=== PATIENT | male | born 1945 | race Caucasian/White ===

== ENCOUNTER 2016-09-25 12:03 | Inpatient (IN) | payer MEDICARE, OTHER ==
[~2016-09-25] VITALS: Ht 182.9 cm; Wt 137.4 kg
[~2016-09-25 12:03] MED LIST: ALTACE10 MG PO; ASPIRIN81 MG PO; CELEXA20 MG PO; HUMALOG KWIKPEN; HUMALOG MIX 75/23 ML; HUMALOG MIX 75/23 ML SC; HUMULIN R100 U/ML SC; HYDRALAZINE HCL50 MG PO; HYDROCODONE-APA1 TAB PO; K-DUR20 MEQ PO; LANTUS INSULIN10 ML SC; LASIX40 MG PO; LIPITOR40 MG PO; MYSOLINE 50 MG50 MG PO; NITROSTAT0.4 MG SL; NORVASC10 MG PO; PEPCID INJ20 MG/2 ML PO; PEPCID20 MG PO; PERCOCET 10/3251 TA1 PO; TIKOSYN500 MCG PO; ULTRAM50 MG PO; XANAX0.5 MG PO; XARELTO10 MG PO; XARELTO20 MG PO; ZOFRAN4 MG PO
[2016-09-25 12:42] LABS: BASOPHILS 0.4 % (0.0-2.0); EOSINOPHILS 1.5 % (0-7); HEMATOCRIT 33.1 % (42.0-54.0); HEMOGLOBIN 10.3 g/dL (13.5-17.5); IMMATURE GRANULOCYTES 0.2 % (0-5); LYMPHOCYTES 15.6 % (15-50); MCH 29.9 pg (26.0-34.0); MCHC 31.1 g/dL (31.0-37.0); MCV 96.2 fL (80.0-100.0); MEAN PLATELET VOLUME 9.9 fL (7.4-10.4); MONOCYTES 9.1 % (2-11); NEUTROPHILS 73.2 % (40-80); RBC 3.44 10x6/uL (4.20-6.10); RDW 15.7 % (11.5-14.5); WBC 8.5 10x3/uL (4.8-10.8)
[2016-09-25 12:44] LABS: PLATELET COUNT 252 10x3/uL (130-400)
--- NOTE | 2016-09-25 13:00 | NUR ---
ARRIVE TO ROOM VIA WHEELCHAIR FROM XRAY. DIRECT ADMIT FROM 'S OFFICE ACCOMPANIED BY SISTER. ALERT AND ORIENTED X4. PARTIAL ASSIST TO BED FROM WHEELCHAIR. GENERALIZED PITTING EDEMA. LOWER EXTREMITIES RED AND SWOLLEN BILATERALLY. O2 SAT 88% RA. INITIATE OXYGEN THERAPY AT 2L NC. REFUSE SCDs. RADIOLOGY ARRIVES TO ROOM FOR ECHO. CONTINUE PLAN OF CARE AND SAFETY PRECAUTIONS. CONTINUE ADMISSION PROCESS.
[2016-09-25 13:02] LABS: BILIRUBIN - TOTAL 0.6 mg/dL (0.2-1.3); CALCIUM 8.7 mg/dL (8.5-10.1); CARBON DIOXIDE 29.3 mmol/L (21.0-32.0); CREATININE - SERUM 1.4 mg/dL (0.6-1.3); POTASSIUM - SERUM 4.3 mmol/L (3.5-5.1); PROTEIN - SERUM 7.6 g/dL (6.4-8.2)
[2016-09-25] MEDS ORDERED: XARELTO20 MG PO (13:20)
[2016-09-25] MEDS ORDERED: LOPRESSOR25 MG PO (13:21)
[2016-09-25] MEDS ORDERED: BD ULTRA-FINE PEN ND (13:23)
[2016-09-25] MEDS ORDERED: PROAIR HFA8.5 GM INH (13:25)
[2016-09-25] MEDS ORDERED: VOLTAREN100 GM TOPICAL (13:26)
[2016-09-25] MEDS ORDERED: GLUCOPHAGE500 MG PO (13:27)
--- NOTE | 2016-09-25 15:00 | NUR ---
ALERT AND ORIENTED X4. SITTING UP IN BED. IV SITE LT FA 22G SUCCESSFUL X1 ATTEMPT. INITIALED AND DATED. PEREZ PLACED ORDERED 18FR. URINE CONCENTRATED. 300ML URINE OUT. BULB INFLATED 10mls. TUBING SECURED TO RT THIGH. BAG INITIALED AND DATED. INITIATE PAIN MANGAGEMENT. O2 SAT ON ROOM AIR 88%. INITIATE OXYGEN THERAPY. O2 @ 2L NC O2-SAT IMPROVE TO 98%. CONTINUE PLAN OF CARE. BED LOCKED AND LOW. CALL LIGHT IN REACH. TWO SIDERAILS UP.
[2016-09-25 16:00] VITALS: BP 171/55
[2016-09-25 17:51] VITALS: BP 170/89; BMI 41.2
[2016-09-25 22:18] VITALS: BP 138/66
[2016-09-26 01:42] VITALS: BP 136/63
--- NOTE | 2016-09-26 03:57 | NUR ---
NURSE ROUNDS 21:00 - PT LYING IN BED, HOB 40 DEGREES, PT AWAKE, ALERT, ORIENTED, C/O INCREASED SOB, NONEXERTIONAL. PT ALSO STATES HE IS HAVING BILATERAL LE PAIN R/T HIS RASH. DENIES ANY ACUTE NEEDS. CONTINUE TO MONITOR CLOSELY.
[2016-09-26 05:25] LABS: BASOPHILS 0.5 % (0.0-2.0); EOSINOPHILS 4.4 % (0-7); HEMATOCRIT 28.7 % (42.0-54.0); HEMOGLOBIN 8.9 g/dL (13.5-17.5); IMMATURE GRANULOCYTES 0.3 % (0-5); MCH 29.6 pg (26.0-34.0); MCV 95.3 fL (80.0-100.0); MEAN PLATELET VOLUME 10.3 fL (7.4-10.4); MONOCYTES 12.8 % (2-11); PLATELET COUNT 224 10x3/uL (130-400); RBC 3.01 10x6/uL (4.20-6.10); RDW 15.5 % (11.5-14.5)
[2016-09-26 05:40] LABS: ANION GAP 10.1 mmol/L (8-16); CALCIUM 8.2 mg/dL (8.5-10.1); CARBON DIOXIDE 30.4 mmol/L (21.0-32.0); CREATININE - SERUM 1.4 mg/dL (0.6-1.3)
[2016-09-26 05:46] LABS: POTASSIUM - SERUM 3.5 mmol/L (3.5-5.1)
[2016-09-26 05:48] VITALS: BP 153/63
[2016-09-26 07:45] VITALS: BP 125/61
[2016-09-26 12:20] VITALS: BP 139/65
[2016-09-26 15:00] VITALS: Ht 182.9 cm; Wt 137.4 kg
[2016-09-26 15:43] VITALS: BP 135/58
--- NOTE | 2016-09-26 17:00 | NUR ---
Patient Name: MICHAEL ERNANDEZ Admission Status: Elective Accout number: [id number] Admission Date: 09-25-2016 : 1945 Admission Diagnosis: Attending: KERRY Current LOS: 1 Anticipated DC Date: Planned Disposition: Home Primary Insurance: MEDICARE A & B Discharge Planning Comments: * Is the patient Alert and Oriented? Yes 0 * How many steps to enter\exit or inside your home? NONE 0 * PCP DR. PALACIOS 0 * Pharmacy [facility] 0 * Preadmission Environment Home Alone 0 * ADLs Independent 0 * Equipment Cane Other 0 * Other Equipment LIFT CHAIR [facility] - MEDICAL EQUIPMENT PROVIDER 0 * List name and contact numbers for known caregivers / representatives who currently or will assist patient after discharge: PAULINE ROSSI, SISTER, 0 * Community resources currently utilized None 0 * Please name any agencies selected above. NONE 0 * Additional services required to return to the preadmission environment? No 0 * Can the patient safely return to the preadmission environment? Yes 0 * Has this patient been hospitalized within the prior 30 days at any hospital? No 0 CM MET WITH PT IN ROOM TO DISCUSS DISCHARGE PLANNING AND NEEDS. PT REPORTS LIVING AT HOME INDEPENDENTLY AND ALONE. PT HAS A CANE AND LIFT CHAIR, PROVIDER OF CHOICE IS [facility]. PT HAS NO OUTSIDE SERVICES ASSISTING IN THE HOME. CM DISCUSSED AVAILABILITY OF HOME HEALTH, REHAB SERVICES AND MEDICAL EQUIPMENT. PT DENIES DISCHARGE NEEDS, REPORTS HIS SISTER AND BROTHER IN LAW WILL ASSIST AT [facility] IF NEEDED AND HIS SISTER WILL PICK HIM UP FOR DISCHARGE HOME. PT PLANS TO DISCHARGE HOME ALONE, DENIES DISCHARGE NEEDS. CM TO FOLLOW AND ASSIST NEEDED. Tube Backer: Serjio Marx
--- NOTE | 2016-09-26 17:50 | NUR ---
ALERT AND ORIENTED X4. RESTING IN BED. SOB DUE TO CHF. OXYGEN THERAPY CONTINUED. MULTIFOCAL PVCs 63bpm ON TELEMETRY. PAIN TOLERATED. TAKES XARELTO. NO SCDs. CONTINUE PLAN OF CARE. BED LOCKED AND LOW. CALL LIGHT IN REACH. TWO SIDERAILS UP.
[2016-09-26 20:03] VITALS: BP 119/56
[2016-09-27 01:14] VITALS: BP 121/44
[2016-09-27 04:00] VITALS: BP 119/47
--- NOTE | 2016-09-27 05:36 | NUR ---
NURSE ROUNDS 20:30 - PT AWAKE, ALERT, ORIENTED, HOB 40 DEGREES. PT DENIES ANY NEEDS, AND IS NO ACUTE DISTRESS. CONTINUE TO MONITOR CLOSELY.
[2016-09-27 05:49] LABS: BASOPHILS 0.6 % (0.0-2.0); EOSINOPHILS 6.8 % (0-7); HEMATOCRIT 28.9 % (42.0-54.0); HEMOGLOBIN 8.8 g/dL (13.5-17.5); IMMATURE GRANULOCYTES 0.1 % (0-5); LYMPHOCYTES 22.8 % (15-50); MCH 29.3 pg (26.0-34.0); MCHC 30.4 g/dL (31.0-37.0); MCV 96.3 fL (80.0-100.0); MEAN PLATELET VOLUME 10.1 fL (7.4-10.4); MONOCYTES 10.2 % (2-11); NEUTROPHILS 59.5 % (40-80); PLATELET COUNT 203 10x3/uL (130-400); RDW 15.7 % (11.5-14.5); WBC 7.1 10x3/uL (4.8-10.8)
[2016-09-27 06:27] LABS: ANION GAP 10.6 mmol/L (8-16); CALCIUM 8.2 mg/dL (8.5-10.1); CARBON DIOXIDE 30.1 mmol/L (21.0-32.0); CREATININE - SERUM 1.4 mg/dL (0.6-1.3); POTASSIUM - SERUM 3.7 mmol/L (3.5-5.1)
--- NOTE | 2016-09-27 06:50 | NUR ---
PT LYING IN BED, EYES CLOSED, RESPIRATIONS EVEN AND UNLABORED. PT EASILY ROUSABLE TO VERBAL STIMULI. DENIES ANY NEEDS AT THIS TIME. I DID PT A PK OF JIGAR ELAM. CONTINUE TO MONITOR CLOSELY.
[2016-09-27 07:50] VITALS: BP 139/71
[2016-09-27 11:59] VITALS: BP 135/54
--- NOTE | 2016-09-27 13:06 | NUR ---
Nutrition follow-up: Diet: ADA consistent CHO, low sodium PO intake 100% of meals Labs reviewed FSBS running high Wt: 302# PO intake is good at this time RDN following.
--- NOTE | 2016-09-27 13:16 | EC ---
PATIENT:MICHAEL ERNANDEZ DATE OF SERVICE: 09/25/16 SEX: M MEDICAL RECORD: [id number] DATE OF : [birth year] LOCATION:D. D.211 AGE OF PATIENT: 71 ADMISSION DATE: 09/25/16 REFERRING PHYSICIAN: INTERPRETING PHYSICIAN: LISBET REHMAN M.D. ECHOCARDIOGRAM REPORT ECHO CHARGES 4 ECHO COMPLETE CLINICAL DIAGNOSIS: CHF EXACERBATION ECHOCARDIOGRAPHIC MEASUREMENTS (adult normal given) AC root (d.<3.7cm) 4.4 LV Septum d (<1.2 cm> 1.9 Valve Excursion 2.6 LV Septum (systole) 2.5 Left Atria (s.<4.0cm> 4.4 LVPW d(<1.2cm) 1.1 RV (d.<2.3cm) 2.8 LVPW (sytole) 1.3 LV diastole(<5.6CM) 6.3 MV E-F(>70mm/sec) LV systole 5.1 LVOT Diameter 2.4 MV exc.(>10mm) Est.ejection fraction (50-75%) Pericardial Effusion N DOPPLER: LVIT A 27.0 E 88.0 LA RVSP 65.0 LVOT 118 AOP1/2T Asc. Ao 130 RVOT 42.0 RA PA 73.0 AV Gradient Peak 6.7 AV Mean 3.4 AV Area 3.0 MV Gradient Peak 3.6 MV Mean 1.1 MV Area COMMENTS: Dental Financial Coordinator: Kaitlin FOOTEOE Sec Accountant:Mario Rehman TAPE# PACS DATE OF SERVICE: 09/25/2016 REFERRING PHYSICIAN: Dr. Daniel. INDICATION: CHF. DESCRIPTION: Left ventricle is moderately dilated. There is global hypokinesis noted. Estimated ejection fraction is in the order of 25% to 30%. Mitral valve is structurally normal. There is mild regurgitation seen. Left atrium is mildly dilated. The aortic valve appears trileaflet. There is no stenosis or ECHOCARDIOGRAM REPORT [id number] [facility] ERNAN[facility] regurgitation seen. Leaflets are thickened. Right ventricle is mildly dilated. Tricuspid valve structures is normal. There is mild regurgitation noted. Right ventricular systolic pressure is elevated at 65 mmHg. There is no pericardial effusion noted. IMPRESSION: 1. Markedly dilated left ventricle with moderate to severe left ventricular dysfunction with ejection fraction of 25% to 30%. 2. Moderate mitral regurgitation. 3. Moderate tricuspid regurgitation with elevated pulmonary pressures. TRANSINT:[id number] Voice Confirmation ID: [id number] DOCUMENT ID: [id number] LISBET REHMAN M.D. at 1316 CC: [id number] DICTATION DATE: 09/27/16818 VICE PRESIDENT DIGITAL STRATEGIST: 09/27/16 0921 ADM IN [place] [id number] [place] [id number]
[2016-09-27 16:44] VITALS: BP 137/63
[2016-09-27 20:20] VITALS: BP 143/65
[2016-09-28 01:10] VITALS: BP 139/76
--- NOTE | 2016-09-28 02:44 | NUR ---
NURSE ROUNDS 20:00 - PT AWAKE, ALERT, ORIENTED, STILL C/O NONEXERTIONAL DYSPNEA, HOB 30 DEGREES. PT HAS QUESTIONS REGARDING HIS MEDICATIONS, IN WHICH I WILL ADDRESS THE FOLLOWING WITH THE DAY SHIFT NURSE AND DR. PALACIOS: INSULIN S/S NEEDS TO BE CHANGED TO HIGH RESISTANCE PER PT PT TAKES OXYCODONE FOR CHRONIC PAIN REGULARLY AND STATES THE PRN TRAMADOL BID IS NOT HELPING PT IS UNABLE TO SLEEP R/T INCREASED PAIN AND DISCOMFORT IN HIS RIGHT SHOULDER AND BLE WE ARE USING PTS LANTUS INSULIN PENS FROM HOME R/T THE PEN PROVIDED BY PHARMACY BROKE WHILE ADMINISTERING PTS LANTUS AND THE ORDER NEEDS TO BE CHANGED IN THE COMPUTER TO PTS OWN MED WILL CONTINUE TO MONITOR PT CLOSELY. BED LOW, HOB 30 DEGREES, CALL LIGHT IN REACH, SIDE RAILS X 2.
[2016-09-28 05:14] VITALS: BP 148/73
[2016-09-28 05:25] LABS: BASOPHILS 0.3 % (0.0-2.0); EOSINOPHILS 5.4 % (0-7); HEMATOCRIT 29.5 % (42.0-54.0); HEMOGLOBIN 8.7 g/dL (13.5-17.5); IMMATURE GRANULOCYTES 0.3 % (0-5); LYMPHOCYTES 15.5 % (15-50); MCH 28.8 pg (26.0-34.0); MCHC 29.5 g/dL (31.0-37.0); MCV 97.7 fL (80.0-100.0); MEAN PLATELET VOLUME 10.3 fL (7.4-10.4); MONOCYTES 10.5 % (2-11); PLATELET COUNT 216 10x3/uL (130-400); RBC 3.02 10x6/uL (4.20-6.10); RDW 15.6 % (11.5-14.5); WBC 7.9 10x3/uL (4.8-10.8)
[2016-09-28 05:45] LABS: ANION GAP 9.2 mmol/L (8-16); CALCIUM 8.2 mg/dL (8.5-10.1); CARBON DIOXIDE 31.7 mmol/L (21.0-32.0); CREATININE - SERUM 1.5 mg/dL (0.6-1.3); POTASSIUM - SERUM 3.9 mmol/L (3.5-5.1)
--- NOTE | 2016-09-28 05:48 | NUR ---
1 UNIT PRBC'S STARTED ORDERED. V/S STABLE. CONTINUE TO MONITOR CLOSELY.
[2016-09-28 08:37] VITALS: BP 129/49
--- NOTE | 2016-09-28 10:00 | NUR ---
PATIENT'S PRBC'S ARE COMPLETE AND THE TUBING IS REMOVED, SALINE FLUSHED THE IV ACCESS AND IT IS PATENT. HE TOOK HIS MEDICATIONS WITHOUT DIFFICULTY. HORTICULTURE PROFESSOR IN THE ROOM AND DISCUSSING PT, REHAB ADMISSION. HE STATES THAT HE WOULD BE WILLING TO HAVE INPT REHAB BUT IS RELUCTANT TO ENTER SKILLED FACILITY. ENCOURAGED HIM TO WORK HARD AND DO HIS BEST. HE DOES LIVE AT HOME ALONE.
--- NOTE | 2016-09-28 10:58 | NUR ---
Patient Name: MICHAEL ERNANDEZ Encounter No: [id number] : 1945 Primary Insurance: MEDICARE A & B Anticipated DC Date: Planned Disposition: INPATIENT REHAB External Planned Provider: [facility] DCP follow-up note: CM RECEIVED ORDER FOR INPATIENT / SNF REHAB; CM MET WITH PT IN ROOM TO DISCUSS DISCHARGE NEEDS AND PLANNING. CM DISCUSSED AVAILABILITY OF HOME HEALTH, REHAB SERVICES AND MEDICAL EQUIPMENT. PT HAS BEEN TO INPATIENT REHAB AT [place] IN THE PAST AND WANTS TO RETURN THERE. PT WILL NOT CONSIDER [facility] FOR REHAB. CM ENCOURAGED PT TO CONSIDER ALL OPTIONS IN CASE HE IS UNABLE TO PARTICIPATE FULLY IN INPATIENT REHAB OR DOES NOT QUALIFY FOR SOME REASON. PT CONTINUES TO REFUSE TO CONSIDER [facility] FOR [facility], REPORTS HE WILL NEED OXYGEN ARRANGED FOR DISCHARGE HOME. CM LEFT PT WITH [facility] LISTING, ENCOURAGED PT TO CONSIDER HIS OPTIONS, SPEAK TO FAMILY OR FRIENDS AND HAVE AT LEAST AN IDEA OF PLAN B JUST IN CASE IT IS NEEDED. IMPORTANT MESSAGE FROM MEDICARE PROVIDED AND EXPLAINED. CM WAITING INPATIENT REHAB PRESCREENING AND DETERMINATION FROM [facility]. Serjio Marx, CASE MANAGEMENT
[2016-09-28 12:29] VITALS: BP 142/66
--- NOTE | 2016-09-28 13:10 | NUR ---
Rehab Note- Rehab Prescreen Order received. The patient appears to be a good IRF candidate when the physician feels he is ready for discharge from acute hospital. Will follow the patient at this time and plan for admit to IRF when ready. Thank you for this referral! Latrice Johns RN Clinical Liaison, [facility]
--- NOTE | 2016-09-28 13:21 | CN ---
PATIENT NAME:MICHAEL ERNANDEZ MEDICAL RECORD: [id number] : [birth year] LOCATION:D.[facility] D.2111 ADMIT DATE: 09/25/16 ACCOUNT: [id number] CONSULTING PHYSICIAN: FRANCESCA CAMEJO MD REFERRING PHYSICIAN: ALISON PALACIOS MD DATE OF CONSULTATION: 09/28/2016 HISTORY OF PRESENT ILLNESS: A 71-year-old gentleman with known history of coronary artery disease, status post coronary artery bypass grafting. He has a history of hypertension as well as diabetes mellitus, obesity, has been unable to use CPAP, admitted with cellulitis as well as anemia, feeling better post-transfusion on IV antibiotics. Echocardiographic study showed EF of 25%-30%. We are asked to see him concerning his cardiovascular status. PAST MEDICAL HISTORY: Includes: 1. History of diabetes mellitus. 2. Coronary artery disease. 3. Ischemic cardiomyopathy. 4. Dyslipidemia. 5. Obesity. MEDICATIONS: Typically include metformin 500 b.i.d., insulin per scale, Lasix 40 b.i.d., Ultram 50 q.i.d. p.r.n., Percocet 10/325 one q.4 p.r.n., Voltaren gel apply t.i.d., aspirin 81 daily, Altace 10 mg b.i.d., metoprolol 25 b.i.d., hydralazine 50 b.i.d., atorvastatin 40 q.h.s., Xarelto 20 daily. ALLERGIES: REGLAN AND CODEINE. SOCIAL HISTORY: He is a nonsmoker, nondrinker. Does use a lift chair, has problems with ADLs. REVIEW OF SYSTEMS: The patient reports easy bruising but reports no swollen glands. The patient reports no fever, no night sweats, no significant weight gain, no significant weight loss. No significant exercise tolerance. The patient reports no dry eyes, no irritation, no vision change. Patient reports no difficulty hearing and no ear pain. Patient reports no frequent nose bleeds or nose and sinus problems. Patient reports on arm pain on exertion. No shortness of breath while lying down. No history of heart murmur. Patient reports no cough, no wheezing or coughing up blood. Patient reports no abdominal pain, no vomiting. Normal appetite. No diarrhea and not vomiting blood. No nausea and no constipation. Patient reports no incontinence. No difficulty urinating. No hematuria. No increased frequency. Patient reports no muscle aches. No weakness, no arthralgias, no back pain. No swelling of the extremities. Patient reports no abnormal mole, no jaundice, no rashes. Reports no loss of consciousness. No weakness and no numbness. No seizures, dizziness, or headaches. The patient reports no depression, no sleep disturbance, feeling safe in a relationship and no alcohol abuse. Patient reports on fatigue. Reports no runny nose or sinus pressure. No itching, no hives, and no frequent sneezing. PHYSICAL EXAMINATION: GENERAL: Pleasant gentleman, alert and oriented. VITAL SIGNS: Blood pressure 129/49, pulse 60 with occasional extrasystole. HEENT: Normocephalic, atraumatic. NECK: No JVD or bruits. CONSULT REPORT [id number] [facility] ERNAN[facility] HEART: Regular, occasional extrasystole, II/ systolic ejection murmur. LUNGS: Diminished air excursion. ABDOMEN: Soft, nontender. EXTREMITIES: Pulses are 2+, improving erythema by nurse's report. NEUROLOGIC: Grossly intact. DIAGNOSTIC DATA: ECG shows PVCs, appropriate compensatory physiologic pulse. IMPRESSION: Cardiomyopathy exacerbation, multifactorial, related to infection as well as component of high output with anemia, currently on beta-mely, CHRISTY inhibitor, potassium is reasonable at 3.9, so I will Aldactone to the current regime as well. Further recommendations based on clinical course. TRANSINT:[id number] Voice Confirmation ID: [id number] DOCUMENT ID: [id number] FRANCESCA CAMEJO MD at 1321 CC: [id number] DICTATION DATE: 09/28/1645 MAGNETIC OBSERVER: 09/28/16 0957 ADM IN [facility] [address] [place] [address]
--- NOTE | 2016-09-28 14:42 | NUR ---
PATIENT HAS BEEN OUT WALKING INTO THE LUEVANO WITH PT.
[2016-09-28 16:42] VITALS: BP 127/61
--- NOTE | 2016-09-28 19:53 | NUR ---
DEPARTMENT STORE DOOR GREETER AT BEDSIDE TO OBTAIN VITALS, CALL LIGHT IN REACH. WILL CONTINUE WITH PLAN OF CARE.
[2016-09-28 20:00] VITALS: BP 131/50
[2016-09-29 02:01] VITALS: BP 118/51
--- NOTE | 2016-09-29 03:20 | NUR ---
PT ASKED PRIOR FOR PERCOCET. ENTERED ROOM TO ADMINISTER, PT SLEEPING
[2016-09-29 04:45] LABS: BASOPHILS 0.1 % (0.0-2.0); EOSINOPHILS 5.1 % (0-7); HEMOGLOBIN 9.7 g/dL (13.5-17.5); IMMATURE GRANULOCYTES 0.2 % (0-5); LYMPHOCYTES 16.6 % (15-50); MCH 29.2 pg (26.0-34.0); MCHC 30.3 g/dL (31.0-37.0); MCV 96.4 fL (80.0-100.0); MEAN PLATELET VOLUME 10.1 fL (7.4-10.4); MONOCYTES 8.8 % (2-11); NEUTROPHILS 69.2 % (40-80); PLATELET COUNT 208 10x3/uL (130-400); RBC 3.32 10x6/uL (4.20-6.10); RDW 15.8 % (11.5-14.5); WBC 8.5 10x3/uL (4.8-10.8)
--- NOTE | 2016-09-29 04:57 | NUR ---
PT AWAKE NOW. MAKING NO MENTION OF PERCOCET
[2016-09-29 05:11] LABS: ANION GAP 11.4 mmol/L (8-16); CALCIUM 8.3 mg/dL (8.5-10.1); CARBON DIOXIDE 29.7 mmol/L (21.0-32.0); CREATININE - SERUM 1.4 mg/dL (0.6-1.3); POTASSIUM - SERUM 4.1 mmol/L (3.5-5.1)
[2016-09-29] MEDS ORDERED: ALBUTEROL0.63 MG/3 INH (07:28)
[2016-09-29] MEDS ORDERED: HUMALOG 30100 UNITS/ SC (07:30)
[2016-09-29] MEDS ORDERED: LAC-HYDRIN 5226 ML TOPICAL (07:30)
[2016-09-29] MEDS ORDERED: BACTRIM DS TABL1 TAB PO (07:33)
[2016-09-29] MEDS ORDERED: ALDACTONE25 MG PO (07:44)
[2016-09-29 08:00] VITALS: BP 140/52
--- NOTE | 2016-09-29 08:24 | NUR ---
0730-AM ROUNDING MADE WITH NO COMPLAINTS AT PRESENT TIME. ON 2L PER NC. ON HEART MONITOR SHOWING SR, OCC PVC, HR 79. WILL CONTINUE TO MONITOR.
[2016-09-29 12:00] VITALS: BP 169/74
--- NOTE | 2016-09-29 12:50 | NUR ---
Patient Name: MICHAEL ERNANDEZ Encounter No: [id number] : 1945 Primary Insurance: MEDICARE A & B Anticipated DC Date: 09-29-2016 Planned Disposition: Inpatient Rehab External Planned Provider: [facility] DCP follow-up note: CM SPOKE TO RN NOHEMI VIRAMONTES WHO INFORMED CM THAT [facility] PLANS TO ACCEPT PT FOR REHAB. PT NOTIFIED, IN AGREEMENT WITH DISCHARGE TO INPATIENT REHAB. PT REPORTS HE IS HAVING A BAD DAY AND NOT FEELING WELL. [facility] INPATIENT REH[facility] TO CONTACT MED 2 NURSE WITH ROOM NUMBER WHEN READY TO ACCEPT PT AND NURSE REPORT. Serjio Marx, CASE MANAGEMENT
--- NOTE | 2016-09-29 13:29 | NUR ---
PT IS ALERT. RECEIVED PT REPORT AT THIS TIME. WILL CONTINUE TO ONITOR. NO OTHER NEEDS.
--- NOTE | 2016-09-29 13:51 | NUR ---
RECEIVED PT REPORT. NO OTHER NEEDS. WILL CONTINUE PLAN OF CARE.
== END 2016-09-29 16:13 | DRG 292 ==
LOC: D.M2 12:03
PROVIDERS: ADMIT Family Medicine
PROC: 0T9B70Z Drainage of Bladder with Drainage Device, Via Natural or Artificial Opening (ICD-10-PCS; principal; 2016-09-25)
DX: I11.0 Hypertensive heart disease with heart failure (principal); Z68.41 Body mass index [BMI] 40.0-44.9, adult; L03.119 Cellulitis of unspecified part of limb; I50.21 Acute systolic (congestive) heart failure; I48.91 Unspecified atrial fibrillation; E11.9 Type 2 diabetes mellitus without complications; Z79.4 Long term (current) use of insulin; I25.10 Atherosclerotic heart disease of native coronary artery without angina pectoris; E66.01 Morbid (severe) obesity due to excess calories; D63.8 Anemia in other chronic diseases classified elsewhere; I25.5 Ischemic cardiomyopathy; R21 Rash and other nonspecific skin eruption; Z95.5 Presence of coronary angioplasty implant and graft; Z95.1 Presence of aortocoronary bypass graft

== ENCOUNTER 2016-09-29 15:10 | Inpatient (IN) | payer MEDICARE, OTHER ==
[~2016-09-29] VITALS: Ht 182.9 cm; Wt 119.7 kg
[~2016-09-29 15:10] MED LIST changes: +ALBUTEROL0.63 MG/3 INH; +ALDACTONE25 MG PO; +BACTRIM DS TABL1 TAB PO; +BD ULTRA-FINE PEN ND; +GLUCOPHAGE500 MG PO; +HUMALOG 30100 UNITS/ SC; +LAC-HYDRIN 5226 ML TOPICAL; +LOPRESSOR25 MG PO; +PROAIR HFA8.5 GM INH; +VOLTAREN100 GM TOPICAL
[2016-09-29 16:51] VITALS: BP 152/49
--- NOTE | 2016-09-29 19:44 | NUR ---
PT IN BED TALKING ON PHONE. HELP GIVEN FILLING OUT MENU. NO OTHER NEEDS MADE KNOWN. CALL LIGHT IN REACH. WILL CONTINUE TO OBSERVE.
--- NOTE | 2016-09-29 22:52 | NUR ---
PT IN BED WITH EYES OPEN WATCHING TV. COMPLAINS OF PAIN WITH PRN MEDICATION GIVEN. NO OTHER CONCERN MADE KNOWN AT THIS TIME. WILL CONTINUE TO OBSERVE. CALL LIGHT AND WATER IN REACH.
[2016-09-29 23:45] VITALS: BP 161/53
--- NOTE | 2016-09-30 01:03 | NUR ---
PT IN BED WITH EYES CLOSED AND CHEST RISING. CPAP MASK APPLIED BY PATIENT. NO SIGN/SYMPTOMS OF PAIN OR DISTRESS NOTED. WATER AND CALL LIGHT IN REACH. WILL CONTINUE TO OBSERVE.
--- NOTE | 2016-09-30 03:39 | NUR ---
PT IN BED WITH EYES CLOSED AND CHEST RISING AT THIS TIME. AT 0300 PT REQUEST PAD BE FLATTENED AND WAS. HE ALSO STATES DIFFICULTY BREATHING WITH HEAD OF BED RAISED AND O2 SAT 99% WITH O2 AT 2LPM. PT STATES HE FELT MORE COMFORTABLE PRIOR TO LEAVING ROOM. NO SIGNS/SYMPTOMS OF DISTRESS NOTED AT THIS TIME. WATER AND CALL LIGHT IN REACH. WILL CONTINUE TO OBSERVE.
[2016-09-30 06:14] LABS: BASOPHILS 0.4 % (0.0-2.0); HEMATOCRIT 30.9 % (42.0-54.0); HEMOGLOBIN 9.4 g/dL (13.5-17.5); IMMATURE GRANULOCYTES 0.3 % (0-5); LYMPHOCYTES 19.9 % (15-50); MCH 29.2 pg (26.0-34.0); MCHC 30.4 g/dL (31.0-37.0); MEAN PLATELET VOLUME 10.2 fL (7.4-10.4); MONOCYTES 11.7 % (2-11); NEUTROPHILS 61.7 % (40-80); PLATELET COUNT 199 10x3/uL (130-400); RBC 3.22 10x6/uL (4.20-6.10); RDW 15.7 % (11.5-14.5); WBC 7.1 10x3/uL (4.8-10.8)
[2016-09-30 06:26] LABS: ANION GAP 9.3 mmol/L (8-16); CALCIUM 8.5 mg/dL (8.5-10.1); CARBON DIOXIDE 30.8 mmol/L (21.0-32.0); CREATININE - SERUM 1.3 mg/dL (0.6-1.3); POTASSIUM - SERUM 4.1 mmol/L (3.5-5.1)
--- NOTE | 2016-09-30 06:43 | NUR ---
PT IN BED WITH EYES OPEN WATCHING TV. NO COMPLAINS OR CONCERNS NOTED AT THIS TIME. CALL LIGHT IN REACH.
--- NOTE | 2016-09-30 07:00 | NUR ---
Pt. was received in bed at the beginning of this shift. Awake and oriented x 3. Pt. denies any pain or discomfort. No signs of any distress found. Stable condition observed. Vital signs:temp.98.7, pulse 74, resp. 16, b/p 128/54, 02Sat. 98%. Rt. shoulder and arm reserved. Becerril catheter is patent and draining yellow urine into drainage bag system. 02per nc going at 2L/min. Will be monitoring and assisting prn with adl's. Call light is in reach.
[2016-09-30 09:57] VITALS: Ht 182.9 cm; Wt 119.7 kg
[2016-09-30 10:08] VITALS: BP 128/54
--- NOTE | 2016-09-30 17:49 | NUR ---
Pt. has had an uneventful day today. He was showered this morning by OT. IV left forearm is patent. Becerril catheter continues to be patent. 02 per nc going at 2L/min. Blood sugar levels monitored as scheduled. Call light is in reach. Resting in bed watching tv.
--- NOTE | 2016-09-30 19:32 | NUR ---
PT RESTING IN BED WATCHING TV, FAMILY AT BEDSIDE, DENIES NEEDS AT THIS TIME. BED LOW. CLIN REACH.
[2016-09-30 19:35] VITALS: BP 143/69
--- NOTE | 2016-09-30 21:32 | NUR ---
PT HS MEDS GIVEN. LOTION APPLIED TO BILAT LEGS AND VOLTAREN APPLIED TO RT HAND. PT FSBS OF 251 REQUIRED 10UNITS OF HUM BE GIVEN ALONG WITH LANTUS. PT DENIES FURTHUR NEEDS AT THIS TIME. BED LOW. CL IN REACH.
--- NOTE | 2016-10-01 01:18 | NUR ---
PT RESTING, EYES CLOSED. BED LOW. CL IN REACH. WCTM.
--- NOTE | 2016-10-01 03:15 | NUR ---
PT REQ AND REC'D PRN PAIN MED. WCTM. BED LOW. CL IN REACH.
--- NOTE | 2016-10-01 06:44 | NUR ---
PT RESTING, EYES CLOSED. BED LOW. CL IN REACH.
--- NOTE | 2016-10-01 08:04 | NUR ---
PATIENT LYING IN BED FOR BREAKFAST. BOOSTED UP IN BED TO EAT. ALERT/ORIENT X4. CALL LIGHT WITHIN REACH. VOICES NO NEEDS AT THIS TIME.
--- NOTE | 2016-10-01 10:54 | NUR ---
PATIENT GIVEN BED BATH. TOLTAL ASST OF TWO. PATIENT ABLE TO WASH FACE. NURSE HAD TO WASH REST OF PATIENTS BODY. PEREZ CATH CARE GIVEN. LINENS CHANGED ON BED.
--- NOTE | 2016-10-01 11:40 | NUR ---
GLUCOSE LEVEL 175. FOUR UNITS OF SLIDING SCALE INSULIN GIVEN
--- NOTE | 2016-10-01 13:59 | NUR ---
PATIENT SLIDE DOWN IN BED. ASST OF TWO TO PULL PATIENT BACK UP IN BED.
--- NOTE | 2016-10-01 15:59 | NUR ---
PATIENT ENCOURAGED TO DRINK MORE FLUIDS. PEREZ CATH PATENT. DRAINING DARK SARY URINE.
--- NOTE | 2016-10-01 17:00 | NUR ---
WATCHING TV.DENIES NEEDS.
[2016-10-01 19:20] VITALS: BP 135/46
--- NOTE | 2016-10-01 19:28 | NUR ---
PT IS RESTING IN BED WATCHING TV. ALERT AND ORIENTED X 4. DENIES ACUTE PAIN OR DISCOMFORT AT THIS TIME. VSS. NO SOB NOTED. O2 IS ON @ 2LPM PER NC. PEREZ CATH IS PATENT AND DRAINING TO A GRAVITY BAG. RIGHT HAND IS ELEVATED UP ON A PILLOW. LEFT FOREARM SALINE LOCK NOTED. SR'S ARE UP X 3 IN BED. CALL LIGHT AND BEDSIDE TABLE ARE WITHIN EASY REACH.
--- NOTE | 2016-10-01 21:56 | NUR ---
PT. IN BED WITH HOB UP FOR COMFORT WATCHING TV. PT. DENIES ANY NEEDS AT THIS TIME AND HAS HIS CALL LIGHT WITHIN REACH. ANA TO BSD WITHOUT PROBLEMS, AND PT. IS WEARING HIS O2 AT 2L/MIN VIA N/C.
--- NOTE | 2016-10-02 00:09 | NUR ---
PT RESTING IN BED DOING A UPDRAFT TX. NO ACUTE DISTRESS NOTED.
--- NOTE | 2016-10-02 03:01 | NUR ---
PT RESTING QUIETLY IN BED WITH EYES CLOSED.
--- NOTE | 2016-10-02 06:02 | NUR ---
PT IS RESTING QUIETLY IN BED WITH EYES CLOSED. AWOKE EASILY TO VERBAL STIMULI. TOLERATED AM MED WITHOUT DIFFICULTY.
[2016-10-02 06:47] LABS: CALCIUM 8.8 mg/dL (8.5-10.1); CREATININE - SERUM 1.3 mg/dL (0.6-1.3)
[2016-10-02 06:52] LABS: ANION GAP 11.8 mmol/L (8-16); POTASSIUM - SERUM 4.8 mmol/L (3.5-5.1)
[2016-10-02 07:23] LABS: BASOPHILS 0.5 % (0.0-2.0); EOSINOPHILS 4.9 % (0-7); HEMATOCRIT 31.3 % (42.0-54.0); HEMOGLOBIN 9.4 g/dL (13.5-17.5); IMMATURE GRANULOCYTES 0.1 % (0-5); LYMPHOCYTES 13.7 % (15-50); MCH 29.1 pg (26.0-34.0); MCV 96.9 fL (80.0-100.0); MEAN PLATELET VOLUME 9.8 fL (7.4-10.4); MONOCYTES 7.6 % (2-11); NEUTROPHILS 73.2 % (40-80); PLATELET COUNT 182 10x3/uL (130-400); RBC 3.23 10x6/uL (4.20-6.10); RDW 15.6 % (11.5-14.5); WBC 8.3 10x3/uL (4.8-10.8)
--- NOTE | 2016-10-02 08:49 | NUR ---
SITTING UP IN BED EATING BREAKFAST. RUE ON PILLOW. F/C PATENT WITH DK SARY URINE NOTED. MAX ASST WITH ALL ADL'S NEEDED.
--- NOTE | 2016-10-02 13:37 | NUR ---
SITTING IN W/C IN ROOM. CALL LIGHT IN REACH
--- NOTE | 2016-10-02 15:35 | NUR ---
RESTING QUIETLY IN BED. F/C DRAINING CLOUDY URINE.
--- NOTE | 2016-10-02 17:45 | NUR ---
SITTING UP IN BED EATING SUPPER WITH LUE. HE STATES HE HAS NO FUNCTION FROM RUE. FLUIDS ENCOURAGED
[2016-10-02 17:48] VITALS: BP 139/63
--- NOTE | 2016-10-02 19:40 | NUR ---
PT. IN BED WITH HOB UP FOR COMFORT AND BLE'S UP ON PILLOWS ALSO. VISIBLE REDNESS TO BLE'S AND PT. STATES HIS PAIN IS ONLY A GENERALIZED #2. O2 @ 2L/MIN VIA N/C/ AND IV TO LEFT FOREARM SALINE LOCKED. CALL LIGHT WITHIN REACH. PT'S SISTER IS VISITING WITH HIM AT THIS TIME.
[2016-10-02 19:41] VITALS: BP 140/64
--- NOTE | 2016-10-02 20:05 | NUR ---
RESUMED CARE OF PT, FAMILY AT BEDSIDE, ALERT & ORIENTED, VITALS ARE STABLE, DENIES ANY NEEDS AT THIS TIME, CALL LIGHT IN REACH, WILL CONTINUE TO MONITOR
--- NOTE | 2016-10-02 23:04 | NUR ---
RESTING WITH EYES CLOSED, CALL LIGHT IN REACH, WILL CONTINUE TO MONITOR
--- NOTE | 2016-10-02 23:25 | NUR ---
APPLIED LOTION TO PT LEGS TO HELP STOP ITCHING
--- NOTE | 2016-10-03 01:00 | NUR ---
RECEIVED REPORT FROM SHARMAINE RYAN LPN
--- NOTE | 2016-10-03 01:14 | NUR ---
RESP TO ROOM FOR TREATMENT
--- NOTE | 2016-10-03 01:24 | NUR ---
RESP FINISHED WITH TREATMENT
--- NOTE | 2016-10-03 02:13 | NUR ---
PT RESTING WITH EYES CLOSED, RESP QUIET, NO DISTRESS NOTED, LEFT UNDISTURBED AT THIS TIME
--- NOTE | 2016-10-03 04:21 | NUR ---
PT AWAKE, DENIES NEEDS OR PAIN, EMPTIED 1600 MLS OF DARK YELLOW URINE FROM PEREZ
--- NOTE | 2016-10-03 06:12 | NUR ---
PT AWAKE, ADM 0600 MEDS PO AND OBTAINED FSBS, SEE EMAR, PT DENIES NEEDS OR PAIN AT THIS TIME
--- NOTE | 2016-10-03 07:00 | NUR ---
SHIFT REPORT TO DAY SHIFT
--- NOTE | 2016-10-03 09:39 | NUR ---
RESTING QUIETLY IN BED. F/C PATENT WITH CLOUDY URINE. RT SHOULDER IS PAINFUL WHEN MOVED. HE HAS ALMOST NO ROM TO RUE.
--- NOTE | 2016-10-03 09:46 | NUR ---
Nutrition Follow Up: Chart reviewed. Pt is eating 100% x 9 meals on a Diabetic diet. Labs noted - Glucose continues elevated. No BM since admit. Wt loss 1# since admit. Meds noted including Lantus, Lasix, Metformin, Humalog. Pt with excellent po intake. Rec continue current diet. RD following.
[2016-10-03 10:40] VITALS: BP 150/52
--- NOTE | 2016-10-03 12:29 | NUR ---
C/O NAUSEA. ZOFRAN GIVEN. DID NOT EAT ALL OF HIS LUNCH
[2016-10-03 19:20] VITALS: BP 119/49
--- NOTE | 2016-10-03 19:45 | NUR ---
PT IN BED HOB UP FOR COMFORT, WATCHING TV, NO COMPLAINTS AT THIS TIME, SIDE RAILS UP, CALL LIGHT WITHIN REACH, BED IN LOWEST POSITION.
--- NOTE | 2016-10-03 19:50 | NUR ---
PT. IN BED WITH HOB UP FOR COMFORT. LE'S CONTINUE TO BE RED FROM CELLULITIS AND PT. HAS THEM ELEVATED UP ON PILLOWS. PT. DENIES ANY NEEDS AT THIS TIME AND HAS HIS CALL LIGHT WITHIN REACH.
--- NOTE | 2016-10-03 23:34 | NUR ---
PT IN BED HOB UP FOR COMFORT, EYES CLOSED, CHEST RISING AND FALLING, RESPIRATIONS EVEN, NO SIGNS OF DISTRESS NOTED, CALL LIGHT WITHIN REACH, BED IN LOWEST POSITION.
[2016-10-04 05:57] LABS: BASOPHILS 0.6 % (0.0-2.0); EOSINOPHILS 5.6 % (0-7); HEMOGLOBIN 9.6 g/dL (13.5-17.5); IMMATURE GRANULOCYTES 0.2 % (0-5); LYMPHOCYTES 16.3 % (15-50); MCH 29.1 pg (26.0-34.0); MEAN PLATELET VOLUME 9.9 fL (7.4-10.4); MONOCYTES 9.9 % (2-11); NEUTROPHILS 67.4 % (40-80); PLATELET COUNT 199 10x3/uL (130-400); WBC 8.9 10x3/uL (4.8-10.8)
[2016-10-04 06:15] LABS: ANION GAP 9.5 mmol/L (8-16); CALCIUM 9.4 mg/dL (8.5-10.1); CARBON DIOXIDE 32.9 mmol/L (21.0-32.0); CREATININE - SERUM 1.4 mg/dL (0.6-1.3); POTASSIUM - SERUM 4.4 mmol/L (3.5-5.1)
--- NOTE | 2016-10-04 06:29 | NUR ---
PT IN BED HOB AT 30 DEGREES, PEREZ TO BSD WITHOUT ANY PROBLEMS, 02 ON 2L VIA N/C, PT HAS NO COMPLAINTS AT THIS TIME, BED IN LOWEST POSITION, CALL LIGHT WITHIN REACH.
--- NOTE | 2016-10-04 06:52 | NUR ---
CHECKED PT'S BLOOD SUGAR WITH RESULTS OF 56. GAVE PT ORANGE JUICE AND JIGAR CRACKERS.
--- NOTE | 2016-10-04 07:30 | NUR ---
PT. OBSERVED LYING IN BED. RESPIRATIONS EVEN AND UNLABORED. OXYGEN 2L. PT. BLOOD SUGAR INCREASED TO 91 AFTER EATING ALL OF HIS JIGAR CRACKERS AND ORANGE JUICE. PT. DENIES ANY REQUESTS AT THIS TIME. BED IN LOWEST POSITION. CALL LIGHT AND BESIDE TABLE WITHIN REACH.
[2016-10-04 08:00] VITALS: BP 125/49
--- NOTE | 2016-10-04 08:00 | NUR ---
PT. RECEIVED LYING IN BED. RESPIRATIONS EVEN AND UNLABORED. PT. DENIES ANY REQUESTS AT THIS TIME. BED IN LOWEST POSITION. CALL LIGHT AND BEDSIDE TABLE WITHIN REACH.
--- NOTE | 2016-10-04 08:45 | NUR ---
RECHECKED BLOOD SUGAR. BLOOD SUGAR INCREASED TO 165. PT. SITTING UP IN BED EATING HIS BREAKFAST WITHOUT DIFFICULTY. PT DENIES ANY NEEDS AT THIS TIME. BED IN LOWEST POSITION. CALL LIGHT AND BEDSIDE TABLE ARE WITHIN REACH.
[2016-10-04 10:15] LABS: APPEARANCE HAZY (CLEAR); BILIRUBIN NEGATIVE (NEGATIVE); COLOR YELLOW (YELLOW); GLUCOSE NEGATIVE (NEGATIVE); KETONE NEGATIVE (NEGATIVE); LEUKOCYTE ESTERASE TRACE (NEGATIVE); NITRITE NEGATIVE (NEGATIVE); PROTEIN 1+ mg/dL (NEGATIVE); SPECIFIC GRAVITY 1.015 (1.005-1.020); UROBILINOGEN NORMAL (NORMAL)
[2016-10-04 10:16] LABS: BACTERIA FEW /hpf (NONE SEEN); EPITHELIAL CELLS 0-5 /hpf (0-5); HYALINE CAST RARE /lpf (NONE SEEN); MUCUS >1+ /lpf (NONE SEEN); RED CELLS - URINE >50 /hpf (0-5); WHITE CELLS - URINE OCC /hpf (0-5)
--- NOTE | 2016-10-04 14:04 | NUR ---
PT. OBSERVED SITTING IN WHEELCHAIR WITH CALL LIGHT AND BEDSIDE TABLE WITHIN REACH. PT. EATING LUNCH WITHOUT DIFFICULTY. DENIES ANY REQUESTS AT THIS TIME.
--- NOTE | 2016-10-04 14:57 | NUR ---
PT. OBSERVED SITTING UPRIGHT IN WHEELCHAIR WITH CALL LIGHT AND BEDSIDE TABLE WITHIN REACH. PT. EATING LUNCH WITHOUT DIFFICULTY. DENIES ANY REQUESTS OR NEEDS AT THIS TIME. CALL LIGHT WITHIN REACH.
--- NOTE | 2016-10-04 16:01 | NUR ---
PT. COMPLAINS OF DIFFICULTY SLEEP AT NIGHT AND REQUESTED A SLEEPING PILL. PAGED DR. FOX AND LEFT A MESSAGE. BED IN LOWEST POSITION. CALL LIGHT AND BEDSIDE TABLE WITHIN REACH.
--- NOTE | 2016-10-04 16:53 | NUR ---
CARE TEAM MEETING: TENATIVE DISCHARGE DATE IS 10/13/16. PCP IS [facility]. PATIENT HAS CANE AND LIFT CHAIR. WILL CONTIUNE TO FOLLOW WITH PATIENT UNTIL DISCHARGED
--- NOTE | 2016-10-04 16:56 | NUR ---
PT. OBSERVED LYING IN BED VISITING WITH FAMILY MEMBERS. PT. DENIES ANY CONCERNS AT THIS TIME. CALL LIGHT AND BEDSIDE TABLE WITHIN REACH. BED IN LOWEST POSITION.
--- NOTE | 2016-10-04 18:35 | NUR ---
PT. OBSERVED LYING IN BED VISITING WITH FAMILY MEMBER. ASSIST PT. IN REPOSITION IN BED. PT. DENIES ANY CONCERNS AT THIS TIME. CALL LIGHT AND BEDSIDE TABLE WITHIN. BED IN LOWEST POSITION.
--- NOTE | 2016-10-04 19:40 | NUR ---
PT IN BED WITH EYES OPEN WATCHING TV. NO CONCERNS MADE KNOWN AT THIS TIME. WATER AND CALL LIGHT IN REACH.
[2016-10-05 00:48] VITALS: BP 126/56
--- NOTE | 2016-10-05 01:06 | NUR ---
PT IN BED WITH EYES OPEN. PULLED UP IN BED 2X ASSIST. PT STATES HE IS MORE COMFORTABLE. NO OTHER MADE KNOWN AT THIS TIME. WATER AND CALL LIGHT IN REACH.
--- NOTE | 2016-10-05 05:28 | NUR ---
PT IN BED EYES CLOSED AND CHEST RISING. RESPIRATIONS EVEN AND UNLABORED. COMPLAINTS OF BEING UNCOMFORTABLE. PRN PAIN MEDS GIVEN EARLIER IN SHIFT AND HAS BEEN PULLED UP IN BED AND REPOSITIONED BUT PT CONTINUES TO COMPLAINT OF BEING UNCOMFORTABLE. NO OTHER COMPLAINTS MADE. WATER AND CALL LIGHT IN REACH.
[2016-10-05 08:02] VITALS: BP 135/64
--- NOTE | 2016-10-05 09:49 | NUR ---
LAYING IN BED RESTING. OXYGEN IN PLACE, F/C DRAINING CLOUDY URINE.. MAX ASST WITH ALL ADL'S
--- NOTE | 2016-10-05 17:49 | NUR ---
SITTING UP IN BED EATING SUPPER. DENIES NEEDS
--- NOTE | 2016-10-05 19:25 | NUR ---
PT IN BED WITH EYES OPEN. NO NEEDS MADE KNOWN. WATER AND CALL LIGHT IN REACH.
[2016-10-05 20:45] VITALS: BP 137/56
--- NOTE | 2016-10-05 23:50 | NUR ---
PT IN BED WITH EYES OPEN. PT REQUEST ASSISTANCE WITH REMOVING BLANKET WITH ASSISTANCE GIVEN. NO OTHER NEEDS MADE KNOWN. WATER AND CALL LIGHT IN REACH.
--- NOTE | 2016-10-06 00:10 | NUR ---
pt resting quietly, no s/s of acute distress.
--- NOTE | 2016-10-06 04:05 | NUR ---
PT IN BED WITH EYES CLOSED AND CHEST RISING. RESPIRATIONS EVEN AND UNLABORED. O2 VIA NASAL CANULA AT 2LPM. NO SIGN/SYMPTOMS OF DISTRESS NOTED. CALL LIGHT IN REACH.
[2016-10-06 05:55] LABS: BASOPHILS 0.5 % (0.0-2.0); EOSINOPHILS 5.6 % (0-7); HEMATOCRIT 29.9 % (42.0-54.0); HEMOGLOBIN 9.1 g/dL (13.5-17.5); IMMATURE GRANULOCYTES 0.1 % (0-5); LYMPHOCYTES 16.4 % (15-50); MCH 29.1 pg (26.0-34.0); MCHC 30.4 g/dL (31.0-37.0); MCV 95.5 fL (80.0-100.0); MEAN PLATELET VOLUME 9.7 fL (7.4-10.4); MONOCYTES 9.7 % (2-11); NEUTROPHILS 67.7 % (40-80); PLATELET COUNT 220 10x3/uL (130-400); RBC 3.13 10x6/uL (4.20-6.10); RDW 16.5 % (11.5-14.5); WBC 9.6 10x3/uL (4.8-10.8)
[2016-10-06 06:04] LABS: ANION GAP 8.5 mmol/L (8-16); CALCIUM 8.5 mg/dL (8.5-10.1); CARBON DIOXIDE 33.9 mmol/L (21.0-32.0); CREATININE - SERUM 1.6 mg/dL (0.6-1.3); POTASSIUM - SERUM 4.4 mmol/L (3.5-5.1)
--- NOTE | 2016-10-06 07:37 | NUR ---
PT RESTING IN BED WITH EYES OPEN CALL LIGHT IN REACH WILL MONITER
[2016-10-06 07:54] VITALS: BP 134/43
--- NOTE | 2016-10-06 10:44 | RHP ---
PATIENT: MICHAEL ERNANDEZ MEDICAL RECORD: [id number] ACCOUNT: [id number] LOCATION:[id number] : 43 ADMISSION DATE: 09/29/16 REHABILITATION HISTORY AND PHYSICAL EXAMINATION POST ADMISSION PHYSICIAN EXAMINATION Post-Admission Physical Exam and History and Physical DATE OF ADMISSION TO REHAB: 09/29/2016. ADMITTING DIAGNOSIS TO THE REHAB: Acute exacerbation of CHF, ischemic cardiomyopathy and left ventricular dysfunction with an ejection fraction of 25% to 30% HISTORY OF PRESENT ILLNESS: The patient is a 71-year-old gentleman admitted with an acute exacerbation of systolic congestive heart failure. He has known history of coronary artery disease, status post coronary artery bypass grafting. He has a history of hypertension, diabetes, sleep apnea, polyneuropathy, asthma and obesity. He presented with several day history of worsening shortness of breath, orthopnea, fatigue, and weakness. The patient has been unable to use his CPAP because he wakes up smothering. The patient has a lift chair and has been broken, so he has been sleep into his legs dependent. He has developed a rapid progressing erythema to cellulitis of both his legs bilaterally. Chest x-ray showed mild cardiomegaly with moderate central pulmonary vascular congestion, more focal appearing mixed interstitial/alveolar infiltrate in the right upper lobe lung and left lung base and acute superimposed infiltrates in these regions were suspected. Echocardiographic study showed an ejection fraction of 25% to 30%. The patient was started on IV diuretics and antibiotics. He has had improvement in his respiratory status with the diuretics. He has a history of anemia of chronic disease. He was transfused 1 unit of packed red blood cells, which also helped with his edema. His cellulitis faded significantly, but he continues to have 2 to 3+ edema in both lower extremities. Fingerstick blood sugars have ranged between 113 to 371. He is on intermittent insulin sliding scale. Prior to admit, he was independent with ADLs and mobility without device. Currently, he is moderate to max assist for ADLs and mobility for short distances secondary to fatigue, weakness and exertional dyspnea. Definitely need to go home with inpatient rehab to get back to his prior level of functioning. COMORBIDITIES: In this patient include diabetes, polyneuropathy, asthma, sleep apnea, orthopnea, anemia, fatigue, weakness, diabetic neuropathy, obesity, history of SC in the past, hypertension, dyslipidemia, and peripheral vascular disease. PAST MEDICAL HISTORY: Significant for obesity, diabetes, orthopnea, sleep apnea, mitral regurgitation, hypertension, dyslipidemia, peripheral vascular disease. PAST SURGICAL HISTORY: Includes coronary artery bypass grafting, PTCA with stents, kidney stone removal and also TSA. ALLERGIES: SURGICAL TAPE, REGLAN, AND CODEINE. CURRENT MEDICATIONS: Include potassium 20 mEq on Sunday, Sunday and Sunday, ____ mg daily, Aldactone 25 mg daily, primidone 250 mg daily, metoprolol 25 mg HISTORY AND PHYSICAL [id number] MCWHERTMICHAEL ANAYA daily, aspirin chewable 81 mg daily, tramadol 50 mg q.i.d. p.r.n., Bactrim 1 p.o. b.i.d., Xarelto 20 mg with dinner, Altace 10 mg t.i.d., also takes primidone 100 mg at bedtime, Percocet 10/325 as needed for pain, metformin 500 mg b.i.d. with meals, on a sliding scale with Humalog insulin, Lantus 94 units q.h.s., Apresoline 50 mg b.i.d., furosemide 40 mg b.i.d., Voltaren Gel as needed, Lipitor 40 mg q.h.s., Lac-Hydrin as needed, Ventolin updrafts as needed and polyethylene glycol 17 grams in 8 ounces of water daily. HABITS: No current alcohol or tobacco use. FAMILY HISTORY: Noncontributory. SOCIAL HISTORY: The patient hopes to return back home and get back to his prior level of functioning. REVIEW OF SYSTEMS: GENERAL: He does complain of weakness and fatigue. HEENT: Denies cold, cough, or congestion. CARDIOVASCULAR: Denies chest pain. LUNGS: Does complain of shortness of breath. PHYSICAL EXAMINATION: VITAL SIGNS: Stable, afebrile. GENERAL: A morbidly obese gentleman in no acute distress, alert upon exam. HEENT: Normocephalic and atraumatic. Mucosa is moist. NECK: Supple. No lymphadenopathy. LUNGS: Clear in upper [place]. HEART: Regular rate and rhythm. ABDOMEN: Benign. EXTREMITIES: No clubbing or cyanosis, but does have noted edema. NEUROLOGIC: Intact. LABORATORY DATA: White count of 7.1, H&H 9.4 and 31 and platelet count is 199. Sodium 140, potassium 4.1, BUN and creatinine of 26 and 1.3 and blood sugar is noted to be 94. ASSESSMENT: This is a 71-year-old gentleman admitted to the rehab with a working diagnosis of acute exacerbation of congestive heart failure complicated by myopathy. The patient has potential to make improvement. We instituted the following multidisciplinary therapies including to, but not limited to physical, occupational, respiratory, speech, nutritional services, prosthetics and orthotics. Given his complex condition and risk for more complications, rehabilitation services cannot be provided at a low level of care such as a longterm facility. PLAN: 1. Admit to [facility] rehab for intensive inpatient therapy to include the following disciplines: A. Physical therapy to improve gait, all transfer skills and bed mobility to a modified independent level. B. Occupational therapy to improve activities of daily living to a modified independent level. C. Case management to assist with discharge planning and placement options. D. Nutrition to assist with nutritional needs. E. Rehabilitation nursing to assist in monitoring the patient's underlying HISTORY AND PHYSICAL [id number] MICHAEL ERNANDEZ medical conditions and to assist with any type of bowel or bladder management. 2. The patient's current medications and medical care will be continued. 3. The patient will be placed on standard fall precautions. 4. We will closely watch the cellulitis in his peripheral extremities and edema. 5. We will go ahead and discuss with care team staff meeting this next week. TRANSINT:[id number] Voice Confirmation ID: [id number] DOCUMENT ID: [id number] LJ FOX MD at 1044 CC: [id number] DICTATION DATE: 09/30/16 1342 [employer] MEMBER: 09/30/[id number] ADM IN [facility] [address] [place] [address]
--- NOTE | 2016-10-06 12:00 | NUR ---
PT UP IN WHEELCHAIR EATING LUNCH TOLERATING WELL WILL MONITER
--- NOTE | 2016-10-06 16:30 | NUR ---
PT HAS REDNESS IN GROIN SCROTUM AND PENIS BOUDREOUX BUTT PASTE APPLIED WILL MONITER
--- NOTE | 2016-10-06 17:51 | NUR ---
SITTING UP IN BED WITHOUT ANY NEEDS VOICED.
[2016-10-06 19:45] VITALS: BP 106/52
--- NOTE | 2016-10-06 20:00 | NUR ---
PT IN BED WITH HOB UP FOR COMFORT, WATCHING TV, NO COMPLAINTS AT THIS TIME, BED IN LOWEST POSITION, CALL LIGHT WITHIN REACH.
--- NOTE | 2016-10-06 22:07 | NUR ---
PT STATES SKIN FOLDS ARE ICTHY. PT'S SKIN FOLDS ARE RED AND IRRITATED. APLLIED NYSTATIN POWDER TO SKIN FOLDS BILATERALLY.
--- NOTE | 2016-10-07 02:33 | NUR ---
PT IN BED HOB UP FOR COMFORT, EYES CLOSED, CHEST RISING AND FALLING, 02 @ 2L VIA N/C, PEREZ TO BSD WITHOUT ANY PROBLEMS, BED IN LOWEST POSITION, CALL LIGHT WITHIN REACH.
--- NOTE | 2016-10-07 05:50 | NUR ---
PT IN BED HOB AT 25 DEGREES, EYES CLOSED, CHEST RISING AND FALLING, PEREZ TO BSD WITHOUT ANY PROBLEMS, O2 @ 2L VIA N/C, NO SIGNS OF DISTRESS NOTED, BED IN LOWEST POSITION, CALL LIGHT WITHIN REACH.
--- NOTE | 2016-10-07 09:32 | NUR ---
RESTING QUIETLY IN BED
[2016-10-07 10:03] VITALS: BP 133/52
--- NOTE | 2016-10-07 12:14 | NUR ---
SITTING UPIN BED EATING LUNCH. CALL LIGHT IN REACH
--- NOTE | 2016-10-07 15:55 | NUR ---
GAVE PT BEDBATH. F/C DRAINING CLOUDY URINE. HE IS MAX ASST WITH ALL ADL'S
--- NOTE | 2016-10-07 17:49 | NUR ---
ATE SUPPER IN BED. NOW WATCHING TV IN BED. F/C PATENT WITH CLOUDY URINE.
[2016-10-07 19:48] VITALS: BP 137/92
--- NOTE | 2016-10-07 19:52 | NUR ---
PT RESTING IN BED WITH EYES OPEN. ALERT AND ORIENTED X 3. DENIES ACUTE PAIN AT THIS TIME. ASSISTED TO REPOSITION IN BED WITH 2 PERSON MAX ASSIST. VSS. 02 IS ON @ 2LPM PER NC. PEREZ CATH IS PATENT AND DRAINING TO A GRAVITY BAG. SR'S ARE UP X 3 IN BED. CALL LIGHT AND BEDSIDE TABLE ARE WITHIN EASY REACH.
--- NOTE | 2016-10-07 21:47 | NUR ---
PT IS RESTING IN BED WITH EYES CLOSED. RESPS ARE EVEN AND UNLABORED. NO ACUTE DISTRESS NOTED.
--- NOTE | 2016-10-08 00:34 | NUR ---
PT RESTING QUIETLY, RESPIRATIONS REGULAR AND UNLABORED. PT IS A TOTAL ASSIST WITH BED MOBILITY.
--- NOTE | 2016-10-08 03:08 | NUR ---
PT RESTING IN BED EATING JIGAR CRACKERS.
--- NOTE | 2016-10-08 06:25 | NUR ---
PT RESTING IN BED WITH EYES OPEN. NO NEEDS VOICED. FSBS WAS 60. PT GIVEN 3 PACKAGES OF JIGAR CRACKERS PER HIS REQUEST. NO S@S OF HYPOGLYCEMIA NOTED.
--- NOTE | 2016-10-08 07:07 | NUR ---
RESTING QUIETLY IN BED. CALL LIGHT IN REACH
--- NOTE | 2016-10-08 10:20 | NUR ---
RESTING QUIETLY IN BED. HOB ELEVATED 45 DEGREES, OXYGEN IN PLACE. EYES CLOSED. RESP EFFORT NON LABORED. F/C PATENT
[2016-10-08 10:21] VITALS: BP 128/54
--- NOTE | 2016-10-08 17:36 | NUR ---
SITTING UP IN BED EATING SUPPER. FEEDS SELF WITH LUE. F/C PATENT WITH DARK COLORED URINE.
[2016-10-08 19:45] VITALS: BP 126/60
--- NOTE | 2016-10-08 19:45 | NUR ---
RECEIVED PT IN BED. PT COMPLAINED OF FEELING UNCOMFORTABLE. REPOSITIONED PT AND CHANGED PINK PAD AND TOP SHEET AND PT STATED FEELING MUCH BETTER. LEFT PT WITH BED IN LOWEST POSITION AND CALL LIGHT WITHIN REACH.
--- NOTE | 2016-10-09 00:16 | NUR ---
PT IN BED WITH HOB UP FOR COMFORT, WATCHING TV, NO COMPLINTS AT THIS TIME, BED IN LOWEST POSITION AND CALL LIGHT WITHIN REACH.
--- NOTE | 2016-10-09 04:16 | NUR ---
PT RESTING, EYES CLOSED. BED LOW. CLIN REACH.
--- NOTE | 2016-10-09 04:47 | NUR ---
PT IN BED WITH HOB UP FOR COMFORT, EYES CLOSED, CHEST RISING AND FALLING, BED IN LOWEST PSOITION AND CALL LIGHT WITHIN REACH.
[2016-10-09 05:56] LABS: BASOPHILS 0.5 % (0.0-2.0); EOSINOPHILS 6.6 % (0-7); HEMATOCRIT 30.3 % (42.0-54.0); HEMOGLOBIN 9.1 g/dL (13.5-17.5); IMMATURE GRANULOCYTES 0.2 % (0-5); LYMPHOCYTES 18.2 % (15-50); MCH 29.2 pg (26.0-34.0); MCV 97.1 fL (80.0-100.0); MEAN PLATELET VOLUME 10.1 fL (7.4-10.4); MONOCYTES 8.3 % (2-11); NEUTROPHILS 66.2 % (40-80); PLATELET COUNT 231 10x3/uL (130-400); RBC 3.12 10x6/uL (4.20-6.10); RDW 16.5 % (11.5-14.5); WBC 8.7 10x3/uL (4.8-10.8)
--- NOTE | 2016-10-09 06:10 | NUR ---
PEREZ CARE GIVEN.
[2016-10-09 06:31] LABS: ANION GAP 8.6 mmol/L (8-16); CALCIUM 8.8 mg/dL (8.5-10.1); CREATININE - SERUM 1.6 mg/dL (0.6-1.3); POTASSIUM - SERUM 5.6 mmol/L (3.5-5.1)
--- NOTE | 2016-10-09 09:26 | NUR ---
RESTING QUIETLY IN BED
[2016-10-09 09:47] VITALS: BP 140/77
--- NOTE | 2016-10-09 13:32 | NUR ---
SITTING UP IN W/C IN ROOM. C/O NOT FEELING WELL TODAY. C/O INCREASED FATIGUE.
--- NOTE | 2016-10-09 15:39 | NUR ---
RESTING QUIETLY IN BED WITH EYES CLOSED. CALL LIGHT IN HAND
[2016-10-09 19:30] VITALS: BP 149/63
--- NOTE | 2016-10-09 19:30 | NUR ---
PT IN BED WITH HOB UP FOR COMFORT, VISITING WITH FRIEND, PT HAD NO COMPLAINTS AT THIS TIME, BED IN LOWEST POSITION, CALL LIGHT WITHIN REACH.
--- NOTE | 2016-10-09 22:52 | NUR ---
PT COMPLAINED OF GROIN ITCHING. BUTT PASTE APPLIED TO GROIN AREA.
--- NOTE | 2016-10-09 22:53 | NUR ---
PEREZ CARE GIVEN.
--- NOTE | 2016-10-10 01:58 | NUR ---
PT RESTING, EYES CLOSED. BED LOW. CL IN REACH.
--- NOTE | 2016-10-10 06:17 | NUR ---
GAVE PT ORANGE JUICE AND JIGAR CRACKERS DUE TO PT'S BLOOD SUGAR BEING 55.
[2016-10-10 06:26] LABS: ANION GAP 11.4 mmol/L (8-16); CALCIUM 8.9 mg/dL (8.5-10.1); CARBON DIOXIDE 32.8 mmol/L (21.0-32.0); CREATININE - SERUM 1.5 mg/dL (0.6-1.3); POTASSIUM - SERUM 5.2 mmol/L (3.5-5.1)
[2016-10-10 08:04] VITALS: BP 129/53
--- NOTE | 2016-10-10 08:09 | NUR ---
BS 146 AFTER EATING BREAKFAST. ALERT AND OX3.
--- NOTE | 2016-10-10 09:31 | NUR ---
RESTING IN BED ON BACK WITHOUT ANY NEEDS VOICED.
--- NOTE | 2016-10-10 11:31 | NUR ---
SITTING IN WHEELCHAIR IN GYM WITHOUT ANY NEEDS NOTED.
--- NOTE | 2016-10-10 13:07 | NUR ---
Nutrition Follow Up: Chart reviewed. Pt is eating 90% meal avg on a Diabetic diet. +BM 10/03/16. Labs noted - K+, BUN, Cr elevated; Glucose low and elevated. Meds noted including Lantus, Lasix, Metformin, Humalog. No new wt to assess. Pt continues with excellent po intake. Rec continue current diet. RD following.
--- NOTE | 2016-10-10 13:29 | NUR ---
PT SITTING IN WHEELCHAIR C/O FEELING NAUSEA, PRN ZOFRAN GIVEN.
--- NOTE | 2016-10-10 15:36 | NUR ---
PT HAD CELLULITIS TO LOWER LEGS. DC CATHETER, HAD 1100CC OF CLOUDY YELLOW URINE.
--- NOTE | 2016-10-10 17:12 | NUR ---
RESTING IN BED WITH SIDERAILS UP X2.
--- NOTE | 2016-10-10 19:30 | NUR ---
PT IN BED WITH EYES OPEN VISITING WITH SISTER. 100ML NOTED IN URINAL AND EMPTIED. NO COMPLAINTS OR CONCERNS NOTED. CALL LIGHT IN REACH.
--- NOTE | 2016-10-10 22:00 | NUR ---
PT IN BED SCHEDULED MEDS GIVEN PER MAR. NO CONCERNS NOTED AT THIS TIME. CALL LIGHT IN REACH.
[2016-10-11 00:02] VITALS: BP 124/59
--- NOTE | 2016-10-11 06:50 | NUR ---
PT IN BED WITH EYES OPEN WATCHING TV. FSBS 47 AT 0600 WITH JIGAR CRACKERS GIVEN REFUSED ANYTHING ELSE. RECHECKED AT 0640 78. PT REFUSED SNACK AFTER EVENING INSULIN ADMINISTRATIONS. PT WITH 425 ML URINE OUTPUT PER URINAL AT 0600. NO CONCERNS NOTED. CALL LIGHT IN REACH.
--- NOTE | 2016-10-11 08:01 | NUR ---
PT. OBSERVED LYING IN BED WATCHING TV. HOB ELEVATED AT 45 DEGREES. EATING BREAKFAST. PT DENIES ANY CONCERNS AT THIS TIME. CALL LIGHT AND PERSONAL ITEMS ARE WITHIN REACH. BED IN LOWEST POSITION.
[2016-10-11 08:42] VITALS: BP 144/54
--- NOTE | 2016-10-11 12:00 | NUR ---
PT. OBSERVED SITTING UP IN HIS WHEELCHAIR EATING LUNCH. PT DENIES ANY CONCERNS AT THIS TIME. CALL LIGHT AND PERSONAL ITEMS WITHIN REACH.
--- NOTE | 2016-10-11 13:57 | NUR ---
CARE TEAM MEETING: PATIENT TEANTIVE DISCHARGE DATE IS 10/13/16 HOME . PATIENT WILL BE IN NEED OF HOME O2 .[facility] PATIENT IS HIS PROVIDER. WILL CONTINUE TO FOLLOW WITH PATIENT UNTIL DISCHARGED
--- NOTE | 2016-10-11 15:57 | NUR ---
PT. OBSERVED LYING IN BED WITH EYES CLOSED. RESPIRATIONS EVEN AND UNLABORED. CALL LIGHT AND PERSONAL ITEMS WITHIN REACH.
--- NOTE | 2016-10-11 17:40 | NUR ---
EATING SUPPER.DENIES NEEDS.
[2016-10-11 19:00] VITALS: BP 135/57
--- NOTE | 2016-10-11 20:00 | NUR ---
PT RESTING IN BED WITH EYES OPEN. ALERT AND ORIENTED X 4. DENIES ACUTE DISCOMFORT AT THIS TIME. BLE EXTREMITIES ARE BRIGHT RED IN COLOR. PT DENIES PAIN OR DISCOMFORT IN THEM. ELEVATED UP OFF BED WITH A PILLOW. SR'S ARE UP X 3 IN BED. CALL LIGHT AND BEDSIDE TABLE ARE WITHIN EASY REACH. SPOUSE IS AT BEDSIDE.
--- NOTE | 2016-10-11 23:03 | NUR ---
PT IS RESTING QUIETLY IN BED WITH EYES CLOSED. RESPS ARE EVEN AND UNLABORED. NO ACUTE DISTRESS NOTED.
--- NOTE | 2016-10-12 01:18 | NUR ---
PT RESTING IN BED WITH EYES CLOSED. USING URINAL PRN.
--- NOTE | 2016-10-12 02:46 | NUR ---
PT RESTING IN BED WITH EYES CLOSED, RESPIRATIONS REGULAR AND UNLABORED, NO S/S OF ACUTE DISTRESS.
--- NOTE | 2016-10-12 05:28 | NUR ---
PT RESTING IN BED WITH EYES OPEN. FSBS WAS 41. PT GIVEN 3 PACKS OF JIGAR CRACKERS PER HIS REQUEST. ALSO ENCOURAGED TO DRINK A GLUCERNA HE HAD ON HIS BEDSIDE TABLE.
--- NOTE | 2016-10-12 07:26 | NUR ---
RESTING QUIETLY IN BED. CALL LIGHT IN REACH
[2016-10-12 08:23] VITALS: BP 119/58
[2016-10-12 19:00] VITALS: BP 125/60
--- NOTE | 2016-10-12 19:30 | NUR ---
RECEIVED PT IN BED WITH HOB UP FOR COMFORT, 02 @ 2L VIA N/C, PT COMPLAINED OF O2 IRRITATING NOSE, CALLED RESPIRATORY AND ORDERED HUMIDIFIER, BED IN LOWEST POSITION AND CALL LIGHT WITHIN REACH.
--- NOTE | 2016-10-12 21:30 | NUR ---
PT'S FSBS WAS 148. HUMALOG NOT GIVEN.
--- NOTE | 2016-10-13 01:55 | NUR ---
PT IN BED WITH HOB UP FOR COMFORT, EYES CLOSED, CHEST RISING AND FALLING, O2 @ 2L VIA N/C, BED IN LOWEST POSITION AND CALL LIGHT WITHIN REACH.
--- NOTE | 2016-10-13 03:45 | NUR ---
PT RESTING, EYES CLOSED. BED LOW. CL IN REACH.
--- NOTE | 2016-10-13 06:07 | NUR ---
PT NOT RECEIVING HUMALOG DUE TO FSBS BEING 95.
--- NOTE | 2016-10-13 06:10 | NUR ---
PT IN BED WITH HOB UP FOR COMFORT, WATCHING TV, PT HAS NO COMPLAINTS AT THIS TIME, BED IN LOWEST POSITION AND CALL LIGHT WITHIN REACH.
[2016-10-13 07:26] LABS: BASOPHILS 0.5 % (0.0-2.0); EOSINOPHILS 7.1 % (0-7); HEMATOCRIT 30.1 % (42.0-54.0); HEMOGLOBIN 9.4 g/dL (13.5-17.5); IMMATURE GRANULOCYTES 0.5 % (0-5); LYMPHOCYTES 10.6 % (15-50); MCH 29.3 pg (26.0-34.0); MCHC 31.2 g/dL (31.0-37.0); MCV 93.8 fL (80.0-100.0); MEAN PLATELET VOLUME 9.6 fL (7.4-10.4); MONOCYTES 15.4 % (2-11); NEUTROPHILS 65.9 % (40-80); PLATELET COUNT 265 10x3/uL (130-400); RBC 3.21 10x6/uL (4.20-6.10); RDW 16.5 % (11.5-14.5); WBC 8.5 10x3/uL (4.8-10.8)
--- NOTE | 2016-10-13 07:30 | NUR ---
RESTING QUIETLY IN BED CALL LIGHT IN LEFT HAND.
[2016-10-13 07:44] LABS: ANION GAP 9.8 mmol/L (8-16); CALCIUM 8.9 mg/dL (8.5-10.1); CARBON DIOXIDE 30.5 mmol/L (21.0-32.0); CREATININE - SERUM 1.7 mg/dL (0.6-1.3); POTASSIUM - SERUM 5.3 mmol/L (3.5-5.1)
[2016-10-13 08:25] VITALS: BP 132/64
--- NOTE | 2016-10-13 09:35 | NUR ---
PATIENT DISCHARGING HOME WITH FAMILY. [facility] WILL PROVIDE NURSING, PT, OT. [facility] PATIENT WILL PROVIDE O2 , ORDERS HAVE BEEN FAXED . DR. PALACIOS OFFICE WILL CALL PATIENT WITH A FOLLOW UP APPOINTMENT.PATIENT CHOICE FORM FOR HOME HEALTH AND IM FORM EXPLAINED , SIGNED AND FILED IN CHART.PATIENT EDUCATION IS DEEP BREATHING EXERCISING.
== END 2016-10-13 13:00 | disposition home health service (06) | DRG 292 ==
LOC: D.REHAB 15:10
PROVIDERS: ADMIT Emergency Medicine
DX: I50.21 Acute systolic (congestive) heart failure (principal); Z68.41 Body mass index [BMI] 40.0-44.9, adult; I25.5 Ischemic cardiomyopathy; Z95.1 Presence of aortocoronary bypass graft; I11.0 Hypertensive heart disease with heart failure; J45.909 Unspecified asthma, uncomplicated; G47.30 Sleep apnea, unspecified; D64.9 Anemia, unspecified; R53.1 Weakness; R53.83 Other fatigue; E66.9 Obesity, unspecified; E78.5 Hyperlipidemia, unspecified; R06.01 Orthopnea; E11.40 Type 2 diabetes mellitus with diabetic neuropathy, unspecified

== ENCOUNTER 2017-02-09 15:21 | Emergency (ER) | payer MEDICARE, OTHER ==
[2016-09-30 09:57] VITALS: BMI 35.8
== END 2017-02-09 20:35 | disposition home or self-care (01) ==
LOC: D.ER 15:21
DX: S40.011A Contusion of right shoulder, initial encounter (principal); S50.01XA Contusion of right elbow, initial encounter; S30.0XXA Contusion of lower back and pelvis, initial encounter; W01.0XXA Fall on same level from slipping, tripping and stumbling without subsequent striking against object, initial encounter; Y93.89 Activity, other specified; Y92.019 Unspecified place in single-family (private) house as the place of occurrence of the external cause; I50.9 Heart failure, unspecified; E11.9 Type 2 diabetes mellitus without complications

== ENCOUNTER 2017-06-08 16:45 | Emergency (ER) | payer MEDICARE, OTHER ==
[2016-09-30 09:57] VITALS: BMI 35.8
[2017-06-08 18:01] LABS: BASOPHILS 0.2 % (0-2); EOSINOPHILS 4.8 % (0-7); HEMATOCRIT 30.7 % (42.0-54.0); IMMATURE GRANULOCYTES 0.3 % (0-5); LYMPHOCYTES 15.7 % (15-50); MCH 32.4 pg (26.0-34.0); MCHC 32.6 g/dL (31.0-37.0); MCV 99.4 fL (80.0-100.0); MEAN PLATELET VOLUME 9.8 fL (7.4-10.4); MONOCYTES 7.4 % (2-11); NEUTROPHILS 71.6 % (40-80); RBC 3.09 10x6/uL (4.20-6.10); RDW 13.7 % (11.5-14.5); WBC 9.9 10x3/uL (4.8-10.8)
[2017-06-08 18:15] LABS: ALBUMIN 2.6 g/dL (3.4-5.0); ALKALINE PHOSPHATASE 101 U/L (46-116); ALT (SGPT) 16 U/L (10-68); BILIRUBIN - TOTAL 0.18 mg/dL (0.2-1.3); CALC OSMOLALITY 301 mosm/kg (275-300); CALCIUM 8.7 mg/dL (8.5-10.1); CARBON DIOXIDE 30.4 mmol/L (21.0-32.0); CHLORIDE - SERUM 104 mmol/L (98-107); CREATININE - SERUM 1.7 mg/dL (0.6-1.3); PLATELET COUNT 188 10x3/uL (130-400); POTASSIUM - SERUM 4.7 mmol/L (3.5-5.1); PROTEIN - SERUM 7.1 g/dL (6.4-8.2); SODIUM 139 mmol/L (136-145); UREA NITROGEN 34 mg/dL (7-18); eGFR NON AFRICAN AMERICAN 42 mL/min (90-120)
[2017-06-08 18:25] LABS: GLUCOSE 385 mg/dL (74-106)
[2017-06-08 18:29] LABS: CHOL - HDL RATIO 3.1 ratio (2.3-4.9); CHOLESTEROL, TOTAL 122 mg/dL (0-200); CKMB 0.6 U/L (0.0-3.6); CREATINE KINASE 48 UL (21-232); HDL CHOLESTEROL 39 mg/dL (32-96); LDL CHOLESTEROL 56 mg/dL (0-100); LDL-HDL RATIO 1.4 ratio (1.5-3.5); MAGNESIUM - SERUM 2.1 mg/dL (1.8-2.4); PRO BNP 2084 pg/mL (0-125); TRIGLYCERIDE 138 mg/dL (30-200)
[2017-06-08 18:32] LABS: TROPONIN-I 0.272 ng/mL (0.000-0.060)
== END 2017-06-08 19:40 | disposition home or self-care (01) ==
LOC: D.ER 16:45
PROVIDERS: Family Medicine
DX: I50.9 Heart failure, unspecified (principal); S30.811A Abrasion of abdominal wall, initial encounter; X58.XXXA Exposure to other specified factors, initial encounter; Y93.89 Activity, other specified; Y92.029 Unspecified place in mobile home as the place of occurrence of the external cause; I49.3 Ventricular premature depolarization; I45.10 Unspecified right bundle-branch block

== ENCOUNTER 2017-09-30 01:23 | Emergency (ER) | payer MEDICARE, OTHER ==
[2016-09-30 09:57] VITALS: BMI 35.8
== END 2017-09-30 03:08 | disposition home or self-care (01) ==
LOC: D.ER 01:23
DX: K59.00 Constipation, unspecified (principal); I50.9 Heart failure, unspecified

== ENCOUNTER 2017-12-01 21:03 | Inpatient (IN) | payer MEDICARE, OTHER ==
[~2017-12-01] VITALS: Ht 182.9 cm; Wt 112.6 kg
[2017-12-01 21:45] LABS: BASOPHILS 0.2 % (0-2); EOSINOPHILS 2.1 % (0-7); HEMATOCRIT 34.4 % (42.0-54.0); HEMOGLOBIN 11.2 g/dL (13.5-17.5); IMMATURE GRANULOCYTES 0.2 % (0-5); LYMPHOCYTES 9.3 % (15-50); MCH 31.8 pg (26.0-34.0); MCHC 32.6 g/dL (31.0-37.0); MCV 97.7 fL (80.0-100.0); MEAN PLATELET VOLUME 9.3 fL (7.4-10.4); MONOCYTES 9.4 % (2-11); NEUTROPHILS 78.8 % (40-80); PLATELET COUNT 232 10x3/uL (130-400); RBC 3.52 10x6/uL (4.20-6.10); RDW 14.3 % (11.5-14.5); WBC 10.1 10x3/uL (4.8-10.8)
[2017-12-01 21:58] LABS: ALBUMIN 2.4 g/dL (3.4-5.0); ANION GAP 13.5 mmol/L (8-16); BILIRUBIN - TOTAL 0.37 mg/dL (0.2-1.3); CALCIUM 9.1 mg/dL (8.5-10.1); CARBON DIOXIDE 27.1 mmol/L (21.0-32.0); CREATININE - SERUM 1.1 mg/dL (0.6-1.3); POTASSIUM - SERUM 4.6 mmol/L (3.5-5.1); PROTEIN - SERUM 7.5 g/dL (6.4-8.2)
[2017-12-02 04:22] VITALS: BP 168/73; BMI 33.6
[2017-12-02 08:27] VITALS: BP 131/65
[2017-12-02] MEDS ORDERED: TOPROL XL25 MG PO (08:59)
[2017-12-02] MEDS ORDERED: PLAVIX75 MG PO (09:00)
[2017-12-02] MEDS ORDERED: DULCOLAX STOOL100 MG PO (09:01)
[2017-12-02 09:45] LABS: CKMB 0.2 U/L (0.0-3.6); CREATINE KINASE 19 UL (21-232)
[2017-12-02 09:46] LABS: TROPONIN-I 0.066 ng/mL (0.000-0.060)
[2017-12-02 10:06] VITALS: Ht 182.9 cm; Wt 112.6 kg
[2017-12-02 13:01] VITALS: BP 138/57
[2017-12-02 16:03] VITALS: BP 162/58
[2017-12-02 16:09] LABS: CKMB 0.3 U/L (0.0-3.6); CREATINE KINASE 18 UL (21-232)
[2017-12-02 20:33] VITALS: BP 136/71
[2017-12-03 04:22] VITALS: BP 140/74
[2017-12-03 05:25] LABS: BASOPHILS 0.2 % (0-2); EOSINOPHILS 4.9 % (0-7); HEMATOCRIT 32.4 % (42.0-54.0); HEMOGLOBIN 10.5 g/dL (13.5-17.5); IMMATURE GRANULOCYTES 0.2 % (0-5); LYMPHOCYTES 15.8 % (15-50); MCH 31.5 pg (26.0-34.0); MCHC 32.4 g/dL (31.0-37.0); MCV 97.3 fL (80.0-100.0); MEAN PLATELET VOLUME 10.1 fL (7.4-10.4); MONOCYTES 11.1 % (2-11); NEUTROPHILS 67.8 % (40-80); PLATELET COUNT 239 10x3/uL (130-400); RBC 3.33 10x6/uL (4.20-6.10); RDW 14.2 % (11.5-14.5); WBC 8.4 10x3/uL (4.8-10.8)
[2017-12-03 05:44] LABS: ALBUMIN 2.2 g/dL (3.4-5.0); BILIRUBIN - TOTAL 0.4 mg/dL (0.2-1.3); CALCIUM 8.8 mg/dL (8.5-10.1); CARBON DIOXIDE 28.9 mmol/L (21.0-32.0); CREATININE - SERUM 1.1 mg/dL (0.6-1.3); PROTEIN - SERUM 6.9 g/dL (6.4-8.2)
[2017-12-03 05:57] LABS: POTASSIUM - SERUM 3.9 mmol/L (3.5-5.1)
[2017-12-03 10:36] VITALS: BP 120/52
== END 2017-12-03 14:00 | disposition home health service (06) | DRG 293 ==
LOC: D.ER 21:03 → D.MS 12-02 02:53 → D.EDHOLD 12-02 02:53 → D.MS 12-02 03:42
PROVIDERS: Family Medicine
DX: I11.0 Hypertensive heart disease with heart failure (principal); I50.21 Acute systolic (congestive) heart failure; E66.9 Obesity, unspecified; Z68.33 Body mass index [BMI] 33.0-33.9, adult; E11.9 Type 2 diabetes mellitus without complications; I25.10 Atherosclerotic heart disease of native coronary artery without angina pectoris; Z95.1 Presence of aortocoronary bypass graft

== ENCOUNTER → 2018-01-09 16:22 | Outpatient (CLI) | payer MEDICARE, OTHER ==
[2017-12-02 10:06] VITALS: BMI 33.6
[~2018-01-09 16:22] MED LIST changes: +CARDIZEM CD120 MG PO; +DULCOLAX STOOL100 MG PO; +MIRALAX527 GM PO; +PLAVIX75 MG PO; +TOPROL XL25 MG PO
== END | disposition home or self-care (01) ==
LOC: D.LABREF 16:22
PROVIDERS: Family Medicine
DX: E11.9 Type 2 diabetes mellitus without complications (principal); I11.0 Hypertensive heart disease with heart failure; I48.2 Chronic atrial fibrillation; Z79.4 Long term (current) use of insulin

== ENCOUNTER 2018-01-11 00:58 | Observation (INO) | payer MEDICARE, OTHER ==
[~2018-01-11] VITALS: Ht 182.9 cm; Wt 118.2 kg
[~2018-01-11 00:58] MED LIST changes: -CARDIZEM CD120 MG PO; -MIRALAX527 GM PO
[2018-01-11 01:25] LABS: BASOPHILS 0.4 % (0-2); EOSINOPHILS 3.1 % (0-7); HEMATOCRIT 34.2 % (42.0-54.0); HEMOGLOBIN 11.1 g/dL (13.5-17.5); IMMATURE GRANULOCYTES 0.2 % (0-5); LYMPHOCYTES 11.7 % (15-50); MCH 31.1 pg (26.0-34.0); MCHC 32.5 g/dL (31.0-37.0); MCV 95.8 fL (80.0-100.0); MONOCYTES 5.7 % (2-11); NEUTROPHILS 78.9 % (40-80); PLATELET COUNT 209 10x3/uL (130-400); RBC 3.57 10x6/uL (4.20-6.10); RDW 14.9 % (11.5-14.5); WBC 8.3 10x3/uL (4.8-10.8)
[2018-01-11 01:36] LABS: ALBUMIN 2.5 g/dL (3.4-5.0); ANION GAP 11.9 mmol/L (8-16); BILIRUBIN - TOTAL 0.33 mg/dL (0.2-1.3); CALCIUM 9.2 mg/dL (8.5-10.1); CREATININE - SERUM 1.3 mg/dL (0.6-1.3); POTASSIUM - SERUM 4.9 mmol/L (3.5-5.1); PROTEIN - SERUM 7.2 g/dL (6.4-8.2)
[2018-01-11 02:03] LABS: AMORPHOUS SEDIMENT <1+ /lpf (NONE SEEN); APPEARANCE CLEAR (CLEAR); BILIRUBIN NEGATIVE (NEGATIVE); COLOR YELLOW (YELLOW); GLUCOSE 100 mg/dL (NEGATIVE); KETONE NEGATIVE (NEGATIVE); NITRITE NEGATIVE (NEGATIVE); PROTEIN 1+ mg/dL (NEGATIVE); RED CELLS - URINE RARE /hpf (0-5); UROBILINOGEN NORMAL (NORMAL); WHITE CELLS - URINE NSEEN /hpf (0-5)
[2018-01-11 04:52] VITALS: BP 150/72; BMI 35.3
[2018-01-11 08:10] VITALS: BP 151/64
[2018-01-11 08:16] VITALS: Ht 182.9 cm; Wt 118.2 kg
[2018-01-11 12:40] VITALS: BP 142/91
[2018-01-11] MEDS ORDERED: MIRALAX527 GM PO (13:23)
[2018-01-11 15:59] VITALS: BP 119/62
== END 2018-01-11 21:00 | disposition home or self-care (01) ==
LOC: D.ER 00:58 → OBSVTIME 03:50 → D.MS 03:50
PROVIDERS: Family Medicine
DX: K59.00 Constipation, unspecified (principal); E66.9 Obesity, unspecified; I25.10 Atherosclerotic heart disease of native coronary artery without angina pectoris

== ENCOUNTER 2018-01-21 12:28 | Inpatient (IN) | payer MEDICARE, OTHER ==
[2018-01-21] VITALS (9 sets, daily range): BP systolic 129–169; BP diastolic 49–78
[~2018-01-21 12:28] MED LIST changes: +MIRALAX527 GM PO
[2018-01-21 15:38] LABS: BASOPHILS 0.4 % (0-2); EOSINOPHILS 4.6 % (0-7); HEMATOCRIT 37.9 % (42.0-54.0); HEMOGLOBIN 12.3 g/dL (13.5-17.5); IMMATURE GRANULOCYTES 0.2 % (0-5); LYMPHOCYTES 12.1 % (15-50); MCH 31.3 pg (26.0-34.0); MCHC 32.5 g/dL (31.0-37.0); MCV 96.4 fL (80.0-100.0); MEAN PLATELET VOLUME 9.5 fL (7.4-10.4); MONOCYTES 9.5 % (2-11); NEUTROPHILS 73.2 % (40-80); PLATELET COUNT 211 10x3/uL (130-400); RBC 3.93 10x6/uL (4.20-6.10); RDW 15.5 % (11.5-14.5); WBC 9.8 10x3/uL (4.8-10.8)
[2018-01-21 15:48] LABS: APTT 33.3 SECONDS (22.8-39.4); INR 1.33 (0.85-1.17)
[2018-01-21 15:53] LABS: ALBUMIN 2.8 g/dL (3.4-5.0); ALKALINE PHOSPHATASE 101 U/L (46-116); ALT (SGPT) 16 U/L (10-68); CALC OSMOLALITY 285 mosm/kg (275-300); CALCIUM 9.3 mg/dL (8.5-10.1); CARBON DIOXIDE 28.3 mmol/L (21.0-32.0); CHLORIDE - SERUM 105 mmol/L (98-107); CREATININE - SERUM 1.2 mg/dL (0.6-1.3); POTASSIUM - SERUM 4.3 mmol/L (3.5-5.1); PROTEIN - SERUM 7.6 g/dL (6.4-8.2); SODIUM 141 mmol/L (136-145); UREA NITROGEN 23 mg/dL (7-18); eGFR NON AFRICAN AMERICAN 63 mL/min (90-120)
[2018-01-21 15:56] LABS: GLUCOSE 114 mg/dL (74-106)
[2018-01-21 16:09] LABS: CKMB 0.6 U/L (0.0-3.6); CREATINE KINASE 30 UL (21-232)
[2018-01-21 16:10] LABS: TROPONIN-I 0.102 ng/mL (0.000-0.060)
[2018-01-22] VITALS: BP 143/62
[2018-01-22 01:14] LABS: CKMB 0.5 U/L (0.0-3.6); CREATINE KINASE 34 UL (21-232)
[2018-01-22 02:26] VITALS: BP 167/66; BMI 35.7
[2018-01-22 04:00] VITALS: BP 131/61
[2018-01-22 06:28] LABS: BASOPHILS 0.4 % (0-2); EOSINOPHILS 6.1 % (0-7); HEMATOCRIT 37.9 % (42.0-54.0); IMMATURE GRANULOCYTES 0.3 % (0-5); LYMPHOCYTES 16.8 % (15-50); MCH 30.8 pg (26.0-34.0); MCHC 31.7 g/dL (31.0-37.0); MCV 97.4 fL (80.0-100.0); MEAN PLATELET VOLUME 9.6 fL (7.4-10.4); MONOCYTES 8.4 % (2-11); PLATELET COUNT 193 10x3/uL (130-400); RBC 3.89 10x6/uL (4.20-6.10); RDW 15.7 % (11.5-14.5)
[2018-01-22 06:35] LABS: WBC 7.3 10x3/uL (4.8-10.8)
[2018-01-22 07:16] LABS: ALBUMIN 2.6 g/dL (3.4-5.0); ALKALINE PHOSPHATASE 98 U/L (46-116); ALT (SGPT) 14 U/L (10-68); CALC OSMOLALITY 286 mosm/kg (275-300); CALCIUM 9.2 mg/dL (8.5-10.1); CARBON DIOXIDE 26.8 mmol/L (21.0-32.0); CHLORIDE - SERUM 107 mmol/L (98-107); CKMB 0.5 U/L (0.0-3.6); CREATINE KINASE 26 UL (21-232); GLUCOSE 145 mg/dL (74-106); POTASSIUM - SERUM 4.9 mmol/L (3.5-5.1); PROTEIN - SERUM 7.3 g/dL (6.4-8.2); SODIUM 140 mmol/L (136-145); UREA NITROGEN 26 mg/dL (7-18); eGFR NON AFRICAN AMERICAN 78 mL/min (90-120)
[2018-01-22 07:21] LABS: TROPONIN-I 0.091 ng/mL (0.000-0.060)
[2018-01-22 08:11] VITALS: BP 154/88
[2018-01-22 09:25] VITALS: BMI 35.7
[2018-01-22 11:40] VITALS: BP 142/75
[2018-01-22 20:00] VITALS: BP 114/44
[2018-01-23] VITALS: BP 116/52
[2018-01-23 04:00] VITALS: BP 152/57
[2018-01-23 07:51] VITALS: BP 128/50
[2018-01-23] MEDS ORDERED: CARDIZEM CD120 MG PO (08:00)
[2018-01-23 11:25] VITALS: BP 133/58
== END 2018-01-23 13:55 | disposition home health service (06) | DRG 308 ==
LOC: D.ER 12:28 → D.M2 19:13 → D.EDHOLD 19:13 → OBSVTIME 19:13 → D.M2 20:59
PROVIDERS: Family Medicine
DX: I48.2 Chronic atrial fibrillation (principal); I50.23 Acute on chronic systolic (congestive) heart failure; I11.0 Hypertensive heart disease with heart failure; E11.40 Type 2 diabetes mellitus with diabetic neuropathy, unspecified; K21.9 Gastro-esophageal reflux disease without esophagitis; I25.10 Atherosclerotic heart disease of native coronary artery without angina pectoris; E66.9 Obesity, unspecified; Z68.35 Body mass index [BMI] 35.0-35.9, adult; Z87.891 Personal history of nicotine dependence

== ENCOUNTER → 2018-04-05 14:27 | Outpatient (CLI) | payer MEDICARE, OTHER ==
[~2018-04-05 14:27] MED LIST changes: +CARDIZEM CD120 MG PO
[2018-04-05 16:05] LABS: BASOPHILS 0.3 % (0-2); EOSINOPHILS 5.2 % (0-7); HEMATOCRIT 37.7 % (42.0-54.0); HEMOGLOBIN 12.1 g/dL (13.5-17.5); IMMATURE GRANULOCYTES 0.1 % (0-5); LYMPHOCYTES 16.8 % (15-50); MCH 30.6 pg (26.0-34.0); MCHC 32.1 g/dL (31.0-37.0); MCV 95.4 fL (80.0-100.0); MEAN PLATELET VOLUME 10.4 fL (7.4-10.4); MONOCYTES 8.3 % (2-11); NEUTROPHILS 69.3 % (40-80); PLATELET COUNT 213 10x3/uL (130-400); RBC 3.95 10x6/uL (4.20-6.10); RDW 15.8 % (11.5-14.5); WBC 9.1 10x3/uL (4.8-10.8)
[2018-04-05 16:23] LABS: ANION GAP 10.6 mmol/L (8-16); CALCIUM 9.5 mg/dL (8.5-10.1); CARBON DIOXIDE 31.6 mmol/L (21.0-32.0); CREATININE - SERUM 1.3 mg/dL (0.6-1.3); POTASSIUM - SERUM 4.2 mmol/L (3.5-5.1)
== END | disposition home or self-care (01) ==
LOC: D.LABREF 14:27
PROVIDERS: Family Medicine
DX: M62.81 Muscle weakness (generalized) (principal)

== ENCOUNTER → 2018-05-13 17:21 | Outpatient (CLI) | payer MEDICARE, OTHER ==
[2018-05-13 19:19] LABS: ANION GAP 11.6 mmol/L (8-16); CALCIUM 9.2 mg/dL (8.5-10.1); CARBON DIOXIDE 27.6 mmol/L (21.0-32.0); CREATININE - SERUM 1.3 mg/dL (0.6-1.3); POTASSIUM - SERUM 4.2 mmol/L (3.5-5.1)
== END | disposition home or self-care (01) ==
LOC: D.LABREF 17:21
PROVIDERS: Family Medicine
DX: I11.0 Hypertensive heart disease with heart failure (principal); I50.9 Heart failure, unspecified; I48.91 Unspecified atrial fibrillation; I10 Essential (primary) hypertension

== ENCOUNTER → 2018-06-21 17:27 | Outpatient (CLI) | payer MEDICARE, OTHER ==
[2018-06-21 17:36] LABS: BASOPHILS 0.3 % (0-2); EOSINOPHILS 6.4 % (0-7); HEMATOCRIT 39.4 % (42.0-54.0); HEMOGLOBIN 13.1 g/dL (13.5-17.5); IMMATURE GRANULOCYTES 0.4 % (0-5); LYMPHOCYTES 12.8 % (15-50); MCH 31.4 pg (26.0-34.0); MCHC 33.2 g/dL (31.0-37.0); MCV 94.5 fL (80.0-100.0); MEAN PLATELET VOLUME 9.8 fL (7.4-10.4); NEUTROPHILS 72.1 % (40-80); PLATELET COUNT 224 10x3/uL (130-400); RBC 4.17 10x6/uL (4.20-6.10); WBC 9.1 10x3/uL (4.8-10.8)
[2018-06-21 17:48] LABS: ANION GAP 7.8 mmol/L (8-16); CALCIUM 9.3 mg/dL (8.5-10.1); CARBON DIOXIDE 35.6 mmol/L (21.0-32.0); CREATININE - SERUM 1.4 mg/dL (0.6-1.3); POTASSIUM - SERUM 5.4 mmol/L (3.5-5.1)
[2018-06-21 17:51] LABS: PROTIME 12.8 SECONDS (11.6-15.0)
== END | disposition home or self-care (01) ==
LOC: D.LABREF 17:27
PROVIDERS: Internal Medicine Cardiovascular Disease
DX: I11.0 Hypertensive heart disease with heart failure (principal); E11.51 Type 2 diabetes mellitus with diabetic peripheral angiopathy without gangrene; I50.23 Acute on chronic systolic (congestive) heart failure

== ENCOUNTER → 2018-07-05 17:16 | Outpatient (CLI) | payer MEDICARE, OTHER ==
[2018-07-05 18:19] LABS: BASOPHILS 0.2 % (0-2); EOSINOPHILS 6.7 % (0-7); HEMATOCRIT 35.6 % (42.0-54.0); HEMOGLOBIN 11.6 g/dL (13.5-17.5); IMMATURE GRANULOCYTES 0.2 % (0-5); LYMPHOCYTES 15.8 % (15-50); MCH 31.4 pg (26.0-34.0); MCHC 32.6 g/dL (31.0-37.0); MCV 96.2 fL (80.0-100.0); MEAN PLATELET VOLUME 9.7 fL (7.4-10.4); MONOCYTES 9.5 % (2-11); NEUTROPHILS 67.6 % (40-80); RDW 15.4 % (11.5-14.5); WBC 8.6 10x3/uL (4.8-10.8)
[2018-07-05 18:23] LABS: PLATELET COUNT 178 10x3/uL (130-400)
[2018-07-05 18:32] LABS: ALBUMIN 2.9 g/dL (3.4-5.0); ANION GAP 11.1 mmol/L (8-16); BILIRUBIN - TOTAL 0.44 mg/dL (0.2-1.3); CALCIUM 9.2 mg/dL (8.5-10.1); CARBON DIOXIDE 30.4 mmol/L (21.0-32.0); CREATININE - SERUM 1.6 mg/dL (0.6-1.3); POTASSIUM - SERUM 5.5 mmol/L (3.5-5.1); PROTEIN - SERUM 6.7 g/dL (6.4-8.2)
[2018-07-05 18:35] LABS: INR 1.38 (0.85-1.17); PROTIME 16.7 SECONDS (11.6-15.0)
== END | disposition home or self-care (01) ==
LOC: D.LABREF 17:16
PROVIDERS: Internal Medicine Cardiovascular Disease
DX: I50.23 Acute on chronic systolic (congestive) heart failure (principal); Z51.81 Encounter for therapeutic drug level monitoring; Z79.01 Long term (current) use of anticoagulants; I48.91 Unspecified atrial fibrillation

== ENCOUNTER 2018-07-30 05:25 | Observation (INO) | payer MEDICARE, OTHER ==
[~2018-07-30] VITALS: Ht 182.9 cm; Wt 117.9 kg
[2018-07-30] VITALS (7 sets, daily range): BP systolic 122–169; BP diastolic 45–652; BMI 35.3
--- NOTE | ~2018-07-30 | HEMODYNAMI ---
PATIENT:MICHAEL ERNANDEZ MEDICAL RECORD: [id number] : 43 LOCATION:[facility] D.2116 ADMISSION DATE: 07/30/18 Generatedon:08/01/201811:31 Patient name: MICHAEL ERNANDEZ Patient #: [id number] SSN : : 1945 Date of study: 08/01/2018 Page: Of Hemodynamic Procedure Report Patient Data Patient Demographics Procedure consent was obtained First Name: MICHAEL Gender: Male Last Name: OMA : 1945 [facility] Initial: DILLON Age: 73 year(s) Patient #: [id number] Race: Unknown Additional ID: [id number] Contact details Address: [address] [place] [address] State: [place] City: [facility] Zip code: [address] Past Medical History Allergies Allergen Reaction Date Comments Reported Other allergy 07/31/2018 Surgical tape, Metolopramide HCL, Codeine. Other allergy 08/01/2018 CODEINE, REGLAN Admission Admission Data Admission Date: 07/30/2018 Admission Time: 7:42 Room #: D.2116 Procedure Procedure Types Cath Procedure Diagnostic Procedure LHC LHC w/Coronaries w/Grafts Sedation Charges Moderate Sedation up to 15 minutes PCI Procedure AMI/SVG/TRAUMA PROGRAM MANAGER PTCA or Stent SVG-BMS/ANAY Initial Procedure Description Procedure Date Procedure Date: 08/01/2018 Procedure Start Time: 10:52 Procedure End Time: 11:22 Procedure Staff Name Function Manuelito Rehman MD Performing Physician Manda Kwong RT Monitor Maggy Delacruz RT Scrub Cliff Koenig RN Nurse Judah Lu RT Spreader Box Operator Procedure Data Cath Procedure Entry Location Entry Primary Successful Side Size Upsize Upsize Entry Closure Succes sful Closure Location (Fr) 1 (Fr) 2 (Fr) Remarks Device Remarks Femoral Right 5 Fr 6 Fr Exoseal artery Short Estimated blood loss: 5 ml Diagnostic catheters Device Type Used For End Catheter Placement MULTIPACK 3DRC 5Fr Right Coronary catheter Angiography MULTIPACK JL 4.0 5Fr Left Coronary catheter Angiography DIAGNOSTIC AR MOD 5Fr Multi-vessel Catheter ([id number]) Angiography MULTIPACK Pigtail 5 Fr LV Angiography catheter DIAGNOSTIC AR2 MOD 5 Fr Multi-vessel catheter ([id number]) Angiography Procedure Complications No complications Procedure Medications Medication Administration Route Dosage 0.9% NaCl I.V. 100 ml/hr Oxygen etCO2 Nasal cannula 2 l/min Heparin Flush Bag added to field 2 bags (1000units/500ml NS) Lidocaine 2% added to field 20 Versed I.V. 1 mg Fentanyl I.V. 50 mcg Versed I.V. 1 mg Fentanyl I.V. 50 mcg Heparin Bolus I.V. 10175 units Plavix P.O. 600 mg Hemodynamics Rest Heart Rate: 69 (bpm) Pressure Samples Time Site Value (mmHg) Purpose Heart Use Rate(bpm) 11:05 LV 128/-2,11 Snapshot 63 11:06 AO 174/76(116) Pullback 63 11:06 LV 204/12,24 Pullback 63 Gradients Valve Time Site 1 Site 2 Mean SEP/DFP Peak To Heart Use (mmHg) (sec/min) Peak Rate (mmHg) (bpm) Aortic 11:06 LV AO 27 23 30 63 204/12,24 174/76(116) Calculations Valve P-P Mean Valve Index Valve Source Name Gradient Area Flow (cm2) Aortic 30 27 30 27 Snapshots Pre Cath Intra NCS Post Cath Vital Signs Time Heart Resp SPO2 etCO2 NIBP (mmHg) Rhythm Pain Sedation Rate (ipm) (%) (mmHg) Status Level (bpm) 10:36:24 60 11 93 2.9 159/80(138) NSR 0 (11) 10(A) , No pain 10:40:44 63 11 96 0 145/75(93) NSR 0 (11) 10(A) , No pain 10:45:43 57 11 98 17.1 162/73(123) NSR 0 (11) 10(A) , No pain 10:50:09 58 12 98 37.2 157/73(130) NSR 0 (11) 10(A) , No pain 10:55:33 56 9 97 0 155/69(124) NSR 0 (11) 10(A) , No pain 10:59:51 60 11 98 0 144/108(123) NSR 0 (11) 10(A) , No pain 11:05:12 89 12 98 35 151/121(143) NSR 0 (11) 10(A) , No pain 11:10:38 57 13 98 35 159/81(132) NSR 0 (11) 9(A) , No pain 11:15:50 63 14 97 30.6 157/72(146) NSR 0 (11) 9(A) , No pain 11:20:16 64 14 97 9.6 147/72(123) NSR 0 (11) 10(A) , No pain Medications Time Medication Route Dose Verified Delivered Reason Note s Effectiveness by by 10:36:06 0.9% NaCl I.V. 100 Cliff Cliff Per physician ml/hr Liberty Koenig RN RN 10:36:19 Oxygen etCO2 2 Cliff Cliff Per physician Nasal l/min Liberty Koenig cannula RN RN 10:36:30 Heparin Flush added 2 bags Cliff Cliff used for Bag to Liberty Koenig procedure (1000units/500ml field RN RN NS) 10:36:40 Lidocaine 2% added 20ml Cliff Cliff for local to vial Liberty Koenig anesthetic field RN RN 10:36:58 Versed I.V. 1 mg Cliff Cliff for sedation Liberty Koenig RN RN 10:37:07 Fentanyl I.V. 50 mcg Cliff Cliff for sedation Liberty Koenig RN RN 10:52:36 Versed I.V. 1 mg Cliff Cliff for sedation Liberty Koenig RN RN 10:52:41 Fentanyl I.V. 50 mcg Cliff Cliff for sedation Liberty Koenig RN RN 11:15:53 Heparin Bolus I.V. 12,000 Cliff Cliff for units Liberty Koenig anticoagulation RN RN 11:26:41 Plavix P.O. 600 mg Cliff Cliff for Liberty Koenig antiplatelet RN RN therapy Procedure Log Time Note 10:19:30 Signed procedure consent form obtained from patient. 10:19:32 Judah GAMBINO(R) sent for patient. Start room use. 10:19:33 Time tracking: Regular hours (M-F 7:00 - 5:00) 10:19:36 Plan of Care:Hemodynamics will remain stable., Cardiac rhythm will remain stable., Comfort level will be maintained., Respiratory function will remain adequate., Patient/ family verbilizes understanding of procedure., Procedure tolerated without complication., Recovers from procedure without complications.. 10:19:44 H&P Date Dictated: 07/30/2018 Within 30 days and on chart., H&P Addendum completed by physician on day of procedure. (MUST COMPLETE FOR ALL OUTPATIENTS). 10:20:12 Patient allergic to Other allergyCODEINE, REGLAN 10:24:34 Patient received from Med II to CCL 2 Alert and oriented. Tansferred to table in Supine position. 10:24:36 Warm blankets applied, and alonzo hugger turned on for patient comfort. 10:24:36 Correct patient and procedure confirmed by team. 10:33:54 ECG and BP/O2 sat monitors applied to patient. 10:33:57 Vital chart was started 10:34:24 Baseline sample Acquired. 10:34:28 Rhythm: sinus rhythm 10:34:30 Full Disclosure recording started 10:34:32 Pre-procedure instructions explained to patient. 10:34:32 Pre-op teaching completed and patient verbalized understanding. 10:34:35 Family in waiting room. 10:34:36 Patient NPO since Midnight. 10:34:43 Is the patient allergic to Iodine/contrast media? No. 10:34:47 Was the patient premedicated? No 10:34:48 Is patient on blood thinner?Yes 10:34:53 ACC The patient was administered the following blood thiners within the last 24 hours: Tena 10:34:55 Patient diabetic? Yes. 10:34:56 If diabetic: On Metformin? No 10:34:59 Previous problem with sedation/anesthesia? No ? 10:35:00 Snore? Yes 10:35:01 Sleep apnea? Yes 10:35:02 Deviated septum? No 10:35:03 Opens mouth fully? Yes 10:35:03 Sticks out tongue? Yes 10:35:06 Airway obstruction? No ? 10:35:08 Dentures? No ? 10:35:11 Pre procedure: right dorsailis pedis pulse 1+ Palpable, but thready & weak; easily obliterated 10:35:13 Pre procedure: left dorsailis pedis pulse 1+ Palpable, but thready & weak; easily obliterated 10:35:15 Patient pain scale 0/10 ?. 10:35:22 IV patent on arrival in left hand with 0.9% NaCl at O. 10:35:24 Lab results completed and on chart. 10:35:28 Right groin area was prepped with chlora-prep and draped in sterile fashion 10:35:29 Alarms reviewed by R. N. 10:35:29 Sharps counted by scrub and verified by R.N. 10:35:32 Physician arrived 10:35:32 Final Timeout: patient, procedure, and site verified with staff and physician. All members of the team are in agreement. 10:35:33 --------ALL STOP TIME OUT------ 10:35:35 Right groin site verified by team. 10:35:37 Physical assessment completed. ASA score P 2 - A patient with mild systemic disease as per Manuelito Rehman MD. 10:35:41 Sedation plan: IV Moderate Sedation Medication:Versed, Fentanyl 10:36:06 0.9% NaCl 100 ml/hr I.V. was administered by Cliff Koenig RN; Per physician; 10:36:19 Oxygen 2 l/min etCO2 Nasal cannula was administered by Cliff Koenig RN; Per physician; 10:36:30 Heparin Flush Bag (1000units/500ml NS) 2 bags added to field was administered by Cliff Koenig RN; used for procedure; 10:36:40 Lidocaine 2% 20ml vial added to field was administered by Cliff Koenig RN; for local anesthetic; 10:36:58 Versed 1 mg I.V. was administered by Cliff Koenig RN; for sedation; 10:37:07 Fentanyl 50 mcg I.V. was administered by Cliff Koenig RN; for sedation; 10:40:14 Use device set Femoral Dx 10:40:15 ACIST Syringe (41593) opened to sterile field. 10:40:16 Bag Decanter (2002S) opened to sterile field. 10:40:16 Medline Cath Pack ([id number]) opened to sterile field. 10:40:17 DIAGNOSTIC WIRE .035 260cm J wire (451750) opened to sterile field. 10:40:18 ACIST Hand Control (59003) opened to sterile field. 10:40:18 ACIST Manifold (93746) opened to sterile field. 10:40:18 DIAGNOSTIC Multipack 5Fr catheter set ([id number]) opened to sterile field. 10:40:19 Tegaderm 4 x 4 (1626W) opened to sterile field. 10:40:20 SHEATH 5FR [place] (JJC514) opened to sterile field. 10:47:22 Zero performed for pressure channel P1 10:52:19 Procedure started. 10:52:25 Local anesthetic to right femoral artery with Lidocaine 2% by Manuelito Rehman MD.INITIAL ACCESS ONLY 10:52:36 Versed 1 mg I.V. was administered by Cliff Koenig RN; for sedation; 10::36 A 5 Fr sheath was inserted into the Right Femoral artery 10:52:41 Fentanyl 50 mcg I.V. was administered by Cliff Koenig RN; for sedation; 10:55:44 A MULTIPACK 3DRC 5Fr catheter was advanced over the wire and used for Right Coronary Angiography. 10:56:53 RCA angiography performed. 10:57:04 Injector settings: Ml/sec: 3, Volume: 6, 10:57:28 Catheter removed. 10:57:38 A MULTIPACK JL 4.0 5Fr catheter was advanced over the wire and used for Left Coronary Angiography. 10:59:11 LCA angiography performed. 10:59:14 Injector settings: Ml/sec: 3, Volume: 6, 11:00:27 Catheter removed. 11:00:36 A DIAGNOSTIC AR MOD 5Fr Catheter (294454E) was advanced over the wire and used for Multi-vessel Angiography. 11:04:01 SVG to Circ angiography performed. 11:04:04 Catheter removed. 11:04:20 A MULTIPACK Pigtail 5 Fr catheter was advanced over the wire and used for LV Angiography. 11:05:41 LV hemodynamics recorded. 11:05:42 LV gram done using MARINO 11:05:45 Injector settings: Ml/sec: 5, Volume: 15, 11:05:53 EF : 20 % 11:06:28 Catheter removed. 11:06:41 Aortic Root visualized 11:07:42 A DIAGNOSTIC AR2 MOD 5 Fr catheter ([id number]) was advanced over the wire and used for Multi-vessel Angiography. 11:08:33 SVG to RCA angiography performed. 11:11:12 Catheter removed. 11:11:18 SHEATH 6FR [place] (PWJ768) opened to sterile field. 11:11:35 INFLATOR Merit Andrésk (TN9613) opened to sterile field. 11:11:35 TUBING High Pressure Extension Tubing (Rehman) ([id number]) opened to sterile field. 11:11:36 BMW 300cm [place] 2 J wire ([id number]) opened to sterile field. 11:12:17 Proceeding to intervention. 11:12:26 Sheath upsized to a 6 Fr Short. 11:12:50 GUIDE 6FR AR 2.0 catheter ([id number]) opened to sterile field. 11:12:59 6 Fr ar 2 guide catheter was inserted over the wire 11:14:10 bmw wire advanced. 11:15:53 Heparin Bolus 12,000 units I.V. was administered by Cliff Koenig RN; for anticoagulation; 11:17:27 Wire advanced across lesion. 11:20:03 Place stent Inflation Number: 1 A PAMELA OTW 3.5 x 26 stent ([id number]) was prepped and advanced across the Aorta Right -> Mid RCA. The stent was deployed at 13 MIREYA for 0:10 (min:sec). 11:21:10 Stent catheter was removed intact over wire. 11:21:11 Wire removed. 11:21:11 Guide catheter removed. 11:21:28 Sheath removed intact; hemostasis achieved with Exoseal to the Right Femoral artery. 11:21:30 Procedure ended.(Physican Out) 11:21:43 Insertion/operative site no bleeding no hematoma. 11:21:46 Post-op/insertion site Right Femoral artery dressed using a 4 x 4 and Tegaderm. 11:21:49 Post right femoral artery:stable 11:21:50 Post Procedure Pulses reassessed and unchanged 11:21:53 Post procedure rhythm: unchanged. 11:21:55 Estimated blood loss: 5 ml 11:21:57 Post procedure instruction explained to patient.Patient verbalizes understanding. 11:21:57 Patient needs reinforcement of post procedure teaching. 11:22:11 Procedure type changed to Cath procedure, Diagnostic procedure, LHC, LHC w/Coronaries w/Grafts, Sedation Charges, Moderate Sedation up to 15 minutes, PCI procedure, AMI/SVG/TRAUMA PROGRAM MANAGER PTCA or Stent, SVG-BMS/ANAY Initial 11:22:12 Procedure and supply charges have been captured, reviewed, submitted and are correct. 11:22:16 Procedure Complication : No complications 11::19 Vital chart was stopped 11::19 See physician's report for complete and final results. 11::24 Report given to [facility]. 11:: Patient transfered to [facility] with Stretcher. 11::29 Procedure ended. 11::29 Full Disclosure recording stopped 11::38 ACC-PCI Only Patient was given prescriptions, or instructed by Manuelito Rehman MD to start/continue the following medications upon discharge: Plavix 11::39 End room use (Document Last) 11:: FEMSTOP Gold (N57796) opened to sterile field. 11::41 Plavix 600 mg P.O. was administered by Cliff Koenig RN; for antiplatelet therapy; Intervention Summary Intervention Notes Time ActionType Lesion and Equipment Action# Pressure Duration Attributes Used 11:20:03 Place stent Aorta Right PAMELA OTW 3.5 1 13 00:10 -> Mid RCA x 26 stent ([id number]) Device Usage Item Name Manufacture Quantity Catalog Hospital Part Current Mini mal Lot# / Number Charge Number Stock Stock Serial# Code ACIST Syringe Acist 1 70714 306132 343574 162834 20 (78552) Medical Systems Inc Bag Decanter Microtek 1 2001S 126107 28888 185068 5 (2001S) Medical Inc. Medline Cath Medline 1 [id number] 591860 84511 381405 5 Pack ([id number]) DIAGNOSTIC St Azeem 1 949565 331367 000156 176989 30 WIRE .035 260cm J wire (160531) ACIST Hand Acist 1 68277 521034 907920 628529 5 Control Medical (94425) Systems Inc ACIST Acist 1 93987 768220 886165 451856 5 Manifold Medical (50110) Systems Inc DIAGNOSTIC Cardinal 1 XI8324 682412 87135 456479 30 Multipack 5Fr Health catheter set (MZ3075) Tegaderm 4 x 3M 1 1626W 376991 516726 478131 5 4 (1626W) SHEATH 5FR Terumo 1 YYW080 329664 132763 880754 5 [place] (VVH892) MULTIPACK Cardinal 1 787810 5 3DRC 5Fr Health catheter MULTIPACK JL Cardinal 1 366058 5 4.0 5Fr Health catheter DIAGNOSTIC AR Cardinal 1 779984X 250597 084188 116700 15 MOD 5Fr Health Catheter (813610Q) MULTIPACK Cardinal 1 119103 5 Pigtail 5 Fr Health catheter DIAGNOSTIC Cardinal 1 709785Y 352883 612450 425618 20 AR2 MOD 5 Fr Health catheter (821545M) SHEATH 6FR Terumo 1 LZL617 565320 587862 800912 40 [place] (KUG316) INFLATOR Merit 1 QC5340 723724 418113 469611 15 Merit Medical BasixCompak (PO0493) TUBING High Merit 1 QS2612L 619283 21289 610801 10 Pressure Medical Extension Tubing (Rehman) (RK1653C) BMW 300cm Trotter 1 [id number] 055710 846041 702230 5 [place] 2 J Vascular wire (9706853T) GUIDE 6FR AR Medtronic 1 MQ1VR88 184569 30217 784173 1 2.0 catheter (WD9AM43) PAMELA OTW 3.5 Medtronic 1 [id number] 925362 5225070 137441 5 [id number] x 26 stent ([id number]) FEMSTOP Gold St Azeem 1 O17306 445251 101529 921556 5 (O88436) Signature Audit [place] Stage Time Signature Unsigned Intra-Procedure 08/01/2018 Manda Kwong 11:31:00 AM RT(R) Signatures Monitor : Manda Kwong RT Signature : Date : Time : [facility] [address] [facility] [place] [address]
--- NOTE | ~2018-07-30 | MORECARE ---
CASE MANAGEMENT DISCHARGE SUMMARY PATIENT: MICHAEL ERNANDEZ UNIT: [id number] ADM DATE: 07/30/18 AGE: 73 : 43 SEX: M ROOM/BED: D.7136 AUTHOR: JAYME PEREZ PHYSICIAN: REFERRING PHYSICIAN: ALISON PALACIOS MD DATE OF SERVICE: 08/02/18 Discharge Plan Patient Name: MICHAEL ERNANDEZ Facility: [facility]:[place] : 1945 Planned Disposition: Home with Home Health Anticipated Discharge Date: 08/02/18 Discharge Date: Expected LOS: 3 Initial Reviewer: [email or web address] Initial Review Date: 08/02/2018 Generated: 08/02/18 4:17 pm Comments DCP- Discharge Planning Updated by [email or web address]: Serjio Marx on 08/02/18 2:[address] Patient Name: MICHAEL ERNANDEZ Admission Status: ER Accout number: [id number] Admission Date: 07-30-2018 : 1945 Admission Diagnosis: Attending: ALISON PALACIOS Current LOS: 3 Anticipated DC Date: 08-02-2018 Planned Disposition: Home with Home Health Primary Insurance: MEDICARE A & B PLANNED EXTERNAL PROVIDER: [facility] Discharge Planning Comments: CM MET WITH PT AND SISTER IN ROOM TO DISCUSS DISCHARGE PLANNING AND NEEDS. MICHAEL ERNANDEZ provided verbal consent to discuss current and ongoing needs with/in the presence of: PAULINE ADLER. PT REPORTS LIVING AT HOME INDEPENDENTLY AND ALONE. PT HAS GLUCOMETER, HOME AND PORTABLE OXYGEN, ROLLING WALKER AND WHEELCHAIR FROM [facility] PATIENT. PT HAS HOME HEALTH NURSING AND PHYSICAL THERAPY WITH [facility] . CM DISCUSSED AVAILABILITY OF HOME HEALTH, REHAB SERVICES AND MEDICAL EQUIPMENT. PT DENIES DISCHARGE NEEDS, REPORTS HE HAS CALLED HOME HEALTH AND IS HAVING AMBULANCE TRANSPORT HOME. CM CALLED [facility], , SPOKE TO LUCAS WHO REPORTS PT ON THE SCHEDULE FOR HOME HEALTH RESUMPTION. CM FAXED DISCHARGE INFORMATION TO [facility] AT [phone]. SET OFF PRESS OPERATOR NURSE NOTIFIED. Compensation And Benefits Advisor: Serjio Marx DCPIA - Discharge Planning Initial Assessment Updated by [email or web address]: Serjio Marx on 08/02/18 3:13 pm * Is the patient Alert and Oriented? Yes * How many steps to enter\exit or inside your home? NONE * PCP DR. PALACIOS * Pharmacy [facility] * Preadmission Environment Home Alone * ADLs Independent * Equipment Glucometer Oxygen Rolling Walker Wheelchair * Other Equipment HOME AND PORTABLE OXYGEN [facility] PATIENT - MEDICAL EQUIPMENT PROVIDER * List name and contact numbers for known caregivers / representatives who currently or will assist patient after discharge: PAULINE ROSSI, SISTER, OR HOME [phone] * Verbal permission to speak to the caregivers and representatives has been obtained from the patient. Yes * Community resources currently utilized Home Health * Please name any agencies selected above. [facility] * Additional services required to return to the preadmission environment? No * Can the patient safely return to the preadmission environment? Yes * Has this patient been hospitalized within the prior 30 days at any hospital? No External Providers External Provider: [facility] Next Contact Date: 08/02/2018 Service Request Date: Service Type: Resolution: Reviewer: Comments: Coverage Notice Reviewer: [email or web address] Betsy Lobato Notice Issued Date-Time: 07/30/2018 11:30 Notice Type: Medicare Outpatient Observation Notice Notice Delivered To: Patient Relationship to Patient: Self Truck Engine Technician Name: Delivery Method: HAND - Hand Delivered Gina Days: Prior Verbal Notification: Recipient Understood Notice: Yes Recipient Signature: Yes Med Rec Note Co-signed by Attending: Coverage Notice Comment: Patient Name: MICHAEL ERNANDEZ Page [phone] at 1517 All edits/amendments must be made on the electronic document DICTATION DATE: 08/02/181516 MEDICAL ONCOLOGY PHYSICIAN: MARIAM 08/02/181516 RPT#: [id number] DC DATE: STATUS: ADM IN [facility] [address] [place] [address] END OF REPORT
[2018-07-30 05:56] LABS: BASOPHILS 0.3 % (0-2); EOSINOPHILS 7.3 % (0-7); HEMATOCRIT 35.2 % (42.0-54.0); HEMOGLOBIN 11.5 g/dL (13.5-17.5); IMMATURE GRANULOCYTES 0.3 % (0-5); LYMPHOCYTES 16.6 % (15-50); MCH 32.2 pg (26.0-34.0); MCHC 32.7 g/dL (31.0-37.0); MCV 98.6 fL (80.0-100.0); MEAN PLATELET VOLUME 9.9 fL (7.4-10.4); MONOCYTES 7.3 % (2-11); NEUTROPHILS 68.2 % (40-80); PLATELET COUNT 195 10x3/uL (130-400); RBC 3.57 10x6/uL (4.20-6.10); RDW 15.2 % (11.5-14.5); WBC 8.8 10x3/uL (4.8-10.8)
[2018-07-30 06:17] LABS: ALBUMIN 2.8 g/dL (3.4-5.0); ANION GAP 12.5 mmol/L (8-16); BILIRUBIN - TOTAL 0.34 mg/dL (0.2-1.3); CALCIUM 8.4 mg/dL (8.5-10.1); CARBON DIOXIDE 29.3 mmol/L (21.0-32.0); CREATININE - SERUM 1.8 mg/dL (0.6-1.3); MAGNESIUM - SERUM 2.3 mg/dL (1.8-2.4); POTASSIUM - SERUM 5.8 mmol/L (3.5-5.1); PROTEIN - SERUM 7.5 g/dL (6.4-8.2); TROPONIN-I 0.056 ng/mL (0.000-0.060)
[2018-07-30] MEDS ORDERED: ELIQUIS5 MG PO (10:19)
[2018-07-30] MEDS ORDERED: OMEPRAZOLE20 M1 PO (10:19)
[2018-07-30] MEDS ORDERED: MULTAQ400 MG PO (10:19)
[2018-07-30] MEDS ORDERED: HYDRALAZINE HC100 MG PO (10:20)
[2018-07-30] MEDS ORDERED: HUMALOG 30100 UNITS/ (10:32)
[2018-07-30] MEDS ORDERED: BASAGLAR K100 UNIT/1 SC (10:34)
[2018-07-30] MEDS ORDERED: LASIX80 MG PO (10:36)
[2018-07-30] MEDS ORDERED: VENTOLIN HFA18 GM INH (10:37)
[2018-07-31] VITALS: BP 133/48
[2018-07-31 04:00] VITALS: BP 127/55
[2018-07-31 05:48] LABS: BASOPHILS 0.4 % (0-2); EOSINOPHILS 6.9 % (0-7); HEMATOCRIT 30.7 % (42.0-54.0); HEMOGLOBIN 9.9 g/dL (13.5-17.5); IMMATURE GRANULOCYTES 0.2 % (0-5); LYMPHOCYTES 16.8 % (15-50); MCH 31.7 pg (26.0-34.0); MCHC 32.2 g/dL (31.0-37.0); MCV 98.4 fL (80.0-100.0); MEAN PLATELET VOLUME 9.8 fL (7.4-10.4); MONOCYTES 9.6 % (2-11); NEUTROPHILS 66.1 % (40-80); PLATELET COUNT 191 10x3/uL (130-400); RBC 3.12 10x6/uL (4.20-6.10); RDW 15.2 % (11.5-14.5); WBC 8.4 10x3/uL (4.8-10.8)
[2018-07-31 06:14] LABS: ANION GAP 11.6 mmol/L (8-16); CALCIUM 8.1 mg/dL (8.5-10.1); CREATININE - SERUM 1.9 mg/dL (0.6-1.3); POTASSIUM - SERUM 5.6 mmol/L (3.5-5.1)
[2018-07-31 07:57] VITALS: BP 147/38
[2018-07-31 10:53] VITALS: Ht 182.9 cm; Wt 117.9 kg
[2018-07-31 11:34] VITALS: BP 132/36
[2018-07-31 16:07] VITALS: BP 119/43
[2018-08-01] VITALS: BP 133/60
[2018-08-01 04:00] VITALS: BP 105/75
[2018-08-01 07:54] VITALS: BP 183/86
[2018-08-01 15:00] VITALS: BP 119/79
[2018-08-01 20:00] VITALS: BP 136/67
[2018-08-02 02:11] VITALS: BP 125/47
[2018-08-02 04:00] VITALS: BP 125/47
[2018-08-02 05:09] LABS: BASOPHILS 0.3 % (0-2); EOSINOPHILS 4.3 % (0-7); HEMATOCRIT 29.1 % (42.0-54.0); HEMOGLOBIN 9.7 g/dL (13.5-17.5); IMMATURE GRANULOCYTES 0.3 % (0-5); LYMPHOCYTES 13.2 % (15-50); MCH 31.8 pg (26.0-34.0); MCHC 33.3 g/dL (31.0-37.0); MEAN PLATELET VOLUME 9.4 fL (7.4-10.4); MONOCYTES 12.5 % (2-11); NEUTROPHILS 69.4 % (40-80); PLATELET COUNT 168 10x3/uL (130-400); RBC 3.05 10x6/uL (4.20-6.10); RDW 14.7 % (11.5-14.5); WBC 8.9 10x3/uL (4.8-10.8)
[2018-08-02 05:11] LABS: MCV 95.4 fL (80.0-100.0)
[2018-08-02 05:30] LABS: ANION GAP 12.9 mmol/L (8-16); CALCIUM 8.6 mg/dL (8.5-10.1); CREATININE - SERUM 1.9 mg/dL (0.6-1.3); POTASSIUM - SERUM 4.9 mmol/L (3.5-5.1)
[2018-08-02] MEDS ORDERED: PLAVIX75 MG PO (12:50)
== END 2018-08-02 17:22 | disposition home health service (06) ==
LOC: D.ER 05:25 → OBSVTIME 07:42 → D.M2 07:42
PROVIDERS: Family Medicine
DX: T82.857A Stenosis of other cardiac prosthetic devices, implants and grafts, initial encounter (principal); Y83.8 Other surgical procedures as the cause of abnormal reaction of the patient, or of later complication, without mention of misadventure at the time of the procedure; I25.10 Atherosclerotic heart disease of native coronary artery without angina pectoris; Z95.1 Presence of aortocoronary bypass graft; I48.2 Chronic atrial fibrillation; Z79.01 Long term (current) use of anticoagulants; I11.0 Hypertensive heart disease with heart failure; I50.9 Heart failure, unspecified
CPT/HCPCS: 93459; C9604

== ENCOUNTER 2018-08-07 21:34 | Emergency (ER) | payer MEDICARE, OTHER ==
[~2018-08-07] VITALS: Ht 182.9 cm; Wt 118.2 kg
[~2018-08-07 21:34] MED LIST changes: +BASAGLAR K100 UNIT/1 SC; +ELIQUIS5 MG PO; +HUMALOG 30100 UNITS/; +HYDRALAZINE HC100 MG PO; +LASIX80 MG PO; +MULTAQ400 MG PO; +OMEPRAZOLE20 M1 PO; +VENTOLIN HFA18 GM INH
[2018-08-07 21:40] VITALS: Ht 182.9 cm; Wt 118.2 kg
[2018-08-08 00:58] LABS: BASOPHILS 0.3 % (0-2); HEMATOCRIT 29.5 % (42.0-54.0); HEMOGLOBIN 9.6 g/dL (13.5-17.5); IMMATURE GRANULOCYTES 0.3 % (0-5); LYMPHOCYTES 14.1 % (15-50); MCH 32.2 pg (26.0-34.0); MCHC 32.5 g/dL (31.0-37.0); MEAN PLATELET VOLUME 9.1 fL (7.4-10.4); MONOCYTES 8.9 % (2-11); NEUTROPHILS 70.4 % (40-80); PLATELET COUNT 177 10x3/uL (130-400); RBC 2.98 10x6/uL (4.20-6.10); RDW 15.1 % (11.5-14.5); WBC 9.9 10x3/uL (4.8-10.8)
[2018-08-08 01:13] LABS: ALBUMIN 2.8 g/dL (3.4-5.0); ANION GAP 10.9 mmol/L (8-16); BILIRUBIN - TOTAL 0.61 mg/dL (0.2-1.3); CALCIUM 8.9 mg/dL (8.5-10.1); CARBON DIOXIDE 31.1 mmol/L (21.0-32.0); CREATININE - SERUM 1.8 mg/dL (0.6-1.3); PROTEIN - SERUM 7.3 g/dL (6.4-8.2)
[2018-08-08 02:11] VITALS: BP 169/53
== END 2018-08-08 02:30 | disposition home or self-care (01) ==
LOC: D.ER 21:34
PROVIDERS: Family Medicine
DX: E87.5 Hyperkalemia (principal); J90 Pleural effusion, not elsewhere classified; M79.651 Pain in right thigh; Z98.890 Other specified postprocedural states; W18.31XA Fall on same level due to stepping on an object, initial encounter; Y93.89 Activity, other specified; Y92.019 Unspecified place in single-family (private) house as the place of occurrence of the external cause; E11.9 Type 2 diabetes mellitus without complications; I10 Essential (primary) hypertension; Z86.79 Personal history of other diseases of the circulatory system; Z85.820 Personal history of malignant melanoma of skin

== ENCOUNTER 2018-12-28 17:18 | Inpatient (IN) | payer MEDICARE, OTHER ==
[2018-12-28 18:22] LABS: BASOPHILS 0.3 % (0-2); EOSINOPHILS 4.6 % (0-7); HEMATOCRIT 35.7 % (42.0-54.0); HEMOGLOBIN 11.7 g/dL (13.5-17.5); IMMATURE GRANULOCYTES 0.6 % (0-5); LYMPHOCYTES 9.9 % (15-50); MCH 31.4 pg (26.0-34.0); MCHC 32.8 g/dL (31.0-37.0); MCV 95.7 fL (80.0-100.0); MEAN PLATELET VOLUME 9.6 fL (7.4-10.4); MONOCYTES 8.2 % (2-11); NEUTROPHILS 76.4 % (40-80); PLATELET COUNT 209 10x3/uL (130-400); RBC 3.73 10x6/uL (4.20-6.10); RDW 14.1 % (11.5-14.5); WBC 11.8 10x3/uL (4.8-10.8)
[2018-12-28 18:31] LABS: APTT 29.8 SECONDS (22.8-39.4); INR 1.15 (0.85-1.17); PROTIME 14.2 SECONDS (11.6-15.0)
[2018-12-28 18:39] LABS: ALBUMIN 3.3 g/dL (3.4-5.0); ALKALINE PHOSPHATASE 108 U/L (46-116); ALT (SGPT) 21 U/L (10-68); BILIRUBIN - TOTAL 0.42 mg/dL (0.2-1.3); CALC OSMOLALITY 305 mosm/kg (275-300); CALCIUM 9.6 mg/dL (8.5-10.1); CARBON DIOXIDE 30.2 mmol/L (21.0-32.0); CHLORIDE - SERUM 106 mmol/L (98-107); CREATININE - SERUM 1.9 mg/dL (0.6-1.3); GLUCOSE 160 mg/dL (74-106); PROTEIN - SERUM 7.3 g/dL (6.4-8.2); SODIUM 144 mmol/L (136-145); UREA NITROGEN 58 mg/dL (7-18); eGFR NON AFRICAN AMERICAN 37 mL/min (90-120)
[2018-12-28 18:44] VITALS: BP 157/69
[2018-12-28 18:50] LABS: CKMB 0.3 U/L (0.0-3.6); CREATINE KINASE 37 UL (21-232); MAGNESIUM - SERUM 2.3 mg/dL (1.8-2.4); TROPONIN-I 0.042 ng/mL (0.000-0.060)
--- NOTE | 2018-12-28 19:05 | NUR ---
PT RESTING ON BED, PLAN OF CARE DISCUSSED WITH PTMerrill HANCOCK AT PT BEDSIDE WELL.
[2018-12-28 19:50] VITALS: BP 142/52
--- NOTE | 2018-12-28 20:07 | NUR ---
ROCEPHIN INFUSION STOPPED AT THIS TIME.
[2018-12-28] MEDS ORDERED: TOPROL XL50 MG PO (20:28)
[2018-12-28 21:10] VITALS: BP 142/52; BMI 35.9
--- NOTE | 2018-12-28 21:22 | NUR ---
ASSESSMENT COMPLETED. PT OBSESSED WITH HAVING A BOWEL MOVEMENT. STATED " THIS ALL STARTED WITH ME TRYING TO HAVE A BOWEL MOVEMENT. I COULD'NT HAVE ONE. BUT I KNOW IT'S THERE." DURING ASSESSMWNT PT CONT TO BRING UP HIS BOWELS. PT STATES HE CAN'T EVEN STAND NOW. THAT TWO PEOPLE HELPED HIM GET ON THE BEDSIDE COMMODE. SAID HOME HEALT CARE AND HIS SISTER HELP TAKE CARE OF HIM. DENIES ANY PAIN AT THIS TIME. PT NURSE AWARE OF BOWEL ISSUES.
[2018-12-28 23:55] VITALS: BP 131/52
[2018-12-29 03:55] VITALS: BP 133/51
--- NOTE | 2018-12-29 07:32 | NUR ---
PT AWAKE AND ORIENTED, NO COMPLAINTS/CONCERNS THIS MORNING. CL IN REACH, SRX2.
[2018-12-29 08:10] VITALS: BP 101/41
--- NOTE | 2018-12-29 08:14 | NUR ---
PT STATES HE IS A DIABETIC ON A HIGH SLIDING SCALE, HUMALOG. HE TAKES 90U LANTUS NIGHTLY AT 2100 OR BEFORE BED. CHECKED PTS BLOOD SUGAR (142). WILL ADRESS THIS WITH THE DOC AND HAVE HIM SORTED SOON
--- NOTE | 2018-12-29 12:48 | NUR ---
I have reviewed this patient and I concur with the Shift Assessment completed by the Licensed Practical Nurse today this shift.
[2018-12-29 13:10] VITALS: BP 128/31
--- NOTE | 2018-12-29 13:56 | NUR ---
PT C/O CONSITIPATION, STATES THAT HE HAS STOOL STOOL AND WANTS TO BE DISIMPACTED RIGHT NOW. CALLED DR. CARLSON FOR A SUPPOSITORY TO HELP PT WITH HIS DISCOMFORT.
--- NOTE | 2018-12-29 14:17 | MORECARE ---
CASE MANAGEMENT DISCHARGE SUMMARY PATIENT: MICHAEL ERNANDEZ UNIT: [id number] ADM DATE: 12/28/18 AGE: 73 : 44 SEX: M ROOM/BED: D.2103 AUTHOR: JAYME PEREZ PHYSICIAN: REFERRING PHYSICIAN: ALISON PALACIOS MD DATE OF SERVICE: 12/29/18 Discharge Plan Patient Name: MICHAEL ERNANDEZ [facility] [facility] 1945 Planned Disposition: Home Anticipated Discharge Date: Discharge Date: Expected LOS: Initial Reviewer: SUE Initial Review Date: 12/28/2018 Generated: 12/29/18 3:17 pm DCPIA - Discharge Planning Initial Assessment Updated by SUE: Shi Carvalho on 12/29/18 2:16 pm * Is the patient Alert and Oriented? Yes * How many steps to enter\exit or inside your home? na * PCP quang * Pharmacy [facility] [place] * Preadmission Environment Home Alone * ADLs Independent * Equipment Walker Wheelchair * Other Equipment bed side potty chair * List name and contact numbers for known caregivers / representatives who currently or will assist patient after discharge: sister abraham Casiano [phone] * Verbal permission to speak to the caregivers and representatives has been obtained from the patient. Yes * Community resources currently utilized Home Health * Please name any agencies selected above. [facility] * Additional services required to return to the preadmission environment? No * Can the patient safely return to the preadmission environment? Yes * Has this patient been hospitalized within the prior 30 days at any hospital? No Patient Name: MICHAEL ERNANDEZ Page [phone] at 1417 All edits/amendments must be made on the electronic document DICTATION DATE: 12/29/181416 WOOD MILLER: MARIAM 12/29/181416 RPT#: [id number] DC DATE: STATUS: ADM IN [facility] [address] [place] [address] END OF REPORT
--- NOTE | 2018-12-29 14:24 | MORECARE ---
CASE MANAGEMENT DISCHARGE SUMMARY PATIENT: MICHAEL ERNANDEZ UNIT: [id number] ADM DATE: 12/28/18 AGE: 73 : 44 SEX: M ROOM/BED: D.2103 AUTHOR: ANA,DOC PHYSICIAN: REFERRING PHYSICIAN: ALISON PALACIOS MD DATE OF SERVICE: 12/29/18 Discharge Plan Patient Name: MICHAEL ERNANDEZ Facility: [facility]:[place] : 1945 Planned Disposition: Home Anticipated Discharge Date: Discharge Date: Expected LOS: Initial Reviewer: [email or web address] Initial Review Date: 12/28/2018 Generated: 12/29/18 3:23 pm DCP- Discharge Planning Updated by [id number]: Shi Carvalho on 12/29/18 1:[address] Patient Name: MICHAEL ERNANDEZ Admission Status: ER Accout number: [id number] Admission Date: 12-28-2018 : 1945 Admission Diagnosis: Attending: ALISON PALACIOS Current LOS: 1 Anticipated DC Date: Planned Disposition: Home Primary Insurance: MEDICARE A & B Discharge Planning Comments: CM met with patient about discharge planning. CM explained CM role and verbal consent was given to do dc assessment. CM educated on Home Health, DME and rehab services that are available. Patient states hIs discharge plan is to return to home alone with helping take care of him.. States home environment is safe discharge. Denies any discharge planning needs at this time... Has HH [facility] . States sister Montserrat will drive him home upon discharge. CM will continue to follow and assist as needed with discharge planning needs. has all dme he needs at this time Continuous Improvement Director: Shi Carvalho DCPIA - Discharge Planning Initial Assessment Updated by [id number]: Shi Carvalho on 12/29/18 2:16 pm * Is the patient Alert and Oriented? Yes * How many steps to enter\exit or inside your home? na * PCP quang * Pharmacy [facility] [address] * Preadmission Environment Home Alone * ADLs Independent * Equipment Walker Wheelchair * Other Equipment bed side potty chair * List name and contact numbers for known caregivers / representatives who currently or will assist patient after discharge: sister montserrat Casiano [phone] * Verbal permission to speak to the caregivers and representatives has been obtained from the patient. Yes * Community resources currently utilized Home Health * Please name any agencies selected above. [facility] * Additional services required to return to the preadmission environment? No * Can the patient safely return to the preadmission environment? Yes * Has this patient been hospitalized within the prior 30 days at any hospital? No Last DP export: 12/29/18 1:17 p Patient Name: MICHAEL ERNANDEZ Page [id number] at 1424 All edits/amendments must be made on the electronic document DICTATION DATE: 12/29/181422 HYDROGRAPHIC SURVEYOR: MARIAM 12/29/181422 RPT#: [id number] DC DATE: STATUS: ADM IN [facility] [address] [place] [address] END OF REPORT
[2018-12-29 16:20] VITALS: BP 111/65
--- NOTE | 2018-12-29 19:37 | NUR ---
RECIEVED UP IN BED WITH EYES CLOSED. NO S/S OF DISTRESS OBSERVED. EASILY AROUSES TO VERBAL STIMULI. O2 @ 3 LITERS PER N/C. RESP EVEN AND UNLABORED. RIGHT ARM CONTRACTED D/T SHOULDER DISPLACEMENT PER PT. REMAINS BEDFAST, ABRAISON TO LEFT CHEST. IV TO LEFT WRIST WITH NS AT 100CC/HR. NO REDNESS OR SWELLING TO SITE. DENIES ANY OTHER NEEDS AT THIS TIME.
[2018-12-30 00:16] VITALS: BP 124/64
[2018-12-30 05:28] VITALS: BP 125/67
[2018-12-30 07:28] LABS: BASOPHILS 0.2 % (0-2); EOSINOPHILS 4.9 % (0-7); HEMATOCRIT 31.2 % (42.0-54.0); HEMOGLOBIN 10.1 g/dL (13.5-17.5); IMMATURE GRANULOCYTES 0.3 % (0-5); LYMPHOCYTES 13.5 % (15-50); MCH 31.3 pg (26.0-34.0); MCHC 32.4 g/dL (31.0-37.0); MCV 96.6 fL (80.0-100.0); MEAN PLATELET VOLUME 9.4 fL (7.4-10.4); MONOCYTES 8.1 % (2-11); PLATELET COUNT 191 10x3/uL (130-400); RBC 3.23 10x6/uL (4.20-6.10); RDW 13.9 % (11.5-14.5); WBC 12.4 10x3/uL (4.8-10.8)
--- NOTE | 2018-12-30 07:47 | NUR ---
RECIEVED REPORT. PATIENT IS AWAKE AND ALERT. LINEN CHANGE. IV IN LEFT SHOULDER IS UNCOMFORTABLE AND HAS DISLODGED. NEW IV STARTED BY VASCULAR ACCESS NURSE IN LEFT WRIST. PATIENT TOLERATED. IV FLUID AND ANTIBIOTICS GOING ORDERED. DENIES ANY NEEDS AT THIS TIME.
[2018-12-30 07:57] LABS: ANION GAP 14.1 mmol/L (8-16); BILIRUBIN - TOTAL 0.26 mg/dL (0.2-1.3); CALCIUM 9.2 mg/dL (8.5-10.1); CREATININE - SERUM 1.7 mg/dL (0.6-1.3); POTASSIUM - SERUM 5.1 mmol/L (3.5-5.1); PROTEIN - SERUM 6.8 g/dL (6.4-8.2)
[2018-12-30 08:47] VITALS: BP 132/73
[2018-12-30 09:44] VITALS: BMI 35.8
--- NOTE | 2018-12-30 09:51 | NUR ---
CALLED DR PALACIOS ABOUT PATIENT CONDUCTION CHANGES. HE IS SHOWING SOME ATRIL FIB AND BUNDLE BRANCH BLOCK WITH WIDE QRS . DR PALACIOS IS AWARE.
--- NOTE | 2018-12-30 12:37 | NUR ---
I have reviewed this patient and I concur with the Shift Assessment completed by the Licensed Practical Nurse today this shift.
[2018-12-30 13:02] VITALS: BP 117/62
--- NOTE | 2018-12-30 13:54 | NUR ---
PATIENT IS CURRENTLY USING THE BEDPAN. IV IN LEFT WRIST IS WORKING WELL STILL AND PATIENT DENIES ANY OTHER NEEDS AT THIS TIME.
--- NOTE | 2018-12-30 14:04 | MORECARE ---
CASE MANAGEMENT DISCHARGE SUMMARY PATIENT: MICHAEL ERNANDEZ UNIT: [id number] ADM DATE: 12/28/18 AGE: 73 : 44 SEX: M ROOM/BED: D.2103 AUTHOR: JAYME PEREZ PHYSICIAN: REFERRING PHYSICIAN: ALISON PALACIOS MD DATE OF SERVICE: 12/30/18 Discharge Plan Patient Name: MICHAEL ERNANDEZ Facility: [facility]:[place] : 1945 Planned Disposition: Inpatient Rehab Anticipated Discharge Date: 12/31/18 Discharge Date: Expected LOS: 3 Initial Reviewer: [email or web address] Initial Review Date: 12/28/2018 Generated: 12/30/18 3:03 pm DCP- Discharge Planning Updated by [id number]: Shi Carvalho on 12/29/18 1:[address] Patient Name: MICHAEL ERNANDEZ Admission Status: ER Accout number: [id number] Admission Date: 12-28-2018 : 1945 Admission Diagnosis: Attending: ALISON PALACIOS Current LOS: 1 Anticipated DC Date: Planned Disposition: Home Primary Insurance: MEDICARE A & B Discharge Planning Comments: CM met with patient about discharge planning. CM explained CM role and verbal consent was given to do dc assessment. CM educated on Home Health, DME and rehab services that are available. Patient states hIs discharge plan is to return to home alone with helping take care of him.. States home environment is safe discharge. Denies any discharge planning needs at this time... Has HH [facility] . States sister Montserrat will drive him home upon discharge. CM will continue to follow and assist as needed with discharge planning needs. has all dme he needs at this time Metal Off Bearer: Shi Carvalho DCPIA - Discharge Planning Initial Assessment Updated by [email or web address]: Shi Carvalho on 12/29/18 2:16 pm * Is the patient Alert and Oriented? Yes * How many steps to enter\exit or inside your home? na * PCP quang * Pharmacy [facility] [address] * Preadmission Environment Home Alone * ADLs Independent * Equipment Walker Wheelchair * Other Equipment bed side potty chair * List name and contact numbers for known caregivers / representatives who currently or will assist patient after discharge: sister montserrat Casiano [phone] * Verbal permission to speak to the caregivers and representatives has been obtained from the patient. Yes * Community resources currently utilized Home Health * Please name any agencies selected above. [facility] * Additional services required to return to the preadmission environment? No * Can the patient safely return to the preadmission environment? Yes * Has this patient been hospitalized within the prior 30 days at any hospital? No Last DP export: 12/29/18 1:23 p Patient Name: MICHAEL ERNANDEZ Page [id number] at 1404 All edits/amendments must be made on the electronic document DICTATION DATE: 12/30/181402 FUEL MANAGEMENT HANDLER: MARIAM 12/30/181402 RPT#: [id number] DC DATE: STATUS: ADM IN [facility] [address] [place] [address] END OF REPORT
--- NOTE | 2018-12-30 14:11 | MORECARE ---
CASE MANAGEMENT DISCHARGE SUMMARY PATIENT: MICHAEL ERNANDEZ UNIT: [id number] ADM DATE: 12/28/18 AGE: 73 : 43 SEX: M ROOM/BED: D.2103 AUTHOR: ANADOC PHYSICIAN: REFERRING PHYSICIAN: ALISON PALACIOS MD DATE OF SERVICE: 12/30/18 Discharge Plan Patient Name: MICHAEL ERNANDEZ [facility] [facility] 1945 Planned Disposition: Inpatient Rehab Anticipated Discharge Date: 12/31/18 Discharge Date: Expected LOS: 3 Initial Reviewer: [id number] Initial Review Date: 12/28/2018 Generated: 12/30/18 3:11 pm Comments DCP- Discharge Planning Updated by [id number]: Serjio Marx on 12/30/18 1:[address] Patient Name: MICHAEL ERNANDEZ Encounter No: [id number] : 1945 Primary Insurance: MEDICARE A & B Anticipated DC Date: 12-31-2018 Planned Disposition: Inpatient Rehab External Planned Provider: [facility] INPATIENT [facility] DCP follow-up note: CM MET WITH PT IN ROOM TO DISCUSS DISCHARGE PLANNING AND NEEDS. PT REPORTS PLAN FOR REHAB AT [facility]. PT STATES HE ALREADY SEEN A IT RISK AND ASSURANCE SENIOR MANAGER YESTERDAY; CM EXPLAINED THAT WE ARE JUST TRYING TO MAKE SURE PT HAS SAFE DISCHARGE PLAN AND THE PREVIOUS PLAN WAS HOME WITH HOME HEALTH. PT REPORTS HAVING [facility] AND THAT IF HE IS DECLINED BY INPATIENT REHAB, HE IS NOT GOING TO ANY NURSING HOME FACILITY, HE WILL GO HOME WITH [facility] RESUMPTION OF CARE. CM PROVIDED PT WITH HOME HEALTH AGENCY LISTING, PT SIGNED CHOICE FOR [facility]. CM DISCUSSED EXPECTATIONS OF PATIENTS IN REHAB, REVIEWED PT'S THERAPY NOTE. PT REPORTS HE DID STAND UP WITH ASSISTANCE BUT DID NOT TAKE A STEP HIS KNEES GAVE OUT. PT DOES BELIEVE HE CAN PARTICIPATE IN THREE HOURS OF PROGRESSIVE THERAPY PER DAY AND STATES HE WAS LIVING AT HOME INDEPENDENTLY AND ALONE PRIOR TO GETTING SICK AND WEAK. PT REPORTS PLAN TO RETURN HOME AFTER REAHB WITH HIS SISTER COMING BY TWICE PER DAY TO ASSIST IF NEEDED AND HOME HEALTH FOR CONTINUED HOME THERAPY. IMPORTANT MESSAGE FROM MEDICARE PROVIDED AND EXPLAINED. CM OBTAINED ORDER FOR INPATIENT REHAB PRESCREENING. CM NOTIFIED [facility] OF INPATIENT REHAB. CM WAITING ADMISSION DETERMINATION FROM [facility]. Serjio Marx, CASE MANAGEMENT DCP- Discharge Planning Updated by [id number]: Shiteri Carvalho on 12/29/18 1:[address] Patient Name: MICHAEL ERNANDEZ Admission Status: ER Accout number: [id number] Admission Date: 12-28-2018 : 1945 Admission Diagnosis: Attending: ALISON PALACIOS Current LOS: 1 Anticipated DC Date: Planned Disposition: Home Primary Insurance: MEDICARE A & B Discharge Planning Comments: CM met with patient about discharge planning. CM explained CM role and verbal consent was given to do dc assessment. CM educated on Home Health, DME and rehab services that are available. Patient states hIs discharge plan is to return to home alone with sister helping take care of him.. States home environment is safe discharge. Denies any discharge planning needs at this time... Has HH [facility] . States sister Montserrat will drive him home upon discharge. CM will continue to follow and assist as needed with discharge planning needs. has all dme he needs at this time It Security Administrator: Shiteri Carvalho DCPIA - Discharge Planning Initial Assessment Updated by [email or web address]: Shiteri Carvalho on 12/29/18 2:16 pm * Is the patient Alert and Oriented? Yes * How many steps to enter\exit or inside your home? na * PCP quang * Pharmacy [facility] [address] * Preadmission Environment Home Alone * ADLs Independent * Equipment Walker Wheelchair * Other Equipment bed side potty chair * List name and contact numbers for known caregivers / representatives who currently or will assist patient after discharge: sister montserrat Casiano [phone] * Verbal permission to speak to the caregivers and representatives has been obtained from the patient. Yes * Community resources currently utilized Home Health * Please name any agencies selected above. [facility] * Additional services required to return to the preadmission environment? No * Can the patient safely return to the preadmission environment? Yes * Has this patient been hospitalized within the prior 30 days at any hospital? No Last DP export: 12/30/18 1:03 p Patient Name: MICHAEL ERNANDEZ Page [id number] at 1411 All edits/amendments must be made on the electronic document DICTATION DATE: 12/30/181409 RETORT FURNACE HELPER: MARIAM 12/30/181409 RPT#: [id number] NM DATE: STATUS: ADM IN [facility] [address] [place] [address] END OF REPORT
[2018-12-30 15:50] VITALS: BP 129/69
--- NOTE | 2018-12-30 15:55 | NUR ---
Rehab Note- Acute Inpatient Rehab prescreen order received. The patient seems to be an appropriate acute inpatient rehab candidate. Will follow at this time. When medically stable will plan to admit to [facility] Acute Inpatient Rehab. Thank you for this referral! Latrice Johns RN CLincial Liaison, [facility] Rehab
--- NOTE | 2018-12-30 16:37 | NUR ---
OT NOTE: PT COMPLETED GROOMING TASKS WITH MOD A. THANK YOU, LEIDY NEVILLE
--- NOTE | 2018-12-30 18:36 | NUR ---
PATIENT IS RESTING COMFORTABLY AT THIS TIME. FAMILY AT BEDSIDE. IV INFUSING. PATIENT DENIES ANY NEEDS AT THIS TIME.
[2018-12-30 20:00] VITALS: BP 137/47
--- NOTE | 2018-12-30 20:04 | NUR ---
ROUNDS COMPLETED. VSS, AAOX3, RR EVEN AND UNLABORED. PT C/O BEEPING IV PUMP. STATES HIS PIV IS @ THE BEND OF HIS HAND, AND HE WILL LET ME RESITE IT. PT STATES HE FEELS MUCH BETTER TONIGHT. DENIES ANY FURTHER NEEDS AT THIS TIME. WILL CTM.
--- NOTE | 2018-12-30 22:32 | NUR ---
PT C/O OF IV HURTING AND PUMP BEEPING EVERY NOW AND THEN. REMOVED PIV ON LEFT WRIST, APPLIED 2X2 GAUZE AND TAPED. RESITED A NEW IV ON LEFT FOREARM 22G, X1 STICK. PT TOLERATE WELL. PT DENIES ANY FURTHER NEEDS AT THIS TIME. WILL CPOC. CL IN REACH, BED IN LOW, SR UP X2.
[2018-12-31] VITALS: BP 104/49
[2018-12-31 04:00] VITALS: BP 125/81
[2018-12-31 06:22] LABS: ALBUMIN 2.5 g/dL (3.4-5.0); ANION GAP 8.8 mmol/L (8-16); BILIRUBIN - TOTAL 0.16 mg/dL (0.2-1.3); CALCIUM 8.8 mg/dL (8.5-10.1); CARBON DIOXIDE 29.6 mmol/L (21.0-32.0); CREATININE - SERUM 1.7 mg/dL (0.6-1.3); POTASSIUM - SERUM 4.4 mmol/L (3.5-5.1); PROTEIN - SERUM 6.5 g/dL (6.4-8.2)
--- NOTE | 2018-12-31 07:31 | NUR ---
REPORT RECEIVED. WILL CONTINUE WITH POC. PT CURRENTLY LYING SEMI FOWLERS. CALL LIGHT W/I REACH. PT IS AAO AND BEDFAST. RR EVEN AND UNLABORED ON 3L 02. L.HAND PIV IS SALINE LOCKED. NO S/S OF DISTRESS NOTED. PT DENIES ANY NEEDS AT THIS TIME. WILL CTM.
[2018-12-31 08:03] LABS: BASOPHILS 0.2 % (0-2); EOSINOPHILS 6.1 % (0-7); HEMATOCRIT 27.9 % (42.0-54.0); HEMOGLOBIN 8.8 g/dL (13.5-17.5); IMMATURE GRANULOCYTES 0.4 % (0-5); LYMPHOCYTES 16.8 % (15-50); MCH 30.7 pg (26.0-34.0); MCHC 31.5 g/dL (31.0-37.0); MCV 97.2 fL (80.0-100.0); MEAN PLATELET VOLUME 9.6 fL (7.4-10.4); NEUTROPHILS 66.5 % (40-80); PLATELET COUNT 183 10x3/uL (130-400); RBC 2.87 10x6/uL (4.20-6.10); WBC 9.3 10x3/uL (4.8-10.8)
[2018-12-31 08:35] VITALS: BP 129/61
--- NOTE | 2018-12-31 12:15 | MORECARE ---
CASE MANAGEMENT DISCHARGE SUMMARY PATIENT: MICHAEL ERNANDEZ UNIT: [id number] ADM DATE: 12/28/18 AGE: 73 : 44 SEX: M ROOM/BED: D.2103 AUTHOR: ANADOC PHYSICIAN: REFERRING PHYSICIAN: ALISON PALACIOS MD DATE OF SERVICE: 12/31/18 Discharge Plan Patient Name: MICHAEL ERNANDEZ [facility] [facility] 1945 Planned Disposition: Inpatient Rehab Anticipated Discharge Date: 01/01/19 Discharge Date: Expected LOS: 4 Initial Reviewer: [email or web address] Initial Review Date: 12/28/2018 Generated: 12/31/18 1:14 pm Comments DCP- Discharge Planning Updated by [email or web address]: Serjio Marx on 12/30/18 1:[address] Patient Name: MICHAEL ERNANDEZ Encounter No: [id number] : 1945 Primary Insurance: MEDICARE A & B Anticipated DC Date: 12-31-2018 Planned Disposition: Inpatient Rehab External Planned Provider: [facility] DCP follow-up note: CM MET WITH PT IN ROOM TO DISCUSS DISCHARGE PLANNING AND NEEDS. PT REPORTS PLAN FOR REHAB AT [facility]. PT STATES HE ALREADY SEEN A GROUT WORKER YESTERDAY; CM EXPLAINED THAT WE ARE JUST TRYING TO MAKE SURE PT HAS SAFE DISCHARGE PLAN AND THE PREVIOUS PLAN WAS HOME WITH HOME HEALTH. PT REPORTS HAVING [facility] AND THAT IF HE IS DECLINED BY INPATIENT REHAB, HE IS NOT GOING TO ANY PRISON FACILITY, HE WILL GO HOME WITH [facility] RESUMPTION OF CARE. CM PROVIDED PT WITH HOME HEALTH AGENCY LISTING, PT SIGNED CHOICE FOR [facility]. CM DISCUSSED EXPECTATIONS OF PATIENTS IN REHAB, REVIEWED PT'S THERAPY NOTE. PT REPORTS HE DID STAND UP WITH ASSISTANCE BUT DID NOT TAKE A STEP HIS KNEES GAVE OUT. PT DOES BELIEVE HE CAN PARTICIPATE IN THREE HOURS OF PROGRESSIVE THERAPY PER DAY AND STATES HE WAS LIVING AT HOME INDEPENDENTLY AND ALONE PRIOR TO GETTING SICK AND WEAK. PT REPORTS PLAN TO RETURN HOME AFTER REAHB WITH HIS SISTER COMING BY TWICE PER DAY TO ASSIST IF NEEDED AND HOME HEALTH FOR CONTINUED HOME THERAPY. IMPORTANT MESSAGE FROM MEDICARE PROVIDED AND EXPLAINED. CM OBTAINED ORDER FOR INPATIENT REHAB PRESCREENING. CM NOTIFIED [facility] OF INPATIENT REHAB. CM WAITING ADMISSION DETERMINATION FROM [facility] INPAT[facility]. Serjio Marx, CASE MANAGEMENT DCP- Discharge Planning Updated by [id number]: Shi Benderman on 12/29/18 1:[address] Patient Name: MICHAEL ERNANDEZ Admission Status: ER Accout number: [id number] Admission Date: 12-28-2018 : 1945 Admission Diagnosis: Attending: ALISON PALACIOS Current LOS: 1 Anticipated DC Date: Planned Disposition: Home Primary Insurance: MEDICARE A & B Discharge Planning Comments: CM met with patient about discharge planning. CM explained CM role and verbal consent was given to do dc assessment. CM educated on Home Health, DME and rehab services that are available. Patient states hIs discharge plan is to return to home alone with sister helping take care of him.. States home environment is safe discharge. Denies any discharge planning needs at this time... Has HH [facility] . States sister Montserrat will drive him home upon discharge. CM will continue to follow and assist as needed with discharge planning needs. has all dme he needs at this time Sock Lining Stitcher: Shi Carvalho DCPIA - Discharge Planning Initial Assessment Updated by [email or web address]: Shi Carvalho on 12/29/18 2:16 pm * Is the patient Alert and Oriented? Yes * How many steps to enter\exit or inside your home? na * PCP quang * Pharmacy [facility] [address] * Preadmission Environment Home Alone * ADLs Independent * Equipment Walker Wheelchair * Other Equipment bed side potty chair * List name and contact numbers for known caregivers / representatives who currently or will assist patient after discharge: sister monsterrat Casiano [phone] * Verbal permission to speak to the caregivers and representatives has been obtained from the patient. Yes * Community resources currently utilized Home Health * Please name any agencies selected above. [facility] * Additional services required to return to the preadmission environment? No * Can the patient safely return to the preadmission environment? Yes * Has this patient been hospitalized within the prior 30 days at any hospital? No Coverage Notice Reviewer: [id number] - Serjio Marx Notice Issued Date-Time: 12/30/2018 13:00 Notice Type: IM Discharge Notice Notice Delivered To: Patient Relationship to Patient: Robotics Technologist Name: Delivery Method: HAND - Hand Delivered Gina Days: Prior Verbal Notification: Recipient Understood Notice: Yes Recipient Signature: Yes Med Rec Note Co-signed by Attending: Coverage Notice Comment: Reviewer: [id number] Marx Notice Issued Date-Time: 12/30/2018 13:00 Notice Type: Patient Choice Letter Notice Delivered To: Patient Relationship to Patient: Robotics Technologist Name: Delivery Method: HAND - Hand Delivered Gina Days: Prior Verbal Notification: Recipient Understood Notice: Yes Recipient Signature: Yes Med Rec Note Co-signed by Attending: Coverage Notice Comment: [facility] Reviewer: [email or web address] Betsy Marx Notice Issued Date-Time: 12/31/2018 12:00 Notice Type: IM Discharge Notice Notice Delivered To: Patient Relationship to Patient: Robotics Technologist Name: Delivery Method: HAND - Hand Delivered Gina Days: Prior Verbal Notification: Recipient Understood Notice: Yes Recipient Signature: Yes Med Rec Note Co-signed by Attending: Coverage Notice Comment: Last DP export: 12/30/18 1:11 p Patient Name: MICHAEL ERNANDEZ Page 11234 at 1215 All edits/amendments must be made on the electronic document DICTATION DATE: 12/31/18 1214 CORPORATE DIRECTOR OF PHARMACY: MARIAM 12/31/18 1214 RPT#: [id number] DC DATE: STATUS: ADM IN [facility] [address] [place] [address] END OF REPORT
--- NOTE | 2018-12-31 12:22 | MORECARE ---
CASE MANAGEMENT DISCHARGE SUMMARY PATIENT: MICHAEL ERNANDEZ UNIT: [id number] ADM DATE: 12/28/18 AGE: 73 : 44 SEX: M ROOM/BED: D.2103 AUTHOR: JAYME PEREZ PHYSICIAN: REFERRING PHYSICIAN: ALISON PALACIOS MD DATE OF SERVICE: 12/31/18 Discharge Plan Patient Name: MICHAEL ERNANDEZ Facility: [facility]:[place] : 1945 Planned Disposition: Inpatient Rehab Anticipated Discharge Date: 01/01/19 Discharge Date: Expected LOS: 4 Initial Reviewer: [id number] Initial Review Date: 12/28/2018 Generated: 12/31/18 1:22 pm Comments DCP- Discharge Planning Updated by [id number]: Serjio Marx on 12/31/18 11:[address] Patient Name: MICHAEL ERNANDEZ Encounter No: [id number] : 1945 Primary Insurance: MEDICARE A & B Anticipated DC Date: 01-01-2019 Planned Disposition: Inpatient Rehab External Planned Provider: [facility] INPATIENT [facility] DCP follow-up note: CM SPOKE TO [facility] OF INPATIENT REH[facility], THEY PLAN TO ACCEPT PT FOR REHAB. PT NOTIFIED, IN AGREEMENT WITH DISCHARGE TO INPATIENT REHAB. IMPORTANT MESSAGE FROM MEDICARE PROVIDED AND DISCUSSED. CM CALLED AND NOTIFIED DR. PALACIOS WHO INFORMED CM THAT PT MAY DISCHARGE TO REHAB TOMORROW. CM NOTIFIED PT AND [facility] INPATIENT REHAB. ONCE DISCHARGE ORDERS ARE RECEIVED, NOTIFY [facility] INPATIENT [facility]. [facility] TO CONTACT MED 2 NURSE WITH ROOM NUMBER WHEN READY TO ACCEPT PT AND NURSE REPORT. Serjio Marx, CASE ANTONIA DCP- Discharge Planning Updated by [id number]: Serjio Marx on 12/30/18 1:[address] Patient Name: MICHAEL ERNANDEZ Encounter No: [id number] : 1945 Primary Insurance: MEDICARE A & B Anticipated DC Date: 12-31-2018 Planned Disposition: Inpatient Rehab External Planned Provider: [facility] DCP follow-up note: CM MET WITH PT IN ROOM TO DISCUSS DISCHARGE PLANNING AND NEEDS. PT REPORTS PLAN FOR REHAB AT [facility]. 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 PT REPORTS HAVING [facility] AND THAT IF HE IS DECLINED BY INPATIENT REHAB, HE IS NOT GOING TO ANY RESIDENTIAL FACILITY, HE WILL GO HOME WITH [facility] RESUMPTION OF CARE. CM PROVIDED PT WITH HOME HEALTH AGENCY LISTING, PT SIGNED CHOICE FOR [facility]. CM DISCUSSED EXPECTATIONS OF PATIENTS IN REHAB, REVIEWED PT'S THERAPY NOTE. PT REPORTS HE DID STAND UP WITH ASSISTANCE BUT DID NOT TAKE A STEP HIS KNEES GAVE OUT. PT DOES BELIEVE HE CAN PARTICIPATE IN THREE HOURS OF PROGRESSIVE THERAPY PER DAY AND STATES HE WAS LIVING AT HOME INDEPENDENTLY AND ALONE PRIOR TO GETTING SICK AND WEAK. PT REPORTS PLAN TO RETURN HOME AFTER REAHB WITH HIS SISTER COMING BY TWICE PER DAY TO ASSIST IF NEEDED AND HOME HEALTH FOR CONTINUED HOME THERAPY. IMPORTANT MESSAGE FROM MEDICARE PROVIDED AND EXPLAINED. CM OBTAINED ORDER FOR INPATIENT REHAB PRESCREENING. CM NOTIFIED [facility] OF INPATIENT REHAB. CM WAITING ADMISSION DETERMINATION FROM [facility] IN[facility]. Serjio Marx, CASE MANAGEMENT DCP- Discharge Planning Updated by [id number]: Shi Carvalho on 12/29/18 1:[address] Patient Name: MICHAEL ERNANDEZ Admission Status: ER Accout number: [id number] Admission Date: 12-28-2018 : 1945 Admission Diagnosis: Attending: ALISON PALACIOS Current LOS: 1 Anticipated DC Date: Planned Disposition: Home Primary Insurance: MEDICARE A & B Discharge Planning Comments: CM met with patient about discharge planning. CM explained CM role and verbal consent was given to do dc assessment. CM educated on Home Health, DME and rehab services that are available. Patient states hIs discharge plan is to return to home alone with sister helping take care of him.. States home environment is safe discharge. Denies any discharge planning needs at this time... [facility] . States sister Montserrat will drive him home upon discharge. CM will continue to follow and assist as needed with discharge planning needs. has all dme he needs at this time Resort Host: Shi Carvalho DCPIA - Discharge Planning Initial Assessment Updated by [id number]: Shi Carvalho on 12/29/18 2:16 pm * Is the patient Alert and Oriented? Yes * How many steps to enter\exit or inside your home? na * PCP quang * Pharmacy [facility] [address] * Preadmission Environment Home Alone * ADLs Independent * Equipment Walker Wheelchair * Other Equipment bed side potty chair * List name and contact numbers for known caregivers / representatives who currently or will assist patient after discharge: sister montserrat Casiano [phone] * Verbal permission to speak to the caregivers and representatives has been obtained from the patient. Yes * Community resources currently utilized Home Health * Please name any agencies selected above. [facility] * Additional services required to return to the preadmission environment? No * Can the patient safely return to the preadmission environment? Yes * Has this patient been hospitalized within the prior 30 days at any hospital? No Coverage Notice Reviewer: LISSY Marx Notice Issued Date-Time: 12/30/2018 13:00 Notice Type: IM Discharge Notice Notice Delivered To: Patient Relationship to Patient: Slitter And Rewinder Name: Delivery Method: HAND - Hand Delivered Gina Days: Prior Verbal Notification: Recipient Understood Notice: Yes Recipient Signature: Yes Med Rec Note Co-signed by Attending: Coverage Notice Comment: Reviewer: LISSY Marx Notice Issued Date-Time: 12/30/2018 13:00 Notice Type: Patient Choice Letter Notice Delivered To: Patient Relationship to Patient: Slitter And Rewinder Name: Delivery Method: HAND - Hand Delivered Gina Days: Prior Verbal Notification: Recipient Understood Notice: Yes Recipient Signature: Yes Med Rec Note Co-signed by Attending: Coverage Notice Comment: [facility] Reviewer: LISSY Marx Notice Issued Date-Time: 12/31/2018 12:00 Notice Type: IM Discharge Notice Notice Delivered To: Patient Relationship to Patient: Slitter And Rewinder Name: Delivery Method: HAND - Hand Delivered Gina Days: Prior Verbal Notification: Recipient Understood Notice: Yes Recipient Signature: Yes Med Rec Note Co-signed by Attending: Coverage Notice Comment: Last DP export: 12/31/18 11:14 a Patient Name: MICHAEL ERNANDEZ Page [id number] at 1222 All edits/amendments must be made on the electronic document DICTATION DATE: 12/31/18 1221 LIBRARY MEDIA TECHNICIAN: MARIAM 12/31/18 1221 RPT#: [id number] DC DATE: STATUS: ADM IN [facility] [address] [place] [address] END OF REPORT
--- NOTE | 2018-12-31 15:47 | NUR ---
OT NOTE: PT PERFORMED MUCH BETTER TODAY. CONTINUES TO REQUIRE MAX ASSIST FOR SUPINE TO SIT AND SIT TO SUPINE, BUT TODAY, WAS ABLE TO STAND WITH SUPPORT OF CHAIR WITH L HAND AND GAIT BELT WITH MOD ASSIST X 20-30 SECONDS X 3 TRIALS. ATTEMPTED TO SIDE STEP BUT UNABLE TO MOVE R LEG WITHOUT ASSIST. GROOMING TASKS WITH MIN ASSIST. BULMARO VILLA, OTR/L
[2018-12-31 15:59] VITALS: BP 132/69
--- NOTE | 2018-12-31 16:00 | NUR ---
SITTING UP IN BED. DENIES ANY NEEDS. NO SIGNS OF DISTRESS. AGREE WITH FIELD PLACEMENT DIRECTOR ASSESSMENT. CATHERINE, FIELD PLACEMENT DIRECTOR RESUMES PLAN OF CARE AND SAFETY PRECAUTIONS.
--- NOTE | 2018-12-31 16:28 | NUR ---
I have reviewed this patient and I concur with the Shift Assessment completed by the Licensed Practical Nurse today this shift.
[2018-12-31 20:00] VITALS: BP 131/37
--- NOTE | 2018-12-31 20:00 | NUR ---
EVENING ROUNDS COMPLETED. VSS, AAOX3, NO S/S OF RR DISTRESS. PT C/O OF PAIN ON HIS RIGHT SHOULDER, BUT REFUSED ANY PAIN MEDS AT THIS TIME. ASSIST PT WITH URINAL. PT LAYING IN BED, DENIES ANY FURTHER NEEDS AT THIS TIME. WILL CPOC. CL IN REACH, BED IN LOW.
--- NOTE | 2018-12-31 21:24 | NUR ---
OT NOTE: PT COMPLETED BED MOB WITH MOD/MAX A. PT COMPLETED SIT TO STAND WITH MOD A. PT COMPLETED SIMPLE FACE WASH WITH SET UP AT EOB. PT COMPLETED LUE AROM AXS. THANK YOU, LEIDY NEVILLE
--- NOTE | 2018-12-31 21:45 | NUR ---
PT REFUSED INSULIN HUMALOG. STATES HIS BLOOD SUGAR IS NOT REALLY HIGH. STATE "I WILL TAKE IT WHEN IT GETS REALLY HIGH." PT CURRENT FSBS 170. WILL CTM.
[2019-01-01] VITALS: BP 128/50
[2019-01-01 04:00] VITALS: BP 131/55
[2019-01-01 05:50] LABS: BASOPHILS 0.3 % (0-2); EOSINOPHILS 7.9 % (0-7); HEMATOCRIT 27.3 % (42.0-54.0); HEMOGLOBIN 8.8 g/dL (13.5-17.5); IMMATURE GRANULOCYTES 0.5 % (0-5); LYMPHOCYTES 20.4 % (15-50); MCHC 32.2 g/dL (31.0-37.0); MCV 96.1 fL (80.0-100.0); MEAN PLATELET VOLUME 9.5 fL (7.4-10.4); MONOCYTES 9.6 % (2-11); NEUTROPHILS 61.3 % (40-80); PLATELET COUNT 179 10x3/uL (130-400); RBC 2.84 10x6/uL (4.20-6.10); RDW 13.8 % (11.5-14.5); WBC 7.8 10x3/uL (4.8-10.8)
[2019-01-01 06:10] LABS: ALBUMIN 2.6 g/dL (3.4-5.0); ANION GAP 7.7 mmol/L (8-16); BILIRUBIN - TOTAL 0.14 mg/dL (0.2-1.3); CARBON DIOXIDE 29.4 mmol/L (21.0-32.0); CREATININE - SERUM 1.5 mg/dL (0.6-1.3); POTASSIUM - SERUM 4.1 mmol/L (3.5-5.1); PROTEIN - SERUM 6.5 g/dL (6.4-8.2)
--- NOTE | 2019-01-01 07:30 | MORECARE ---
CASE MANAGEMENT DISCHARGE SUMMARY PATIENT: MICHAEL ERNANDEZ UNIT: [id number] ADM DATE: 12/28/18 AGE: 73 : 44 SEX: M ROOM/BED: D.2103 AUTHOR: JAYME PEREZ PHYSICIAN: REFERRING PHYSICIAN: ALISON PALACIOS MD DATE OF SERVICE: 01/01/19 Discharge Plan Patient Name: MICHAEL ERNANDEZ Facility: [facility]:[place] : 1945 Planned Disposition: Inpatient Rehab Anticipated Discharge Date: 01/01/19 Discharge Date: Expected LOS: 4 Initial Reviewer: [id number] Initial Review Date: 12/28/2018 Generated: 01/01/19 8:29 am Comments DCP- Discharge Planning Updated by [id number]: Serjio Marx on 12/31/18 11:[address] Patient Name: MICHAEL ERNANDEZ Encounter No: [id number] : 1945 Primary Insurance: MEDICARE A & B Anticipated DC Date: 01-01-2019 Planned Disposition: Inpatient Rehab External Planned Provider: [facility] INPATIENT REH[facility] DCP follow-up note: CM SPOKE TO [facility] OF INPATIENT REH[facility], THEY PLAN TO ACCEPT PT FOR REHAB. PT NOTIFIED, IN AGREEMENT WITH DISCHARGE TO INPATIENT REHAB. IMPORTANT MESSAGE FROM MEDICARE PROVIDED AND DISCUSSED. CM CALLED AND NOTIFIED DR. PALACIOS WHO INFORMED CM THAT PT MAY DISCHARGE TO REHAB TOMORROW. CM NOTIFIED PT AND [facility] OF INPATIENT REHAB. ONCE DISCHARGE ORDERS ARE RECEIVED, NOTIFY [facility] INPATIENT REH[facility]. [facility] INPATIENT REH[facility] TO CONTACT MED 2 NURSE WITH ROOM NUMBER WHEN READY TO ACCEPT PT AND NURSE REPORT. Serjio Marx, CASE ANTONIA DCP- Discharge Planning Updated by [id number]: Serjio Marx on 12/30/18 1:[address] Patient Name: MICHAEL ERNANDEZ Encounter No: [id number] : 1945 Primary Insurance: MEDICARE A & B Anticipated DC Date: 12-31-2018 Planned Disposition: Inpatient Rehab External Planned Provider: [facility] INPAT[facility] DCP follow-up note: CM MET WITH PT IN ROOM TO DISCUSS DISCHARGE PLANNING AND NEEDS. PT REPORTS PLAN FOR REHAB AT [facility]. PT STATES HE ALREADY SEEN A STEEL FLOOR PAN PLACING SUPERVISOR YESTERDAY; CM EXPLAINED THAT WE ARE JUST TRYING TO MAKE SURE PT HAS SAFE DISCHARGE PLAN AND THE PREVIOUS PLAN WAS HOME WITH HOME HEALTH. PT REPORTS HAVING [facility] AND THAT IF HE IS DECLINED BY INPATIENT REHAB, HE IS NOT GOING TO ANY PENITENTIARY FACILITY, HE WILL GO HOME WITH [facility] RESUMPTION OF CARE. CM PROVIDED PT WITH HOME HEALTH AGENCY LISTING, PT SIGNED CHOICE FOR [facility]. CM DISCUSSED EXPECTATIONS OF PATIENTS IN REHAB, REVIEWED PT'S THERAPY NOTE. PT REPORTS HE DID STAND UP WITH ASSISTANCE BUT DID NOT TAKE A STEP HIS KNEES GAVE OUT. PT DOES BELIEVE HE CAN PARTICIPATE IN THREE HOURS OF PROGRESSIVE THERAPY PER DAY AND STATES HE WAS LIVING AT HOME INDEPENDENTLY AND ALONE PRIOR TO GETTING SICK AND WEAK. PT REPORTS PLAN TO RETURN HOME AFTER REAHB WITH HIS SISTER COMING BY TWICE PER DAY TO ASSIST IF NEEDED AND HOME HEALTH FOR CONTINUED HOME THERAPY. IMPORTANT MESSAGE FROM MEDICARE PROVIDED AND EXPLAINED. CM OBTAINED ORDER FOR INPATIENT REHAB PRESCREENING. CM NOTIFIED [facility] OF INPATIENT REHAB. CM WAITING ADMISSION DETERMINATION FROM [facility] INPATIENT RE[facility]. Serjio Marx, CASE MANAGEMENT DCP- Discharge Planning Updated by [id number]: Shi Carvalho on 12/29/18 1:[address] Patient Name: MICHAEL ERNANDEZ Admission Status: ER Accout number: [id number] Admission Date: 12-28-2018 : 1945 Admission Diagnosis: Attending: ALISON PALAICOS Current LOS: 1 Anticipated DC Date: Planned Disposition: Home Primary Insurance: MEDICARE A & B Discharge Planning Comments: CM met with patient about discharge planning. CM explained CM role and verbal consent was given to do dc assessment. CM educated on Home Health, DME and rehab services that are available. Patient states hIs discharge plan is to return to home alone with sister helping take care of him.. States home environment is safe discharge. Denies any discharge planning needs at this time... [facility] . States sister Montserrat will drive him home upon discharge. CM will continue to follow and assist as needed with discharge planning needs. has all dme he needs at this time Rug Cleaner Helper: Shi Carvalho DCPIA - Discharge Planning Initial Assessment Updated by [id number]: Shi Carvalho on 12/29/18 2:16 pm * Is the patient Alert and Oriented? Yes * How many steps to enter\exit or inside your home? na * PCP quang * [facility]acy [facility] [address] * Preadmission Environment Home Alone * ADLs Independent * Equipment Walker Wheelchair * Other Equipment bed side potty chair * List name and contact numbers for known caregivers / representatives who currently or will assist patient after discharge: sister montserrat Casiano [phone] * Verbal permission to speak to the caregivers and representatives has been obtained from the patient. Yes * Community resources currently utilized Home Health * Please name any agencies selected above. [facility] * Additional services required to return to the preadmission environment? No * Can the patient safely return to the preadmission environment? Yes * Has this patient been hospitalized within the prior 30 days at any hospital? No Coverage Notice Reviewer: LISSY Marx Notice Issued Date-Time: 12/30/2018 13:00 Notice Type: IM Discharge Notice Notice Delivered To: Patient Relationship to Patient: Mechanic And Welder Name: Delivery Method: HAND - Hand Delivered Gina Days: Prior Verbal Notification: Recipient Understood Notice: Yes Recipient Signature: Yes Med Rec Note Co-signed by Attending: Coverage Notice Comment: Reviewer: LISSY Marx Notice Issued Date-Time: 12/30/2018 13:00 Notice Type: Patient Choice Letter Notice Delivered To: Patient Relationship to Patient: Mechanic And Welder Name: Delivery Method: HAND - Hand Delivered Gina Days: Prior Verbal Notification: Recipient Understood Notice: Yes Recipient Signature: Yes Med Rec Note Co-signed by Attending: Coverage Notice Comment: [facility] Reviewer: LISSY Marx Notice Issued Date-Time: 12/31/2018 12:00 Notice Type: IM Discharge Notice Notice Delivered To: Patient Relationship to Patient: Mechanic And Welder Name: Delivery Method: HAND - Hand Delivered Igna Days: Prior Verbal Notification: Recipient Understood Notice: Yes Recipient Signature: Yes Med Rec Note Co-signed by Attending: Coverage Notice Comment: Last DP export: 12/31/18 11:22 a Patient Name: MICHAEL ERNANDEZ Page [id number] at 0730 All edits/amendments must be made on the electronic document DICTATION DATE: 01/01/19728 AIRSET CASTER: MARIAM 01/01/19728 RPT#: [id number] DC DATE: STATUS: ADM IN [facility] [address] [place] [address] END OF REPORT
--- NOTE | 2019-01-01 07:33 | NUR ---
ROUNDING DONE WITH ME ASSISTING AIR CONDITIONING SUPERVISOR TO PULL UP IN BED. RIGHT ARM/SHOULDER PATIENT STATES IS FROZEN. ON HEART MONITOR SHOWING SR W OCC PVC, HR 68. ON 3L PER NC WITH HUMM. LEFT FA PIV SEEN WITH ANTIBOTIC INFUSING WITHOUT PROBLEMS. BILATERAL SCD'S ON AND IN USE. GENERALIZED EDEMA TO ALL EXTRMEITIES. WILL FOLLOW.
[2019-01-01] MEDS ORDERED: ELIQUIS5 MG PO (07:46)
[2019-01-01] MEDS ORDERED: MULTAQ400 MG PO (07:46)
[2019-01-01] MEDS ORDERED: NYSTATIN1 PWD TOPICAL (07:48)
[2019-01-01] MEDS ORDERED: DOXYCYCLINE HY100 M2 PO (07:49)
[2019-01-01 09:06] VITALS: BP 118/55
--- NOTE | 2019-01-01 12:11 | MORECARE ---
CASE MANAGEMENT DISCHARGE SUMMARY PATIENT: MICHAEL ERNANDEZ UNIT: [id number] ADM DATE: 12/28/18 AGE: 73 : 44 SEX: M ROOM/BED: D.2103 AUTHOR: JAYME PEREZ PHYSICIAN: REFERRING PHYSICIAN: ALISON PALACIOS MD DATE OF SERVICE: 01/01/19 Discharge Plan Patient Name: MICHAEL ERNANDEZ Facility: [facility]:[place] : 1945 Planned Disposition: Inpatient Rehab Anticipated Discharge Date: 01/01/19 Discharge Date: Expected LOS: 4 Initial Reviewer: [id number] Initial Review Date: 12/28/2018 Generated: 01/01/19 1:10 pm Comments DCP- Discharge Planning Updated by [id number]: Serjio Marx on 12/31/18 11:[address] Patient Name: MICHAEL ERNANDEZ Encounter No: [id number] : 1945 Primary Insurance: MEDICARE A & B Anticipated DC Date: 01-01-2019 Planned Disposition: Inpatient Rehab External Planned Provider: [facility] INPATIENT REH[facility] DCP follow-up note: CM SPOKE TO [facility] OF INPATIENT REH[facility], THEY PLAN TO ACCEPT PT FOR REHAB. PT NOTIFIED, IN AGREEMENT WITH DISCHARGE TO INPATIENT REHAB. IMPORTANT MESSAGE FROM MEDICARE PROVIDED AND DISCUSSED. CM CALLED AND NOTIFIED DR. PALACIOS WHO INFORMED CM THAT PT MAY DISCHARGE TO REHAB TOMORROW. CM NOTIFIED PT AND [facility] OF INPATIENT REHAB. ONCE DISCHARGE ORDERS ARE RECEIVED, NOTIFY [facility] INPATIENT RE[facility]. [facility] INPATIENT REH[facility] TO CONTACT MED 2 NURSE WITH ROOM NUMBER WHEN READY TO ACCEPT PT AND NURSE REPORT. Serjio Marx, CASE ANTONIA DCP- Discharge Planning Updated by [id number]: Serjio Marx on 12/30/18 1:[address] Patient Name: MICHAEL ERNANDEZ Encounter No: [id number] : 1945 Primary Insurance: MEDICARE A & B Anticipated DC Date: 12-31-2018 Planned Disposition: Inpatient Rehab External Planned Provider: [facility] INPAT[facility] REH[facility] DCP follow-up note: CM MET WITH PT IN ROOM TO DISCUSS DISCHARGE PLANNING AND NEEDS. PT REPORTS PLAN FOR REHAB AT [facility]. PT STATES HE ALREADY SEEN A SLITTER OPERATOR YESTERDAY; CM EXPLAINED THAT WE ARE JUST TRYING TO MAKE SURE PT HAS SAFE DISCHARGE PLAN AND THE PREVIOUS PLAN WAS HOME WITH HOME HEALTH. PT REPORTS HAVING [facility] AND THAT IF HE IS DECLINED BY INPATIENT REHAB, HE IS NOT GOING TO ANY ASSISTED FACILITY, HE WILL GO HOME WITH [facility] RESUMPTION OF CARE. CM PROVIDED PT WITH HOME HEALTH AGENCY LISTING, PT SIGNED CHOICE FOR [facility]. CM DISCUSSED EXPECTATIONS OF PATIENTS IN REHAB, REVIEWED PT'S THERAPY NOTE. PT REPORTS HE DID STAND UP WITH ASSISTANCE BUT DID NOT TAKE A STEP HIS KNEES GAVE OUT. PT DOES BELIEVE HE CAN PARTICIPATE IN THREE HOURS OF PROGRESSIVE THERAPY PER DAY AND STATES HE WAS LIVING AT HOME INDEPENDENTLY AND ALONE PRIOR TO GETTING SICK AND WEAK. PT REPORTS PLAN TO RETURN HOME AFTER REAHB WITH HIS SISTER COMING BY TWICE PER DAY TO ASSIST IF NEEDED AND HOME HEALTH FOR CONTINUED HOME THERAPY. IMPORTANT MESSAGE FROM MEDICARE PROVIDED AND EXPLAINED. CM OBTAINED ORDER FOR INPATIENT REHAB PRESCREENING. CM NOTIFIED [facility] OF INPATIENT REHAB. CM WAITING ADMISSION DETERMINATION FROM [facility] INPAT[facility] RE[facility]. Serijo Marx, CASE MANAGEMENT DCP- Discharge Planning Updated by [id number]: Shi Carvalho on 12/29/18 1:[address] Patient Name: MICHAEL ERNANDEZ Admission Status: ER Accout number: [id number] Admission Date: 12-28-2018 : 1945 Admission Diagnosis: Attending: ALISON PALACIOS Current LOS: 1 Anticipated DC Date: Planned Disposition: Home Primary Insurance: MEDICARE A & B Discharge Planning Comments: CM met with patient about discharge planning. CM explained CM role and verbal consent was given to do dc assessment. CM educated on Home Health, DME and rehab services that are available. Patient states hIs discharge plan is to return to home alone with sister helping take care of him.. States home environment is safe discharge. Denies any discharge planning needs at this time... [facility] . States sister Montserrat will drive him home upon discharge. CM will continue to follow and assist as needed with discharge planning needs. has all dme he needs at this time Packing Clerk: Shi Carvalho DCPIA - Discharge Planning Initial Assessment Updated by [id number]: Shi Carvalho on 12/29/18 2:16 pm * Is the patient Alert and Oriented? Yes * How many steps to enter\exit or inside your home? na * PCP quang * Pharmacy [facility] [address] * Preadmission Environment Home Alone * ADLs Independent * Equipment Walker Wheelchair * Other Equipment bed side potty chair * List name and contact numbers for known caregivers / representatives who currently or will assist patient after discharge: sister montserrat Casiano [phone] * Verbal permission to speak to the caregivers and representatives has been obtained from the patient. Yes * Community resources currently utilized Home Health * Please name any agencies selected above. [facility] * Additional services required to return to the preadmission environment? No * Can the patient safely return to the preadmission environment? Yes * Has this patient been hospitalized within the prior 30 days at any hospital? No Coverage Notice Reviewer: LISSY Marx Notice Issued Date-Time: 12/30/2018 13:00 Notice Type: IM Discharge Notice Notice Delivered To: Patient Relationship to Patient: Major League Baseball Umpire Name: Delivery Method: HAND - Hand Delivered Gina Days: Prior Verbal Notification: Recipient Understood Notice: Yes Recipient Signature: Yes Med Rec Note Co-signed by Attending: Coverage Notice Comment: Reviewer: LISSY Marx Notice Issued Date-Time: 12/30/2018 13:00 Notice Type: Patient Choice Letter Notice Delivered To: Patient Relationship to Patient: Major League Baseball Umpire Name: Delivery Method: HAND - Hand Delivered Gina Days: Prior Verbal Notification: Recipient Understood Notice: Yes Recipient Signature: Yes Med Rec Note Co-signed by Attending: Coverage Notice Comment: [facility] Reviewer: LISSY Marx Notice Issued Date-Time: 12/31/2018 12:00 Notice Type: IM Discharge Notice Notice Delivered To: Patient Relationship to Patient: Major League Baseball Umpire Name: Delivery Method: HAND - Hand Delivered Gina Days: Prior Verbal Notification: Recipient Understood Notice: Yes Recipient Signature: Yes Med Rec Note Co-signed by Attending: Coverage Notice Comment: Last DP export: 01/01/19 6:30 a Patient Name: MICHAEL ERNANDEZ Page [id number] at 1211 All edits/amendments must be made on the electronic document DICTATION DATE: 01/01/19 1210 DIGITAL PRODUCTION MANAGER: MARIAM 01/01/19 1210 RPT#: [id number] DC DATE: STATUS: ADM IN [facility] [address] [place] [address] END OF REPORT
[2019-01-01 12:20] VITALS: BP 156/50
--- NOTE | 2019-01-01 14:40 | NUR ---
TRIED TO CALL REPORT TO REHAB WITH NO ANSWER. WILL TRY AGAIN IN A BIT.
--- NOTE | 2019-01-01 14:50 | NUR ---
STILL NO ANSWER TO REHAB PHONE.
--- NOTE | 2019-01-01 15:09 | NUR ---
STILL NO ANSWER TO REHAB PHONE.
--- NOTE | 2019-01-01 15:09 | NUR ---
OT NOTE: PT COMPLETED LUE AROM EXS. PT COMPLETED FACE WASHING WITH SET UP. THANK YOU, LEIDY NEVILLE
--- NOTE | 2019-01-01 15:22 | NUR ---
REPORT CALLED TO MARILYNN IN REHAB. SHE IS TO CALL ME WHEN THE ROOM IS READY HE IS NOW GOING INTO [facility].
--- NOTE | 2019-01-01 16:12 | NUR ---
VERBAL AND WRITTEN DISCHARGE INSTRUCTIONS GIVEN TO PATIENT. SALINE LOCK REMOVED WITH CATH TIP INTACT. DISCHARGED TO IP REHAB VIA BED ALONG WITH PORTABLE OXYGEN AND EGG CRATE.
== END 2019-01-01 16:16 | DRG 884 ==
LOC: D.ER 17:18 → D.EDHOLD 19:13 → D.M2 19:13
PROVIDERS: Family Medicine; ADMIT Family Medicine; ATTEND Family Medicine
DX: R54 Age-related physical debility (principal); J18.9 Pneumonia, unspecified organism; R53.1 Weakness; I11.0 Hypertensive heart disease with heart failure; I50.9 Heart failure, unspecified; E11.42 Type 2 diabetes mellitus with diabetic polyneuropathy; K59.00 Constipation, unspecified; I25.10 Atherosclerotic heart disease of native coronary artery without angina pectoris; E66.9 Obesity, unspecified; Z68.35 Body mass index [BMI] 35.0-35.9, adult; I48.91 Unspecified atrial fibrillation

== ENCOUNTER 2019-01-01 17:37 | Inpatient (IN) | payer MEDICARE, OTHER ==
[~2019-01-01] VITALS: Ht 182.9 cm; Wt 123.8 kg
--- NOTE | 2019-01-01 16:35 | NUR ---
RECIEVED ON FLOOR TO ROOM 1115V.ORIENTED TO SURROUNDINGS.CL IN REACH
[~2019-01-01 17:37] MED LIST changes: +DOXYCYCLINE HY100 M2 PO; +NYSTATIN1 PWD TOPICAL; +TOPROL XL50 MG PO
[2019-01-01 17:45] VITALS: BP 166/78; BMI 37.1
[2019-01-01 19:00] VITALS: BP 166/78
--- NOTE | 2019-01-01 20:05 | NUR ---
GREETED PATIENT AND INTRODUCED MYSELF. HAD PATIENT SIGN ADMISSION PAPERWORK. PATIENT LAYING IN SUPINE POSITION. HOB AT 30 DEGREES. DENIES ANY FURTHER NEEDS AT THIS TIME. CALL LIGHT IN REACH.
--- NOTE | 2019-01-02 01:06 | NUR ---
PATIENT LAYING AWAKE IN BED WATCHING TV. HOB AT 30 DEGREES. RESPIRATIONS EVEN. NO S/S OF DISTRESS. CALL LIGHT IN REACH.
--- NOTE | 2019-01-02 06:00 | NUR ---
CHECKED PATIENTS BLOOD SUGAR. BS WAS 46. GAVE PATIENT 16 OZ OF ORANGE JUICE, 8 OZ OF MILK, JIGAR CRACKERS AND PEANUT BUTTER. LEFT NOTE FOR DR. FOX CONCERNING THE AMOUNT OF LANTUS THAT IS PRESCRIBED ON OCT. WCTM.
[2019-01-02 07:12] LABS: BASOPHILS 0.2 % (0-2); EOSINOPHILS 5.2 % (0-7); HEMATOCRIT 27.8 % (42.0-54.0); HEMOGLOBIN 9.1 g/dL (13.5-17.5); IMMATURE GRANULOCYTES 0.5 % (0-5); LYMPHOCYTES 11.8 % (15-50); MCH 31.4 pg (26.0-34.0); MCHC 32.7 g/dL (31.0-37.0); MCV 95.9 fL (80.0-100.0); MEAN PLATELET VOLUME 9.4 fL (7.4-10.4); MONOCYTES 8.8 % (2-11); NEUTROPHILS 73.5 % (40-80); PLATELET COUNT 181 10x3/uL (130-400); RDW 13.7 % (11.5-14.5); WBC 9.2 10x3/uL (4.8-10.8)
[2019-01-02 07:23] LABS: ANION GAP 11.1 mmol/L (8-16); CALCIUM 8.9 mg/dL (8.5-10.1); CARBON DIOXIDE 29.1 mmol/L (21.0-32.0); CREATININE - SERUM 1.6 mg/dL (0.6-1.3); POTASSIUM - SERUM 4.2 mmol/L (3.5-5.1)
[2019-01-02 08:00] VITALS: BP 97/38
[2019-01-02 09:30] VITALS: Ht 182.9 cm; Wt 123.8 kg
--- NOTE | 2019-01-02 10:06 | NUR ---
LAYING IN BED WATCHING TV. USES URINAL IN BED. STILL HAS LOW HR. DR FOX ON FLOOR AND NOTIFIED. FEEDS SELF USING LUE RUE HAS LIMITED ROM. DENIES NEEDS OR NEEDS. CALL LIGHT IN REACH
--- NOTE | 2019-01-02 12:31 | NUR ---
LAYING IN BED EATING LUNCH. IS A MAX ASST WITH ADL'S. CALL LIGHT IN REACH
[2019-01-02 19:00] VITALS: BP 168/71
--- NOTE | 2019-01-02 19:24 | NUR ---
GREETED PATIENT AND ASSISTED PATIENT WITH USING THE URINAL AND SETTING UP DINNER TRAY. NO FURTHER NEEDS AT THIS TIME. CALL LIGHT IN REACH.
--- NOTE | 2019-01-03 00:07 | NUR ---
RECHECKED PATIENTS BLOOD SUGAR PER REQUEST. BS WAS 154. I ASKED PATIENT DID HE WANT TO TAKE SOME INSULIN OR ADMINISTER THE LANTUS THAT HE REFUSED EARLIER. PATIENT STATED THAT HE WOULD WAIT IT OUT UNTIL THE MORNING.
--- NOTE | 2019-01-03 01:18 | NUR ---
PATIENT RESTING QUIETLY WITH EYES CLOSED LAYING IN SUPINE POSITION. HOB AT 30 DEGREES. RESPIRATIONS EVEN. NO S/S OF DISTRESS. CALL LIGHT IN REACH.
[2019-01-03 07:57] LABS: BASOPHILS 0.5 % (0-2); EOSINOPHILS 7.3 % (0-7); HEMATOCRIT 27.7 % (42.0-54.0); IMMATURE GRANULOCYTES 0.5 % (0-5); LYMPHOCYTES 14.8 % (15-50); MCH 31.3 pg (26.0-34.0); MCHC 32.5 g/dL (31.0-37.0); MCV 96.2 fL (80.0-100.0); MEAN PLATELET VOLUME 9.3 fL (7.4-10.4); MONOCYTES 12.4 % (2-11); NEUTROPHILS 64.5 % (40-80); PLATELET COUNT 187 10x3/uL (130-400); RBC 2.88 10x6/uL (4.20-6.10); RDW 13.8 % (11.5-14.5); WBC 8.3 10x3/uL (4.8-10.8)
[2019-01-03 08:02] VITALS: BP 147/54
[2019-01-03 08:07] LABS: ANION GAP 8.8 mmol/L (8-16); CALCIUM 9.1 mg/dL (8.5-10.1); CARBON DIOXIDE 31.4 mmol/L (21.0-32.0); CREATININE - SERUM 1.7 mg/dL (0.6-1.3); POTASSIUM - SERUM 4.2 mmol/L (3.5-5.1)
--- NOTE | 2019-01-03 12:18 | NUR ---
MEDS REVIEWED WITH DR. FOX. PT HAS HAD LOW HR OF LESS THAN 60 AND BP MEDS WERE HELD. PER HIS ORDERS, TOPROL WAS ONLY MED HELD. ALL OTHER MEDS ARE OK TO GIVE.
--- NOTE | 2019-01-03 15:59 | NUR ---
SITTING UP IN WC IN ROOM. OXYGEN IN PLACE. DENIES NEEDS. CALL LIGHT IN REACH
--- NOTE | 2019-01-03 19:20 | NUR ---
PT IS RESTING IN BED WITH EYES OPEN. ALERT AND ORIENTED X 3. DENIES ACUTE PAIN OR DISCOMFORT AT THIS TIME. NO NEEDS VOICED. O2 IS ON @3LPM PER NC. NO SOB NOTED. SR'S ARE UP X 3 IN BED. CALL LIGHT AND BEDSIDE TABLE ARE WITHIN EASY REACH.
[2019-01-03 20:06] VITALS: BP 121/51
--- NOTE | 2019-01-03 21:42 | NUR ---
PT IS RESTING IN BED WATCHING TV. NO NEEDS VOICED.
--- NOTE | 2019-01-04 00:01 | NUR ---
PT ASSISTED TO REPOSITION IN BED WITH MAX ASSIST X 2.
--- NOTE | 2019-01-04 01:29 | NUR ---
RESTING IN BED WITH RESPIRATIONS UNLABORED. NO DISTRESS NOTED.
--- NOTE | 2019-01-04 05:12 | NUR ---
PT RESTING IN BED WITH EYES CLOSED. NO ACUTE DISTRESS NOTED.
[2019-01-04 07:31] VITALS: BP 114/56
--- NOTE | 2019-01-04 09:58 | NUR ---
RESTING QUIETLY IN BED, EYES CLOSED. OXYGEN IN USE VIA NC. HEAD OF BED APPX 70 DEGREES. SIDE RAILS UP X2. BED IN LOWEST POSITION. CALL LIGHT IN REACH
--- NOTE | 2019-01-04 15:35 | NUR ---
PT WAS CONSTIPATED. LARGE IMPACTION REMOVED. ENCOURAGED HIM TO DRINK MORE WATER. NOW LAYING COMFORTABLY IN BED. EYES CLOSED. RESTING QUIETLY. CALL LIGHT IN REACH
--- NOTE | 2019-01-04 17:55 | NUR ---
SITTING UP IN BED EATING SUPPER. IS MAX ASST X2 PERSONS TO EVEN ROLL OVER ON SIDE. RUE IS FROZEN IN PLACE WITH LIMITED ROM NOTED. STATES HE FEELS MUCH BETTER AFTER IMPACTION REMOVED. USES URINAL TO VOID IN BED. CALL LIGHT IN REACH
[2019-01-04 20:00] VITALS: BP 133/48
--- NOTE | 2019-01-04 21:49 | NUR ---
THE PATIENT WAS LYING IN BED WHEN STAFF ENTERED HIS ROOM. BED IS IN THE LOW POSITION WITH SIDERAILS X2 AND CALL LIGHT WITHIN REACH. THE PATIENT DEMONSTRATES APPRORPIATE USE OF A CALL LIGHT. THE PATIENT APPEARS COMFORTABLE WITH NO QUESTIONS OR CONCERNS AT THIS TIME.
--- NOTE | 2019-01-05 02:32 | NUR ---
THE PATIENT APPEARS TO BE SLEEPING COMFORTABLY. BED IS IN THE LOW POSITION WITH SIDERAILS X2 AND CALLLIGHT WITHIN REACH.
--- NOTE | 2019-01-05 10:29 | NUR ---
PATIENT AWAKE AND ALERT. SITTING UP IN BED. BLOOD SUGAR 81 AFTER 2 GLASSES OF ORANGE JUICE. ATE 100% OF BREAKFAST. NO COMPLAINTS OF PAIN OR DISCOMFORT. RESTING QUIETLY AT THIS TIME. WILL CONTINUE TO MONITOR. CALL LIGHT WITHIN REACH.
[2019-01-05 12:18] VITALS: BP 105/54
--- NOTE | 2019-01-05 14:10 | NUR ---
SITTING UP IN BED RESTING AT THIS TIME. ATE 90% OF LUNCH. NO COMPLAINTS AT THIS TIME. WILL CONTINUE TO MONITOR.CALL LIGHT WITHIN REACH.
--- NOTE | 2019-01-05 19:48 | NUR ---
PT IS RESTING IN BED WITH EYES OPEN. ALERT AND ORIENTED X 3. DENIES ACUTE DISCOMFORT AT THIS TIME. ASSISTED TO REPOSITION IN BED WITH 2 PERSON TOTAL ASSIST. O2 IS ON @ 2LPM PER NC. NO SOB NOTED. SR'S ARE UP X 2 IN BED. CALL LIGHT AND BEDSIDE TABLE ARE WITHIN EASY REACH.
[2019-01-05 20:00] VITALS: BP 118/44
[2019-01-05 21:37] VITALS: BP 118/44
--- NOTE | 2019-01-05 22:46 | NUR ---
PT RESTING IN BED WITH EYES CLOSED.
--- NOTE | 2019-01-06 00:37 | NUR ---
RESTING IN BED WITH EYES CLOSED AND RESPIRATIONS UNLABORED. NO DISTRESS NOTED. CALL LIGHT IN REACH.
--- NOTE | 2019-01-06 06:20 | NUR ---
PT IS RESTING IN BED WITH EYES OPEN. FSBS IS 43. PT GIVEN 8 OZ OJ AND 2 PACKETS OF JIGAR CRACKERS, PER HIS REQUEST.
[2019-01-06 07:05] LABS: BASOPHILS 0.3 % (0-2); EOSINOPHILS 6.8 % (0-7); HEMATOCRIT 30.3 % (42.0-54.0); HEMOGLOBIN 9.7 g/dL (13.5-17.5); IMMATURE GRANULOCYTES 0.4 % (0-5); LYMPHOCYTES 24.2 % (15-50); MCH 31.1 pg (26.0-34.0); MCV 97.1 fL (80.0-100.0); MEAN PLATELET VOLUME 9.4 fL (7.4-10.4); MONOCYTES 9.3 % (2-11); PLATELET COUNT 211 10x3/uL (130-400); RBC 3.12 10x6/uL (4.20-6.10)
[2019-01-06 07:08] LABS: ANION GAP 10.6 mmol/L (8-16); CALCIUM 9.2 mg/dL (8.5-10.1); CARBON DIOXIDE 31.2 mmol/L (21.0-32.0); CREATININE - SERUM 1.4 mg/dL (0.6-1.3); POTASSIUM - SERUM 3.8 mmol/L (3.5-5.1)
--- NOTE | 2019-01-06 07:27 | NUR ---
LAB CALLED WITH GLUCOSE RESULTS 43. NIGHTSHIFT HAD GIVEN SNACKS AFTER FSBS RESULTED IN 43. PT FSBS RECHECKED BY THIS NURSE AND RESULTED 106. PT STATES HE FEELS FINE AND DENIES NEEDS.
--- NOTE | 2019-01-06 08:00 | NUR ---
ALERT AND ORIENTED THIS MORNING. NO COMPLAINTS AT THIS TIME. ATE 60% OF BREAKFAST. WILL CONTINUE TO MONITOR. CALL LIGHT WITHIN REACH
[2019-01-06 08:06] VITALS: BP 132/56
--- NOTE | 2019-01-06 12:29 | NUR ---
PATIENT UP IN WHEELCHAIR EATING LUNCH. TOLERATED THERAPY WELL THIS MORNING. NO COMPLAINTS AT THIS TIME. BS WAS 163. INSULIN HELD DUE TO LOW BLOOD SUGARS AFTER GIVING INSULIN. WILL CONTINUE TO MONITOR
[2019-01-06 19:00] VITALS: BP 119/58
--- NOTE | 2019-01-06 19:42 | NUR ---
PT IS RESTING IN BED WITH EYES OPEN. ALERT AND ORIENTED X 3. PT STATED HE WAS JUST TIRED OF LAYING AROUND, AND WISHES HE COULD JUST GO FISHING. NO NEEDS VOICED AT THIS TIME. SR'S ARE UP X 2 IN BED. CALL LIGHT AND BEDSIDE TABLE ARE WITHIN EASY REACH.
--- NOTE | 2019-01-06 21:17 | NUR ---
PT RESTING IN BED WITH EYES OPEN. HE REQUESTED LOTION BE PUT ON HIS RIGHT ARM TO STOP IT FROM ITCHING. LOTION APPLIED WITH RELIEF VOICED.
--- NOTE | 2019-01-07 00:10 | NUR ---
RESTING IN BED WITH EYES CLOSED.
--- NOTE | 2019-01-07 00:25 | NUR ---
RESTING IN BED. REPOSITINED FOR COMFORT PER AIR DRIER AND NURSE. NO DISTRESS NOTED. CALL LIGHT IN REACH.
--- NOTE | 2019-01-07 03:00 | NUR ---
PT IS RESTING QUIETLY IN BED WITH EYES CLOSED. RESPS ARE EVEN AND UNLABORED. NO ACUTE DISTRESS NOTED.
--- NOTE | 2019-01-07 05:56 | NUR ---
PT RESTING IN BED WITH EYES OPEN. FSBS. 49. PT GIVEN 8 OZ OF OJ AND 2 PACKETS OF JIGAR CRACKERS PER HIS REQUEST.
[2019-01-07 08:00] VITALS: BP 143/46
--- NOTE | 2019-01-07 09:54 | NUR ---
PT CONSTIPATED. IMPACTION REMOVED BY NURSE. ENCOURAGED PT TO DRINK MORE WATER. CALL LIGHT IN REACH
--- NOTE | 2019-01-07 15:06 | NUR ---
PATIENT ADMITTED TO REHAB FROM ACUTE FLOOR. HIS PCP IS DR. PALACIOS. DME AT HOME IS A WALKER, WHEELCHAIR AND BEDSIDE COMMODE. HE IS A CLIENT OF [facility]ARE [facility]. WILL CONTINUE TO FOLLOW WITH PATIENT.
[2019-01-07 19:01] VITALS: BP 137/59
--- NOTE | 2019-01-07 19:35 | NUR ---
PT IN BED LOW POSITION, EYES CLOSED, AROUSES EASILY TO VOICE, NO IMMEDIATE NEEDS NOTED, FLUIDS AND CALL LIGHT WITHIN REACH
--- NOTE | 2019-01-08 03:55 | NUR ---
PT IN BED LOWEST POSITION, EYES CLOSED AROUSES EASILY TO VOICE, BREATHING EVEN AND UNLABORED, NO NEEDS NOTED, FLUIDS AND CALL LIGHT WITHIN REACH
[2019-01-08 07:45] VITALS: BP 160/69
--- NOTE | 2019-01-08 08:00 | NUR ---
SHIFT ASSMT COMPLETED.DENIES NEEDS.
--- NOTE | 2019-01-08 09:40 | NUR ---
Nutrition follow up: Diabetic diet with 82% average po intake BG 106 today BM yesterday Pt continues to be screened at low nutritional risk RD following
--- NOTE | 2019-01-08 12:00 | NUR ---
EATING LUNCH WHILE UP IN WC.CL IN REACH.
--- NOTE | 2019-01-08 13:51 | NUR ---
PATIENT IN REHAB ROOM. WORKING WITH PHYSICAL THERAPIST. DENIES ANY PAIN. DISCOMFORT AT THIS TIME.
--- NOTE | 2019-01-08 15:49 | NUR ---
CARE TEAM MEETING: PATIENT IS SLOWLY REGAINING STRENGTH. TENATIVE DISCHARGE DATE IS 01/17/19 . WILL CONTINUE TO FOLLOW WITH PATIENT AND WILL ASSIST WITH NEEDS.
[2019-01-08 19:00] VITALS: BP 145/65
--- NOTE | 2019-01-08 22:46 | NUR ---
PT IN BED LOWEST POSITION, EYES OPEN, A&O, BREATHING EVEN AND UNLABORED, NO NEEDS NOTED, FLUIDS AND CALL LIGHT WITHIN REACH
--- NOTE | 2019-01-09 08:00 | NUR ---
SHIFT ASSMT COMPLETED
[2019-01-09 08:21] VITALS: BP 156/51
[2019-01-09 19:00] VITALS: BP 139/57
--- NOTE | 2019-01-09 19:54 | NUR ---
PT IN BED LOWEST POSITION, NO NEEDS NOTED, EYES OPEN WATCHING TV, PLEASANT, FLUIDS AND CALL LIGHT WITHIN REACH
[2019-01-10 08:00] VITALS: BP 145/67
[2019-01-10 09:07] LABS: BASOPHILS 0.4 % (0-2); EOSINOPHILS 5.1 % (0-7); HEMATOCRIT 33.5 % (42.0-54.0); HEMOGLOBIN 10.9 g/dL (13.5-17.5); IMMATURE GRANULOCYTES 0.4 % (0-5); LYMPHOCYTES 15.6 % (15-50); MCH 31.3 pg (26.0-34.0); MCHC 32.5 g/dL (31.0-37.0); MCV 96.3 fL (80.0-100.0); MEAN PLATELET VOLUME 9.6 fL (7.4-10.4); MONOCYTES 12.3 % (2-11); NEUTROPHILS 66.2 % (40-80); PLATELET COUNT 216 10x3/uL (130-400); RBC 3.48 10x6/uL (4.20-6.10); RDW 14.2 % (11.5-14.5); WBC 9.2 10x3/uL (4.8-10.8)
[2019-01-10 09:25] LABS: ANION GAP 7.6 mmol/L (8-16); CALCIUM 9.3 mg/dL (8.5-10.1); CARBON DIOXIDE 35.2 mmol/L (21.0-32.0); CREATININE - SERUM 1.6 mg/dL (0.6-1.3); POTASSIUM - SERUM 4.8 mmol/L (3.5-5.1)
--- NOTE | 2019-01-10 15:39 | NUR ---
LAYING IN BED WITH HEAD OF BED ELEVATED APPX 75 DEGREES. WEARING OXYGEN VIA NC. NO S/S DISTRESS. CALL LIGHT IN REACH
[2019-01-10 19:00] VITALS: BP 121/44
--- NOTE | 2019-01-10 19:38 | NUR ---
PT IS RESTING IN BED WITH EYES CLOSED. AWOKE EASILY TO VERBAL STIMULI. ALERT AND ORIENTED X 3. DENIES ACUTE DISCOMFORT AT THIS TIME. NO NEEDS VOICED. SR'S ARE UP X 2 IN BED. CALL LIGHT AND BEDSIDE TABLE ARE WITHIN EASY REACH.
--- NOTE | 2019-01-10 22:54 | NUR ---
RESTING IN BED WITH EYES CLOSED.
--- NOTE | 2019-01-11 00:44 | NUR ---
RESTING IN BED WITH EYES CLOSED. USING URINAL PRN.
--- NOTE | 2019-01-11 01:26 | NUR ---
I have reviewed this patient and I concur with the Shift Assessment completed by the Licensed Practical Nurse today this shift.
--- NOTE | 2019-01-11 06:07 | NUR ---
PT IS RESTING IN BED WITH EYES OPEN. NO NEEDS VOICED. FSBS 168. PT REFUSED SLIDING SCALE INSULIN. TOLERATED AM MED WITHOUT DIFFICULTY.
[2019-01-11 07:22] VITALS: BP 121/62
--- NOTE | 2019-01-11 10:20 | NUR ---
LAYING IN BED RESTING QUIETLY. TV ON BUT HE HAS EYES CLOSED. RESP EFFORT NON LABORED. OXYGEN IN PLACE AT 2LNC. SIDE RAILS UP X2. BED IN LOWEST POSITION. CALL LIGHT IN REACH
--- NOTE | 2019-01-11 19:13 | NUR ---
PT RESTING IN BED WITH EYES OPEN. ALERT AND ORIENTED X 3. PT INC. OF URINE. PADS CHANGED AND AIDE CARE DONE. PT REPOSITIONED UP IN BED WITH 2 PERSON MAX ASSIST. O2 IS ON @ 2LPM PER NC. HEELS ELEVATED UP OFF MATTRESS WITH A PILLOW. SR'S ARE UP X 3 IN BED. CALL LIGHT AND BEDSIDE TABLE ARE WITHIN EASY REACH.
[2019-01-11 21:11] VITALS: BP 119/63
--- NOTE | 2019-01-11 21:36 | NUR ---
PT ASSSITED TO USE BEDPAN. XLARGE SOFT BM NOTED. AIDE CARE DONE. BED LINENS WET FROM PT URINATING DURING BM. BED LINENS CHANGED. NO FURTHER NEEDS VOICED.
--- NOTE | 2019-01-12 00:41 | NUR ---
PT RESTING IN BED WITH EYES CLOSED.
--- NOTE | 2019-01-12 01:00 | NUR ---
I have reviewed this patient and I concur with the Shift Assessment completed by the Licensed Practical Nurse today this shift.
--- NOTE | 2019-01-12 04:19 | NUR ---
PT SPILLED HIS URINAL ON A PAD. PAD CHANGE AND AIDE CARE DONE.
--- NOTE | 2019-01-12 06:04 | NUR ---
PT RESTING IN BED WITH EYES OPEN. NO ACUTE DISTRESS NOTED.
[2019-01-12 07:38] VITALS: BP 128/66
--- NOTE | 2019-01-12 07:51 | NUR ---
LAYING ON BACK IN BED. EYES CLOSED. NO S/S DISTRESS. RESP EFFORT NON LABORED. CALL LIGHT IN REACH. SIDE RAILS UP X2. BED IN LOWEST POSITION.
--- NOTE | 2019-01-12 11:05 | NUR ---
LAYING IN BED WITH EYES CLOSED. NO S/S DISTRESS. RESP EFFORT NON LABORED. HEAD OF BED ELEVATED TO 45 DEGREES. SIDE RAILS UP X2. BED IN LOWEST POSITION. CALL LIGHT IN REACH
--- NOTE | 2019-01-12 19:15 | NUR ---
PT RESTING IN BED WITH EYES OPEN. ALERT AND ORIENTED X 3. DENIES ACUTE DISCOMFORT AT THIS TIME. PT DID STATE, "I THINK I PEED IN MY BED, AND I NEED TO USE THE BEDPAN." PT ASSISTED TO USE BEDPAN. LARGE, SOFT BM NOTED. BED PADS CHANGED, AND AIDE CARE DONE. PT ASSISTED TO REPOSITION IN BED TO HIS REQUESTED LEVEL OF COMFORT. ANNA HEELS ARE ELEVATED UP OFF BED WITH PILLOWS. SR'S ARE UP X3 IN BED. CALL LIGHT AND BEDSIDE TABLE ARE WITHIN EASY AMY.
[2019-01-12 19:25] VITALS: BP 119/64
--- NOTE | 2019-01-12 21:31 | NUR ---
PATIENT AWAKE AND RESTING IN BED. STATES HE IS DOING FINE. WILL CONTINUE TO MONITOR. CALL LIGHT WITHIN REACH.
--- NOTE | 2019-01-13 01:24 | NUR ---
PT VOICED COMPLAINT OF FEELING NAUSIOUS. MEDICATED PER MAR.
--- NOTE | 2019-01-13 04:54 | NUR ---
PT IS RESTING QUIETLY IN BED WITH EYES CLOSED. RESPS ARE EVEN AND UNLABORED. NO ACUTE DISTRESS NOTED.
[2019-01-13 08:00] VITALS: BP 119/69
--- NOTE | 2019-01-13 08:15 | NUR ---
PT RESTING IN BED WITH EYES OPEN CALL LIGHT IN REACH NO PROBLEMS WILL MONITER
--- NOTE | 2019-01-13 16:00 | NUR ---
PT RESTING IN BED WITH EYES OPEN CALL LIGHT IN REACH WILL MONITER
--- NOTE | 2019-01-13 16:30 | NUR ---
I have reviewed this patient and I concur with the Shift Assessment completed by the Licensed Practical Nurse today this shift.
[2019-01-13 19:00] VITALS: BP 116/63
--- NOTE | 2019-01-13 19:45 | NUR ---
PT LYING IN BED. CALL LIGHT IN REACH. DENIES NEEDS OR PAIN. BED IN LOW SIDE RAILS X2. RESP EVEN AND UNLABORED. O2 ON 2L. TOTAL ASSIST. USES URINAL MOST OF TIME. WCTM
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
--- NOTE | 2019-01-14 02:16 | NUR ---
RESTING IN BED WITH EYES CLOSED AND RESPIRATIONS UNLABORED. NO DISTRESS NOTED. CALL LIGHT IN REACH.
--- NOTE | 2019-01-14 03:00 | NUR ---
PT RESTING QUIETLY. CALL LIGHT IN REACH. BED IN LOW. NO SIGNS OF DISTRESS OR PAIN. RESP EVEN AND UNLABORED. EYES CLOSED. WCTM
--- NOTE | 2019-01-14 07:29 | NUR ---
RESTING WO DISTRESS. NO C/O PAIN AT THIS TIME.
--- NOTE | 2019-01-14 07:38 | NUR ---
PT RESTING IN BED WITH EYES OPEN CALL LIGHT IN REACH NO PROBLEMS WILL MONITER
[2019-01-14 08:00] VITALS: BP 121/64
--- NOTE | 2019-01-14 12:24 | NUR ---
I have reviewed this patient and I concur with the Shift Assessment completed by the Licensed Practical Nurse today this shift.
--- NOTE | 2019-01-14 12:59 | NUR ---
Nutrition follow up Diabetic diet with 75% average po intake past 2 days Pt is satisfied with the foods Pt has no questions about diabetic diet Encouraged good po intake RD following
[2019-01-14 19:00] VITALS: BP 123/77
--- NOTE | 2019-01-14 19:53 | NUR ---
PT RESTING QUIETLY. CALL LIGHT IN REACH. DENIES NEEDS OR PAIN. BED IN LOW. SIDE RAILS X2. EYES CLOSED. LUNGS CLEAR. O2 ON 2L. RESP EVEN AND UNLABORED. BOWEL ACTIVE X4. WCTM
--- NOTE | 2019-01-15 02:34 | NUR ---
RESTING IN BED WITH RESPIRATIONS UNLABORED. NO DISTRESS NOTED. CALL LIGHT IN REACH.
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
[2019-01-15 08:00] VITALS: BP 102/66
[2019-01-15 08:04] LABS: BASOPHILS 0.1 % (0-2); EOSINOPHILS 5.4 % (0-7); HEMATOCRIT 29.3 % (42.0-54.0); HEMOGLOBIN 9.6 g/dL (13.5-17.5); IMMATURE GRANULOCYTES 0.4 % (0-5); LYMPHOCYTES 19.5 % (15-50); MCHC 32.8 g/dL (31.0-37.0); MCV 94.5 fL (80.0-100.0); MEAN PLATELET VOLUME 9.6 fL (7.4-10.4); MONOCYTES 10.3 % (2-11); NEUTROPHILS 64.3 % (40-80); PLATELET COUNT 202 10x3/uL (130-400); RDW 14.2 % (11.5-14.5); WBC 8.4 10x3/uL (4.8-10.8)
[2019-01-15 08:11] LABS: ANION GAP 9.9 mmol/L (8-16); CALCIUM 8.5 mg/dL (8.5-10.1); CARBON DIOXIDE 30.1 mmol/L (21.0-32.0); CREATININE - SERUM 1.8 mg/dL (0.6-1.3)
--- NOTE | 2019-01-15 12:22 | NUR ---
SITTING UP IN WC IN ROOM EATING LUNCH. USES LUE. RUE IS CONTRACTED AND HAS LIMITED USE. DENIES INCREASED PAIN. CALL LIGHT IN REACH
[2019-01-15 19:00] VITALS: BP 118/65
--- NOTE | 2019-01-15 20:44 | NUR ---
PT IN BED UNUSUALLY QUIET, STATES JUST DOESN'T FEEL WELL, FLUIDS AND CALL LIGHT WITHIN REACH, VS WNL, REPOSITIONED PT, BRIDGED HEELS, WILL CONTINUE TO MONITOR PT THRU OUT SHIFT
[2019-01-16 08:00] VITALS: BP 140/60
--- NOTE | 2019-01-16 15:20 | NUR ---
SITTING UP IN WC IN THERAPY ROOM. HAS TO BE ENCOURAGED TO STAY OUT OF BED.
--- NOTE | 2019-01-16 20:09 | NUR ---
PT IN BED LOWEST POSITION, EYES OPEN WATCHING TV, BREATH EVEN AND UNLABORED, FLUIDS AND CALL LIGHT WITHIN REACH, EMPTIED URINAL OF 300CC
--- NOTE | 2019-01-17 01:50 | NUR ---
PT IN BED LOWEST POSITION, EYES CLOSED AROUSES EASILY TO VOICE, BREATHS SLOW EVEN AND UNLABORED, NO NEEDS NOTED, FLUIDS AND CALL LIGHT WITHIN REACH,
[2019-01-17 06:39] VITALS: BP 121/64
[2019-01-17 07:25] LABS: BASOPHILS 0.1 % (0-2); EOSINOPHILS 6.2 % (0-7); HEMATOCRIT 32.4 % (42.0-54.0); HEMOGLOBIN 10.5 g/dL (13.5-17.5); IMMATURE GRANULOCYTES 0.3 % (0-5); LYMPHOCYTES 20.4 % (15-50); MCHC 32.4 g/dL (31.0-37.0); MCV 95.6 fL (80.0-100.0); MEAN PLATELET VOLUME 9.8 fL (7.4-10.4); MONOCYTES 9.5 % (2-11); NEUTROPHILS 63.5 % (40-80); PLATELET COUNT 215 10x3/uL (130-400); RBC 3.39 10x6/uL (4.20-6.10); RDW 14.3 % (11.5-14.5); WBC 7.9 10x3/uL (4.8-10.8)
[2019-01-17 07:31] LABS: ANION GAP 9.9 mmol/L (8-16); CALCIUM 8.9 mg/dL (8.5-10.1); CARBON DIOXIDE 31.3 mmol/L (21.0-32.0); CREATININE - SERUM 1.6 mg/dL (0.6-1.3); POTASSIUM - SERUM 4.2 mmol/L (3.5-5.1)
[2019-01-17 08:09] VITALS: BP 130/70
--- NOTE | 2019-01-17 08:21 | NUR ---
SITTING UP IN BED FOR BREAKFAST. USES LUE TO FEED SELF ALSO USES URINAL WITH LUE. CONT OF B/B. GERA LIGHT IN REACH
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
--- NOTE | 2019-01-17 11:14 | NUR ---
PATIENT DISCHARGING TO HIS HOME VIA AMBULANCE. [facility] WILL PROVIDE THERAPY AT HOME. NO NEW DME NEEDED PER PATIENT. DR. PALACIOS 01/23/19 @11:40. PATIENT CHOICE FORM AND IM[facility] FORMS SIGNED, COPY GIVEN TO PATIENT AND FILED IN CHART. DISCHARGE INSTRUCTIONS WITH [facility] DATA FAXED TO PCP, HOME HEALTH , AND REVIEWED WITH PATIENT. HAD MEETING WITH PATIENT , HIS SISTER DEVEN AND THERAPY REGARDING UNSAFE DISCHARGE HOME. PATIENT HAS REFUSED SNF . PATIENT IS UNABLE TO STAND AND CARE FOR HIMSELF. PATIENT AND HIS SISTER SYAS THAT HE IS ALERT AND ORIENTATED AND MAKES HIS OWN DECISIONS. DR. PALACIOS NOTIFIED OF PATIENTS DISCHARGE.
--- NOTE | 2019-01-17 11:31 | RHP ---
PATIENT: MICHAEL ERNANDEZ MEDICAL RECORD: [id number] ACCOUNT: [id number] LOCATION:[id number] : 44 ADMISSION DATE: 01/01/19 REHABILITATION HISTORY AND PHYSICAL EXAMINATION POST ADMISSION PHYSICIAN EXAMINATION ADMITTING DIAGNOSIS: Disuse myopathy. HISTORY OF PRESENT ILLNESS: The patient is a 73-year-old gentleman who is admitted to the rehab with a working diagnosis of disuse myopathy. He presented to the ED via EMS and progressively getting weak and was unable to get up to his bedside commode. He is admitted to acute hospital with pneumonia, acute polyneuropathy, weakness, renal insufficiency, and acute constipation. He was also having some chest pain. He presented with uncontrolled AFib, bundle branch block, and some PVCs. He has got a past medical history of neuropathy, diabetes, hypertension, CHF, and history of angioplasty with stent placement in the past. He is on O2 at home. He has got a history of CPAP also. Currently, the patient is on telemetry, supplemental O2, IV Lasix. He is on IV antibiotics every 12 hours. He has been having some pain. He is deconditioned, and got proximal muscle weakness, debility, impaired mobility. He is fall risk and self-care deficits. These are all barriers to discharge home at this time. He lives at home alone, was moderately independent with ADLs and mobility. He does not ambulate much, only short distance and transfers at home with a rosalina walker, but used his wheelchair for mobility. Sister checks on him twice a day and he plans to return home with continued home health set up his prior level of functioning or better after his acute stay in the rehabilitation. COMORBIDITIES: In this patient include diabetes, polyneuropathy, constipation, weakness, renal insufficiency, pneumonia, obesity, and coronary artery disease. PAST MEDICAL HISTORY: Significant for neuropathy, diabetes, hypertension, CHF, history of coronary artery disease, atrial fib, asthma, BiPAP, skin cancers, arthritis. He has got a cellulitis of his lower extremities in the past and kidney stones. PAST SURGICAL HISTORY: Includes coronary stent placement, kidney stone removal, coronary artery bypass grafting, cyst removed. He has had a right total shoulder times 3. He has had manipulation of this also and an ablation. ALLERGIES: REGLAN, CODEINE, AND ADHESIVE TAPE. CURRENT MEDICATIONS: Include Floranex 460 mg daily, metoprolol 50 mg daily, Lasix 80 mg daily, Multaq 400 mg b.i.d. with meals, Plavix 75 mg daily, Colace 200 mg at bedtime p.r.n. constipation. He is on a glucose replacement protocol. He is on tramadol 50 mg b.i.d. p.r.n., Altace 10 mg t.i.d. He is on Mysoline 200 mg b.i.d. He is on Monistat powder topically b.i.d. He is on a high resistance sliding scale with Humalog. He is on Lantus 94 units daily, Vibramycin 100 mg b.i.d., Dulcolax 10 mg at bedtime, atorvastatin 40 mg at bedtime, Eliquis 5 mg b.i.d., and Ventolin updrafts as needed. HABITS: No current alcohol or tobacco use. FAMILY HISTORY: Noncontributory. SOCIAL HISTORY: The patient hopes to return back home and get back to his prior HISTORY AND PHYSICAL [id number] MICHAEL ERNANDEZ level of functioning. REVIEW OF SYSTEMS: GENERAL: Does complain of weakness and fatigue. HEENT: Denies cold, cough, or congestion. CARDIOVASCULAR: Denies chest pain. PHYSICAL EXAMINATION: VITAL SIGNS: Stable, afebrile. GENERAL: A morbidly obese gentleman, in no acute distress, alert upon exam. HEENT: Normocephalic and atraumatic. Mucosa moist. NECK: Supple. No lymphadenopathy. LUNGS: Clear at this time. HEART: Irregular rate and rhythm. ABDOMEN: Benign, nontender, nondistended. Positive bowel sounds He is noted to be obese. EXTREMITIES: He does have peripheral edema. He also has some noted discoloration of his skin consistent with venous stasis. NEUROLOGIC: He does have some noted proximal muscle weakness. LABORATORY DATA: White count is 9.2, H&H 9.1 and 27.8, platelet count is noted to be 181. His sodium is 142, potassium 4.2, BUN and creatinine of 50 and 1.6, and blood sugar noted to be 107. ASSESSMENT: This 73-year-old gentleman admitted to the rehab with a working diagnosis of disuse myopathy. The patient has potential to make improvement. We instituted the following multidisciplinary therapies including, but not limited to physical, occupational, respiratory, speech, nutritional services, prosthetics and orthotics. Given his complex medical conditions and risks for more complications, rehabilitation services cannot be provided at a low level of care such as skilled nurse facility. PLAN: 1. Admit to [facility] for an inpatient therapy to include the following disciplines: A. Physical therapy to improve gait, all transfer skills and bed mobility to a modified independent level. B. Occupational therapy to improve activities of daily living to a modified independent level. C. Case management to assist with discharge planning and placement options. D. Nutrition to assist with nutritional needs. E. Rehabilitation nursing to assist in monitoring the patient's underlying medical conditions and to assist with any type of bowel or bladder management. 2. The patient's current medication and medical care will be continued. 3. The patient will be placed on standard fall precautions. 4. The patient's estimated length of stay is approximately 7-10 days. 5. We will discuss this patient during care team staff meeting this week and adjust some of his medications secondary to his low pulse and also his low blood sugar this morning and I will see again in the a.m. TRANSINT:[id number] Voice Confirmation ID: [id number] DOCUMENT ID: [id number] BOLA notes whether there has been none or any medical/functional change since admission: HISTORY AND PHYSICAL [id number] MICHAEL ERNANDEZ - No chnage since prescreen. BOLA attests patient continues to be appropriate for IRF: - Continues to be appropriate. JOSE DAVID FOX MD at 1131 CC: [id number] DICTATION DATE: 01/02/19 1031 OUTDOOR ADVENTURE INSTRUCTOR: 01/02/19 1211 ADM IN [facility] [address] [id number]
--- NOTE | 2019-01-17 11:44 | NUR ---
DC HOME WITH ALL PERSONAL BELONGINGS. MEDS CALLED IN TO PHARMACY. AMBULANCE TOOK PT HOME.
== END 2019-01-17 10:30 | disposition home health service (06) | DRG 91 ==
LOC: D.REHAB 17:37
PROVIDERS: ADMIT Emergency Medicine; ATTEND Emergency Medicine
DX: G72.89 Other specified myopathies (principal); J18.9 Pneumonia, unspecified organism; I25.10 Atherosclerotic heart disease of native coronary artery without angina pectoris; E66.9 Obesity, unspecified; E11.40 Type 2 diabetes mellitus with diabetic neuropathy, unspecified; K59.00 Constipation, unspecified; R53.1 Weakness; N28.9 Disorder of kidney and ureter, unspecified; R53.81 Other malaise

== ENCOUNTER 2019-06-05 10:45 | Inpatient (IN) | payer MEDICARE, OTHER ==
[~2019-06-05] VITALS: Ht 182.9 cm; Wt 120.2 kg
--- NOTE | ~2019-06-05 | HEMODYNAMI ---
PATIENT:MICHAEL ERNANDEZ MEDICAL RECORD: [id number] : 43 LOCATION:[facility] D.[address] [facility]# [id number] ADMISSION DATE: 06/05/19 Generatedon:06/09/20198:21 Patient name: MICHAEL ERNANDEZ Patient #: [id number] SSN : [id number] : 1945 Date of study: 06/06/2019 Page: Of Hemodynamic Procedure Report Patient Data Patient Demographics Procedure consent was obtained First Name: MICHAEL Gender: Male Last Name: OMA : 1945 [facility] Initial: DILLON Age: 74 year(s) Patient #: [id number] Race: SSN: [id number] Additional ID: [id number] Contact details Address: [address] [place] [address] State: [place] City: [facility] Zip code: [address] Past Medical History Allergies Allergen Reaction Date Comments Reported Other allergy 07/31/2018 Surgical tape, Metolopramide HCL, Codeine. Other allergy 08/01/2018 CODEINE, REGLAN Other allergy 06/06/2019 codine,tape,reaglin Admission Admission Data Admission Date: 06/05/2019 Admission Time: 14:00 Arrival Date: 06/06/2019 Arrival Time: 0:00 Admit Source: Other Insurance Payor: Medicare Room #: D.2[address] [facility] #: [id number] Height (in.): 72.05 BSA: 2.43 (m2) Height (cm.): 183 BMI: 37.03 (kg/m2) Weight (lbs.): 273.37 Weight (kg.): 124 Lab Results Lab Result Date: 06/06/2019 Lab Result Time: 0:00 Biochemistry Name Units Result Min Max BUN mg/dl 46 --(----)-* 7 18 Creatinine mg/dl 1.7 --(----)-* 0.6 1.3 eGFR ml/min 42 *-(----)-- 90 120 NONAFRICAN CBC Name Units Result Min Max Hemoglobin g/dl 10.4 *-(----)-- 13.5 17.5 Procedure Procedure Types Cath Procedure Diagnostic Procedure C [facility] w/Coronaries w/Grafts Sedation Charges Moderate Sedation up to 30 minutes PCI Procedure AMI/SVG/PERFUME COMPOUNDER PTCA or Stent SVG-BMS/ANAY Initial Procedure Description Procedure Date Procedure Date: 06/06/2019 Procedure Start Time: 15:03 Procedure End Time: 15:40 Procedure Staff Name Function Bob Alvarez RT Monitor Juan Guerra MD Performing Physician Shobha Watson RT Monitor Cliff Koenig RN Nurse Maggy Delacruz RT Scrub Procedure Data Cath Procedure Fluoroscopy Diagnostic fluoroscopy Total fluoroscopy Time: time: 11.8 min 11.8 min Diagnostic fluoroscopy Total fluoroscopy dose: dose: 1983 mGy 1983 mGy Contrast Material Contrast Material Type Amount (ml) Isovue 300 114 Entry Location Entry Primary Successful Side Size Upsize 1 Upsize Entry Closure Bourne ccessful Closure Location (Fr) (Fr) 2 (Fr) Remarks Device Remarks Femoral Right 5 Fr 6 Fr 6 Fr Exoseal artery Mid-Length Short Estimated blood loss: 10 ml Diagnostic catheters Device Type Used For End Catheter Placement MULTIPACK 3DRC 5Fr Procedure catheter MULTIPACK Pigtail 5 Fr LV Angiography catheter MULTIPACK JL 4.0 5Fr Left Coronary catheter Angiography DIAGNOSTIC AR2 MOD 5 Fr Procedure catheter ([id number]) Procedure Complications No complications Procedure Medications Medication Administration Route Dosage 0.9% NaCl I.V. 100 ml/hr Oxygen etCO2 Nasal cannula 2 l/min Heparin Flush Bag added to field 2 bags (1000units/500ml NS) Lidocaine 2% added to field 20 Versed I.V. 2 mg Fentanyl I.V. 100 mcg Fentanyl I.V. 50 mcg Heparin Bolus I.V. 4000 units Fentanyl I.V. 50 mcg Hemodynamics Rest BSA: 2.43 (m2) HGB: 10.4 (g/dl) O2 Consumption: Estimated: 296.35 (ml/min) O2 Co nsumption indexed: Estimated:121.95 (ml/min/m) Heart Rate: 89 (bpm) Snapshots Pre Cath Intra NCS Post Cath Vital Signs Time Heart Resp SPO2 etCO2 NIBP (mmHg) Rhythm Pain Sedation Rate (ipm) (%) (mmHg) Status Level (bpm) 14:32:09 67 25 94 0 108/64(95) A-Fib 0 (11) 10(A) , No pain 14:36:23 76 12 95 25.3 114/68(85) A-Fib 0 (11) 10(A) , No pain 14:40:39 70 13 96 0 123/68(102) A-Fib 0 (11) 10(A) , No pain 14:44:53 71 15 97 29 133/92(109) A-Fib 0 (11) 10(A) , No pain 14:49:07 69 14 95 33.6 105/56(82) A-Fib 0 (11) 10(A) , No pain 14:53:23 62 15 97 35.7 109/59(91) A-Fib 0 (11) 10(A) , No pain 14:57:33 72 11 98 35.7 109/67(87) A-Fib 0 (11) 10(A) , No pain 15:01:51 57 12 98 34.3 123/60(94) A-Fib 0 (11) 10(A) , No pain 15:06:07 66 11 95 2.9 110/68(95) A-Fib 0 (11) 10(A) , No pain 15:10:27 64 17 97 0 127/54(80) A-Fib 0 (11) 10(A) , No pain 15:15:43 69 8 96 34.3 122/52(81) A-Fib 0 (11) 10(A) , No pain 15:20:05 67 10 96 36.5 121/60(89) A-Fib 0 (11) 10(A) , No pain 15:25:23 72 13 97 34.3 129/83(118) A-Fib 0 (11) 10(A) , No pain 15:30:59 75 11 98 35 156/82(130) A-Fib 0 (11) 10(A) , No pain 15:35:58 70 12 100 36.5 Measuring A-Fib 0 (11) 10(A) , No pain 15:36:20 71 11 100 38 137/97(125) A-Fib 0 (11) 10(A) , No pain 15:40:42 67 10 98 35 135/86(114) A-Fib 0 (11) 10(A) , No pain Medications Time Medication Route Dose Verified Delivered Reason Notes Effectiveness by by 14:31:23 0.9% NaCl I.V. 100 Cliff Cliff Per physician ml/hr Liberty Koenig RN RN 14:31:37 Oxygen etCO2 2 Cliff Cliff for low 02 sats Nasal l/min Liberty Koenig cannula RN RN 14:31:49 Heparin Flush added 2 Cliff Cliff used for Bag to bags Liberty Koenig procedure (1000units/500ml field RN RN NS) 14:32:03 Lidocaine 2% added 20ml Cliff Cliff for local to vial Liberty Koenig anesthetic field RN RN 15:01:03 Versed I.V. 2 mg Cliff Cliff for sedation Liberty Koenig RN RN 15:01:12 Fentanyl I.V. 100 Cliff Cliff for sedation mcg Liberty Koenig RN RN 15:03:52 Fentanyl I.V. 50 Cliff Cliff for sedation mcg Liberty Koenig RN RN 15:20:03 Heparin Bolus I.V. 4000 Cliff Cliff for units Liberty Koenig anticoagulation RN RN 15:33:50 Fentanyl I.V. 50 Cliff Cliff for back pain mcg Liberty Koenig RN manager distribution Log Time Note 14:08:58 Informed consent obtained and on chart 14:11:32 Arrival Date: 06/06/2019 12:00:00 AM 14:11:36 Insurance Payor : Medicare 14:12:21 Admit Source: Other 14:13:31 Procedure Status Urgent Heart Cath (IP). 14:13:35 Cliff Koenig RN sent for patient. Start room use. 14:13:37 Time tracking: Regular hours (M-F 7:00 - 5:00) 14:13:44 Plan of Care:Hemodynamics will remain stable., Cardiac rhythm will remain stable., Comfort level will be maintained., Respiratory function will remain adequate., Patient/ family verbilizes understanding of procedure., Procedure tolerated without complication., Recovers from procedure without complications.. 14:16:06 Lab Result : eGFR NONAFRICAN 42 ml/min 14:16:06 Lab Result : Hemoglobin 10.4 g/dl 14:16:06 Lab Result : BUN 46 mg/dl 14:16:06 Lab Result : Creatinine 1.7 mg/dl 14:16:17 Patient Height : 72.05 inches 14:16:23 Patient Weight : 273.37 lbs 14:16:47 Patient received from Med II to CCL 1 Alert and oriented. Tansferred to table in Supine position. 14:16:50 Warm blankets applied, and alonzo hugger turned on for patient comfort. 14:23:59 ECG and BP/O2 sat monitors applied to patient. 14:23:59 Correct patient and procedure confirmed by team. 14:30:57 Vital chart was started 14:31:23 0.9% NaCl 100 ml/hr I.V. was administered by Cliff Koenig RN; Per physician; Verbal order read back and verified. 14:31:37 Oxygen 2 l/min etCO2 Nasal cannula was administered by Cliff Koenig RN; for low 02 sats; Verbal order read back and verified. 14:31:47 Baseline sample Acquired. 14:31:49 Heparin Flush Bag (1000units/500ml NS) 2 bags added to field was administered by Cliff Koenig RN; used for procedure; Verbal order read back and verified. 14:31:52 Rhythm: sinus rhythm 14:31:54 Full Disclosure recording started 14:31:55 - 14:32:02 H&P Date Dictated: 06/06/2019 Within 30 days and on chart.. 14:32:03 Lidocaine 2% 20ml vial added to field was administered by Cliff Koenig RN; for local anesthetic; Verbal order read back and verified. 14:32:04 Pre-procedure instructions explained to patient. 14:32:05 Pre-op teaching completed and patient verbalized understanding. 14:32:08 Family in patients room. 14:32:12 Patient NPO since Breakfast. 14:32:53 Patient allergic to Other allergycodine,tape,reaglin 14:33:00 Is the patient allergic to Iodine/contrast media? No. 14:33:04 Was the patient premedicated? Yes 14:33:06 Is patient on blood thinner?Yes 14:33:12 ACC The patient was administered the following blood thiners within the last 24 hours: ACCPlavix 14:33:15 Patient diabetic? Yes. 14:33:18 If diabetic: On Metformin? Yes 14:33:41 If on Metformin: Last Dose?pt unsure. 14:34:00 ----Pre-sedation anethsthesia assessment.---- 14:34:04 Previous problem with sedation/anesthesia? No ? 14:34:06 Snore? Yes 14:34:08 Sleep apnea? Yes 14:34:10 Deviated septum? No 14:34:12 Opens mouth fully? Yes 14:34:13 Sticks out tongue? Yes 14:34:52 Airway obstruction. asthma/home 02/bipap/cpap/apnea.? 14:34:56 Dentures? No ? 14:35:03 Pre procedure: right dorsailis pedis pulse Doppler 14:35:11 Patient pain scale 5/10 ?. 14:35:27 IV patent on arrival in right forearm with 0.9% NaCl at [facility]. 14:35:35 Lab results completed and on chart. 14:35:41 Right groin area was prepped with chlora-prep and draped in sterile fashion 14:35:43 Alarms reviewed by R. N. 14:35:44 Sharps counted by scrub and verified by R.N. 14:35:58 Use device set Femoral Dx 14:35:59 ACIST Syringe (36453) opened to sterile field. 14:36:00 Bag Decanter (2002S) opened to sterile field. 14:36:01 Medline Cath Pack ([id number]) opened to sterile field. 14:36:04 ACIST Hand Control (06129) opened to sterile field. 14:36:05 ACIST Manifold (42967) opened to sterile field. 14:36:07 DIAGNOSTIC Multipack 5Fr catheter set (EH3301) opened to sterile field. 14:36:08 Tegaderm 4 x 4 (1626W) opened to sterile field. 14:36:11 SHEATH 5FR [place] (ZYF896) opened to sterile field. 14:36:13 EMERALD Guide Wire (246-430) opened to sterile field. 14:40:51 Zero performed for pressure channel P1 14:46:27 Risk of Mortality: 0.4 14:46:33 Risk of blood transfusion: 5.9 14:46:40 Risk of NIRAV: 5.8 14:47:55 ACC Patient presents with Stable Angina CCS Anginal Class 3--Marked limitation of physical activity, angina occurs with ordinary activity.. 15:00:27 --------ALL STOP TIME OUT------ 15:00:27 Physician arrived 15:00:28 Final Timeout: patient, procedure, and site verified with staff and physician. All members of the team are in agreement. 15:00:35 Right groin site verified by team. 15:00:41 Fire Safety Assessment: A--An alcohol-based skin anteseptic being used preoperatively., C--Open oxygen or nitrous oxide is being used., D--An ESU, laser, or fiber-optic light is being used. 15:00:48 Physical assessment completed. ASA score P 3 - A patient with severe systemic disease as per Juan Guerra MD. 15:00:57 3b) 30-44 Moderately reduced kidney function. 15:01:03 Maximum allowable contrast dose (3.7 X eGFR X 0.75)116 ml. 15:01:03 Versed 2 mg I.V. was administered by Cliff Koenig RN; for sedation; Verbal order read back and verified. 15:01:09 Sedation plan: IV Moderate Sedation Medication:Versed, Fentanyl 15:01:12 Fentanyl 100 mcg I.V. was administered by Cliff Koenig RN; for sedation; Verbal order read back and verified. 15:02:53 Procedure started. 15:03:00 Local anesthetic to right femoral artery with Lidocaine 2% by Juan Guerra MD.INITIAL ACCESS ONLY 15:03:52 Fentanyl 50 mcg I.V. was administered by Cliff Koenig RN; for sedation; Verbal order read back and verified. 15:04:59 A 5 Fr sheath was inserted into the Right Femoral artery 15:05:54 GLIDE WIRE Super Stiff Angled 260cm (RM8306) opened to sterile field. 15:07:19 A MULTIPACK 3DRC 5Fr catheter was advanced over the wire and used for Procedure. 15:07:33 BURROWS to LAD angiography performed. 15:07:58 RCA angiography performed. 15:08:12 SVG to Circ angiography performed. 15:09:21 SHEATH 6FR Destination (RSR01) opened to sterile field. 15:09:31 INFLATOR Merit BassabinaCompak (NZ6586) opened to sterile field. 15:10:00 Catheter removed. 15:10:15 A MULTIPACK Pigtail 5 Fr catheter was advanced over the wire and used for LV Angiography. 15:10:20 LV gram done using MARINO 15:11:11 Injector settings: Ml/sec: 10, Volume: 20, 15:11:11 EF : 25 % 15:11:17 Catheter removed. 15:12:30 Sheath upsized to a 6 Fr Mid-Length. 15:14:05 A MULTIPACK JL 4.0 5Fr catheter was advanced over the wire and used for Left Coronary Angiography. 15:14:19 LCA angiography performed. 15:16:18 Catheter removed. 15:16:26 A DIAGNOSTIC AR2 MOD 5 Fr catheter ([id number]) was advanced over the wire and used for Procedure. 15:17:18 SVG to RCA angiography performed. 15:18:34 GUIDE 6FR MB 1 catheter (LA6MB1) opened to sterile field. 15:18:56 CHOICE PT Extra Support 182cm wire ([id number]) opened to sterile field. 15:19:06 Catheter removed. 15:19:29 6 Fr mb1 guide catheter was inserted over the wire 15:19:51 choice pt wire advanced. 15:20:03 Heparin Bolus 4000 units I.V. was administered by Cliff Koenig RN; for anticoagulation; Verbal order read back and verified. 15:20:23 ACC Pre-intervention NANCY Flow is 3. 15:22:55 Wire removed. 15:22:57 Guide catheter removed. 15:23:18 GUIDE 6FR AR 2.0 catheter (IB2AC33) opened to sterile field. 15:23:50 6 Fr ar 2 guide catheter was inserted over the wire 15:23:59 choice pt wire advanced. 15:24:15 Wire advanced across lesion. 15:25:57 Place stent Inflation Number: 1 A PAMELA RX 3.5 x 18 stent ([id number]) was prepped and advanced across the Aorta Right -> R PDA . The stent was deployed at 21 MIREYA for 0:10 (min:sec) . 15:26:28 Wire removed. 15:27:23 CHOICE PT Extra Support 182cm wire ([id number]) opened to sterile field. 15:27:32 Wire advanced across lesion. 15:29:41 Place stent Inflation Number: 1 A PAMELA RX 3.5 x 15 stent ([id number]) was prepped and advanced across the Aorta Left -> Dist CX 95. The stent was deployed at 21 MIREYA for 0:00 (min:sec) . 15:29:53 Inflation number: 2 The stent balloon was then re-inflated across the Aorta Left -> Dist CX to 21 MIREYA for 0:10 (min:sec) . 15:30:07 Inflation number: 3 The stent balloon was then re-inflated across the Aorta Left -> Dist CX to 21 MIREYA for 0:10 (min:sec) . 15:30:22 Stent catheter was removed intact over wire. 15:30:24 Wire removed. 15:30:26 Guide catheter removed. 15:30:37 ACT drawn and resulted at 222 seconds. (normal therapeutic range 180-24 0 seconds). 15:31:00 Sheath upsized to a 6 Fr Short. 15:31:27 EXOSEAL 6Fr (EX600) opened to sterile field. 15:31:43 Sheath removed intact; hemostasis achieved with Exoseal to the Right Femoral artery. 15:31:47 Procedure ended.(Physican Out) 15:33:50 Fentanyl 50 mcg I.V. was administered by Cliff Koenig RN; for back pain; Verbal order read back and verified. 15:35:13 Fluoroscopy time 11.80 minutes. 15:35:22 Fluoroscopy dose: 1982 mGy 15:35:22 Flurop Dose total: 1982 15:35:34 Dose Area Product 057323 mGy/cm. 15:35:43 Contrast amount:Isovue 300 114ml. 15:35:46 Maximum allowable dose exceeded? No. 15:35:48 Sharps counted by scrub and verified by R.N. 15:35:53 Insertion/operative site no bleeding no hematoma. 15:35:58 Post-op/insertion site Right Femoral artery dressed using a 4 x 4 and Tegaderm. 15:36:05 Post right femoral artery:stable 15:36:08 Post Procedure Pulses reassessed and unchanged 15:36:14 Post-procedure physical assessment completed. ASA score P 3 - A patient with severe systemic disease as per Juan Guerra MD. 15:36:18 Post procedure rhythm: unchanged. 15:36:22 Estimated blood loss: 10 ml 15:36:25 Post procedure instruction explained to patient.Patient verbalizes understanding. 15:36:26 Patient needs reinforcement of post procedure teaching. 15:38:14 Procedure type changed to Cath procedure, Diagnostic procedure, LHC, C w/Coronaries w/Grafts, Sedation Charges, Moderate Sedation up to 30 minutes, PCI procedure, AMI/SVG/PERFUME COMPOUNDER PTCA or Stent, SVG-BMS/ANAY Initial 15:38:33 Procedure and supply charges have been captured, reviewed, submitted an d are correct. 15:40:01 Procedure Complication : No complications 15:40:06 Vital chart was stopped 15:40:11 [facility] Findings: MVD- PCI performed (see procedure note) 15:40:15 Operative report dictated upon procedure completion. 15:40:16 See physician's report for complete and final results. 15:40:19 Report given to [facility]. 15:40:24 Patient transfered to [facility] with Bed. 15:40:27 Full Disclosure recording stopped 15:40:27 Procedure ended. 15:40:35 ACC-PCI Only Patient was given prescriptions, or instructed by Juan Guerra MD to start/continue the following medications upon discharge: Plavix 15:40:37 End room use (Document Last) 15:44:46 FEMSTOP Gold (I53312) opened to sterile field. 15:45:08 Femstop placed over the right femoral artery at 150 mmHg. Hemostasis achieved. Intervention Summary Intervention Notes Time ActionType Lesion and Equipment Used Action# Pressure Duration Attributes 15:25:57 Place stent Aorta Right PAMELA RX 3.5 x 1 21 00:10 -> R PDA 18 stent ([id number]) 15:29:41 Place stent Aorta Left PAMELA RX 3.5 x 1 21 00:00 -> Dist CX 15 stent ([id number]) 15:29:53 Reinflate Aorta Left PAMELA RX 3.5 x 2 21 00:10 stent -> Dist CX 15 stent balloon ([id number]) 15:30:07 Reinflate Aorta Left PAMELA RX 3.5 x 3 21 00:10 stent -> Dist CX 15 stent balloon ([id number]) Device Usage Item Name Manufacture Quantity Catalog Number [facility] Part Current M inimal Lot# / Charge Number Stock Stock Serial# Code ACIST Syringe Acist 1 06474 183117 631484 295164 2 0 (63614) Medical Systems Inc Bag Decanter Microtek 1 665470 15248 181722 5 () Medical Inc. Medline Cath Medline 1 [id number] 944128 88089 642202 5 Pack ([id number]) ACIST Hand Acist 1 38776 881275 791227 927295 5 Control Medical (96615) Systems Inc ACIST Manifold Acist 1 15476 509335 743514 659056 5 (09833) Medical Systems Inc DIAGNOSTIC Cardinal 1 BN2329 173317 47890 526960 3 0 Multipack 5Fr Health catheter set (VG4613) Tegaderm 4 x 4 3M 1 1626W 706589 220445 645780 5 (1626W) SHEATH 5FR Terumo 1 NXJ856 000308 033150 626665 5 [place] (GDQ474) EMERALD Guide Cardinal 1 502-455 764250 131289 528295 5 Wire (502-455) Health GLIDE WIRE Terumo 1 HD2601 953725 742425 940075 5 Super Stiff Angled 260cm (EM0932) MULTIPACK 3DRC Cardinal 1 929154 5 5Fr catheter Health SHEATH 6FR Terumo 1 RSR01 382013 76229 603665 5 Destination (RSR01) INFLATOR Merit Merit 1 SZ9384 990532 790980 627951 1 5 Woven IncnyTalentEarth (WV0572) MULTIPACK Cardinal 1 923973 5 Pigtail 5 Fr Health catheter MULTIPACK JL Cardinal 1 682967 5 4.0 5Fr Health catheter DIAGNOSTIC AR2 Cardinal 1 [id number] 449334 088584 274371 2 0 MOD 5 Fr Health catheter (216041Q) GUIDE 6FR MB 1 Medtronic 1 LA6MB1 474998 95874 498848 1 catheter (LA6MB1) CHOICE PT [place] 2 [id number] 898770 366721 934365 5 Extra Support Scientific 182cm wire ([id number]) GUIDE 6FR AR Medtronic 1 TQ1IC57 938197 00280 742715 1 2.0 catheter (PR2YF05) PAMELA RX 3.5 x Medtronic 1 [id number] 531548 3470528 654421 5 [id number] 18 stent ([id number]) PAMELA RX 3.5 x Medtronic 1 [id number] 500738 5801808 699113 5 [id number] 15 stent ([id number]) EXOSEAL 6Fr Cardinal 1 EX600 445184 217623 794231 1 0 (EX600) Health FEMSTOP Gold St Azeem 1 V85081 623330 893809 602567 5 ([id number]) Signature Audit [place] Stage Time Signature Unsigned Intra-Procedure 06/06/2019 Shobha 3:41:04 PM Shirley RT(R) (CV) Intra-Procedure 06/06/2019 Cliff 3:41:41 PM Liberty PATEL Intra-Procedure 06/06/2019 Juan Guerra MD 3:42:06 PM 06/06/2019 3:44:33 PM Intra-Procedure 06/06/2019 Juan Guerra MD 3:46:03 PM 06/09/2019 8:19:15 AM Intra-Procedure 06/09/2019 Juan Guerra 8:21:19 AM [place] [id number] [place] [address]
[2019-06-05 11:41] LABS: BASOPHILS 0.3 % (0-2); EOSINOPHILS 5.8 % (0-7); HEMATOCRIT 35.9 % (42.0-54.0); HEMOGLOBIN 11.5 g/dL (13.5-17.5); IMMATURE GRANULOCYTES 0.4 % (0-5); LYMPHOCYTES 16.3 % (15-50); MEAN PLATELET VOLUME 9.4 fL (7.4-10.4); MONOCYTES 8.8 % (2-11); NEUTROPHILS 68.4 % (40-80); PLATELET COUNT 233 10x3/uL (130-400); RBC 3.59 10x6/uL (4.20-6.10); RDW 14.4 % (11.5-14.5)
[2019-06-05 11:51] LABS: APTT 31.3 SECONDS (22.8-39.4); INR 1.16 (0.85-1.17); PROTIME 14.3 SECONDS (11.6-15.0)
[2019-06-05 12:09] LABS: ALBUMIN 2.9 g/dL (3.4-5.0); ALKALINE PHOSPHATASE 103 U/L (46-116); ALT (SGPT) 19 U/L (10-68); BILIRUBIN - TOTAL 0.32 mg/dL (0.2-1.3); CALC OSMOLALITY 292 mosm/kg (275-300); CALCIUM 9.2 mg/dL (8.5-10.1); CARBON DIOXIDE 31.7 mmol/L (21.0-32.0); CHLORIDE - SERUM 106 mmol/L (98-107); CREATININE - SERUM 1.4 mg/dL (0.6-1.3); POTASSIUM - SERUM 4.9 mmol/L (3.5-5.1); PROTEIN - SERUM 7.2 g/dL (6.4-8.2); SODIUM 141 mmol/L (136-145); UREA NITROGEN 43 mg/dL (7-18); eGFR NON AFRICAN AMERICAN 52 mL/min (90-120)
[2019-06-05 12:12] LABS: GLUCOSE 114 mg/dL (74-106)
[2019-06-05 12:26] LABS: CKMB 0.7 U/L (0.0-3.6); CREATINE KINASE 90 UL (21-232); PRO BNP 985 pg/mL (0-450)
[2019-06-05 12:35] LABS: TROPONIN-I 0.075 ng/mL (0.000-0.060)
--- NOTE | 2019-06-05 12:36 | NUR ---
ELEVATED TROPONIN CALLED AND EDPPRACHI INFORMED
[2019-06-05 13:00] VITALS: BP 88/45
--- NOTE | 2019-06-05 13:00 | NUR ---
PRACHI NARANJO AT BEDSIDE AND INFORMED OF PT'S BP./ DR. RUSS AT BEDSIDE.
--- NOTE | 2019-06-05 13:08 | NUR ---
HOLDING CARDIZEM DRIP, BUMEX, AND LOPRESSOR AT THIS TIME PER EDP, PRACHI, AND D/T PT'S BP.
--- NOTE | 2019-06-05 13:35 | NUR ---
TAX ACCOUNTING MANAGER AT BEDSIDE FOR ECHO.
[2019-06-05 13:40] VITALS: BP 88/45
--- NOTE | 2019-06-05 13:40 | NUR ---
ASSISTED PT WITH URINAL. APPROX 250 ML STRAW COLORED, CLEAR, NONODOROUS URINE OUTPUT AT THIS TIME.
[2019-06-05 14:13] VITALS: BP 121/46
--- NOTE | 2019-06-05 14:13 | NUR ---
EDP, PRACHI, INFORMED OF PT'S BP. VO TO CONTINUE TO HOLD CARDIZEM DRIP, BUMEX AND LOPRESSOR.
--- NOTE | 2019-06-05 14:49 | NUR ---
TRANSFER FROM ER BY STRETCHER. OREINTED TO ROOM. CALL LIGHT IN REACH. WILL CONT. PLAN OF CARE.
[2019-06-05 15:17] VITALS: BP 113/41; BMI 38.0
--- NOTE | 2019-06-05 19:07 | NUR ---
RECEIVED BEDSIDE REPORT. PATIENT IS ALERT AND ORIENTED, RESTING COMFORTABLY IN BED. RESPIRATIONS ARE EVEN AND UNLABORED. NO S/S OF DISTRESS. NO C/O PAIN. NEEDS MET. CALL LIGHT WITHIN REACH. WILL CPOC.
[2019-06-05 19:47] LABS: CKMB 0.9 U/L (0.0-3.6); CREATINE KINASE 98 UL (21-232)
[2019-06-05 19:49] LABS: TROPONIN-I 0.065 ng/mL (0.000-0.060)
[2019-06-05 20:00] VITALS: BP 101/62
[2019-06-06] VITALS: BP 93/46
[2019-06-06 00:15] LABS: APPEARANCE CLEAR (CLEAR); BILIRUBIN NEGATIVE (NEGATIVE); COLOR YELLOW (YELLOW); GLUCOSE NEGATIVE (NEGATIVE); KETONE NEGATIVE (NEGATIVE); NITRITE NEGATIVE (NEGATIVE); PROTEIN NEGATIVE (NEGATIVE); UROBILINOGEN NORMAL (NORMAL)
[2019-06-06 01:34] LABS: CKMB 0.7 U/L (0.0-3.6); CREATINE KINASE 94 UL (21-232)
[2019-06-06 03:50] LABS: BASOPHILS 0.4 % (0-2); HEMOGLOBIN 10.4 g/dL (13.5-17.5); IMMATURE GRANULOCYTES 0.4 % (0-5); LYMPHOCYTES 21.5 % (15-50); MCH 30.8 pg (26.0-34.0); MCHC 30.6 g/dL (31.0-37.0); MCV 100.6 fL (80.0-100.0); MEAN PLATELET VOLUME 9.6 fL (7.4-10.4); MONOCYTES 9.7 % (2-11); PLATELET COUNT 243 10x3/uL (130-400); RBC 3.38 10x6/uL (4.20-6.10); RDW 14.5 % (11.5-14.5); WBC 7.5 10x3/uL (4.8-10.8)
[2019-06-06 04:00] VITALS: BP 144/66
[2019-06-06 04:18] LABS: ALBUMIN 2.5 g/dL (3.4-5.0); ANION GAP 11.6 mmol/L (8-16); BILIRUBIN - TOTAL 0.3 mg/dL (0.2-1.3); CALCIUM 8.8 mg/dL (8.5-10.1); CARBON DIOXIDE 29.6 mmol/L (21.0-32.0); CREATININE - SERUM 1.7 mg/dL (0.6-1.3); POTASSIUM - SERUM 5.2 mmol/L (3.5-5.1); PROTEIN - SERUM 7.2 g/dL (6.4-8.2)
--- NOTE | 2019-06-06 09:15 | NUR ---
CONCENTS SIGNED FOR [facility]. WILL CONT. PLAN OF CARE.
[2019-06-06 09:59] VITALS: BP 96/55
[2019-06-06 13:13] VITALS: Ht 182.9 cm; Wt 120.2 kg
--- NOTE | 2019-06-06 13:29 | EC ---
PATIENT:MICHAEL ERNANDEZ DATE OF SERVICE: 06/05/19 SEX: M MEDICAL RECORD: [id number] DATE OF : 43 LOCATION:D. D.211 AGE OF PATIENT: 74 ADMISSION DATE: 06/05/19 REFERRING PHYSICIAN: INTERPRETING PHYSICIAN: AKUA GUERRA MD ECHOCARDIOGRAM REPORT ECHO CHARGES 4 ECHO COMPLETE Date: 06/05/19 CLINICAL DIAGNOSIS: CHF HX CAD/STENT/CABG ECHOCARDIOGRAPHIC MEASUREMENTS (adult normal given) AC root (d.<3.7cm) 3.5 cm LV Septum d (<1.2 cm> 1.3 cm Valve Excursion 1.8 cm LV Septum (systole) 1.6 cm Left Atria (s.<4.0cm> 4.7 cm LVPW d(<1.2cm) 1.4 cm RV (d.<2.3cm) 4.1 cm LVPW (sytole) 1.8 cm LV diastole(<5.6CM) 5.7 cm MV E-F(>70mm/sec) cm LV systole 4.9 cm LVOT Diameter 2.2 cm MV exc.(>10mm) cm Est.ejection fraction (50-75%) % DOPPLER: LVIT cm/sec A 30.0 cm/sec E 84.0 cm/sec LA cm/sec RVSP 28 mmHg LVOT 67 cm/sec AOP1/2T m/s Asc. Ao 140 cm/sec RVOT 100 cm/sec RA cm/sec PA 124 cm/sec AV Gradient Peak 7.89 mmHg AV Mean 4.30 mmHg AV Area 1.6 cm MV Gradient Peak 3.75 mmHg MV Mean 1.44 mmHg MV Area cm COMMENTS: Central Supply Worker: Mario GIRON Pipe Setter: 1 Dr. Guerra TAPE# PACS Pericardial Effusion N DATE OF SERVICE: 06/05/2019 FINDINGS: 1. Left ventricular chamber size is within normal limits. Left ventricular systolic function is mildly depressed at 40% to 45%. 2. Left atrium is enlarged at 4.7 cm. Right atrium and right ventricular chamber sizes are as well mildly dilated. 3. Valvular structures have normal structure and motion. 4. Doppler interrogation reveals [id number] tricuspid regurgitation, no other valvular insufficiency or stenosis. Pulmonary systolic pressure is ECHOCARDIOGRAM REPORT [id number] MCWHERTER,MICHAEL ANTHO estimated at 28 mmHg. 5. No evidence of pericardial effusion or left ventricular thrombus. TRANSINT:[id number] Voice Confirmation ID: [id number] DOCUMENT ID: [id number] AKUA GUERRA MD at 1329 CC: [id number] DICTATION DATE: 06/05/19 1507 TAILMAN: 06/05/19 1803 ADM IN [place] [id number] [place] [address]
--- NOTE | 2019-06-06 13:29 | CN ---
PATIENT NAME:MICHAEL PHELAN MEDICAL RECORD: [id number] : 43 LOCATION:D. D.2114 ADMIT DATE: 06/05/19 ACCOUNT: [id number] CONSULTING PHYSICIAN: AKUA RUSS MD REFERRING PHYSICIAN: ALISON PALACIOS MD DATE OF CONSULTATION: 06/05/2019 CARDIOLOGY CONSULTATION DIAGNOSES: 1. Non-Q-wave myocardial infarction. 2. Coronary artery disease. 3. Status post multivessel percutaneous transluminal coronary angioplasty stent. 4. Atrial fibrillation, chronic. 5. Insulin-dependent diabetes. 6. Hypertension. 7. Hyperlipidemia. 8. Shortness of breath, dyspnea on exertion. 9. Congestive heart failure, pulmonary edema. HISTORY OF PRESENT ILLNESS: Mr. Phelan has an extensive cardiac history. PTCA stent times 8 in the past, atrial fibrillation, failed ablation times 3 in the past, cardiomyopathy, congestive heart failure, chronic systolic dysfunction. He now presents with increasing shortness of breath, decompensated heart failure as well as unstable anginal chest discomfort with a non-Q-wave myocardial infarction and an increased troponin. His last cardiac stent has been over a year ago. His EKG has anterolateral ST-T changes compatible with ischemia and frequent PVCs. His underlying rhythm is atrial fibrillation. His heart rate is in the 100-110 range. His last ablation was just a few months ago and this ablation was unsuccessful times 3. He is still on Multaq. He is on Toprol 50 mg for rate control. He does continue to have the episodes of chest discomfort with shortness of breath. His chest x-ray is compatible with pulmonary edema. PHYSICAL EXAMINATION: CONSTITUTIONAL/GENERAL APPEARANCE: Well nourished, well developed, appears stated age. EYES: Lids and conjunctivae noninjected. No discharge. No pallor. ENT: Lips within normal limit. No cyanosis. No pallor. NECK: Carotid arteries, bilateral normal upstroke. No bruits. No thrills. No jugular venous pressure or distention. CERVICAL LYMPH NODES: Nontender. Nonenlarged. THYROID: Not enlarged. No nodules. CARDIOVASCULAR: Irregularly irregular with atrial fibrillation. PULMONARY: Bibasilar crackles compatible with pulmonary edema. ABDOMEN: Soft, nondistended, nontender. No abdominal pain, no vomiting and normal appetite. MUSCULOSKELETAL: No joint tenderness, normal gait, normal tone. SKIN: Warm and dry. OVERALL IMPRESSION: 1. Non-Q-wave myocardial infarction, most likely has recurrent hemodynamically significant coronary artery disease, especially in light of the abnormal ECG, chest pain and non-Q-wave myocardial infarction. We will proceed with coronary CONSULT REPORT [id number] MICHAEL PHELAN angiography in the a.m., holding his Eliquis. Continue his Plavix at this time. 2. Atrial fibrillation. The atrial fibrillation is chronic. At this time, there is no reason to continue the Multaq since he is not going to be converted. Rate control is paramount. We will discontinue his Altace at this time, increase his Lopressor to 100 mg b.i.d. Re-adding the Altace if his blood pressure can tolerate it. 3. Congestive heart failure. At this time, we will get an echocardiogram to adequately assess his ejection fraction. At this time, if it is low, we would consider adding inotropic therapy as his heart rate can tolerate this. We will definitely treat him with IV Bumex. We will also slow him with the Toprol and IV Cardizem as well, this as well will help with congestive heart failure. TRANSINT:[id number] Voice Confirmation ID: [id number] DOCUMENT ID: [id number] AKUA RUSS MD at 1329 CC: [id number] DICTATION DATE: 06/05/19 1313 COOK RELIEF: 06/05/19 1335 ADM IN [facility] [address] [place] [address]
--- NOTE | 2019-06-06 14:12 | NUR ---
CONSENTS SIGNED, PRE-OPS GIVEN. TO BREAKER OILER BY BED.
[2019-06-06 15:09] VITALS: BP 115/52
--- NOTE | 2019-06-06 16:06 | NUR ---
BACK FROM PROGRAM COORDINATOR. VS WNL. RIGHT GROIN STABLE WITH FEMSTOP INTACT. WILL MONITOR.
--- NOTE | 2019-06-06 19:38 | NUR ---
RECIEVED BEDISDE SHIFT REPORT. LAYING IN BED WITH FEET ELAVATED HIGHER THAN THE HEAD. ODOR OF URINE IN ROOM. REQUESTED A BEDEPAN . REQUIED 3 STAFF TO TURN AND CLEAN PT. THEN PUT ON BEDPAN. IV TO LEFT HAND SL.. ALERT AND ORIENTED. CUSSES WHEN BEING TURNED. RIGHT ARM CONTRACTED. RIGHT GROIN FEM STOP REMOVED. DSG CDI. LUNG SOUNDS CLEAR BILAT.. BSX4. PEDAL PULSES GOOD. DENIES ANY OTHER NEEDS.
[2019-06-06 20:00] VITALS: BP 143/55
[2019-06-07] VITALS (7 sets, daily range): BP systolic 110–136; BP diastolic 43–76
--- NOTE | 2019-06-07 07:15 | NUR ---
RECEIVED PT IN BED AAOX4 RESP UNLABORED DENIES ANY NEEDS OR DISCOMFORT
[2019-06-07 17:00] LABS: ANION GAP 11.9 mmol/L (8-16); CARBON DIOXIDE 27.8 mmol/L (21.0-32.0); CREATININE - SERUM 1.5 mg/dL (0.6-1.3); POTASSIUM - SERUM 4.7 mmol/L (3.5-5.1)
--- NOTE | 2019-06-07 19:11 | NUR ---
RECIEVED RESTING IN BED WITH EYES OPEN AND TV ON. EASILY AROUSES TO VERBAL STIMULI. ORIENTED X4. REMAINS BEDFAAST. NO EDEMA OBSERVED. REMAINS ON LASIX. IV TO LEFT HAND WITH NS INFUSING At 10CC/HR. F/C INTACT WITH CLEAR YELLOW URINE TO BEDSIDE DRAINAGE BAG. TELEMETRY IN PLACE. DENIES ANY NEEDS AT THIS TIME.
[2019-06-08 04:00] VITALS: BP 110/92
[2019-06-08 05:25] LABS: BASOPHILS 0.4 % (0-2); EOSINOPHILS 4.2 % (0-7); HEMATOCRIT 31.7 % (42.0-54.0); IMMATURE GRANULOCYTES 1.2 % (0-5); MCH 31.3 pg (26.0-34.0); MCHC 31.5 g/dL (31.0-37.0); MCV 99.1 fL (80.0-100.0); MEAN PLATELET VOLUME 9.7 fL (7.4-10.4); MONOCYTES 9.8 % (2-11); NEUTROPHILS 66.4 % (40-80); PLATELET COUNT 222 10x3/uL (130-400); RDW 13.8 % (11.5-14.5); WBC 9.5 10x3/uL (4.8-10.8)
[2019-06-08 05:29] LABS: ANION GAP 7.5 mmol/L (8-16); CALCIUM 9.3 mg/dL (8.5-10.1); CARBON DIOXIDE 32.4 mmol/L (21.0-32.0); CREATININE - SERUM 1.7 mg/dL (0.6-1.3); POTASSIUM - SERUM 4.9 mmol/L (3.5-5.1)
[2019-06-08 08:56] VITALS: BP 137/48
--- NOTE | 2019-06-08 09:18 | NUR ---
AM MEDS GIVEN AT THIS TIME. PT RESTING COMFORTABLY, WATCHING TV, DENIES ANY NEEDS AT THIS TIME. CALL LIGHT IN REACH, NAD NOTED, WILL CONTINUE TO MONITOR.
--- NOTE | 2019-06-08 11:54 | NUR ---
BLOOD SUGAR OF 308,8UNITS OF INSULIN GIVE PER S/S. PT DENIES ANY NEEDS AT THIS TIME. CALL LIGHT IN REACH, NAD NOTED, WILL CONTINUE TO MONITOR.
--- NOTE | 2019-06-08 15:20 | NUR ---
RT HAND IV CAME OUT WITH CATHETER TIP INTACT. D/C IV COMPLETELY, WILL START NEW IV.
[2019-06-08 20:00] VITALS: BP 135/52
--- NOTE | 2019-06-08 20:13 | NUR ---
RECIEVED BEDSIDE SHIFT REPORT. ALERT AND ORIENTED X4. REMAINS BEDFAST. IV TO LEFT FA WITH NS AT10CC/HR.. DSG CDI. F/C INTACT WIYH CLEAR YELLOW URINE DRAINING TO BED SIDE DRAINAGE BAG. DSG TO RT GROIN CDI. TELEMETRY IN PLACE. DENIES ANY NEEDS AT THIS TIME.
[2019-06-09] VITALS (7 sets, daily range): BP systolic 100–143; BP diastolic 52–89
--- NOTE | 2019-06-09 13:26 | NUR ---
TELEMETRY CAF. RESP UL ON 02 3L CN. PEREZ INTACT. WILL CONT. PLAN OF CARE.
--- NOTE | 2019-06-09 14:51 | NUR ---
Nutrition Follow-up: Pt reports "I eat what I want to" off the tray but states he doesn't want to eat too much because he doesn't want to have to use the bedpan. Drinking Ensure with meals. Diet: Cardiac Carb Consistent, Dental Soft PO intake: 50% x 5 meals Wt: 274# Last BM: 06/09 Labs noted: Glu 387 Meds noted: Humulin, Bumex + Glucerna with meals; explained that this is a better alternative vs Ensure 2/2 DM. Encourage PO intake. RD following.
--- NOTE | 2019-06-09 15:10 | MORECARE ---
CASE MANAGEMENT DISCHARGE SUMMARY PATIENT: MICHAEL ERNANDEZ UNIT: [id number] ADM DATE: 06/05/19 AGE: 74 : 44 SEX: M ROOM/BED: D.2114 AUTHOR: JAYME PEREZ PHYSICIAN: REFERRING PHYSICIAN: ALISON PALACIOS MD DATE OF SERVICE: 06/09/19 Discharge Plan Patient Name: MICHAEL ERNANDEZ Facility: [facility]:[place] : 1945 Planned Disposition: Home with Home Health Anticipated Discharge Date: Discharge Date: Expected LOS: Initial Reviewer: [email or web address] Initial Review Date: 06/09/2019 Generated: 06/09/19 4:09 pm Coverage Notice Reviewer: [id number] - Serjio Marx Notice Issued Date-Time: 06/09/2019 14:55 Notice Type: Patient Choice Letter Notice Delivered To: Patient Relationship to Patient: Auto Crane Driver Name: Delivery Method: HAND - Hand Delivered Gina Days: Prior Verbal Notification: Recipient Understood Notice: Yes Recipient Signature: Yes Med Rec Note Co-signed by Attending: Coverage Notice Comment: [facility] Patient Name: MICHAEL ERNANDEZ Page [phone] at 1510 All edits/amendments must be made on the electronic document DICTATION DATE: 06/09/191508 MOTOR EQUIPMENT SERGEANT: MARIAM 06/09/19 1509 RPT#: [id number] DC DATE: STATUS: ADM IN [facility] [address] [place] [address] END OF REPORT
--- NOTE | 2019-06-09 15:18 | MORECARE ---
CASE MANAGEMENT DISCHARGE SUMMARY PATIENT: MICHAEL ERNANDEZ UNIT: [id number] ADM DATE: 06/05/19 AGE: 74 : 44 SEX: M ROOM/BED: D.2114 AUTHOR: JAYME PEREZ PHYSICIAN: REFERRING PHYSICIAN: ALISON PALACIOS MD DATE OF SERVICE: 06/09/19 Discharge Plan Patient Name: MICHAEL ERNANDEZ Facility: [facility]:[place] : 1945 Planned Disposition: Home with Home Health Anticipated Discharge Date: Discharge Date: Expected LOS: Initial Reviewer: [email or web address] Initial Review Date: 06/09/2019 Generated: 06/09/19 4:18 pm DCPIA - Discharge Planning Initial Assessment Updated by [email or web address]: Serjio Marx on 06/09/19 3:13 pm * Is the patient Alert and Oriented? Yes * How many steps to enter\exit or inside your home? NONE * PCP DR. PALACIOS * Pharmacy [facility] * Preadmission Environment Home Alone * ADLs Independent * Equipment Bedside Commode Glucometer Oxygen Rolling Walker Wheelchair * Other Equipment HOME AND PORTABLE OXYGEN, [facility] PATIENT * List name and contact numbers for known caregivers / representatives who currently or will assist patient after discharge: PAULINE ROSSI, , * Verbal permission to speak to the caregivers and representatives has been obtained from the patient. N/A * Community resources currently utilized Home Health * Please name any agencies selected above. [facility] * Additional services required to return to the preadmission environment? No * Can the patient safely return to the preadmission environment? Yes * Has this patient been hospitalized within the prior 30 days at any hospital? No Coverage Notice Reviewer: [id number] - Serjio Marx Notice Issued Date-Time: 06/09/2019 14:55 Notice Type: Patient Choice Letter Notice Delivered To: Patient Relationship to Patient: Skidder Name: Delivery Method: HAND - Hand Delivered Gina Days: Prior Verbal Notification: Recipient Understood Notice: Yes Recipient Signature: Yes Med Rec Note Co-signed by Attending: Coverage Notice Comment: [facility] Last DP export: 06/09/19 2:10 Patient Name: MICHAEL ERNANDEZ Page [phone] at 1518 All edits/amendments must be made on the electronic document DICTATION DATE: 06/09/191517 BUSINESS RULES DEVELOPER: MARIAM 06/09/191517 RPT#: [id number] DC DATE: STATUS: ADM IN [facility] [address] [place] [address] END OF REPORT
--- NOTE | 2019-06-09 15:27 | MORECARE ---
CASE MANAGEMENT DISCHARGE SUMMARY PATIENT: MICHAEL ERNANDEZ UNIT: [id number] ADM DATE: 06/05/19 AGE: 74 : 44 SEX: M ROOM/BED: D.1520 AUTHOR: ANA,DOC PHYSICIAN: REFERRING PHYSICIAN: ALISON PALACIOS MD DATE OF SERVICE: 06/09/19 Discharge Plan Patient Name: MICHAEL ERNANDEZ Facility: [facility]:[place] : 1945 Planned Disposition: Home with Home Health Anticipated Discharge Date: Discharge Date: Expected LOS: Initial Reviewer: [email or web address] Initial Review Date: 06/09/2019 Generated: 06/09/19 4:27 pm Comments DCP- Discharge Planning Updated by [email or web address]: Serjio Marx on 06/09/19 2:[address] Patient Name: MICHAEL ERNANDEZ Admission Status: ER Accout number: [id number] Admission Date: 06-05-2019 : 1945 Admission Diagnosis: Attending: ALISON PALACIOS Current LOS: 4 Anticipated DC Date: Planned Disposition: Home with Home Health Primary Insurance: MEDICARE A & B PLANNED EXTERNAL PROVIDER: [facility] Discharge Planning Comments: CM MET WITH PT IN ROOM TO DISCUSS DISCHARGE PLANNING AND NEEDS. PT REPORTS LIVING AT HOME INDEPENDENTLY AND ALONE; PT REPORTS HAVING ASSISTANCE OF HIS SISTER WHO COMES OVER TO ASSIST IF NEEDED. PT HAS BEDSIDE COMMODE, HOME AND PORTABLE OXYGEN, ROLLING WALKER, GLUCOMETER AND WHEECHAIR FROM [facility] PATIENT. PT HAS HOME HEALTH WITH [facility]. CM DISCUSSED AVAILABILITY OF HOME HEALTH, REHAB SERVICES AND MEDICAL EQUIPMENT. PT DENIES DISCHARGE NEEDS, STATES THAT INPATIENT REHAB WAS A "WASTE OF TIME" AND HE IS NOT GOING TO A SENIOR LIVING FACILITYI. PT STATES HE WILL GO HOME WITH RESUMPTION OF [facility] FOR NURSING AND PHYSICAL THERAPY AT HOME. PT REPORTS HE WILL NEED AND AMBULANCE FOR TRANSPORTATION AT DISCHARGE. CHOICE COMPLETED AND SIGNED FOR [facility]. PT PLANS TO DISCHARGE HOME ALONE WITH ASSISTANCE OF SISTER AND [facility] RESUMPTION. PT REPORTS NEEDING AMBULANCE FOR TRANSPORT HOME. FOR HOME HEALTH RESUMPTION, NOTIFY [facility], , FAX DISCHARGE INFORMATION TO [facility] AT [phone]. CM TO FOLLOW AND ASSIST NEEDED. Psychology Technician: Serjio Marx DCPIA - Discharge Planning Initial Assessment Updated by [email or web address]: Serjio Marx on 06/09/19 3:13 pm * Is the patient Alert and Oriented? Yes * How many steps to enter\\exit or inside your home? NONE * PCP DR. PALACIOS * [facility] * Preadmission Environment Home Alone * ADLs Independent * Equipment Bedside Commode Glucometer Oxygen Rolling Walker Wheelchair * Other Equipment HOME AND PORTABLE OXYGEN, [facility] PATIENT * List name and contact numbers for known caregivers / representatives who currently or will assist patient after discharge: PAULINE ROSSI, SISTER, * Verbal permission to speak to the caregivers and representatives has been obtained from the patient. N/A * Community resources currently utilized Home Health * Please name any agencies selected above. [facility] * Additional services required to return to the preadmission environment? No * Can the patient safely return to the preadmission environment? Yes * Has this patient been hospitalized within the prior 30 days at any hospital? No External [facility]iders [facility] Next Contact Date: 06/09/2019 Service Request Date: Service Type: Resolution: Reviewer: Comments: Coverage Notice Reviewer: [id number] - Serjio Marx Notice Issued Date-Time: 06/09/2019 14:55 Notice Type: Patient Choice Letter Notice Delivered To: Patient Relationship to Patient: Credit And Collections Representative Name: Delivery Method: HAND - Hand Delivered Gina Days: Prior Verbal Notification: Recipient Understood Notice: Yes Recipient Signature: Yes Med Rec Note Co-signed by Attending: Coverage Notice Comment: [facility] Last DP export: 06/09/19 2:18 Patient Name: MICHAEL ERNANDEZ Page [phone] at 1527 All edits/amendments must be made on the electronic document DICTATION DATE: 06/09/191526 REGIONAL BUSINESS DEVELOPMENT MANAGER: MARIAM 06/09/191526 RPT#: [id number] DC DATE: STATUS: ADM IN [facility] [address] [place] [address] END OF REPORT
--- NOTE | 2019-06-09 19:16 | NUR ---
RECIEVED BEDSIDE SHIFT REPORT. ALERT AND ORIENTED X4. UP IN BED WITH TV ON. REMAINS BEDFAST. IV TO LEFT FA SL. TELEMETRY IN PLACE. F/C INTACT WITH CLEAR YELLOW URINE DRAINING TO BEDSIDE DRAINAGE SYSTEM. DENIES ANY NEEDS AT THIS TIME.
--- NOTE | 2019-06-09 20:58 | NUR ---
CLOTH BIN PACKER HERO AT BED SIDE, BATH AND LINEN CHANGE COMPLETE.
--- NOTE | 2019-06-09 22:49 | NUR ---
STATES HE'S DEPRESSED. STATES " EVERYTIME I COME TO THE HOSPITAL, I HAVE TO FIGHT FOR MY INSULIN". " AND I HAVE A ELECTRONIC BEDSIDE COMMODE AT HOME AND MY NEIGHBORS COME OVER AND PUT ME ON IT SO I CAN USE THE BATHROOM AND THEY TAKE ME OFF OF IT AND PUT ME BACK TO BED." " I DON'T KNOW WHY I HAVE TO FIGHT FOR MY INSULIN. THIS HAPPENS EVERY TIME." EXPLAINED THAT I WOULD PASS THIS ON TO DAYSHIFT AND WHEN HIS DOCTOR CAME IN TOMORROW TO TALK TO HIM ABOUT IT". HE AGREED. WILL ALSO REPORT DEPRESSION.
[2019-06-10 04:48] VITALS: BP 125/45
[2019-06-10 05:38] LABS: ANION GAP 7.4 mmol/L (8-16); CALCIUM 9.4 mg/dL (8.5-10.1); CARBON DIOXIDE 34.5 mmol/L (21.0-32.0); CREATININE - SERUM 1.7 mg/dL (0.6-1.3); POTASSIUM - SERUM 4.9 mmol/L (3.5-5.1)
[2019-06-10 05:58] LABS: BASOPHILS 0.3 % (0-2); EOSINOPHILS 4.2 % (0-7); HEMATOCRIT 32.6 % (42.0-54.0); HEMOGLOBIN 10.4 g/dL (13.5-17.5); IMMATURE GRANULOCYTES 0.9 % (0-5); LYMPHOCYTES 14.2 % (15-50); MCH 31.2 pg (26.0-34.0); MCHC 31.9 g/dL (31.0-37.0); MCV 97.9 fL (80.0-100.0); MEAN PLATELET VOLUME 9.6 fL (7.4-10.4); MONOCYTES 8.9 % (2-11); NEUTROPHILS 71.5 % (40-80); PLATELET COUNT 264 10x3/uL (130-400); RBC 3.33 10x6/uL (4.20-6.10); RDW 13.9 % (11.5-14.5); WBC 11.7 10x3/uL (4.8-10.8)
[2019-06-10 09:04] VITALS: BP 140/40
[2019-06-10 12:59] VITALS: BP 126/85
[2019-06-10 16:50] VITALS: BP 154/68
--- NOTE | 2019-06-10 19:29 | NUR ---
RECEIVED BEDSIDE REPORT. PATIENT RESTING COMFORTABLY IN BED. RESPIRATIONS ARE EVEN AND UNLABORED. RT IN ROOM ADMINISTERING SCHEDULED BREATHING TREATMENT. NO S/S OF DISTRESS. NO C/O PAIN. CALL LIGHT WITHIN REACH. WILL CPOC.
[2019-06-10 20:00] VITALS: BP 107/49
[2019-06-11] VITALS: BP 107/59
[2019-06-11 04:00] VITALS: BP 121/51
[2019-06-11 06:26] LABS: ANION GAP 6.3 mmol/L (8-16); CALCIUM 9.7 mg/dL (8.5-10.1); CARBON DIOXIDE 37.2 mmol/L (21.0-32.0); CREATININE - SERUM 1.8 mg/dL (0.6-1.3); POTASSIUM - SERUM 4.5 mmol/L (3.5-5.1)
[2019-06-11 06:47] LABS: BASOPHILS 0.2 % (0-2); EOSINOPHILS 4.1 % (0-7); HEMATOCRIT 32.6 % (42.0-54.0); HEMOGLOBIN 10.3 g/dL (13.5-17.5); IMMATURE GRANULOCYTES 0.9 % (0-5); LYMPHOCYTES 12.6 % (15-50); MCHC 31.6 g/dL (31.0-37.0); MCV 98.2 fL (80.0-100.0); MEAN PLATELET VOLUME 9.8 fL (7.4-10.4); MONOCYTES 7.3 % (2-11); NEUTROPHILS 74.9 % (40-80); PLATELET COUNT 293 10x3/uL (130-400); RBC 3.32 10x6/uL (4.20-6.10); WBC 12.4 10x3/uL (4.8-10.8)
--- NOTE | 2019-06-11 10:00 | NUR ---
TELEMETRY CAF. RESP UL ON . URINESPECIMEN COLLECTED AND TAKEN TO LAB. WILL MONITOR.
[2019-06-11 11:06] VITALS: BP 120/55
[2019-06-11 15:09] VITALS: BP 107/51
[2019-06-11 18:26] VITALS: BP 109/49
--- NOTE | 2019-06-11 19:02 | NUR ---
RECEIVED BEDSIDE REPORT. PATIENT IS ALERT AND ORIENTED, RESTING COMFORTABLY IN BED. PATIENT RECEIVING SCHEDULED BREATHING TREATMENT. NO S/S OF DISTRESS. NO C/O PAIN. NEEDS MET. CALL LIGHT WITHIN REACH. WILL CPOC.
[2019-06-11 20:00] VITALS: BP 112/53
[2019-06-12 04:00] VITALS: BP 130/71
[2019-06-12 04:22] LABS: BASOPHILS 0.2 % (0-2); EOSINOPHILS 5.1 % (0-7); HEMATOCRIT 32.9 % (42.0-54.0); HEMOGLOBIN 10.4 g/dL (13.5-17.5); IMMATURE GRANULOCYTES 0.6 % (0-5); LYMPHOCYTES 13.4 % (15-50); MCH 31.3 pg (26.0-34.0); MCHC 31.6 g/dL (31.0-37.0); MCV 99.1 fL (80.0-100.0); MEAN PLATELET VOLUME 9.8 fL (7.4-10.4); MONOCYTES 7.2 % (2-11); NEUTROPHILS 73.5 % (40-80); PLATELET COUNT 267 10x3/uL (130-400); RBC 3.32 10x6/uL (4.20-6.10); RDW 14.2 % (11.5-14.5); WBC 11.4 10x3/uL (4.8-10.8)
[2019-06-12 04:33] LABS: ANION GAP 7.2 mmol/L (8-16); CALCIUM 9.5 mg/dL (8.5-10.1); CARBON DIOXIDE 36.2 mmol/L (21.0-32.0); CREATININE - SERUM 1.7 mg/dL (0.6-1.3); POTASSIUM - SERUM 4.4 mmol/L (3.5-5.1)
--- NOTE | 2019-06-12 07:15 | NUR ---
RECEIVED PT IN BED EYES CLOSED RESP UNLABORED SKIN W/D NAD NOTED
[2019-06-12 09:00] VITALS: BP 106/53
[2019-06-12 14:20] VITALS: BP 113/87
[2019-06-12 16:45] VITALS: BP 117/58
--- NOTE | 2019-06-12 19:20 | NUR ---
RECEIVED BEDSIDE REPORT. PATIENT IS ALERT AND ORIENTED, RESTING COMFORTABLY IN BED. PATIENT REMAINS ON 3L NC, RESPIRATIONS ARE EVEN AND UNALBORED. NO S/S OF DISTRESS. NO C/O PAIN. NEEDS MET. CALL LIGHT WITHIN REACH. WILL CPOC.
[2019-06-12 20:00] VITALS: BP 116/77
[2019-06-12 23:20] VITALS: BP 102/44
[2019-06-13 04:00] VITALS: BP 123/55
--- NOTE | 2019-06-13 07:15 | NUR ---
RECEIVED PT IN BED EYES CLOSED RESP UNLABORED SKIN W/D NAD NOTED
--- NOTE | 2019-06-13 09:04 | NUR ---
PT CHANGED TO ATRIAL FLUTTER IN 70s
[2019-06-13 09:17] VITALS: BP 117/67
--- NOTE | 2019-06-13 12:01 | NUR ---
Nutrition Follow-up: Diet: ADA/AHA, Dental Soft, Glucerna with meals PO intake: 58% avg x 3 meals Wt: 120# (inaccurate; last wt 274#; rec reweigh) Last BM: 06/09 per chart Labs reviewed Meds noted: Lantus, Humulin, Bumex -Continue current diet as tolerated. -Rec reweigh; will trend wt. -May consider stool softener. -RD following.
[2019-06-13 13:26] VITALS: BP 114/60
--- NOTE | 2019-06-13 15:54 | NUR ---
PT CHANGED BACK TO SINUS RYTHM AT THIS TIME
--- NOTE | 2019-06-13 16:26 | MORECARE ---
CASE MANAGEMENT DISCHARGE SUMMARY PATIENT: MICHAEL ERNANDEZ UNIT: [id number] ADM DATE: 06/05/19 AGE: 74 : 44 SEX: M ROOM/BED: D.4699 AUTHOR: JAYME PEREZ PHYSICIAN: REFERRING PHYSICIAN: ALISON PALACIOS MD DATE OF SERVICE: 06/13/19 Discharge Plan Patient Name: MICHAEL ERNANDEZ Facility: [facility]:[place] : 1945 Planned Disposition: Home with Home Health Anticipated Discharge Date: Discharge Date: Expected LOS: Initial Reviewer: [email or web address] Initial Review Date: 06/09/2019 Generated: 06/13/19 5:25 pm Comments DCP- Discharge Planning Updated by [email or web address]: Saloni Villasenor on 06/13/19 3:[address] Patient Name: MICHAEL ERNANDEZ Admission Status: ER Accout number: [id number] Admission Date: 06-05-2019 : 1945 Admission Diagnosis: Attending: ALISON PALACIOS Current LOS: 8 Anticipated DC Date: Planned Disposition: Home with Home Health Primary Insurance: MEDICARE A & B Discharge Planning Comments: PLEASE FAX DC SUMMARY TO [facility] WHEN READY FOR DISCHARGE. THANK YOU. Sheet Tailer: Saloni Villasenor Appended by Saloni Villasenor on 06/13/2019 16:16 CDT: [facility] IS . DCP- Discharge Planning Updated by [id number]: Serjio Marx on 06/09/19 2:[address] Patient Name: MICHAEL ERNANDEZ Admission Status: ER Accout number: [id number] Admission Date: 06-05-2019 : 1945 Admission Diagnosis: Attending: ALISON PALACIOS Current LOS: 4 Anticipated DC Date: Planned Disposition: Home with Home Health Primary Insurance: MEDICARE A & B PLANNED EXTERNAL PROVIDER: [facility] Discharge Planning Comments: CM MET WITH PT IN ROOM TO DISCUSS DISCHARGE PLANNING AND NEEDS. PT REPORTS LIVING AT HOME INDEPENDENTLY AND ALONE; PT REPORTS HAVING ASSISTANCE OF HIS SISTER WHO COMES OVER TO ASSIST IF NEEDED. PT HAS BEDSIDE COMMODE, HOME AND PORTABLE OXYGEN, ROLLING WALKER, GLUCOMETER AND WHEECHAIR FROM [facility] PATIENT. PT HAS HOME HEALTH WITH [facility]. CM DISCUSSED AVAILABILITY OF HOME HEALTH, REHAB SERVICES AND MEDICAL EQUIPMENT. PT DENIES DISCHARGE NEEDS, STATES THAT INPATIENT REHAB WAS A "WASTE OF TIME" AND HE IS NOT [facility]ING TO A [facility]. PT STATES HE WILL GO HOME WITH RESUMPTION OF [facility] FOR NURSING AND PHYSICAL THERAPY AT HOME. PT REPORTS HE WILL NEED AND AMBULANCE FOR TRANSPORTATION AT DISCHARGE. CHOICE COMPLETED AND SIGNED FOR [facility]. PT PLANS TO DISCHARGE HOME ALONE WITH ASSISTANCE OF SISTER AND [facility] RESUMPTION. PT REPORTS NEEDING AMBULANCE FOR TRANSPORT HOME. FOR HOME HEALTH RESUMPTION, NOTIFY [facility], , FAX DISCHARGE INFORMATION TO [facility] AT [phone]. CM TO FOLLOW AND ASSIST NEEDED. Sheet Tailer: Serjio Marx DCPIA - Discharge Planning Initial Assessment Updated by [id number]: Serjio Marx on 06/09/19 3:13 pm * Is the patient Alert and Oriented? Yes * How many steps to enter\\exit or inside your home? NONE * PCP DR. PALACIOS * [facility] * Preadmission Environment Home Alone * ADLs Independent * Equipment Bedside Commode Glucometer Oxygen Rolling Walker Wheelchair * Other Equipment HOME AND PORTABLE OXYGEN, [facility] PATIENT * List name and contact numbers for known caregivers / representatives who currently or will assist patient after discharge: SISTER BEE, * Verbal permission to speak to the caregivers and representatives has been obtained from the patient. N/A * Community resources currently utilized Home Health * Please name any agencies selected above. [facility] * Additional services required to return to the preadmission environment? No * Can the patient safely return to the preadmission environment? Yes * Has this patient been hospitalized within the prior 30 days at any hospital? No Coverage Notice Reviewer: [id number] - Serjio Marx Notice Issued Date-Time: 06/09/2019 14:55 Notice Type: Patient Choice Letter Notice Delivered To: Patient Relationship to Patient: Webbing Tacker Name: Delivery Method: HAND - Hand Delivered Gina Days: Prior Verbal Notification: Recipient Understood Notice: Yes Recipient Signature: Yes Med Rec Note Co-signed by Attending: Coverage Notice Comment: [facility] Last DP export: 06/09/19 2:27 Patient Name: MICHAEL ERNANDEZ Page [phone] at 1626 All edits/amendments must be made on the electronic document DICTATION DATE: 06/13/191624 INSTALLATION MANAGER: MARIAM 06/13/191624 RPT#: [id number] DC DATE: STATUS: ADM IN [facility] [address] [place] [address] END OF REPORT
[2019-06-13 17:19] VITALS: BP 118/59
--- NOTE | 2019-06-13 19:15 | NUR ---
RECEIVED BEDSIDE REPORT. PATIENT IS ALERT AND ORIENTED, RESTING COMFORTABLY IN BED. PATIENT REMAINS ON 3L NC, RESPIRATIONS ARE EVEN AND UNLABORED. NO S/S OF DISTRESS. NO C/O PAIN. NEEDS MET. CALL LIGHT WITHIN REACH.
[2019-06-13 20:00] VITALS: BP 144/62
[2019-06-14] VITALS: BP 119/62
[2019-06-14 04:00] VITALS: BP 138/60
[2019-06-14 04:59] LABS: BASOPHILS 0.2 % (0-2); EOSINOPHILS 2.2 % (0-7); HEMATOCRIT 35.4 % (42.0-54.0); IMMATURE GRANULOCYTES 0.6 % (0-5); LYMPHOCYTES 11.1 % (15-50); MCH 31.2 pg (26.0-34.0); MCHC 31.1 g/dL (31.0-37.0); MCV 100.3 fL (80.0-100.0); MONOCYTES 7.9 % (2-11); PLATELET COUNT 304 10x3/uL (130-400); RBC 3.53 10x6/uL (4.20-6.10); RDW 14.6 % (11.5-14.5); WBC 14.1 10x3/uL (4.8-10.8)
[2019-06-14 05:05] LABS: ANION GAP 9.1 mmol/L (8-16); CALCIUM 9.3 mg/dL (8.5-10.1); CARBON DIOXIDE 33.3 mmol/L (21.0-32.0); CREATININE - SERUM 1.6 mg/dL (0.6-1.3); POTASSIUM - SERUM 4.4 mmol/L (3.5-5.1)
[2019-06-14 09:20] VITALS: BP 117/50
[2019-06-14 14:37] VITALS: BP 110/64
[2019-06-14 16:20] VITALS: BP 137/58
--- NOTE | 2019-06-14 19:12 | NUR ---
RECIEVED BEDSIDE SHIFT REPORT. LAYING IN BED WITH EYES CLOSED. EASILY AROUSES WITH VERBAL STIMULI. ORIENTED X4. REMAINS BEDFAST. IV TO LEFT FA SL.. F/C INTACT WITH SRAW COLOR URINE DRAING TO BEDSIDE DRAINAGE BAG. TELEMETRY IN PLACE. DENIES ANY NEEDS AT THIS TIME.
[2019-06-14 20:00] VITALS: BP 132/58
[2019-06-15] VITALS (7 sets, daily range): BP systolic 97–138; BP diastolic 48–82
--- NOTE | 2019-06-15 13:30 | NUR ---
BLADDER TRAINING STARTED. WILL MONITOR.
--- NOTE | 2019-06-15 19:48 | NUR ---
RECIEVED BEDIDE SHIFT REPORT. UP IN BED WITH EYES OPEN AND TV ON. ALERT AND ORIENTED X4. REMAINS BEDFAST. F/C INTACT WITH CLEAR YELLOW URINE DRAINING TO BEDSIDE DRAINAGE SYSTEM. BLADDER TRAINING CONTINUES. HOB ELEVATED AND O2 @3 LITERS PER N/C IN PLACE. IV TO LEFT FA SL.. TELEMETRY IN PLACE.
[2019-06-16 04:38] VITALS: BP 117/60
--- NOTE | 2019-06-16 07:36 | NUR ---
ALERT AND ORIENTED.TELEMERTY SHOWS CAF 79. PEREZ CATH CLAMPED FOR BLADDER TRAINING. O2 AT 3 L/M PER NC. NO NEEDS VOICED. WILL MONITOR
[2019-06-16] MEDS ORDERED: AMOXICILLIN875 MG PO (07:37)
[2019-06-16 09:25] VITALS: BP 139/59
[2019-06-16] MEDS ORDERED: BAYER CHEWABLE81 MG PO (09:45)
--- NOTE | 2019-06-16 11:19 | NUR ---
NO FLU SHOT GIVEN UPON DISCHARGE PATIENT IS GOING HOME ON ORAL ANTIBIOTICS.
--- NOTE | 2019-06-16 11:39 | NUR ---
PT DISCHARGED. IV AND TELEMERTY DCD. HOME PER AMBULANCE
--- NOTE | 2019-06-16 12:51 | MORECARE ---
CASE MANAGEMENT DISCHARGE SUMMARY PATIENT: MICHAEL ERNANDEZ UNIT: [id number] ADM DATE: 06/05/19 AGE: 74 : 44 SEX: M ROOM/BED: D.9904 AUTHOR: JAYME PEREZ PHYSICIAN: REFERRING PHYSICIAN: ALISON PALACIOS MD DATE OF SERVICE: 06/16/19 Discharge Plan Patient Name: MICHAEL ERNANDEZ Facility: [facility]:[place] : 1945 Planned Disposition: Home with Home Health Anticipated Discharge Date: 06/16/19 Discharge Date: 06/16/2019 Expected LOS: 11 Initial Reviewer: [email or web address] Initial Review Date: 06/09/2019 Generated: 06/16/19 1:51 pm Comments DCP- Discharge Planning Updated by [id number]: Saloni Villasenor on 06/13/19 3:[address] Patient Name: MICHAEL ERNANDEZ Admission Status: ER Accout number: [id number] Admission Date: 06-05-2019 : 1945 Admission Diagnosis: Attending: ALISON PALACIOS Current LOS: 8 Anticipated DC Date: Planned Disposition: Home with Home Health Primary Insurance: MEDICARE A & B Discharge Planning Comments: PLEASE FAX DC SUMMARY TO [facility] WHEN READY FOR DISCHARGE. THANK YOU. Verification Specialist: Saloni Villasenor Appended by Saloni Villasenor on 06/13/2019 16:16 CDT: [facility] FA[facility] IS . DCP- Discharge Planning Updated by [id number]: Serjio Marx on 06/09/19 2:[address] Patient Name: MICHAEL ERNANDEZ Admission Status: ER Accout number: [id number] Admission Date: 06-05-2019 : 1945 Admission Diagnosis: Attending: ALISON PALACIOS Current LOS: 4 Anticipated DC Date: Planned Disposition: Home with Home Health Primary Insurance: MEDICARE A & B PLANNED EXTERNAL PROVIDER: [facility] Discharge Planning Comments: CM MET WITH PT IN ROOM TO DISCUSS DISCHARGE PLANNING AND NEEDS. PT REPORTS LIVING AT HOME INDEPENDENTLY AND ALONE; PT REPORTS HAVING ASSISTANCE OF HIS SISTER WHO COMES OVER TO ASSIST IF NEEDED. PT HAS BEDSIDE COMMODE, HOME AND PORTABLE OXYGEN, ROLLING WALKER, GLUCOMETER AND WHEECHAIR FROM [facility]. PT HAS HOME HEALTH WITH [facility]. CM DISCUSSED AVAILABILITY OF HOME HEALTH, REHAB SERVICES AND MEDICAL EQUIPMENT. PT DENIES DISCHARGE NEEDS, STATES THAT INPATIENT REHAB WAS A "WASTE OF TIME" AND HE IS NOT GOING TO A USP FACILITYI. PT STATES HE WILL GO HOME WITH RESUMPTION OF [facility] FOR NURSING AND PHYSICAL THERAPY AT HOME. PT REPORTS HE WILL NEED AND AMBULANCE FOR TRANSPORTATION AT DISCHARGE. CHOICE COMPLETED AND SIGNED FOR [facility]. PT PLANS TO DISCHARGE HOME ALONE WITH ASSISTANCE OF SISTER AND [facility] RESUMPTION. PT REPORTS NEEDING AMBULANCE FOR TRANSPORT HOME. FOR HOME HEALTH RESUMPTION, NOTIFY [facility], , FAX DISCHARGE INFORMATION TO [facility] AT [phone]. CM TO FOLLOW AND ASSIST NEEDED. Verification Specialist: Serjio Marx DCPIA - Discharge Planning Initial Assessment Updated by [id number]: Serjio Marx on 06/09/19 3:13 pm * Is the patient Alert and Oriented? Yes * How many steps to enter\\exit or inside your home? NONE * PCP DR. PALACIOS * Pharmacy [facility] * Preadmission Environment Home Alone * ADLs Independent * Equipment Bedside Commode Glucometer Oxygen Rolling Walker Wheelchair * Other Equipment HOME AND PORTABLE OXYGEN, [facility] * List name and contact numbers for known caregivers / representatives who currently or will assist patient after discharge: PAULINE ROSSI, SISTER, * Verbal permission to speak to the caregivers and representatives has been obtained from the patient. N/A * Community resources currently utilized Home Health * Please name any agencies selected above. [facility] * Additional services required to return to the preadmission environment? No * Can the patient safely return to the preadmission environment? Yes * Has this patient been hospitalized within the prior 30 days at any hospital? No External Providers [facility] Next Contact Date: 06/09/2019 Service Request Date: Service Type: Resolution: Reviewer: Comments: Coverage Notice Reviewer: [id number] - Serjio Marx Notice Issued Date-Time: 06/09/2019 14:55 Notice Type: Patient Choice Letter Notice Delivered To: Patient Relationship to Patient: Driver Salesman Name: Delivery Method: HAND - Hand Delivered Gina Days: Prior Verbal Notification: Recipient Understood Notice: Yes Recipient Signature: Yes Med Rec Note Co-signed by Attending: Coverage Notice Comment: [facility] Reviewer: [id number] - Serjio Marx Notice Issued Date-Time: 06/16/2019 9:50 Notice Type: IM Discharge Notice Notice Delivered To: Patient Relationship to Patient: Driver Salesman Name: Delivery Method: HAND - Hand Delivered Gina Days: Prior Verbal Notification: Recipient Understood Notice: Yes Recipient Signature: Yes Med Rec Note Co-signed by Attending: Coverage Notice Comment: Last DP export: 06/13/19 3:26 Patient Name: MICHAEL ERNANDEZ Page 36446 at 1251 All edits/amendments must be made on the electronic document DICTATION DATE: 06/16/19 1250 POURER: MARIAM 06/16/19 1250 RPT#: [id number] DC DATE:06/16/19 STATUS: DIS IN [facility] [address] [place] [address] END OF REPORT
--- NOTE | 2019-06-16 13:01 | MORECARE ---
CASE MANAGEMENT DISCHARGE SUMMARY PATIENT: MICHAEL ERNANDEZ UNIT: [id number] ADM DATE: 06/05/19 AGE: 74 : 44 SEX: M ROOM/BED: D.8202 AUTHOR: JAYME PEREZ PHYSICIAN: REFERRING PHYSICIAN: ALISON PALACIOS MD DATE OF SERVICE: 06/16/19 Discharge Plan Patient Name: MICHAEL ERNANDEZ Facility: [facility]:[place] : 1945 Planned Disposition: Home with Home Health Anticipated Discharge Date: 06/16/19 Discharge Date: 06/16/2019 Expected LOS: 11 Initial Reviewer: [email or web address] Initial Review Date: 06/09/2019 Generated: 06/16/19 2:00 pm Comments DCP- Discharge Planning Updated by [email or web address]: Serjio Marx on 06/16/19 11:[address] Patient Name: MICHAEL ERNANDEZ Encounter No: [id number] : 1945 Primary Insurance: MEDICARE A & B Anticipated DC Date: 06-16-2019 Planned Disposition: Home with Home Health External Planned Provider: [facility] DCP follow-up note: CM MET WITH PT IN ROOM TO DISCUSS DISCHARGE NEEDS AND PLANNING. CM DISCUSSED AVAILABILITY OF HOME HEALTH, REHAB SERVICES AND MEDICAL EQUIPMENT. PT DENIES DISCHARGE NEEDS OTHER THAN HOME HEALTH RESUMPTION WITH [facility]. PT REPORTS THE DOCTOR IS ORDING AMBULANCE FOR TRANSPORT HOME TODAY. IMPORTANT MESSAGE FROM MEDICARE PROVIDED AND EXPLAINED. CM CALLED [facility], , NOTIFIED ANTONINO OF DISCHARGE AND NEED FOR REUMPTION OF HOME HEALTH. DISCHARGER INFORMATION, FAXED TO CARE AT [phone]. ACTION FINISHER NURSE AND PT NOTIFIED. PT DENIES FURTHER DISCHARGE NEEDS. Serjio Marx, CASE ANTONIA DCP- Discharge Planning Updated by [id number]: Saloni Villasenor on 06/13/19 3:[address] Patient Name: MICHAEL ERNANDEZ Admission Status: ER Accout number: [id number] Admission Date: 06-05-2019 : 1945 Admission Diagnosis: Attending: ALISON PALACIOS Current LOS: 8 Anticipated DC Date: Planned Disposition: Home with Home Health Primary Insurance: MEDICARE A & B Discharge Planning Comments: PLEASE FAX DC SUMMARY TO [facility] WHEN READY FOR DISCHARGE. THANK YOU. Cap Jewel Plate Assembler: Saloni Villasenor Appended by Saloni Villasenor on 06/13/2019 16:16 CDT: [facility] FA[facility] IS . DCP- Discharge Planning Updated by [id number]: Serjio Marx on 06/09/19 2:[address] Patient Name: MICHAEL ERNANDEZ Admission Status: ER Accout number: [id number] Admission Date: 06-05-2019 : 1945 Admission Diagnosis: Attending: ALISON PALACIOS Current LOS: 4 Anticipated DC Date: Planned Disposition: Home with Home Health Primary Insurance: MEDICARE A & B PLANNED EXTERNAL PROVIDER: [facility] Discharge Planning Comments: CM MET WITH PT IN ROOM TO DISCUSS DISCHARGE PLANNING AND NEEDS. PT REPORTS LIVING AT HOME INDEPENDENTLY AND ALONE; PT REPORTS HAVING ASSISTANCE OF HIS SISTER WHO COMES OVER TO ASSIST IF NEEDED. PT HAS BEDSIDE COMMODE, HOME AND PORTABLE OXYGEN, ROLLING WALKER, GLUCOMETER AND WHEECHAIR FROM [facility]. PT HAS HOME HEALTH WITH [facility]. CM DISCUSSED AVAILABILITY OF HOME HEALTH, REHAB SERVICES AND MEDICAL EQUIPMENT. PT DENIES DISCHARGE NEEDS, STATES THAT INPATIENT REHAB WAS A "WASTE OF TIME" AND HE IS NOT GOING TO A NURSING HOME FACILITYI. PT STATES HE WILL GO HOME WITH RESUMPTION OF [facility] FOR NURSING AND PHYSICAL THERAPY AT HOME. PT REPORTS HE WILL NEED AND AMBULANCE FOR TRANSPORTATION AT DISCHARGE. CHOICE COMPLETED AND SIGNED FOR [facility]. PT PLANS TO DISCHARGE HOME ALONE WITH ASSISTANCE OF SISTER AND [facility] RESUMPTION. PT REPORTS NEEDING AMBULANCE FOR TRANSPORT HOME. FOR HOME HEALTH RESUMPTION, NOTIFY [facility], , FAX DISCHARGE INFORMATION TO [facility] AT [phone]. CM TO FOLLOW AND ASSIST NEEDED. Cap Jewel Plate Assembler: Serjio Marx DCPIA - Discharge Planning Initial Assessment Updated by [id number]: Serjio Marx on 06/09/19 3:13 pm * Is the patient Alert and Oriented? Yes * How many steps to enter\\exit or inside your home? NONE * PCP DR. PALACIOS * Pharmacy [facility] * Preadmission Environment Home Alone * ADLs Independent * Equipment Bedside Commode Glucometer Oxygen Rolling Walker Wheelchair * Other Equipment HOME AND PORTABLE OXYGEN, [facility] * List name and contact numbers for known caregivers / representatives who currently or will assist patient after discharge: PAULINE ROSSI, SISTER, * Verbal permission to speak to the caregivers and representatives has been obtained from the patient. N/A * Community resources currently utilized Home Health * Please name any agencies selected above. [facility] * Additional services required to return to the preadmission environment? No * Can the patient safely return to the preadmission environment? Yes * Has this patient been hospitalized within the prior 30 days at any hospital? No Coverage Notice Reviewer: [id number] Marx Notice Issued Date-Time: 06/09/2019 14:55 Notice Type: Patient Choice Letter Notice Delivered To: Patient Relationship to Patient: Fabricator Special Items Name: Delivery Method: HAND - Hand Delivered Gina Days: Prior Verbal Notification: Recipient Understood Notice: Yes Recipient Signature: Yes Med Rec Note Co-signed by Attending: Coverage Notice Comment: [facility] Reviewer: [id number] Marx Notice Issued Date-Time: 06/16/2019 9:50 Notice Type: IM Discharge Notice Notice Delivered To: Patient Relationship to Patient: Fabricator Special Items Name: Delivery Method: HAND - Hand Delivered Gina Days: Prior Verbal Notification: Recipient Understood Notice: Yes Recipient Signature: Yes Med Rec Note Co-signed by Attending: Coverage Notice Comment: Last DP export: 06/16/19 11:51 Patient Name: MICHAEL ERNANDEZ Page [id number] at 1301 All edits/amendments must be made on the electronic document DICTATION DATE: 06/16/19 1300 OIL AND GAS RECRUITER: MARIAM 06/16/19 1300 RPT#: [id number] DC DATE:06/16/19 STATUS: DIS IN [facility] [address] [place] [address] END OF REPORT
--- NOTE | 2019-06-17 11:40 | OP ---
PATIENT NAME: MICHAEL ERNANDEZ MEDICAL RECORD: [id number] :[birth year] LOCATION:D.M2 D.2114 ADMISSION DATE:06/05/19 SURGEON: AKUA RUSS MD DATE OF OPERATION: 06/06/2019 PROCEDURES: 1. PTCA and stent vein graft to RCA. 2. PTCA and stent vein graft to ramus intermedius. 3. Left heart catheterization. 4. Selective coronary angiography. 5. Left ventriculogram. 6. Vein graft angiography. 7. BURROWS angiography. INDICATIONS: Non-Q-wave myocardial infarction, unstable angina and coronary artery disease. PROCEDURE IN DETAIL: Informed consent was obtained after detailed description of risks, benefits as well as alternative therapies, the patient elected to proceed with angiogram and angioplasty. The right femoral area was prepped and draped in normal sterile fashion. Right femoral artery was cannulated via modified Seldinger technique with placement of 6-Persian sheath. All catheters exchanged through this sheath. FINDINGS: Left ventriculogram was performed in standard 30-degree MARINO view, reveals global hypokinesis, ejection fraction in the 30% range. SELECTIVE CORONARY ANGIOGRAPHY: 1. Left main is with no significant angiographic disease. 2. Left anterior descending has multiple previously placed stents. These are widely patent with no significant restenosis. No disease elsewise at the LAD or its branches. 3. BURROWS is nongrafted. 4. Left circumflex has previously placed stents, these are widely patent. The ramus intermedius is totally occluded. 5. Vein graft to the ramus intermedius is patent. There is a previously placed stent with 90% in-stent restenosis. 6. Right coronary is totally occluded. 7. Vein graft to the right coronary is widely patent with 95% in-stent restenosis in the proximal vessel. PTCA AND STENT OF THE VEIN GRAFT TO THE RCA: The stent used was a 3.5 x 18 mm Rusty. Result was 0% residual stenosis. PTCA AND STENT OF THE VEIN GRAFT TO THE RAMUS INTERMEDIUS: The stent used was a 3.5 x 15 mm Rusty taken 21 atmospheres. Result was 0% residual stenosis. OVERALL IMPRESSION: Successful percutaneous transluminal angioplasty and stent of the vein graft to the ramus intermedius as well as a vein graft to the RCA, both going from 90% to 95% initial stenosis to 0% residual. TRANSINT:[id number] Voice Confirmation ID: [id number] DOCUMENT ID: [id number] OPERATIVE REPORT [id number] MICHAEL ERNANDEZ JEFFREY MD at 1140 CC: ALISON PALACIOS [phone] DICTATION DATE: 06/06/19 1539 PROTECTION CONSULTANT: 06/06/19 7510 DIS IN 06/16/19 [place] [id number] [place] [id number]
== END 2019-06-16 11:41 | disposition home health service (06) | DRG 246 ==
LOC: D.ER 10:45 → D.M2 14:00
PROVIDERS: Family Medicine; Internal Medicine Interventional Cardiology; ADMIT Family Medicine; ATTEND Family Medicine
PROC: B2131ZZ Fluoroscopy of Multiple Coronary Artery Bypass Grafts using Low Osmolar Contrast (ICD-10-PCS; 2019-06-06)
PROC: B2181ZZ Fluoroscopy of Left Internal Mammary Bypass Graft using Low Osmolar Contrast (ICD-10-PCS; 2019-06-06)
PROC: B2151ZZ Fluoroscopy of Left Heart using Low Osmolar Contrast (ICD-10-PCS; 2019-06-06)
PROC: 027135Z Dilation of Coronary Artery, Two Arteries with Two Drug-eluting Intraluminal Devices, Percutaneous Approach (ICD-10-PCS; principal; 2019-06-06 12:30)
PROC: 4A023N7 Measurement of Cardiac Sampling and Pressure, Left Heart, Percutaneous Approach (ICD-10-PCS; 2019-06-06 12:30)
DX: I21.4 Non-ST elevation (NSTEMI) myocardial infarction (principal); I50.23 Acute on chronic systolic (congestive) heart failure; I48.20 Chronic atrial fibrillation, unspecified; E11.9 Type 2 diabetes mellitus without complications; Z79.4 Long term (current) use of insulin; I11.0 Hypertensive heart disease with heart failure; E78.5 Hyperlipidemia, unspecified; I25.110 Atherosclerotic heart disease of native coronary artery with unstable angina pectoris; E66.9 Obesity, unspecified; Z68.38 Body mass index [BMI] 38.0-38.9, adult

== ENCOUNTER 2020-02-03 07:49 | Inpatient (IN) | payer MEDICARE, OTHER ==
[~2020-02-03] VITALS: Ht 182.9 cm; Wt 116.6 kg
[~2020-02-03 07:49] MED LIST changes: +AMOXICILLIN875 MG PO; +BAYER CHEWABLE81 MG PO
[2020-02-03 08:21] LABS: APTT 27.2 SECONDS (22.8-39.4); INR 0.97 (0.85-1.17); PROTIME 12.9 SECONDS (11.6-15.0)
[2020-02-03 08:37] LABS: CALC OSMOLALITY 294 mosm/kg (275-300); CARBON DIOXIDE 37.7 mmol/L (21.0-32.0); CHLORIDE - SERUM 97 mmol/L (98-107); CREATININE - SERUM 1.4 mg/dL (0.6-1.3); GLUCOSE 304 mg/dL (74-106); SODIUM 139 mmol/L (136-145); UREA NITROGEN 28 mg/dL (7-18); eGFR NON AFRICAN AMERICAN 52 mL/min (90-120)
[2020-02-03 08:38] VITALS: BP 158/82
[2020-02-03 08:38] LABS: POTASSIUM - SERUM 5.3 mmol/L (3.5-5.1)
[2020-02-03 08:58] LABS: ALBUMIN 3.1 g/dL (3.4-5.0); ALKALINE PHOSPHATASE 98 U/L (30-120); ALT (SGPT) 22 U/L (10-68); BILIRUBIN - TOTAL 0.74 mg/dL (0.2-1.3); CREATINE KINASE 53 UL (21-232); PRO BNP 7091 pg/mL (0-450); PROTEIN - SERUM 7.3 g/dL (6.4-8.2)
[2020-02-03 08:59] LABS: CKMB 2.4 U/L (0.0-3.6); TROPONIN-I 0.126 ng/mL (0.000-0.060)
[2020-02-03 09:19] VITALS: BP 165/84
[2020-02-03 09:19] LABS: BASOPHILS 0.1 % (0-2); EOSINOPHILS 0.8 % (0-7); HEMATOCRIT 44.3 % (42.0-54.0); HEMOGLOBIN 13.6 g/dL (13.5-17.5); IMMATURE GRANULOCYTES 0.4 % (0-5); LYMPHOCYTES 4.1 % (15-50); MCH 31.2 pg (26.0-34.0); MCHC 30.7 g/dL (31.0-37.0); MCV 101.6 fL (80.0-100.0); MEAN PLATELET VOLUME 9.8 fL (7.4-10.4); MONOCYTES 7.5 % (2-11); NEUTROPHILS 87.1 % (40-80); RBC 4.36 10x6/uL (4.20-6.10); RDW 15.4 % (11.5-14.5); WBC 9.6 10x3/uL (4.8-10.8)
[2020-02-03 09:22] LABS: PLATELET COUNT 207 10x3/uL (130-400)
[2020-02-03 11:54] VITALS: BP 165/84; BMI 38.0
--- NOTE | 2020-02-03 12:11 | NUR ---
RECIVED FROM ER PER BED TO ROOM 2120.ADMIT ASSESSMENT PER RN.
[2020-02-03 14:24] VITALS: BP 169/88
--- NOTE | 2020-02-03 16:43 | NUR ---
WITHOUT CHANGES OR DISTRESS NOTED AT THIS TIME. DENIES N EEDS
[2020-02-03 18:45] VITALS: BP 163/96
[2020-02-03 20:00] VITALS: BP 167/85
--- NOTE | 2020-02-03 22:27 | NUR ---
PLACED PT ON BILEVEL [place] APPLICATION WELL SPO2 98% FIO 40% 18/8 NO IMMEDIATE S/S RESP DISTRESS NOTED
[2020-02-04] VITALS: BP 95/35
[2020-02-04 04:00] VITALS: BP 95/58
[2020-02-04 06:20] LABS: BASOPHILS 0.2 % (0-2); EOSINOPHILS 2.5 % (0-7); HEMATOCRIT 40.4 % (42.0-54.0); HEMOGLOBIN 12.1 g/dL (13.5-17.5); IMMATURE GRANULOCYTES 0.4 % (0-5); LYMPHOCYTES 8.5 % (15-50); MCH 30.6 pg (26.0-34.0); MCV 102.3 fL (80.0-100.0); MONOCYTES 11.6 % (2-11); NEUTROPHILS 76.8 % (40-80); PLATELET COUNT 212 10x3/uL (130-400); RBC 3.95 10x6/uL (4.20-6.10); RDW 15.7 % (11.5-14.5); WBC 9.7 10x3/uL (4.8-10.8)
[2020-02-04 06:55] LABS: ALBUMIN 2.6 g/dL (3.4-5.0); ALKALINE PHOSPHATASE 82 U/L (30-120); ALT (SGPT) 20 U/L (10-68); BILIRUBIN - TOTAL 0.43 mg/dL (0.2-1.3); CALCIUM 9.8 mg/dL (8.5-10.1); CARBON DIOXIDE 39.2 mmol/L (21.0-32.0); CHLORIDE - SERUM 103 mmol/L (98-107); CKMB 2.6 U/L (0.0-3.6); CREATINE KINASE 34 UL (21-232); CREATININE - SERUM 1.7 mg/dL (0.6-1.3); PROTEIN - SERUM 6.9 g/dL (6.4-8.2); SODIUM 142 mmol/L (136-145); UREA NITROGEN 33 mg/dL (7-18); eGFR NON AFRICAN AMERICAN 42 mL/min (90-120)
--- NOTE | 2020-02-04 06:57 | NUR ---
ASSESSMENT DONE. DENIES NEEDS
[2020-02-04 06:58] LABS: CALC OSMOLALITY 295 mosm/kg (275-300); GLUCOSE 213 mg/dL (74-106); POTASSIUM - SERUM 4.2 mmol/L (3.5-5.1); TROPONIN-I 0.165 ng/mL (0.000-0.060)
--- NOTE | 2020-02-04 09:34 | NUR ---
I have reviewed this patient and I concur with the Shift Assessment completed by the Licensed Practical Nurse today this shift.
[2020-02-04 13:23] VITALS: Ht 182.9 cm; Wt 116.6 kg
[2020-02-04 16:28] VITALS: BP 117/56
[2020-02-04 20:00] VITALS: BP 146/59
[2020-02-05 04:00] VITALS: BP 122/71
[2020-02-05 06:22] LABS: BASOPHILS 0.4 % (0-2); EOSINOPHILS 4.1 % (0-7); HEMATOCRIT 36.9 % (42.0-54.0); HEMOGLOBIN 11.1 g/dL (13.5-17.5); IMMATURE GRANULOCYTES 0.5 % (0-5); LYMPHOCYTES 9.8 % (15-50); MCH 30.7 pg (26.0-34.0); MCHC 30.1 g/dL (31.0-37.0); MCV 102.2 fL (80.0-100.0); MEAN PLATELET VOLUME 10.1 fL (7.4-10.4); MONOCYTES 9.8 % (2-11); NEUTROPHILS 75.4 % (40-80); PLATELET COUNT 199 10x3/uL (130-400); RBC 3.61 10x6/uL (4.20-6.10); RDW 15.7 % (11.5-14.5); WBC 8.3 10x3/uL (4.8-10.8)
[2020-02-05 07:13] LABS: ALBUMIN 2.5 g/dL (3.4-5.0); ANION GAP 5.5 mmol/L (8-16); BILIRUBIN - TOTAL 0.39 mg/dL (0.2-1.3); CALCIUM 9.3 mg/dL (8.5-10.1); CARBON DIOXIDE 38.5 mmol/L (21.0-32.0); CREATININE - SERUM 1.9 mg/dL (0.6-1.3); PROTEIN - SERUM 6.3 g/dL (6.4-8.2)
[2020-02-05 07:14] LABS: TROPONIN-I 0.118 ng/mL (0.000-0.060)
[2020-02-05 10:05] VITALS: BP 133/80
[2020-02-05 14:08] VITALS: BP 140/76
[2020-02-05 18:23] VITALS: BP 124/62
--- NOTE | 2020-02-05 19:02 | NUR ---
PT IS AWKE AND ALERT AND ASKED TO BE REPOSITIONED I DID THIS AND PROVIDED SOME WATER BED LOW AND LOCKED CALL LIGHT IN REACH OF LEFT HAND PT IS NON MOBIL TO RT SIDE
[2020-02-05 20:00] VITALS: BP 124/65
--- NOTE | 2020-02-05 23:18 | NUR ---
PT REMOVED BIPAP X5 TIMES NOW I PUT O2 IN PLACE BIPAP IS OFF
[2020-02-06 04:00] VITALS: BP 121/57
--- NOTE | 2020-02-06 05:12 | NUR ---
I have reviewed this patient and I concur with the Shift Assessment completed by the Licensed Practical Nurse today this shift.
[2020-02-06 05:20] LABS: BASOPHILS 0.3 % (0-2); EOSINOPHILS 4.1 % (0-7); HEMATOCRIT 36.7 % (42.0-54.0); HEMOGLOBIN 11.1 g/dL (13.5-17.5); IMMATURE GRANULOCYTES 0.5 % (0-5); LYMPHOCYTES 11.8 % (15-50); MCH 30.7 pg (26.0-34.0); MCHC 30.2 g/dL (31.0-37.0); MCV 101.7 fL (80.0-100.0); MONOCYTES 8.7 % (2-11); NEUTROPHILS 74.6 % (40-80); PLATELET COUNT 179 10x3/uL (130-400); RBC 3.61 10x6/uL (4.20-6.10); RDW 15.4 % (11.5-14.5); WBC 7.4 10x3/uL (4.8-10.8)
[2020-02-06 06:10] LABS: ANION GAP 4.3 mmol/L (8-16); CARBON DIOXIDE 38.6 mmol/L (21.0-32.0); CREATININE - SERUM 1.8 mg/dL (0.6-1.3); POTASSIUM - SERUM 3.9 mmol/L (3.5-5.1)
[2020-02-06 06:11] LABS: TROPONIN-I 0.08 ng/mL (0.000-0.060)
--- NOTE | 2020-02-06 07:15 | NUR ---
RECEIVED PT IN BED EYES CLOSED RESP UNLABORED SKIN W/D COLOR WNL NAD NOTED
[2020-02-06 10:01] VITALS: BP 135/58
--- NOTE | 2020-02-06 13:33 | NUR ---
Nutrition Follow-up: Pt sleeping soundly at time of visit this AM. RD did not disturb. Chart reviewed. Poor PO intake. Diet: Diabetic PO intake: 23% avg x 6 meals Wt: 280# (02/03) Labs noted: Glu 248 Meds noted: Lasix, KDur -Encourage PO intake and honor food preferences within diet restrictions. -+Glucerna with meals. -Need new wt; noted daily wts ordered. -RD following.
[2020-02-06 15:09] VITALS: BP 112/61
--- NOTE | 2020-02-06 19:45 | NUR ---
REPORT AND INITIAL ROUNDS COMPLETED. PT RESTTING IN BED. NO DISTRESS. CALL LIGHT IN REACH.
[2020-02-06 20:50] VITALS: BP 127/54
--- NOTE | 2020-02-06 21:21 | NUR ---
BEDTIME MEDS GIVEN. PT RESTING.
[2020-02-07 00:49] VITALS: BP 125/53
[2020-02-07 05:18] VITALS: BP 136/60
[2020-02-07 08:15] VITALS: BP 144/64
--- NOTE | 2020-02-07 08:25 | NUR ---
AM MEDS GIVEN WITH APPLE SAUCE, PT HAD NO TROUBLE SWALLOWING. PT DENIES ANY NEEDS AT THIS TIME. CALL LIGHT IN REACH, BED ALARM ON, BEDSIDE RAILS X2, NAD NOTED, WILL CONTINUE PLAN OF CARE.
--- NOTE | 2020-02-07 10:18 | NUR ---
PLACED PT ON BIPAP. PT DENIES ANY NEEDS AT THIS TIME. CALL LIGHT IN REACH, NAD NOTED, WILL CONTINUE TO MONITOR.
[2020-02-07 11:23] VITALS: BP 120/48
--- NOTE | 2020-02-07 12:15 | NUR ---
BLOOD SUGAR OF 256, 16UNITS GIVEN PER S/S. PT RESTING COMFORTABLY IN BED, WEARING BIPAP. CALL LIGHT IN REACH.
--- NOTE | 2020-02-07 14:40 | NUR ---
PT REQUESTED TO BE TAKEN OFF BIPAP, FED PT HIS LUNCH.
[2020-02-07 15:44] VITALS: BP 114/46
--- NOTE | 2020-02-07 16:35 | NUR ---
BLOOD SUGAR OF 248, 12UNITS GIVEN PER S/S.
[2020-02-07 20:30] VITALS: BP 101/39
--- NOTE | 2020-02-07 23:00 | NUR ---
PRESERVATIONIST FOR DR. BHUPINDER BEAL
[2020-02-07 23:18] LABS: HEMOGLOBIN 11.2 g/dL (13.5-17.5)
[2020-02-08 00:30] VITALS: BP 97/40
--- NOTE | 2020-02-08 00:43 | NUR ---
INITIAL ROUNDS COMPLETED AT 1915 HRS. PT REQUESTING BEDPAN. PT REMOVED FORM BEDPAN AT APPROX 1925 HRS. WITH MODERATE AMOUNT OF FORMED, SOFT, BROWN BM NOTED. STAGE 2 TO R BUTTOCKS NOTED. APPROX 1CM IN DIAMETER. NAUN'S BUTT PASTE APPLIED TO BUTTOCKS. ASSESSMENT COMPLETED AT 2015 HRS. VSS. CAF PER CM HR 60. PT ALERT; ORIENTED TO PERSON AND PLACE. REORIENTED TO TIME AND SITUATION. O2 2LNC. LUNGS DIMINISHED IN BASES BILAT. R ARM CONTRACTURED. SPEECH SLOW AND DELIBERATE. ABD SOFT WITH ACTIVE BS NOTED. PEREZ DRAINING YELLOW URINE. STAGE 2 TO R BUTTOCKS APPROX 1MC IN DIAMETER. PM FSBS 203. 12 UNITS HUMALOG GIVEN SUB-Q TO L ABD. PM MEDS GIVEN. PT PLACED IN HIGH FOWLERS WHILE ADMINISTERING MEDS WITH WATER. SWALLOWED WITHOUT DIFFICULTY. LANTUS HELD PT NOT EATING. PT PLACED ON BEDPAN AT 2150 HRS. BEDPAN REMOVED AT 2215 HRS. MODERATE BM NOTED. PT NOT AROUSING WIHT ACTIVITY. NOXIOUS STIMULI APPLIED WITH NO RESPONSE. FSBS 194. RPISCILLA. BP 113/48. CAF PER CM HR 67. O2 SAT 95% ON 2LNC. RAPID RESPONSE CALLED AT 2225 HRS. PT PLACED ON BIPAP PER RT. CONTINUED TO BE UNRESPONSIVE. RT ATTEMPTED ABGS NUMEROUS TIMES WITHOUT SUCCESS. ABG FINALLY OBTAINED. PT YELLED "OH" DURING PROCEDURE. PT MORE RESPONSIVE AT 2350 HRS. OPENED EYES TO VERBAL STIMULI. 500CC NS BOLUS INITIATED AT 2346 HRS. PT MOVING L ARM AT THAT TIME. PT RESTING WITH EYES CLOSED. RESP EVEN AND REGULAR. OPENS EYES TO VERBAL STIMULI BUT QUICKLY FALLS BACK TO SLEEP. FOLLOWS COMMANDS. SR UP X2, CALL LIGHT WITHIN REACH AND BED ALARM ON.
--- NOTE | 2020-02-08 03:21 | NUR ---
PT REMOVED BIPAP. REFUSES TO ALLOW TO BE PLACED BACK ON, O2 2LNC PLACED. SR UP X2, CALL LIGHT WITHIN REACH.
[2020-02-08 04:30] VITALS: BP 123/49
[2020-02-08 05:37] LABS: HEMATOCRIT 35.3 % (42.0-54.0); HEMOGLOBIN 10.7 g/dL (13.5-17.5); LYMPHOCYTES 11.1 % (15-50); MCH 30.6 pg (26.0-34.0); MCHC 30.3 g/dL (31.0-37.0); MCV 100.9 fL (80.0-100.0); PLATELET COUNT 185 10x3/uL (130-400); RDW 15.1 % (11.5-14.5); WBC 7.6 10x3/uL (4.8-10.8)
[2020-02-08 06:00] LABS: ANION GAP 4.1 mmol/L (8-16); CALCIUM 8.6 mg/dL (8.5-10.1); CARBON DIOXIDE 38.1 mmol/L (21.0-32.0); CREATININE - SERUM 1.7 mg/dL (0.6-1.3); POTASSIUM - SERUM 4.2 mmol/L (3.5-5.1)
[2020-02-08 06:01] LABS: TROPONIN-I 0.072 ng/mL (0.000-0.060)
--- NOTE | 2020-02-08 06:32 | NUR ---
PT ALERT THIS AM. DENIES ANY DISCOMFORT. O2 2LNC. REFUSES BIPAP AT THIS TIME. AM FSBS 103. NO COVERAGE NECESSARY. NEEDS MET; WILL CONTINUE TO MONITOR.
[2020-02-08 15:11] VITALS: BP 134/62
[2020-02-08 17:55] VITALS: BP 119/52
[2020-02-08 20:00] VITALS: BP 121/50
[2020-02-09] VITALS: BP 127/58
--- NOTE | 2020-02-09 00:14 | NUR ---
INITIAL ROUNDS COMPLETED AT 1905 HRS. PT YELLING "HELP ME HELP ME." WHEN ASKED PT STATED HE WANTING TO GET OUT OF BED. INFORMED PT THAT HE COULD NOT GET OUT OF BED THIS PM HE WAS TOO WEAK TO STAND. INFORMED THAT PT WILL ATTEMPT TO GET HIM IN A CHAIR IN AM. ASSESSMENT COMPLETED AT 1940 HRS. VSS. CAF PER CM HR 71. PT ALERT, ORIENTED TO PERSON AND PLACE. REORINETED TO TIME AND SITUATION. O2 2LNC. LUNGS DIMINISHED IN BASES BILAT. R ARM CONTRACTED. STAGE 2 NOTED TO R BUTTOCKS APPROX 1CM IN DIAMETER. SKIN TEAR TO LOWER L LEG DRESSING CLEAN,DRY AND INTACT. BRUISES NOTED BILAT ARMS. IV TO LFA SL. PM FSBS 151. INSULIN HELD PT NOT EATING. PM MEDS GIVEN. AT 2210 HRS RECHECKED ON PT AND FOUND IV OUT AND BLOOD ON PT AND BED. PT ALSO INCONTINENT OF STOOL. HIBICLENS BEDBATH GIVEN AND LINENS CHANGED. PEREZ CARE COMPLETED. PT REPOSITIONED IN BED FOR COMFORT. ATTEMPTED IV X2 WITHOUT SUCCESS. PT CURRENTLY RESTING WITH EYES CLOSED. RESP EVEN AND REGULAR. PEREZ DRAINING YELLOW URINE. SR UP X2, CALL LIGHT WITHIN REACH AND BED ALRM ON.
--- NOTE | 2020-02-09 00:35 | NUR ---
PT REFUSES TO WEAR BIPAP AT THIS TIME. O2 2LNC PLACED. WATER GIVEN. SR UP X2, CALL LIGHT WITHIN REACH.
--- NOTE | 2020-02-09 02:20 | NUR ---
PT RESTING WITH EYES CLOSED. RESP EVEN AND REGULAR. SR UP X2, CALL LIGHT WITHIN REACH.
[2020-02-09 04:00] VITALS: BP 132/56
--- NOTE | 2020-02-09 04:16 | NUR ---
PT AWAKE; DENIES ANY DISCOMFORT OR NEEDS. DENIED OFFER FOR WATER/JUICE. SR UP X2, CALL LIGHT WITHIN REACH.
--- NOTE | 2020-02-09 06:08 | NUR ---
VSS THROUGHOUT NIGHT. CAF PER CM. PT CONTNUES TO REFUSE TO WEAR BIPAP. INCONTINENT OF STOOL X1 DURING SHIFT. NEEDS MET; WILL CONTINUE TO MONITOR.
[2020-02-09 06:43] LABS: HEMATOCRIT 36.5 % (42.0-54.0); HEMOGLOBIN 11.3 g/dL (13.5-17.5); LYMPHOCYTES 10.6 % (15-50); MCH 31.3 pg (26.0-34.0); MCV 101.1 fL (80.0-100.0); MEAN PLATELET VOLUME 9.8 fL (7.4-10.4); NEUTROPHILS 76.2 % (40-80); PLATELET COUNT 193 10x3/uL (130-400); RBC 3.61 10x6/uL (4.20-6.10); RDW 15.1 % (11.5-14.5)
--- NOTE | 2020-02-09 07:20 | NUR ---
RECIEVE REPORT. RESTING IN BED WITH EYES CLOSED. NO SIGNS OF DISTRESS. CONTINUE PLAN OF CARE AND SAFETY PRECAUTIONS.
[2020-02-09 07:22] LABS: ANION GAP 9.2 mmol/L (8-16); CALCIUM 8.9 mg/dL (8.5-10.1); CARBON DIOXIDE 36.6 mmol/L (21.0-32.0); CREATININE - SERUM 1.6 mg/dL (0.6-1.3); POTASSIUM - SERUM 4.8 mmol/L (3.5-5.1)
[2020-02-09 09:13] VITALS: BP 122/55
[2020-02-09 11:00] VITALS: BP 106/70
[2020-02-09 15:00] VITALS: BP 155/62
--- NOTE | 2020-02-09 19:00 | NUR ---
PATIENT HAS BEEN TURNED IN BED FOR WOUND ON COCCYX. MEPILEX APPLIED TO COCCYX. PATIENT IS PLEASANTLY CONFUSED. CALL LIGHT IS IN REACH.
[2020-02-09 20:00] VITALS: BP 135/71
[2020-02-10 04:00] VITALS: BP 138/57
--- NOTE | 2020-02-10 04:15 | NUR ---
PATIENT IS SLEEPING IN BED. HE HAS BEEN ADJUSTED IN BED A COUPLE OF TIMES FOR PAIN FROM WOUND ON RIGHT BUTTOCK. HE IS PLEASANTLY CONFUSED, AND USES CALL LIGHT APPROPRIATELY.
[2020-02-10 09:00] VITALS: BP 172/60
[2020-02-10 12:08] VITALS: BP 118/59
--- NOTE | 2020-02-10 12:36 | NUR ---
Nutrition Follow-up: Pt sleeping soundly at time of visit. Noted 100% of breakfast recorded on door although unsure of accuracy 2/2 recent intake has been 0-50%. Noted pt DNR but does not want hospice. Per nursing assessment, pt with stage 2 wound to R buttock. Diet: Diabetic, Glucerna TID Wt: 257# (02/08); 264.5# (02/06); 280# (02/02 - stated) Last BM: 02/08 per chart Labs noted: Glu 124 Meds noted: Lantus, Humalog, Lasix, KDur -Encourage PO intake and honor food preferences within diet restrictions. -May consider Kar to promote wound healing if pt agreeable. -Pt may benefit from appetite stimulant; if overall PO intake remains poor, may consider nutrition support. -Monitor wt; noted daily wts ordered. -RD following.
[2020-02-10 15:00] VITALS: BP 138/48
--- NOTE | 2020-02-10 15:24 | MORECARE ---
CASE MANAGEMENT DISCHARGE SUMMARY PATIENT: MICHAEL ERNANDEZ UNIT: [id number] ADM DATE: 02/03/20 AGE: 74 : 44 SEX: M ROOM/BED: D.2120 AUTHOR: JAYME PEREZ PHYSICIAN: REFERRING PHYSICIAN: ALISON PALACIOS MD DATE OF SERVICE: 02/10/20 Discharge Plan Patient Name: MICHAEL ERNANDEZ Facility: [facility]:[place] : 1945 Planned Disposition: Home Anticipated Discharge Date: Discharge Date: Expected LOS: Initial Reviewer: [email or web address] Initial Review Date: 02/10/2020 Generated: 02/10/20 4:24 pm Patient Name: MICHAEL ERNANDEZ Page [id number] at 1524 All edits/amendments must be made on the electronic document DICTATION DATE: 02/10/20 1524 TRACTOR ENGINE MECHANIC: MARIAM 02/10/20 1524 RPT#: [id number] DC DATE: STATUS: ADM IN [facility] [address] [place] [address] END OF REPORT
--- NOTE | 2020-02-10 15:33 | MORECARE ---
CASE MANAGEMENT DISCHARGE SUMMARY PATIENT: MICHAEL ERNANDEZ UNIT: [id number] ADM DATE: 02/03/20 AGE: 74 : 43 SEX: M ROOM/BED: D.2120 AUTHOR: JAYME PEREZ PHYSICIAN: REFERRING PHYSICIAN: ALISON PALACIOS MD DATE OF SERVICE: 02/10/20 Discharge Plan Patient Name: MICHAEL ERNANDEZ [facility] [facility] 1945 Planned Disposition: Home Anticipated Discharge Date: Discharge Date: Expected LOS: Initial Reviewer: [email or web address] Initial Review Date: 02/10/2020 Generated: 02/10/20 4:33 pm DCPIA - Discharge Planning Initial Assessment Updated by [email or web address]: Maricarmen Tolentino on 02/10/20 3:26 pm * Is the patient Alert and Oriented? Yes * How many steps to enter\exit or inside your home? 0/0 * PCP Dr. Palacios * Pharmacy [facility] * Preadmission Environment Home Alone * ADLs Partial Dependent * Partial ADLs (Assistance needed) Ambulation Bathing Toileting Transfers * Equipment Bedside Commode CPAP Glucometer Other Oxygen Walker Wheelchair * Other Equipment Portable oxygen * List name and contact numbers for known caregivers / representatives who currently or will assist patient after discharge: Montserrat Casiano [facility] - [phone] * Verbal permission to speak to the caregivers and representatives has been obtained from the patient. Yes * Community resources currently utilized Meals on Wheels * Additional services required to return to the preadmission environment? No * Can the patient safely return to the preadmission environment? Yes * Has this patient been hospitalized within the prior 30 days at any hospital? No Last DP export: 02/10/20 2:24 p Patient Name: MICHAEL ERNANDEZ Page [id number] at 1533 All edits/amendments must be made on the electronic document DICTATION DATE: 02/10/201532 KNITTING MACHINE MECHANIC: MARIAM 02/10/201532 RPT#: [id number] DC DATE: STATUS: ADM IN [facility] [address] [place] [address] END OF REPORT
--- NOTE | 2020-02-10 15:42 | MORECARE ---
CASE MANAGEMENT DISCHARGE SUMMARY PATIENT: MICHAEL ERNANDEZ UNIT: [id number] ADM DATE: 02/03/20 AGE: 74 : 44 SEX: M ROOM/BED: D.0854 AUTHOR: JAYME PEREZ PHYSICIAN: REFERRING PHYSICIAN: ALISON PALACIOS MD DATE OF SERVICE: 02/10/20 Discharge Plan Patient Name: MICHAEL ERNANDEZ Facility: [facility]:[place] : 1945 Planned Disposition: Home Anticipated Discharge Date: Discharge Date: Expected LOS: Initial Reviewer: [email or web address] Initial Review Date: 02/10/2020 Generated: 02/10/20 4:41 pm Comments DCP- Discharge Planning Updated by [email or web address]: Maricarmen Tolentino on 02/10/20 2:[address] Patient Name: MICHAEL ERNANDEZ Admission Status: ER Accout number: [id number] Admission Date: 02-03-2020 : 1945 Admission Diagnosis:SHORTNESS OF BREATH Attending: ALISON PALACIOS Current LOS: 7 Anticipated DC Date: Planned Disposition: Home Primary Insurance: MEDICARE A & B Discharge Planning Comments: CM met with patient to complete initial dc planning assessment. CM educated patient on the CM role and verbal consent given by patient to complete assessment. Patient lives at home alone. At discharge patient plans to return and feels this is a safe discharge. CM discussed availability of home health, rehab services, and medical equipment. Patient denied known discharge needs at this time. His sister, Montserrat, enters the room while I am discussing discharge planning and permission received to discuss planning in front of his sister. Patient states home health and rehab are "a waste of time." States he will need an ambulance transfer to get back home. I spoke with his sister and she states the patient is unable to get up alone. He is in a wheelchair. He calls his neighbor when he needs to go to the bathroom and the neighbor assists with ADL's. States that he has his meals delivered weekly and he has meals on wheels. His sister and him both state they feel he is safe to discharge home when medically stable. CM will continue to follow and will assist as needed with dc plans/needs. Mule Operator: Maricarmen Tolentino DCPIA - Discharge Planning Initial Assessment Updated by [email or web address]: Maricarmen Randa on 02/10/20 3:26 pm * Is the patient Alert and Oriented? Yes * How many steps to enter\\exit or inside your home? 0/0 * PCP Dr. Palacios * Pharmacy [facility] [place] * Preadmission Environment Home Alone * ADLs Partial Dependent * Partial ADLs (Assistance needed) Ambulation Bathing Toileting Transfers * Equipment Bedside Commode CPAP Glucometer Other Oxygen Walker Wheelchair * Other Equipment Portable oxygen * List name and contact numbers for known caregivers / representatives who currently or will assist patient after discharge: Montserrat Casiano [facility] - [phone] * Verbal permission to speak to the caregivers and representatives has been obtained from the patient. Yes * Community resources currently utilized Meals on Wheels * Additional services required to return to the preadmission environment? No * Can the patient safely return to the preadmission environment? Yes * Has this patient been hospitalized within the prior 30 days at any hospital? No Last DP export: 02/10/20 2:33 p Patient Name: MICHAEL ERNANDEZ Page 85655 at 1542 All edits/amendments must be made on the electronic document DICTATION DATE: 02/10/201540 GASATERIA ATTENDANT: MARIAM 02/10/201540 RPT#: [id number] DC DATE: STATUS: ADM IN [facility] [address] [place] [address] END OF REPORT
--- NOTE | 2020-02-10 19:00 | NUR ---
PATIENT IS RESTING COMFORTABLY IN BED. PATIENT IS PLEASANTLY CONFUSED. HE USES CALL LIGHT APPROPRIATELY.
[2020-02-10 20:00] VITALS: BP 140/56
[2020-02-11] VITALS: BP 169/83
[2020-02-11 04:00] VITALS: BP 142/69
--- NOTE | 2020-02-11 04:03 | NUR ---
PATIENT IS MORE CONFUSED TONIGHT. HE IS CALLING OUT FOR HELP, FORGETTING TO USE HIS CALL LIGHT. ROOM LIGHT TURNED ON FOR THE PATIENT. HE TRIED TO WEAR HIS HOME C PAP, BUT TOOK IT OFF AFTER 20 MINUTES. HE IS ON 2 LITERS NASAL CANULA, WITH NO RESPIRATORY DISTRESS.
--- NOTE | 2020-02-11 06:35 | NUR ---
BLOOD SUGAR THIS MORNING WAS 52. 2 ORANGE JUICE'S WERE GIVEN. RETAKE BLOOD SUGAR WAS 63. ANOTHER ORANGE JUICE WAS GIVEN. THE NEXT SHIFT WILL HAVE TO RETAKE HIS BLOOD SUGAR.
[2020-02-11 07:10] LABS: BASOPHILS 0.2 % (0-2); EOSINOPHILS 5.4 % (0-7); HEMATOCRIT 35.4 % (42.0-54.0); HEMOGLOBIN 10.6 g/dL (13.5-17.5); IMMATURE GRANULOCYTES 0.5 % (0-5); LYMPHOCYTES 13.8 % (15-50); MCH 30.5 pg (26.0-34.0); MCHC 29.9 g/dL (31.0-37.0); MCV 101.7 fL (80.0-100.0); MEAN PLATELET VOLUME 10.6 fL (7.4-10.4); MONOCYTES 11.1 % (2-11); PLATELET COUNT 210 10x3/uL (130-400); RBC 3.48 10x6/uL (4.20-6.10); RDW 15.2 % (11.5-14.5); WBC 6.5 10x3/uL (4.8-10.8)
[2020-02-11 07:36] LABS: ALBUMIN 2.3 g/dL (3.4-5.0); BILIRUBIN - TOTAL 0.3 mg/dL (0.2-1.3); CREATININE - SERUM 1.2 mg/dL (0.6-1.3); PROTEIN - SERUM 6.3 g/dL (6.4-8.2); TROPONIN-I 0.054 ng/mL (0.000-0.060)
[2020-02-11 07:41] LABS: ANION GAP 1.5 mmol/L (8-16); POTASSIUM - SERUM 3.8 mmol/L (3.5-5.1)
[2020-02-11 07:43] LABS: CARBON DIOXIDE 41.3 mmol/L (21.0-32.0)
[2020-02-11 09:00] VITALS: BP 135/50
[2020-02-11 11:00] VITALS: BP 139/58
--- NOTE | 2020-02-11 12:21 | NUR ---
ON HOME C-PAP. REFUSES TO EAT AT THIS TIME.
[2020-02-11 15:00] VITALS: BP 143/72
--- NOTE | 2020-02-11 17:44 | NUR ---
OT NOTE: PT IS SOB . NURSING AWARE. PT COMPLETED BED MOB WITH MAX A. PT COMPLETED FACE AND HAND HYGIENE WITH MIN A. 340-4 THANK YOU,LEIDY NEVILLE
--- NOTE | 2020-02-11 19:10 | NUR ---
PATIENT HAS BEEN TURNED IN BED, AFTER HIS ASSESSMENT. HE IS PLEASANTLY CONFUSED. RESPIRATIONS ARE NORMAL, AND PATIENT IS ON 2L NASAL CANNULA FOR OXYGEN. HE DOES NOT TOLERATE HOME CPAP. HE IS AFIB AT CONTROLLED RATE ON TELE. WE WILL CONTINUE TO MONITOR.
[2020-02-11 20:00] VITALS: BP 129/60
--- NOTE | 2020-02-11 22:19 | NUR ---
PATIENT'S BLOOD SUGAR TONIGHT WAS 96. I CALLED DR. PALACIOS AND NOTIFIED HIM OF THE PATIENT'S BLOOD SUGAR. I TOLD HIM YESTERDAY HIS HS BLOOD SUGAR WAS 148, 94 UNITS OF LANTUS WAS GIVEN AND HIS MORNING BLOOD SUGAR WAS 52. DR. PALACIOS ORDERED 50 UNITS OF LANTUS, AND HAD ME DISCONTINUE THE 94 UNITS OF LANTUS. 50 UNITS OF LANTUS WAS GIVEN. WE WILL CONTINUE TO MONITOR HIS BLOOD SUGARS.
[2020-02-12] VITALS: BP 105/63
--- NOTE | 2020-02-12 01:29 | NUR ---
STARTED 22 GAUGE IV IN LEFT WRIST. STARTED BECAUSE BLOOD PRESSURE SEEMS TO BE TRENDING DOWN.
[2020-02-12 04:00] VITALS: BP 140/71
--- NOTE | 2020-02-12 04:07 | NUR ---
PATIENT IS SLEEPING COMFORTABLY IN BED. HIS BLOOD PRESSURE SEEMED TO BE TRENDING DOWN SO I STARTED A IV IN HIS LEFT WRIST. PATIENT IS ON 2 LITERS NASAL CANNULA AND DOES NOT TOLERATE HIS HOME CPAP. HE TAKES IT OFF AND SAYS HE CANNOT BREATH WITH IT ON.
--- NOTE | 2020-02-12 06:26 | NUR ---
PATIENT'S BLOOD SUGAR WAS 62 THIS AM. I GAVE HIM THE GLUCOSE GEL, AND RETOOK HIS BLOOD SUGAR WHICH WAS 64. I THEN GAVE HIM 2 ORANGE JUICES. NEXT SHIFT WILL RETAKE BLOOD SUGAR.
[2020-02-12 07:17] LABS: CALCIUM 8.7 mg/dL (8.5-10.1); CHLORIDE - SERUM 99 mmol/L (98-107); CREATININE - SERUM 1.2 mg/dL (0.6-1.3); POTASSIUM - SERUM 3.8 mmol/L (3.5-5.1); SODIUM 139 mmol/L (136-145); UREA NITROGEN 22 mg/dL (7-18); eGFR NON AFRICAN AMERICAN 63 mL/min (90-120)
[2020-02-12 07:25] LABS: BASOPHILS 0.3 % (0-2); HEMATOCRIT 35.5 % (42.0-54.0); HEMOGLOBIN 10.8 g/dL (13.5-17.5); IMMATURE GRANULOCYTES 0.7 % (0-5); LYMPHOCYTES 15.1 % (15-50); MCH 30.7 pg (26.0-34.0); MCHC 30.4 g/dL (31.0-37.0); MCV 100.9 fL (80.0-100.0); MEAN PLATELET VOLUME 10.6 fL (7.4-10.4); MONOCYTES 13.7 % (2-11); NEUTROPHILS 64.2 % (40-80); PLATELET COUNT 226 10x3/uL (130-400); RBC 3.52 10x6/uL (4.20-6.10); RDW 15.2 % (11.5-14.5); WBC 5.8 10x3/uL (4.8-10.8)
[2020-02-12 07:48] LABS: CALC OSMOLALITY 277 mosm/kg (275-300)
[2020-02-12 07:50] LABS: GLUCOSE 45 mg/dL (74-106)
[2020-02-12 07:51] LABS: CARBON DIOXIDE 44.1 mmol/L (21.0-32.0)
[2020-02-12 08:11] VITALS: BP 175/73
--- NOTE | 2020-02-12 10:30 | MORECARE ---
CASE MANAGEMENT DISCHARGE SUMMARY PATIENT: MICHAEL ERNANDEZ UNIT: [id number] ADM DATE: 02/03/20 AGE: 74 : 44 SEX: M ROOM/BED: D.6750 AUTHOR: JAYME PEREZ PHYSICIAN: REFERRING PHYSICIAN: ALISON PALACIOS MD DATE OF SERVICE: 02/12/20 Discharge Plan Patient Name: MICHAEL ERNANDEZ Facility: [facility]:[place] : 1945 Planned Disposition: Home Anticipated Discharge Date: Discharge Date: Expected LOS: Initial Reviewer: [email or web address] Initial Review Date: 02/10/2020 Generated: 02/12/20 11:30 am Comments DCP- Discharge Planning Updated by [email or web address]: Maricarmen Tolentino on 02/12/20 9:[address] I received a consult for hospice. Dr. Palacios asked me to speak with patient's sister concerning hospice consult. I called his sister, Montserrat, and spoke with her. Montserrat states that she will not make a decision for hospice until speaking in person with patient. Montserrat states she will be here at 3PM to speak with me and her brother about hospice consult. CM will continue to follow and assist with discharge planning/needs. DCP- Discharge Planning Updated by [id number]: Maricarmen Tolentino on 02/10/20 2:[address] Patient Name: MICHAEL ERNANDEZ Admission Status: ER Accout number: [id number] Admission Date: 02-03-2020 : 1945 Admission Diagnosis:SHORTNESS OF BREATH Attending: ALISON PALACIOS Current LOS: 7 Anticipated DC Date: Planned Disposition: Home Primary Insurance: MEDICARE A & B Discharge Planning Comments: CM met with patient to complete initial dc planning assessment. CM educated patient on the CM role and verbal consent given by patient to complete assessment. Patient lives at home alone. At discharge patient plans to return and feels this is a safe discharge. CM discussed availability of home health, rehab services, and medical equipment. Patient denied known discharge needs at this time. His sister, Montserrat, enters the room while I am discussing discharge planning and permission received to discuss planning in front of his sister. Patient states home health and rehab are "a waste of time." States he will need an ambulance transfer to get back home. I spoke with his sister and she states the patient is unable to get up alone. He is in a wheelchair. He calls his neighbor when he needs to go to the bathroom and the neighbor assists with ADL's. States that he has his meals delivered weekly and he has meals on wheels. His sister and him both state they feel he is safe to discharge home when medically stable. CM will continue to follow and will assist as needed with dc plans/needs. Senior Health Physics Technician: Maricarmen Randa DCPIA - Discharge Planning Initial Assessment Updated by [email or web address]: Maricarmen Randa on 02/10/20 3:26 pm * Is the patient Alert and Oriented? Yes * How many steps to enter\\exit or inside your home? 0/0 * PCP Dr. Palacios * [facility]acy [facility] [place] * Preadmission Environment Home Alone * ADLs Partial Dependent * Partial ADLs (Assistance needed) Ambulation Bathing Toileting Transfers * Equipment Bedside Commode CPAP Glucometer Other Oxygen Walker Wheelchair * Other Equipment Portable oxygen * List name and contact numbers for known caregivers / representatives who currently or will assist patient after discharge: Montserrat Casiano - - [phone] * Verbal permission to speak to the caregivers and representatives has been obtained from the patient. Yes * Community resources currently utilized Meals on Wheels * Additional services required to return to the preadmission environment? No * Can the patient safely return to the preadmission environment? Yes * Has this patient been hospitalized within the prior 30 days at any hospital? No Last DP export: 02/10/20 2:42 p Patient Name: MICHAEL ERNANDEZ Page 11032 at 1030 All edits/amendments must be made on the electronic document DICTATION DATE: 02/12/20 1030 CONTRACT TECHNICAL WRITER: MARIAM 02/12/20 1030 RPT#: [id number] DC DATE: STATUS: ADM IN [facility] [address] [place] [address] END OF REPORT
[2020-02-12 12:13] VITALS: BP 126/96
--- NOTE | 2020-02-12 12:50 | NUR ---
Nutrition Follow-up: Pt confused. Noted to be sleeping at time of visit. Observed small portion of breakfast eaten. Per MD note, noted pt has agreed to hospice; CM consulted. Diet: Diabetic, Glucerna TID PO intake: 24% avg x 9 meals Wt: 257# (02/08); 264.5# (02/06); 280# (02/02) Last BM: 02/08 per chart Labs noted: Glu 45, POC Glu 144 Meds noted: Lantus, Lasix, KDur -RD following and available to assist as needed.
[2020-02-12 16:05] VITALS: BP 140/60
--- NOTE | 2020-02-12 16:10 | MORECARE ---
CASE MANAGEMENT DISCHARGE SUMMARY PATIENT: MICHAEL ERNANDEZ UNIT: [id number] ADM DATE: 02/03/20 AGE: 74 : 44 SEX: M ROOM/BED: D.5950 AUTHOR: JAYME PEREZ PHYSICIAN: REFERRING PHYSICIAN: ALISON PALACIOS MD DATE OF SERVICE: 02/12/20 Discharge Plan Patient Name: MICHAEL ERNANDEZ Facility: [facility]:[place] : 1945 Planned Disposition: Home Anticipated Discharge Date: Discharge Date: Expected LOS: Initial Reviewer: [email or web address] Initial Review Date: 02/10/2020 Generated: 02/12/20 5:09 pm Comments DCP- Discharge Planning Updated by [email or web address]: Maricarmen Randa on 02/12/20 3:[address] CM met with patient and his sister. I spent 30 minutes in the room discussing hospice and the different agencies. The sister has many question and I answered them the best that I could. She would like to discuss hospice with "other family members" before making a decision. She is thinking they will probably agree and use [facility]. I asked if I could call [facility] to speak with her and answer more of her questions and she declines. Montserrat states that she wants to discuss this with her brother and other family members before speaking with anyone with hospice. Montserrat states she will call me tomorrow with her decision. CM will continue to follow and assist with discharge planning/needs. DCP- Discharge Planning Updated by [email or web address]: Maricarmen Tolentino on 02/12/20 9:[address] I received a consult for hospice. Dr. Palacios asked me to speak with patient's sister concerning hospice consult. I called his sister, Montserrat, and spoke with her. Montserrat states that she will not make a decision for hospice until speaking in person with patient. Montserrat states she will be here at 3PM to speak with me and her brother about hospice consult. CM will continue to follow and assist with discharge planning/needs. DCP- Discharge Planning Updated by [email or web address]: Maricarmen Tolentino on 02/10/20 2:[address] Patient Name: MICHAEL ERNANDEZ Admission Status: ER Accout number: [id number] Admission Date: 02-03-2020 : 1945 Admission Diagnosis:SHORTNESS OF BREATH Attending: ALISON PALACIOS Current LOS: 7 Anticipated DC Date: Planned Disposition: Home Primary Insurance: MEDICARE A & B Discharge Planning Comments: CM met with patient to complete initial dc planning assessment. CM educated patient on the CM role and verbal consent given by patient to complete assessment. Patient lives at home alone. At discharge patient plans to return and feels this is a safe discharge. CM discussed availability of home health, rehab services, and medical equipment. Patient denied known discharge needs at this time. His sister, Montserrat, enters the room while I am discussing discharge planning and permission received to discuss planning in front of his sister. Patient states home health and rehab are "a waste of time." States he will need an ambulance transfer to get back home. I spoke with his sister and she states the patient is unable to get up alone. He is in a wheelchair. He calls his neighbor when he needs to go to the bathroom and the neighbor assists with ADL's. States that he has his meals delivered weekly and he has meals on wheels. His sister and him both state they feel he is safe to discharge home when medically stable. CM will continue to follow and will assist as needed with dc plans/needs. Forensic Psychologist: Maricarmen Pandeyamparo DCPIA - Discharge Planning Initial Assessment Updated by [id number]: Maricarmen Tolentino on 02/10/20 3:26 pm * Is the patient Alert and Oriented? Yes * How many steps to enter\\exit or inside your home? 0/0 * PCP Dr. Palacios * Pharmacy [facility] [place] * Preadmission Environment Home Alone * ADLs Partial Dependent * Partial ADLs (Assistance needed) Ambulation Bathing Toileting Transfers * Equipment Bedside Commode CPAP Glucometer Other Oxygen Walker Wheelchair * Other Equipment Portable oxygen * List name and contact numbers for known caregivers / representatives who currently or will assist patient after discharge: Montserrat Casiano - sister - [phone] * Verbal permission to speak to the caregivers and representatives has been obtained from the patient. Yes * Community resources currently utilized Meals on Wheels * Additional services required to return to the preadmission environment? No * Can the patient safely return to the preadmission environment? Yes * Has this patient been hospitalized within the prior 30 days at any hospital? No Last DP export: 02/12/20 9:30 a Patient Name: MICHAEL ERNANDEZ Page [id number] at 1610 All edits/amendments must be made on the electronic document DICTATION DATE: 02/12/201608 INSTRUMENTATION AND CONTROLS TECHNICIAN: MARIAM 02/12/201608 RPT#: [id number] DC DATE: STATUS: ADM IN [facility] [address] [place] [address] END OF REPORT
--- NOTE | 2020-02-12 16:12 | NUR ---
OT NOTE: PT LETHARGIC IN PM; BED MOB WITH MAX ASSIST; CLEANED R UE THOROUGHLY AND APPLIED SKIN BARRIER CREAM TO BEND IN ELBOW; PROM TO R UE; ATTEMPTED GROOMING TASKS BUT PT WITH POOR PARTICIPATION TODAY. STATED THAT HIS ARM WAS HURTING. ATTEMPTED SIMULATED FEEDING TASKS, HOWEVER, PT RESISTANT TO PARTICIPATE IN THIS ALSO. BULMARO VILLA, OTR/L [phone]
--- NOTE | 2020-02-12 16:31 | NUR ---
OT NOTE: PT COMPLETED RUE PROM TOLERATED. PT REQUIRED MIN A WITH POSITIONING TO DECREASE RISK OF SKIN BREAKDOWN. PT COMPLETED UB HHYGIENE TASKS WITH SET UP FOR FACE. [phone] THANK YOU,LEIDY NEVILLE
[2020-02-12 20:00] VITALS: BP 127/62
--- NOTE | 2020-02-13 02:16 | NUR ---
PATIENT WAS GIVEN A BATH AND LINENS CHANGED. PEREZ CARE COMPLETE.
[2020-02-13 04:00] VITALS: BP 134/56
[2020-02-13 10:36] VITALS: BP 135/73
--- NOTE | 2020-02-13 11:37 | MORECARE ---
CASE MANAGEMENT DISCHARGE SUMMARY PATIENT: MICHAEL ERNANDEZ UNIT: [id number] ADM DATE: 02/03/20 AGE: 74 : 44 SEX: M ROOM/BED: D.2120 AUTHOR: JAYME PEREZ PHYSICIAN: REFERRING PHYSICIAN: ALISON PALACIOS MD DATE OF SERVICE: 02/13/20 Discharge Plan Patient Name: MICHAEL ERNANDEZ Facility: [facility]:[place] : 1945 Planned Disposition: Home Anticipated Discharge Date: Discharge Date: Expected LOS: Initial Reviewer: [email or web address] Initial Review Date: 02/10/2020 Generated: 02/13/20 12:37 pm Comments DCP- Discharge Planning Updated by [email or web address]: Maricarmen Randa on 02/13/20 10:[address] CM spoke with patient's sister, Montserrat, on the phone. Sister is in agreement to speak with someone from [facility]. She would like to meet them in patient's room at 3 PM today. I called [facility] and faxed clinical and order, I spoke with Denise. CM will continue to follow and assist with discharge planning/needs. DCP- Discharge Planning Updated by [email or web address]: Maricarmen Randa on 02/12/20 3:[address] CM met with patient and his sister. I spent 30 minutes in the room discussing hospice and the different agencies. The sister has many question and I answered them the best that I could. She would like to discuss hospice with "other family members" before making a decision. She is thinking they will probably agree and use [facility]. I asked if I could call [facility] to speak with her and answer more of her questions and she declines. Montserrat states that she wants to discuss this with her brother and other family members before speaking with anyone with hospice. Montserrat states she will call me tomorrow with her decision. CM will continue to follow and assist with discharge planning/needs. DCP- Discharge Planning Updated by [id number]: Maricarmen Randa on 02/12/20 9:[address] I received a consult for hospice. Dr. Palacios asked me to speak with patient's sister concerning hospice consult. I called his sister, Montserrat, and spoke with her. Montserrat states that she will not make a decision for hospice until speaking in person with patient. Montserart states she will be here at 3PM to speak with me and her brother about hospice consult. CM will continue to follow and assist with discharge planning/needs. DCP- Discharge Planning Updated by [id number]: Maricarmen Tolentino on 02/10/20 2:[address] Patient Name: MICHAEL ERNANDEZ Admission Status: ER Accout number: [id number] Admission Date: 02-03-2020 : 1945 Admission Diagnosis:SHORTNESS OF BREATH Attending: ALISON PALACIOS Current LOS: 7 Anticipated DC Date: Planned Disposition: Home Primary Insurance: MEDICARE A & B Discharge Planning Comments: CM met with patient to complete initial dc planning assessment. CM educated patient on the CM role and verbal consent given by patient to complete assessment. Patient lives at home alone. At discharge patient plans to return and feels this is a safe discharge. CM discussed availability of home health, rehab services, and medical equipment. Patient denied known discharge needs at this time. His sister, Montserrat, enters the room while I am discussing discharge planning and permission received to discuss planning in front of his sister. Patient states home health and rehab are "a waste of time." States he will need an ambulance transfer to get back home. I spoke with his sister and she states the patient is unable to get up alone. He is in a wheelchair. He calls his neighbor when he needs to go to the bathroom and the neighbor assists with ADL's. States that he has his meals delivered weekly and he has meals on wheels. His sister and him both state they feel he is safe to discharge home when medically stable. CM will continue to follow and will assist as needed with dc plans/needs. Employee'S Representative: Maricarmen Tolentino DCPIA - Discharge Planning Initial Assessment Updated by [email or web address]: Maricarmen Tolentino on 02/10/20 3:26 pm * Is the patient Alert and Oriented? Yes * How many steps to enter\\exit or inside your home? 0/0 * PCP Dr. Palacios * Pharmacy [facility] * Preadmission Environment Home Alone * ADLs Partial Dependent * Partial ADLs (Assistance needed) Ambulation Bathing Toileting Transfers * Equipment Bedside Commode CPAP Glucometer Other Oxygen Walker Wheelchair * Other Equipment Portable oxygen * List name and contact numbers for known caregivers / representatives who currently or will assist patient after discharge: Montserrat Casiano - [facility] - [phone] * Verbal permission to speak to the caregivers and representatives has been obtained from the patient. Yes * Community resources currently utilized Meals on Wheels * Additional services required to return to the preadmission environment? No * Can the patient safely return to the preadmission environment? Yes * Has this patient been hospitalized within the prior 30 days at any hospital? No External Providers External Provider: [facility] *(provides [facility] Next Contact Date: Service Request Date: Service Type: Resolution: Reviewer: Comments: Last DP export: 02/12/20 3:10 p Patient Name: MICHAEL ERNANDEZ Page 24426 at 1137 All edits/amendments must be made on the electronic document DICTATION DATE: 02/13/201136 HAMMER [employer]OP SUPERVISOR: MARIAM 02/13/20 1137 RPT#: [id number] DC DATE: STATUS: ADM IN [facility] [address] [place] [address] END OF REPORT
--- NOTE | 2020-02-13 11:46 | NUR ---
OT NOTE: PT REPORTED NOT FEELING WELL BUT UNABLE TO PROVIDE DETAIL. ASSISTED WITH SUPINE TO SIT WITH MAX ASSIST X 2; EOB SITTING WITH MAX ASSIST. PROM TO R UE, VERY MINIMAL AROM IN L UE (POORLY MOTIVATED). BACK TO BED WITH MAX ASSIST X 2; ROLLING SIDE TO SIDE WITH MAX ASSIST X 2; PERINEAL CARE WITH MAX ASSIST; PADS CHANGED AND PT REPOSITIONED IN BED. BULMARO VILLA, OTR/L [phone]
--- NOTE | 2020-02-13 16:15 | NUR ---
OT NOTE: PT COMPLETED FACE AND HAND HYGIENE WITH MIN A. PT COMPLETED SIDE ROLLING WITH MAX A. [phone] THANK YOU,LEIDY NEVILLE
--- NOTE | 2020-02-13 16:43 | MORECARE ---
CASE MANAGEMENT DISCHARGE SUMMARY PATIENT: MICHAEL ERNANDEZ UNIT: [id number] ADM DATE: 02/03/20 AGE: 74 : 44 SEX: M ROOM/BED: D.3820 AUTHOR: JAYME PEREZ PHYSICIAN: REFERRING PHYSICIAN: ALISON PALACIOS MD DATE OF SERVICE: 02/13/20 Discharge Plan Patient Name: MICHAEL ERNANDEZ Facility: [facility]:[place] : 1945 Planned Disposition: Home Anticipated Discharge Date: Discharge Date: Expected LOS: Initial Reviewer: [id number] Initial Review Date: 02/10/2020 Generated: 02/13/20 5:42 pm Comments DCP- Discharge Planning Updated by [id number]: Maricarmen Tolentino on 02/13/20 3:[address] Luke with [facility] came to speak with patient and his sister, Montserrat. Luke and I both spoke at length with Montserrat about the hospice program. Luke felt patient would meet inpatient criteria at this time and also informed her that they could arrange for home hospice. Montserrat was unable to make the decision to admit to inpatient hospice or home hospice. She states patient can make his own decision. I was unable to get an answer from the patient to answer me on hospice. He kept repeating "I hurt". We asked his nurse, Ca, to assist with with his pain needs. Luke and I spent 90 minutes with sister and patient. Luke informed the patient and his sister that going home without 24/7 care would not be a safe discharge at this time. Montserrat states "he has a button" if he needs help. I did explain to Montserrat, that my mother in law also had an emergency button, but when her carbon dioxide level was too high, she did not remember she had a button to push. No decision was made tonight about a hospice admission by patient or family. I believe Montserrat may need to speak with the physician again on prognosis. DCP- Discharge Planning Updated by [email or web address]: Maricarmen Tolentino on 02/13/20 10:[address] CM spoke with patient's sister, Montserrat, on the phone. Sister is in agreement to speak with someone from [facility]. She would like to meet them in patient's room at 3 PM today. I called [facility] and faxed clinical and order, I spoke with Denise. CM will continue to follow and assist with discharge planning/needs. DCP- Discharge Planning Updated by [id number]: Maricarmen Tolentino on 02/12/20 3:[address] CM met with patient and his sister. I spent 30 minutes in the room discussing hospice and the different agencies. The sister has many question and I answered them the best that I could. She would like to discuss hospice with "other family members" before making a decision. She is thinking they will probably agree and use [facility]. I asked if I could call [facility] to speak with her and answer more of her questions and she declines. Montserrat states that she wants to discuss this with her brother and other family members before speaking with anyone with hospice. Montserrat states she will call me tomorrow with her decision. CM will continue to follow and assist with discharge planning/needs. DCP- Discharge Planning Updated by [email or web address]: Maricarmen Tolentino on 02/12/20 9:[address] I received a consult for hospice. Dr. Palacios asked me to speak with patient's sister concerning hospice consult. I called his sister, Montserrat, and spoke with her. Montserrat states that she will not make a decision for hospice until speaking in person with patient. Montserrat states she will be here at 3PM to speak with me and her brother about hospice consult. CM will continue to follow and assist with discharge planning/needs. DCP- Discharge Planning Updated by [email or web address]: Maricarmen Tolentino on 02/10/20 2:[address] Patient Name: MICHAEL ERNANDEZ Admission Status: ER Accout number: [id number] Admission Date: 02-03-2020 : 1945 Admission Diagnosis:SHORTNESS OF BREATH Attending: ALISON PALACIOS Current LOS: 7 Anticipated DC Date: Planned Disposition: Home Primary Insurance: MEDICARE A & B Discharge Planning Comments: CM met with patient to complete initial dc planning assessment. CM educated patient on the CM role and verbal consent given by patient to complete assessment. Patient lives at home alone. At discharge patient plans to return and feels this is a safe discharge. CM discussed availability of home health, rehab services, and medical equipment. Patient denied known discharge needs at this time. His sister, Montserrat, enters the room while I am discussing discharge planning and permission received to discuss planning in front of his sister. Patient states home health and rehab are "a waste of time." States he will need an ambulance transfer to get back home. I spoke with his sister and she states the patient is unable to get up alone. He is in a wheelchair. He calls his neighbor when he needs to go to the bathroom and the neighbor assists with ADL's. States that he has his meals delivered weekly and he has meals on wheels. His sister and him both state they feel he is safe to discharge home when medically stable. CM will continue to follow and will assist as needed with dc plans/needs. Automobile Locator: Maricarmen Tolentino DCPIA - Discharge Planning Initial Assessment Updated by [email or web address]: Maricarmen Pandeyamparo on 02/10/20 3:26 pm * Is the patient Alert and Oriented? Yes * How many steps to enter\\exit or inside your home? 0/0 * PCP Dr. Palacios * Pharmacy [facility] [place] * Preadmission Environment Home Alone * ADLs Partial Dependent * Partial ADLs (Assistance needed) Ambulation Bathing Toileting Transfers * Equipment Bedside Commode CPAP Glucometer Other Oxygen Walker Wheelchair * Other Equipment Portable oxygen * List name and contact numbers for known caregivers / representatives who currently or will assist patient after discharge: Montserrat Casiano - sister - [phone] * Verbal permission to speak to the caregivers and representatives has been obtained from the patient. Yes * Community resources currently utilized Meals on Wheels * Additional services required to return to the preadmission environment? No * Can the patient safely return to the preadmission environment? Yes * Has this patient been hospitalized within the prior 30 days at any hospital? No Last DP export: 02/13/20 10:37 a Patient Name: MICHAEL ERNANDEZ Page [id number] at 1643 All edits/amendments must be made on the electronic document DICTATION DATE: 02/13/201641 LEATHER LEVELER: MARIAM 02/13/201641 RPT#: [id number] DC DATE: STATUS: ADM IN [facility] [address] [facility] [place] [address] END OF REPORT
--- NOTE | 2020-02-13 20:00 | NUR ---
REPORT RECIEVED AND INITIAL ROUNDS COMPLETED. CALL LIGHT IN REACH.
[2020-02-13 21:10] VITALS: BP 126/62
--- NOTE | 2020-02-13 23:57 | NUR ---
ORAL MEDICATIONS GIVEN. LOVENOX ADMINISTERED AND SLIDING SCALE INSULIN FOR FSBS 192. HOLDING LANTUS, REPORT STATES PATIENT HAS BEEN DROPPING AT NIGHT WHEN RECEIVING LANTUS. PT MORE TALKATIVE AND SAYING PLEASE AND THANK YOU. HAS BEEN ON/OFF BEDPAN WITH NO RESULTS. ANA PATENT.
[2020-02-14 00:13] VITALS: BP 127/68
[2020-02-14 04:54] VITALS: BP 132/60
[2020-02-14 08:56] VITALS: BP 121/96
[2020-02-14 13:12] VITALS: BP 127/72
--- NOTE | 2020-02-14 17:30 | NUR ---
AFTER MULTIPLE ATTEMPTS TO GET PT TO TAKE AM PO MEDS PT CONTINUES TO REFUSE REFUSED PO MEDS AT 1700 DR PALACIOS IS AWARE HOSPICE IS HERE TO SEE PATIENT AND SISTER AT THIS TIME
--- NOTE | 2020-02-14 17:57 | NUR ---
[facility] NURSE ROSANA REBOLLEDO RN [phone] HERE TO SEE PT AND SISTER PT IS TELLING HOSPICE HE WANTS TO GO HOME WITH HOME HOSPICE SISTER STATED SHE LIVES NEXT DOOR AND IS HOME MOST OF THE TIME AND THERE 2 CAREGIVERS THAT COME TRANSFER PT TO AND FROM CHAIR TO BED. [facility] WILL FOLLOW UP TOMORROW WITH CIGAR INSPECTOR PHYSICIAN
[2020-02-14 20:00] VITALS: BP 130/68
[2020-02-15] VITALS: BP 132/67
[2020-02-15 09:44] VITALS: BP 141/63
--- NOTE | 2020-02-15 11:26 | MORECARE ---
CASE MANAGEMENT DISCHARGE SUMMARY PATIENT: MICHAEL ERNANDEZ UNIT: [id number] ADM DATE: 02/03/20 AGE: 74 : 44 SEX: M ROOM/BED: D.3900 AUTHOR: JAYME PEREZ PHYSICIAN: REFERRING PHYSICIAN: ALISON PALACIOS MD DATE OF SERVICE: 02/15/20 Discharge Plan Patient Name: MICHAEL ERNANDEZ Facility: [facility]:[place] : 1945 Planned Disposition: Home Anticipated Discharge Date: Discharge Date: Expected LOS: Initial Reviewer: [email or web address] Initial Review Date: 02/10/2020 Generated: 02/15/20 12:25 pm Comments DCP- Discharge Planning Updated by [id number]: Magali Rahman on 02/15/20 10:[address] Late Entry 02/14/20 CM contacted [facility] and made patient information packet for Hospice. Amy with [place] came and evaluated patient and stated that he does not meet for inpatient criteria and she also stated that the patient is now saying that he wants to go home. Patient does live alone but his sister lives next door and they have some neighbors that help out. CM is uncertain that this would be a safe discharge since he doesn't have 24hr caregivers. Amy will check back on Sunday to see if any decisions have been made. DCP- Discharge Planning Updated by [email or web address]: Maricarmen Tolentino on 02/13/20 3:[address] Luke with [facility] came to speak with patient and his sister, Montserrat. Luke and I both spoke at length with Montserrat about the hospice program. Luke felt patient would meet inpatient criteria at this time and also informed her that they could arrange for home hospice. Montserrat was unable to make the decision to admit to inpatient hospice or home hospice. She states patient can make his own decision. I was unable to get an answer from the patient to answer me on hospice. He kept repeating "I hurt". We asked his nurse, Ca, to assist with with his pain needs. Luke and I spent 90 minutes with sister and patient. Luke informed the patient and his sister that going home without 24/7 care would not be a safe discharge at this time. Montserrat states "he has a button" if he needs help. I did explain to Montserrat, that my mother in law also had an emergency button, but when her carbon dioxide level was too high, she did not remember she had a button to push. No decision was made tonight about a hospice admission by patient or family. I believe Montserrat may need to speak with the physician again on prognosis. DCP- Discharge Planning Updated by [id number]: Maricarmen Pandeyamparo on 02/13/20 10:[address] CM spoke with patient's sister, Montserrat, on the phone. Sister is in agreement to speak with someone from [facility]. She would like to meet them in patient's room at 3 PM today. I called [facility] and faxed clinical and order, I spoke with Denise. CM will continue to follow and assist with discharge planning/needs. DCP- Discharge Planning Updated by [email or web address]: Maricarmen Randa on 02/12/20 3:[address] CM met with patient and his sister. I spent 30 minutes in the room discussing hospice and the different agencies. The sister has many question and I answered them the best that I could. She would like to discuss hospice with "other family members" before making a decision. She is thinking they will probably agree and use [facility]. I asked if I could call [facility] to speak with her and answer more of her questions and she declines. Montserrat states that she wants to discuss this with her brother and other family members before speaking with anyone with hospice. Montserrat states she will call me tomorrow with her decision. CM will continue to follow and assist with discharge planning/needs. DCP- Discharge Planning Updated by [id number]: Maricarmen Randa on 02/12/20 9:[address] I received a consult for hospice. Dr. Palacios asked me to speak with patient's sister concerning hospice consult. I called his sister, Montserrat, and spoke with her. Montserrat states that she will not make a decision for hospice until speaking in person with patient. Montserrat states she will be here at 3PM to speak with me and her brother about hospice consult. CM will continue to follow and assist with discharge planning/needs. DCP- Discharge Planning Updated by [email or web address]: Maricarmen Randa on 02/10/20 2:[address] Patient Name: MICHAEL ERNANDEZ Admission Status: ER Accout number: [id number] Admission Date: 02-03-2020 : 1945 Admission Diagnosis:SHORTNESS OF BREATH Attending: ALISON PALACIOS Current LOS: 7 Anticipated DC Date: Planned Disposition: Home Primary Insurance: MEDICARE A & B Discharge Planning Comments: CM met with patient to complete initial dc planning assessment. CM educated patient on the CM role and verbal consent given by patient to complete assessment. Patient lives at home alone. At discharge patient plans to return and feels this is a safe discharge. CM discussed availability of home health, rehab services, and medical equipment. Patient denied known discharge needs at this time. His sister, Montserrat, enters the room while I am discussing discharge planning and permission received to discuss planning in front of his sister. Patient states home health and rehab are "a waste of time." States he will need an ambulance transfer to get back home. I spoke with his sister and she states the patient is unable to get up alone. He is in a wheelchair. He calls his neighbor when he needs to go to the bathroom and the neighbor assists with ADL's. States that he has his meals delivered weekly and he has meals on wheels. His sister and him both state they feel he is safe to discharge home when medically stable. CM will continue to follow and will assist as needed with dc plans/needs. [employer] Leader: Maricarmen Tolentino DCPIA - Discharge Planning Initial Assessment Updated by [id number]: Maricarmen Tolentino on 02/10/20 3:26 pm * Is the patient Alert and Oriented? Yes * How many steps to enter\\exit or inside your home? 0/0 * PCP Dr. Palacios * Pharmacy [facility] [place] * Preadmission Environment Home Alone * ADLs Partial Dependent * Partial ADLs (Assistance needed) Ambulation Bathing Toileting Transfers * Equipment Bedside Commode CPAP Glucometer Other Oxygen Walker Wheelchair * Other Equipment Portable oxygen * List name and contact numbers for known caregivers / representatives who currently or will assist patient after discharge: Montserrat Casiano - sister - [phone] * Verbal permission to speak to the caregivers and representatives has been obtained from the patient. Yes * Community resources currently utilized Meals on Wheels * Additional services required to return to the preadmission environment? No * Can the patient safely return to the preadmission environment? Yes * Has this patient been hospitalized within the prior 30 days at any hospital? No Last DP export: 02/13/20 3:43 p Patient Name: MICHAEL ERNANDEZ Page [id number] at 1126 All edits/amendments must be made on the electronic document DICTATION DATE: 02/15/201124 PLANT AND MACHINERY VALUER: MARIAM 02/15/201124 RPT#: [id number] DC DATE: STATUS: ADM IN [facility] [address] [place] [address] END OF REPORT
[2020-02-15 17:45] VITALS: BP 140/72
--- NOTE | 2020-02-15 19:56 | NUR ---
RECIEVED LAYING IN BED WITH EYES CLOSED AND HOB ELEVATED. EASILY AROUSES WITH VERBAL STIMULIO2@ 2 LITERS PER N/C IN PLACE. IV TO LT WRIST SL. F/C INTACT WITH YELLOW COLOR URINE DRAINING TO BEDSIDE DRAINAGE SYSTEM. TELEMETRY IN PLACE. MEPELEX TO BUTTOCK CDI. NO S/S OF DISTRESS OBSERVED.
[2020-02-15 20:00] VITALS: BP 147/66
[2020-02-16] VITALS: BP 127/64
[2020-02-16 04:00] VITALS: BP 134/64
--- NOTE | 2020-02-16 07:15 | NUR ---
RECEIVED PT IN BED EYES CLOSED RESP UNLABORED NAD NOTED SKIN W/D COLOR PALE WILL CONTINUE TO MONITOR
[2020-02-16 09:22] VITALS: BP 132/42
--- NOTE | 2020-02-16 10:00 | NUR ---
PT KEEPS REFUSING MEDS AFTER MULTIPLE ATTEMPTS TO GIVE MEDS
--- NOTE | 2020-02-16 12:13 | NUR ---
REFUSES INSULIN COVERAGE
--- NOTE | 2020-02-16 12:33 | NUR ---
OT NOTES: PT PERFORMED BETTER TODAY; CONT TO REQUIRE MAX ASSIST X 2 FOR SUPINE TO SIT, HOWEVER, PT WAS ABLE TO MAINTAIN STATIC SITTING BALANCE ON EOB WITHOUT SUPPORT FOR APPROX 10 MIN..WOULD NOT ATTEMPT ADLS EXCEPT FOR WHIPING HIS NOSE WITH TISSUE. REFUSED TO ATTEMPT AROM EXS WITH LE, THEREFORE, PERFORMED PROM TO B UES. MAX ASSIST TO REPOSITION AND ROLL FROM SIDE TO SIDE TO ADJUST PADS. BULMARO VILLA, OTR/L [phone]
--- NOTE | 2020-02-16 12:58 | MORECARE ---
CASE MANAGEMENT DISCHARGE SUMMARY PATIENT: MICHAEL ERNANDEZ UNIT: [id number] ADM DATE: 02/03/20 AGE: 74 : 44 SEX: M ROOM/BED: D.1566 AUTHOR: JAYME PEREZ PHYSICIAN: REFERRING PHYSICIAN: ALISON PALACIOS MD DATE OF SERVICE: 02/16/20 Discharge Plan Patient Name: MICHAEL ERNANDEZ Facility: [facility]:[place] : 1945 Planned Disposition: Home Anticipated Discharge Date: Discharge Date: Expected LOS: Initial Reviewer: [email or web address] Initial Review Date: 02/10/2020 Generated: 02/16/20 1:57 pm Comments DCP- Discharge Planning Updated by [id number]: Amparo Reynolds on 02/16/20 11:[address] Patient Name: MICHAEL ERNANDEZ Encounter No: [id number] : 1945 Primary Insurance: MEDICARE A & B Anticipated DC Date: Planned Disposition: Home External Planned Provider: : DCP follow-up note: CM spoke with patient and sister Montserrat about DC plan. Patient is refusing hospice, SNF, and HH. Montserrat states he has care givers at home. States they are not 24 coverage, but they live close by and are available to assist when needed. CM spoke with patient about DC plan. Pt obtunded and falling asleep during mid sentence. Called sister montserrat to discuss plan. Montserrat states patient wants the opportunity to go back to the hospital if needed. States he does not want home health because they will suggest another hospitalization. Royce spoke with family about the unsafe dc plan. Montserrat states she wants the patient to go home, and have caregivers take care of him. States he has medical equipment and oxygen at home. States he will require an ambulance to get home. DC IMM explained via phone. verbalized understanding. Imm will be sent by certified mail with return receipt requested. declination verbalized for HH, Hospice, and rehab. Patient and family in agreement with discharge plan. No changes to plan. Case management will follow and assist as needed. Amparo Reynolds MSN,RN,CM DCP- Discharge Planning Updated by [id number]: Magali Rahman on 02/15/20 10:[address] Late Entry 02/14/20 CM contacted [facility] and made patient information packet for Hospice. Amy with [facility] came and evaluated patient and stated that he does not meet for inpatient criteria and she also stated that the patient is now saying that he wants to go home. Patient does live alone but his sister lives next door and they have some neighbors that help out. CM is uncertain that this would be a safe discharge since he doesn't have 24hr caregivers. Amy will check back on Sunday to see if any decisions have been made. DCP- Discharge Planning Updated by [email or web address]: Maricarmen Randa on 02/13/20 3:[address] Luke with [facility] came to speak with patient and his sister, Montserrat. Luke and I both spoke at length with Montserrat about the hospice program. Luke felt patient would meet inpatient criteria at this time and also informed her that they could arrange for home hospice. Montserrat was unable to make the decision to admit to inpatient hospice or home hospice. She states patient can make his own decision. I was unable to get an answer from the patient to answer me on hospice. He kept repeating "I hurt". We asked his nurse, Ca, to assist with with his pain needs. Luke and I spent 90 minutes with sister and patient. Luke informed the patient and his sister that going home without 24/7 care would not be a safe discharge at this time. Montserrat states "he has a button" if he needs help. I did explain to Montserrat, that my mother in law also had an emergency button, but when her carbon dioxide level was too high, she did not remember she had a button to push. No decision was made tonight about a hospice admission by patient or family. I believe Montserrat may need to speak with the physician again on prognosis. DCP- Discharge Planning Updated by [id number]: Maricarmen Pandeyamparo on 02/13/20 10:[address] CM spoke with patient's sister, Montserrat, on the phone. Sister is in agreement to speak with someone from [facility]. She would like to meet them in patient's room at 3 PM today. I called [facility] and faxed clinical and order, I spoke with Denise. CM will continue to follow and assist with discharge planning/needs. DCP- Discharge Planning Updated by [id number]: Maricarmen Tolentino on 02/12/20 3:[address] CM met with patient and his sister. I spent 30 minutes in the room discussing hospice and the different agencies. The sister has many question and I answered them the best that I could. She would like to discuss hospice with "other family members" before making a decision. She is thinking they will probably agree and use [facility]. I asked if I could call [facility] to speak with her and answer more of her questions and she declines. Montserrat states that she wants to discuss this with her brother and other family members before speaking with anyone with hospice. Montserrat states she will call me tomorrow with her decision. CM will continue to follow and assist with discharge planning/needs. DCP- Discharge Planning Updated by [email or web address]: Maricarmen Tolentino on 02/12/20 9:[address] I received a consult for hospice. Dr. Palacios asked me to speak with patient's sister concerning hospice consult. I called his sister, Montserrat, and spoke with her. Montserrat states that she will not make a decision for hospice until speaking in person with patient. Montserrat states she will be here at 3PM to speak with me and her brother about hospice consult. CM will continue to follow and assist with discharge planning/needs. DCP- Discharge Planning Updated by [id number]: Maricarmen Tolentino on 02/10/20 2:[address] Patient Name: MICHAEL ERNANDEZ Admission Status: ER Accout number: [id number] Admission Date: 02-03-2020 : 1945 Admission Diagnosis:SHORTNESS OF BREATH Attending: ALISON PALACIOS Current LOS: 7 Anticipated DC Date: Planned Disposition: Home Primary Insurance: MEDICARE A & B Discharge Planning Comments: CM met with patient to complete initial dc planning assessment. CM educated patient on the CM role and verbal consent given by patient to complete assessment. Patient lives at home alone. At discharge patient plans to return and feels this is a safe discharge. CM discussed availability of home health, rehab services, and medical equipment. Patient denied known discharge needs at this time. His sister, Montserrat, enters the room while I am discussing discharge planning and permission received to discuss planning in front of his sister. Patient states home health and rehab are "a waste of time." States he will need an ambulance transfer to get back home. I spoke with his sister and she states the patient is unable to get up alone. He is in a wheelchair. He calls his neighbor when he needs to go to the bathroom and the neighbor assists with ADL's. States that he has his meals delivered weekly and he has meals on wheels. His sister and him both state they feel he is safe to discharge home when medically stable. CM will continue to follow and will assist as needed with dc plans/needs. Photographic Enlarger Operator: Maricarmen Tolentino DCPIA - Discharge Planning Initial Assessment Updated by [email or web address]: Maricarmen Tolentino on 02/10/20 3:26 pm * Is the patient Alert and Oriented? Yes * How many steps to enter\\exit or inside your home? 0/0 * PCP Dr. Palacios * Pharmacy [facility] * Preadmission Environment Home Alone * ADLs Partial Dependent * Partial ADLs (Assistance needed) Ambulation Bathing Toileting Transfers * Equipment Bedside Commode CPAP Glucometer Other Oxygen Walker Wheelchair * Other Equipment Portable oxygen * List name and contact numbers for known caregivers / representatives who currently or will assist patient after discharge: Montserrat Casiano - - [phone] * Verbal permission to speak to the caregivers and representatives has been obtained from the patient. Yes * Community resources currently utilized Meals on Wheels * Additional services required to return to the preadmission environment? No * Can the patient safely return to the preadmission environment? Yes * Has this patient been hospitalized within the prior 30 days at any hospital? No Last DP export: 02/15/20 10:26 a Patient Name: MICHAEL ERNANDEZ Page [id number] at 1258 All edits/amendments must be made on the electronic document DICTATION DATE: 02/16/20 1257 COSMETICIAN: MARIAM 02/16/20 1257 RPT#: [id number] DC DATE: STATUS: ADM IN [facility] [address] [place] [address] END OF REPORT
--- NOTE | 2020-02-16 13:55 | MORECARE ---
CASE MANAGEMENT DISCHARGE SUMMARY PATIENT: MICHAEL ERNANDEZ UNIT: [id number] ADM DATE: 02/03/20 AGE: 74 : 44 SEX: M ROOM/BED: D.9359 AUTHOR: JAYME PEREZ PHYSICIAN: REFERRING PHYSICIAN: ALISON PALACIOS MD DATE OF SERVICE: 02/16/20 Discharge Plan Patient Name: MICHAEL ERNANDEZ Facility: [facility]:[place] : 1945 Planned Disposition: Home Anticipated Discharge Date: Discharge Date: Expected LOS: Initial Reviewer: [email or web address] Initial Review Date: 02/10/2020 Generated: 02/16/20 2:55 pm Comments DCP- Discharge Planning Updated by [email or web address]: Amparo Reynolds on 02/16/20 11:[address] Patient Name: MICHAEL ERNANDEZ Encounter No: [id number] : 1945 Primary Insurance: MEDICARE A & B Anticipated DC Date: Planned Disposition: Home External Planned Provider: : DCP follow-up note: CM spoke with patient and sister Montserrat about DC plan. Patient is refusing hospice, SNF, and HH. Montserrat states he has care givers at home. States they are not 24 coverage, but they live close by and are available to assist when needed. CM spoke with patient about DC plan. Pt obtunded and falling asleep during mid sentence. Called sister montserrat to discuss plan. Montserrat states patient wants the opportunity to go back to the hospital if needed. States he does not want home health because they will suggest another hospitalization. Royce spoke with family about the unsafe dc plan. Montserrat states she wants the patient to go home, and have caregivers take care of him. States he has medical equipment and oxygen at home. States he will require an ambulance to get home. DC IMM explained via phone. verbalized understanding. Imm will be sent by certified mail with return receipt requested. declination verbalized for HH, Hospice, and rehab. Patient and family in agreement with discharge plan. No changes to plan. Case management will follow and assist as needed. Amparo Reynolds MSN,RN,CM DCP- Discharge Planning Updated by [email or web address]: Magali Rahman on 02/15/20 10:[address] Late Entry 02/14/20 CM contacted [facility] and made patient information packet for Hospice. Amy with [facility] came and evaluated patient and stated that he does not meet for inpatient criteria and she also stated that the patient is now saying that he wants to go home. Patient does live alone but his sister lives next door and they have some neighbors that help out. CM is uncertain that this would be a safe discharge since he doesn't have 24hr caregivers. Amy will check back on Sunday to see if any decisions have been made. DCP- Discharge Planning Updated by [id number]: Maricarmen Randa on 02/13/20 3:[address] Luke with [facility] came to speak with patient and his sister, Montserrat. Luke and I both spoke at length with Montserrat about the hospice program. Luke felt patient would meet inpatient criteria at this time and also informed her that they could arrange for home hospice. Montserrat was unable to make the decision to admit to inpatient hospice or home hospice. She states patient can make his own decision. I was unable to get an answer from the patient to answer me on hospice. He kept repeating "I hurt". We asked his nurse, Ca, to assist with with his pain needs. Luke and I spent 90 minutes with sister and patient. Luke informed the patient and his sister that going home without 24/7 care would not be a safe discharge at this time. Montserrat states "he has a button" if he needs help. I did explain to Montserrat, that my mother in law also had an emergency button, but when her carbon dioxide level was too high, she did not remember she had a button to push. No decision was made tonight about a hospice admission by patient or family. I believe Montserrat may need to speak with the physician again on prognosis. DCP- Discharge Planning Updated by [id number]: Maricarmen Pandeyamparo on 02/13/20 10:[address] CM spoke with patient's sister, Montserrat, on the phone. Sister is in agreement to speak with someone from [facility]. She would like to meet them in patient's room at 3 PM today. I called [facility] and faxed clinical and order, I spoke with Denise. CM will continue to follow and assist with discharge planning/needs. DCP- Discharge Planning Updated by [id number]: Maricarmen Tolentino on 02/12/20 3:[address] CM met with patient and his sister. I spent 30 minutes in the room discussing hospice and the different agencies. The sister has many question and I answered them the best that I could. She would like to discuss hospice with "other family members" before making a decision. She is thinking they will probably agree and use [facility]. I asked if I could call [facility] to speak with her and answer more of her questions and she declines. Montserrat states that she wants to discuss this with her brother and other family members before speaking with anyone with hospice. Montserrat states she will call me tomorrow with her decision. CM will continue to follow and assist with discharge planning/needs. DCP- Discharge Planning Updated by [email or web address]: Maricarmen Tolentino on 02/12/20 9:[address] I received a consult for hospice. Dr. Palacios asked me to speak with patient's sister concerning hospice consult. I called his sister, Montserrat, and spoke with her. Montserrat states that she will not make a decision for hospice until speaking in person with patient. Montserrat states she will be here at 3PM to speak with me and her brother about hospice consult. CM will continue to follow and assist with discharge planning/needs. DCP- Discharge Planning Updated by [id number]: Maricarmen Tolentino on 02/10/20 2:[address] Patient Name: MICHAEL ERNANDEZ Admission Status: ER Accout number: [id number] Admission Date: 02-03-2020 : 1945 Admission Diagnosis:SHORTNESS OF BREATH Attending: ALISON PALACIOS Current LOS: 7 Anticipated DC Date: Planned Disposition: Home Primary Insurance: MEDICARE A & B Discharge Planning Comments: CM met with patient to complete initial dc planning assessment. CM educated patient on the CM role and verbal consent given by patient to complete assessment. Patient lives at home alone. At discharge patient plans to return and feels this is a safe discharge. CM discussed availability of home health, rehab services, and medical equipment. Patient denied known discharge needs at this time. His sister, Montserrat, enters the room while I am discussing discharge planning and permission received to discuss planning in front of his sister. Patient states home health and rehab are "a waste of time." States he will need an ambulance transfer to get back home. I spoke with his sister and she states the patient is unable to get up alone. He is in a wheelchair. He calls his neighbor when he needs to go to the bathroom and the neighbor assists with ADL's. States that he has his meals delivered weekly and he has meals on wheels. His sister and him both state they feel he is safe to discharge home when medically stable. CM will continue to follow and will assist as needed with dc plans/needs. River Expedition Guide: Maricarmen Tolentino DCPIA - Discharge Planning Initial Assessment Updated by [id number]: Maricarmen Randa on 02/10/20 3:26 pm * Is the patient Alert and Oriented? Yes * How many steps to enter\\exit or inside your home? 0/0 * PCP Dr. Palacios * Pharmacy [facility] * Preadmission Environment Home Alone * ADLs Partial Dependent * Partial ADLs (Assistance needed) Ambulation Bathing Toileting Transfers * Equipment Bedside Commode CPAP Glucometer Other Oxygen Walker Wheelchair * Other Equipment Portable oxygen * List name and contact numbers for known caregivers / representatives who currently or will assist patient after discharge: Montserrat Casiano - - [phone] * Verbal permission to speak to the caregivers and representatives has been obtained from the patient. Yes * Community resources currently utilized Meals on Wheels * Additional services required to return to the preadmission environment? No * Can the patient safely return to the preadmission environment? Yes * Has this patient been hospitalized within the prior 30 days at any hospital? No Coverage Notice Reviewer: [id number] Betsy Reynolds Notice Issued Date-Time: 02/16/2020 11:30 Notice Type: IM Discharge Notice Notice Delivered To: Family Member Relationship to Patient: Sister Staple Cutter Name: MONTSERRAT CASIANO Delivery Method: PHONE - Phone Gina Days: Prior Verbal Notification: Yes Recipient Understood Notice: Recipient Signature: Med Rec Note Co-signed by Attending: Coverage Notice Comment: DC IMM explained via phone to montserrat wilks. verbalized understanding. Imm will be sent by certified mail with return receipt requested Last DP export: 02/16/20 11:58 a Patient Name: FELICIAMICHAEL ANAYA Page [id number] at 1355 All edits/amendments must be made on the electronic document DICTATION DATE: 02/16/20 1355 HAND BLOCKER: MARIAM 02/16/20 1350 RPT#: [id number] DC DATE: STATUS: ADM IN [facility] [address] [place] [address] END OF REPORT
[2020-02-16 13:56] VITALS: BP 142/85
--- NOTE | 2020-02-16 16:20 | NUR ---
REVIEWED DISCHARGE PAPER WITH PT STATES UNDERSTANDING UNABLE TO SIGN COPY SENT WITH PT EMS HERE TO TRANSFER PT HOME LEFT PER PILAR PER EMS IN STABLE CONDITION WITH ALL PERSONAL ITEMS
== END 2020-02-16 16:20 | disposition home or self-care (01) | DRG 280 ==
LOC: D.ER 07:49 → D.M2 10:04
PROVIDERS: Family Medicine; ADMIT Family Medicine; ATTEND Family Medicine
DX: I13.0 Hypertensive heart and chronic kidney disease with heart failure and stage 1 through stage 4 chronic kidney disease, or unspecified chronic kidney disease (principal); J96.02 Acute respiratory failure with hypercapnia; I21.A1 Myocardial infarction type 2; G93.41 Metabolic encephalopathy; I50.23 Acute on chronic systolic (congestive) heart failure; I48.20 Chronic atrial fibrillation, unspecified; J96.11 Chronic respiratory failure with hypoxia; J98.11 Atelectasis; Z66 Do not resuscitate; I25.10 Atherosclerotic heart disease of native coronary artery without angina pectoris; E11.9 Type 2 diabetes mellitus without complications; R00.0 Tachycardia, unspecified; E66.01 Morbid (severe) obesity due to excess calories; Z68.38 Body mass index [BMI] 38.0-38.9, adult; E11.22 Type 2 diabetes mellitus with diabetic chronic kidney disease; N18.9 Chronic kidney disease, unspecified; D64.9 Anemia, unspecified

== ENCOUNTER 2020-02-17 20:01 | Inpatient (IN) | payer MEDICARE, OTHER ==
[~2020-02-17] VITALS: Ht 182.9 cm; Wt 136.1 kg
[2020-02-17 20:41] LABS: BASOPHILS 0.1 % (0-2); EOSINOPHILS 2.7 % (0-7); HEMATOCRIT 38.7 % (42.0-54.0); LYMPHOCYTES 13.9 % (15-50); MCH 31.3 pg (26.0-34.0); MCV 100.8 fL (80.0-100.0); NEUTROPHILS 71.3 % (40-80); PLATELET COUNT 271 10x3/uL (130-400); RBC 3.84 10x6/uL (4.20-6.10); RDW 15.6 % (11.5-14.5)
[2020-02-17 20:54] LABS: ANION GAP 4.4 mmol/L (8-16); CALCIUM 9.1 mg/dL (8.5-10.1); CARBON DIOXIDE 38.4 mmol/L (21.0-32.0); CREATININE - SERUM 1.6 mg/dL (0.6-1.3); INR 0.92 (0.85-1.17); POTASSIUM - SERUM 4.8 mmol/L (3.5-5.1); PROTIME 12.3 SECONDS (11.6-15.0)
[2020-02-17 20:55] LABS: APTT 28.3 SECONDS (22.8-39.4)
[2020-02-17 21:15] LABS: ALBUMIN 2.6 g/dL (3.4-5.0); BILIRUBIN - TOTAL 0.41 mg/dL (0.2-1.3); MAGNESIUM - SERUM 2.3 mg/dL (1.8-2.4); PROTEIN - SERUM 7.2 g/dL (6.4-8.2)
[2020-02-17 21:20] LABS: TROPONIN-I 0.064 ng/mL (0.000-0.060)
[2020-02-18 05:25] VITALS: BP 148/66
--- NOTE | 2020-02-18 07:50 | NUR ---
PATIENT CONFUSED THIS AM. FALL PRECAUTIONS IN PLACE. C/O PAIN, GAVE TRAMADOL FOR PAIN. NO S/S OF ACUTE DISTRESS NOTED. SCDS. WEARS GLASSES. ON BEDREST. PEREZ CATHETER PRESENT. USES BEDPAN. ON 3L O2, NC. IV TO RIGHT HAND, SL. SITE PATENT WITHOUT REDNESS OR SWELLING. DENIES ANY NEEDS AT THIS TIME. CALL LIGHT IN REACH. REECE ALARM ON. WILL CONTINUE TO MONITOR.
[2020-02-18 08:00] VITALS: BP 167/91
--- NOTE | 2020-02-18 11:24 | NUR ---
I have reviewed this patient and I concur with the Shift Assessment completed by the Licensed Practical Nurse today this shift.
[2020-02-18 12:42] VITALS: BP 130/60
[2020-02-18 14:07] VITALS: Ht 182.9 cm; Wt 136.1 kg
[2020-02-18 16:00] VITALS: BP 135/58
--- NOTE | 2020-02-18 18:28 | NUR ---
RESTING IN BED WITH EYES OPEN. NO C/O PAIN. NO S/S OF ACUTE DISTRESS NOTED. DENIES ANY NEEDS AT THIS TIME. CALL LIGHT IN REACH. WILL CONTINUE TO MONITOR.
[2020-02-18 20:00] VITALS: BP 131/69
--- NOTE | 2020-02-18 20:00 | NUR ---
PATIENT RESTING IN BED WATCHING TV. NO S/S OF ACUTE DISTRESS. NO C/O AT THIS TIME. PATIENT IS CONFUSED, ORIENTATED ONLY TO SELF AND THAT HE IS IN THE HOSPITAL. PATIENT'S SPEECH IS VERY SLOW. PATIENT ALSO SEEMS TO HAVE TROUBLE FINISHING SENTENCES AND GETS UPSET WHEN HE CAN'T CONVEY WHAT HE WANTS TO SAY. PATIENT IS ON 3L NASAL CANNULA. PATIENT HAS RIGHT HAND IV, SALINE LOC. IV IS PATENT WITHOUT REDNESS, SWELLING, OR TENDERNESS. PATIENT IS ON BEDREST AND USES BEDPAN. PATIENT HAS PEREZ. CALL LIGHT WITHIN REACH. WILL CONTINUE TO MONITOR.
[2020-02-19] VITALS (7 sets, daily range): BP systolic 113–139; BP diastolic 28–76
--- NOTE | 2020-02-19 03:15 | NUR ---
I have reviewed this patient and I concur with the Shift Assessment completed by the Licensed Practical Nurse today this shift.
[2020-02-19 05:28] LABS: BASOPHILS 0.1 % (0-2); EOSINOPHILS 4.3 % (0-7); HEMATOCRIT 37.9 % (42.0-54.0); HEMOGLOBIN 11.5 g/dL (13.5-17.5); IMMATURE GRANULOCYTES 0.5 % (0-5); LYMPHOCYTES 12.8 % (15-50); MCH 30.8 pg (26.0-34.0); MCHC 30.3 g/dL (31.0-37.0); MCV 101.6 fL (80.0-100.0); MEAN PLATELET VOLUME 9.5 fL (7.4-10.4); MONOCYTES 10.4 % (2-11); NEUTROPHILS 71.9 % (40-80); PLATELET COUNT 256 10x3/uL (130-400); RBC 3.73 10x6/uL (4.20-6.10); RDW 15.6 % (11.5-14.5); WBC 7.5 10x3/uL (4.8-10.8)
[2020-02-19 06:00] LABS: CALCIUM 9.1 mg/dL (8.5-10.1); CREATININE - SERUM 1.4 mg/dL (0.6-1.3)
[2020-02-19 06:07] LABS: TROPONIN-I 0.065 ng/mL (0.000-0.060)
--- NOTE | 2020-02-19 09:32 | MORECARE ---
CASE MANAGEMENT DISCHARGE SUMMARY PATIENT: MICHAEL ERNANDEZ UNIT: [id number] ADM DATE: 02/18/20 AGE: 74 : 44 SEX: M ROOM/BED: D.2224 AUTHOR: JAYME PEREZ PHYSICIAN: REFERRING PHYSICIAN: ALISON PALACIOS MD DATE OF SERVICE: 02/19/20 Discharge Plan Patient Name: MICHAEL ERNANDEZ [facility] : 1945 Planned Disposition: Anticipated Discharge Date: Discharge Date: Expected LOS: Initial Reviewer: [email or web address] Initial Review Date: 02/19/2020 Generated: 02/19/20 10:32 am Comments DCP- Discharge Planning Updated by [id number]: Saloni Villasenor on 02/19/20 8:[address] Patient Name: MICHAEL ERNANDEZ Admission Status: ER Accout number: [id number] Admission Date: 02-18-2020 : 1945 Admission Diagnosis: Attending: ALISON PALACIOS Current LOS: 1 Anticipated DC Date: Planned Disposition: Primary Insurance: MEDICARE A & B Discharge Planning Comments: CM met with patient at bedside after explaining CM role and obtaining verbal consent. CM discussed availability / needs of home health, REHAB and medical equipment. States needs a jail facility and possible correction placement. He has no preference. I will reach out and see who has available beds. CM to follow and assist as needed. Mechanic Chief: Saloni Villasenor External Providers External Provider: [facility] Next Contact Date: Service Request Date: Service Type: Resolution: Reviewer: Comments: Patient Name: MICHAEL ERNANDEZ Page 31214 at 0932 All edits/amendments must be made on the electronic document DICTATION DATE: 02/19/20931 DOLLYMAN: MARIAM 02/19/20931 RPT#: [id number] DC DATE: STATUS: ADM IN [facility] [address] [place] [address] END OF REPORT
--- NOTE | 2020-02-19 09:40 | NUR ---
ASSESSMENT PER FLOW SHEET. PATIENT IS WITHOUT DISTRESS.AM MEDS WITH PUDDING. REFUSES BREAKFAST TRAY.FALL PREVENTION IN PLACE WITH REECE MAT.DOOR OPEN.
--- NOTE | 2020-02-19 16:49 | MORECARE ---
CASE MANAGEMENT DISCHARGE SUMMARY PATIENT: MICHAEL ERNANEDZ UNIT: [id number] ADM DATE: 02/18/20 AGE: 74 : 44 SEX: M ROOM/BED: D.2224 AUTHOR: JAYME PEREZ PHYSICIAN: REFERRING PHYSICIAN: ALISON PALACIOS MD DATE OF SERVICE: 02/19/20 Discharge Plan Patient Name: MICHAEL ERNANDEZ Facility: [facility]:[place] : 1945 Planned Disposition: Anticipated Discharge Date: Discharge Date: Expected LOS: Initial Reviewer: [email or web address] Initial Review Date: 02/19/2020 Generated: 02/19/20 5:49 pm Comments DCP- Discharge Planning Updated by [id number]: Saloni Villasenor on 02/19/20 8:[address] Patient Name: MICHAEL ERNANDEZ Admission Status: ER Accout number: [id number] Admission Date: 02-18-2020 : 1945 Admission Diagnosis: Attending: ALISON PALACIOS Current LOS: 1 Anticipated DC Date: Planned Disposition: Primary Insurance: MEDICARE A & B Discharge Planning Comments: CM met with patient at bedside after explaining CM role and obtaining verbal consent. CM discussed availability / needs of home health, REHAB and medical equipment. States needs a assisted facility and possible rn long term care placement. He has no preference. I will reach out and see who has available beds. CM to follow and assist as needed. Imaging Administrator: Saloni Villasenor External Providers External Provider: [facility] Next Contact Date: Service Request Date: Service Type: Resolution: Reviewer: Comments: Last DP export: 02/19/20 8:32 am Patient Name: MICHAEL ERNANDEZ Page [id number] at 1649 All edits/amendments must be made on the electronic document DICTATION DATE: 02/19/201648 HOSPICE TEAM LEAD: MARIAM 02/19/201648 RPT#: [id number] DC DATE: STATUS: ADM IN [facility] [place] [id number] [place] [address] END OF REPORT
--- NOTE | 2020-02-19 17:03 | NUR ---
HAS BEEN WITHOUT DISTRESS TODAY. ATTEMPTING TO USE BEDPAN.MONITOR FOR NEEDS
--- NOTE | 2020-02-19 20:00 | NUR ---
PATIENT IS RESTING IN BED WATCHING TV. NO S/S OF ACUTE DISTRESS. NO C/O AT THIS TIME. PATIENT IS CONFUSED, ORIENTATED ONLY TO SELF AND PLACE. PATIENT SEEMS TO HAVE TROUBLE FINDING THE WORDS HE WANTS COMMUNICATE. PATIENT IS ALSO SLOW TO RESPOND WHEN ASKED A QUESTION AND DOES BETTER WITH YES OR NO QUESTIONS. PATIENT IS ON 3L NASAL CANNULA. PATIENT HAS A RIGHT HAND IV, SALINE LOC. IV IS PATENT WITHOUT REDNESS, SWELLING, OR TENDERNESS. PATIENT HAS A REDDENED AREA ON COCCYX. PATIENT HAS A SCAB ON LEFT NAVARRO. CALL LIGHT WITHIN REACH. WILL CONTINUE TO MONITOR.
--- NOTE | 2020-02-20 00:53 | NUR ---
I have reviewed this patient and I concur with the Shift Assessment completed by the Licensed Practical Nurse today this shift.
[2020-02-20 04:00] VITALS: BP 151/66
[2020-02-20 06:37] LABS: BASOPHILS 0.1 % (0-2); EOSINOPHILS 3.3 % (0-7); HEMATOCRIT 37.1 % (42.0-54.0); HEMOGLOBIN 11.3 g/dL (13.5-17.5); IMMATURE GRANULOCYTES 0.6 % (0-5); LYMPHOCYTES 13.4 % (15-50); MCH 31.1 pg (26.0-34.0); MCHC 30.5 g/dL (31.0-37.0); MCV 102.2 fL (80.0-100.0); MEAN PLATELET VOLUME 9.9 fL (7.4-10.4); MONOCYTES 9.4 % (2-11); NEUTROPHILS 73.2 % (40-80); PLATELET COUNT 256 10x3/uL (130-400); RBC 3.63 10x6/uL (4.20-6.10); RDW 15.5 % (11.5-14.5); WBC 7.2 10x3/uL (4.8-10.8)
[2020-02-20 06:54] LABS: ANION GAP 7.8 mmol/L (8-16); CALCIUM 8.8 mg/dL (8.5-10.1); CARBON DIOXIDE 36.9 mmol/L (21.0-32.0); CREATININE - SERUM 1.4 mg/dL (0.6-1.3)
[2020-02-20 06:55] LABS: POTASSIUM - SERUM 4.7 mmol/L (3.5-5.1)
[2020-02-20 09:22] VITALS: BP 144/50
--- NOTE | 2020-02-20 09:51 | NUR ---
HE IS CONFUSED, REFUSES TO EAT. THE TECH FED HIM SOME OF THE CLEAR LIQUIDS. HE TOOK HIS MEDS WITHOUT ANY PROBLEMS. HE HAS A PEREZ AND IS WEARING 3 LITERS NC THE CALL LIGHT IS WITHIN REACH AND THE BED ALARM IS ON. WE TURNED HIM TO HELP WITH BREAKFAST.
[2020-02-20 11:41] VITALS: BP 117/59
[2020-02-20 14:01] VITALS: BP 98/55
--- NOTE | 2020-02-20 15:02 | NUR ---
Nutrition Follow-up: Diet: Clear Liquids PO Intake: 0-25% x 6 meals. He reports that his appetite is down. He is still on clear liquid diet. He is concerned about not getting enough nutrients to help with healing for the PU he has on his bottom. Last BM: 02/19/20. 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 Discussed importance of drinking Ensure Clear that comes on Clear Liquid diet tray with patient. Discussed Kar nutrition supplement for aided wound healing- will add this supplement. RD following.
[2020-02-20 17:22] VITALS: BP 123/65
[2020-02-20 20:00] VITALS: BP 93/51
--- NOTE | 2020-02-20 20:00 | NUR ---
PATIENT RESTING IN BED WATCHING TV. NO S/S OF ACUTE DISTRESS. NO C/O AT THIS TIME. PATIENT HAS A HARD TIME COMMUNICATING WHAT HE NEEDS, AND HAS A HARD TIEM FINISHING HIS SENTENCES/FINDING THE WORDS HE WANTS TO SAY. PATIENT IS ORIENTATED TO SELF AND PLACE ONLY. PATIENT IS ON 3L NASAL CANNULA. PATIENT HAS A RIGHT HAND, SALINE LOC. IV IS PATENT WIHTOUT REDNESS, SWELLING, OR TENDERNESS. PATIENT HAS REDNESS ON HIS COCCYX AND A SCABS ON HIS LEFT NAVARRO. CALL LIGHT WITHIN REACH. BED ALARM ON. WILL CONTINUE TO MONITOR.
[2020-02-21] VITALS: BP 125/55
--- NOTE | 2020-02-21 02:22 | NUR ---
I have reviewed this patient and I concur with the Shift Assessment completed by the Licensed Practical Nurse today this shift.
[2020-02-21 04:00] VITALS: BP 119/59
[2020-02-21 09:16] VITALS: BP 100/64
[2020-02-21 13:17] VITALS: BP 147/78
[2020-02-21 16:50] VITALS: BP 126/71
--- NOTE | 2020-02-21 18:22 | NUR ---
REMAINS WITHOUT CHANGE.CONT PLAN OF CARE
--- NOTE | 2020-02-21 19:34 | NUR ---
PATIENT RESTING IN BED WITH NO S/S OF DISTRESS. REPOSITIONED PATIENT IN BED AND APPLIED PASTE TO PATIENT'S BUTTOCK PER HIS REQUEST. PATIENT DENIES NEEDS AT THIS TIME. BED IN LOWEST POSITION, CALL LIGHT WITHIN REACH, AND BED ALARM ON. ENCOURAGED THE PATIENT TO CALL IF SHE HAS NEEDS. WILL CONTINUE TO MONITOR.
[2020-02-21 20:00] VITALS: BP 94/73
--- NOTE | 2020-02-21 20:44 | NUR ---
ADMINISTERED MEDS PER ORDERS. REPOSITIONED PATIENT IN BED. WILL CONTINUE TO MONITOR.
[2020-02-22] VITALS (8 sets, daily range): BP systolic 106–136; BP diastolic 39–73
--- NOTE | 2020-02-22 08:46 | NUR ---
HE IS CONFUSED, ASKING FOR THINGS THAT ARE NOT THERE. HE HAS A PEREZ. THE CALL LIGHT IS WITHIN REACH AND THE BED ALARM IS ON.
--- NOTE | 2020-02-22 19:32 | NUR ---
PATIENT RESTING IN BED WITH NO S/S OF DISTRESS AND DENIES NEEDS AT THIS TIME. BED IN LOWEST POSITION AND CALL LIGHT WITHIN REACH. ENCOURAGED THE PATIENT TO CALL IF HE HAS NEEDS. WILL CONTINUE TO MONITOR.
[2020-02-23 04:00] VITALS: BP 116/64
[2020-02-23 05:24] LABS: BASOPHILS 0.3 % (0-2); EOSINOPHILS 4.1 % (0-7); HEMATOCRIT 36.6 % (42.0-54.0); HEMOGLOBIN 11.2 g/dL (13.5-17.5); IMMATURE GRANULOCYTES 0.5 % (0-5); MCHC 30.6 g/dL (31.0-37.0); MCV 101.4 fL (80.0-100.0); MEAN PLATELET VOLUME 9.8 fL (7.4-10.4); MONOCYTES 8.9 % (2-11); NEUTROPHILS 72.2 % (40-80); PLATELET COUNT 252 10x3/uL (130-400); RBC 3.61 10x6/uL (4.20-6.10); RDW 15.3 % (11.5-14.5); WBC 7.6 10x3/uL (4.8-10.8)
[2020-02-23 05:43] LABS: ANION GAP 7.3 mmol/L (8-16); CALCIUM 9.2 mg/dL (8.5-10.1); CARBON DIOXIDE 37.9 mmol/L (21.0-32.0); CREATININE - SERUM 1.9 mg/dL (0.6-1.3); POTASSIUM - SERUM 4.2 mmol/L (3.5-5.1)
--- NOTE | 2020-02-23 08:04 | NUR ---
PT LYING IN BED, HAD TO SHAKE PT TO WAKE HIM TO TAKE HIS MEDICATIONS, REPOSITIONED PT, APPLIED BUDROIS TO PT REAR END. NO OTHER NEEDS VOICED AT THIS TIME. CONTINUE WITH PLAN OF CARE
[2020-02-23 09:12] VITALS: BP 134/66
--- NOTE | 2020-02-23 09:45 | NUR ---
PT C/O PAIN ALL OVER RATING AT A 9, ADMINISTERED PRN PAIN MEDICATION. PLACED PILLOW ON PT LEFT SIDE AND RIGHT SIDE TO ELEVATE ARMS PER PT REQUEST. NO OTHER NEEDS TA THIS TIME. CONTINUE WITH PLAN OF CARE
--- NOTE | 2020-02-23 10:37 | NUR ---
I have reviewed this patient and I concur with the Shift Assessment completed by the Licensed Practical Nurse today this shift.
--- NOTE | 2020-02-23 11:21 | NUR ---
BUTTOCKS EXCORIATED AND SCABS NOTED ON BLE. ZINC OXIDE PASTE IS BEING APPLIED TO BUTTOCKS AND AIDE AREA. PT IS ON A TURN Q 2 SCHEDULE AND IS ON AN AIR OVERLAY MATTRESS. WOUND CARE MONITORING.
[2020-02-23 12:38] VITALS: BP 121/60
--- NOTE | 2020-02-23 17:14 | MORECARE ---
CASE MANAGEMENT DISCHARGE SUMMARY PATIENT: MICHAEL ERNANDEZ UNIT: [id number] ADM DATE: 02/18/20 AGE: 74 : 44 SEX: M ROOM/BED: D.2224 AUTHOR: JAYME PEREZ PHYSICIAN: REFERRING PHYSICIAN: ALISON PALACIOS MD DATE OF SERVICE: 02/23/20 Discharge Plan Patient Name: MICHAEL ERNANDEZ Facility: [facility]:[place] : 1945 Planned Disposition: Anticipated Discharge Date: Discharge Date: Expected LOS: Initial Reviewer: [id number] Initial Review Date: 02/19/2020 Generated: 02/23/20 6:13 pm Comments DCP- Discharge Planning Updated by [email or web address]: Saloni Villasenor on 02/23/20 4:[address] Patient Name: MICHAEL ERNANDEZ Admission Status: ER Accout number: [id number] Admission Date: 02-18-2020 : 1945 Admission Diagnosis:SHORTNESS OF BREATH Attending: ALISON PALACIOS Current LOS: 5 Anticipated DC Date: Planned Disposition: Primary Insurance: MEDICARE A & B Discharge Planning Comments: ANTICIPATE DC TO [place] WITH [facility] TOMORROW. WAITING CALL BACK FROM [place] ON ROOM ASSIGNMENT. Loss Prevention Investigator: Saloni Villasenor DCP- Discharge Planning Updated by [email or web address]: Saloni Villasenor on 02/19/20 8:[address] Patient Name: MICHAEL ERNANDEZ Admission Status: ER Accout number: [id number] Admission Date: 02-18-2020 : 1945 Admission Diagnosis: Attending: ALISON PALACIOS Current LOS: 1 Anticipated DC Date: Planned Disposition: Primary Insurance: MEDICARE A & B Discharge Planning Comments: CM met with patient at bedside after explaining CM role and obtaining verbal consent. CM discussed availability / needs of home health, REHAB and medical equipment. States needs a chcf facility and possible mcfp placement. He has no preference. I will reach out and see who has available beds. CM to follow and assist as needed. Loss Prevention Investigator: Saloni Villasenor Last DP export: 02/19/20 3:49 pm Patient Name: MICHAEL ERNANDEZ Page 10880 at 1714 All edits/amendments must be made on the electronic document DICTATION DATE: 02/23/201712 HEALTH INFORMATION INTERNSHIP: MARIAM 02/23/201712 RPT#: [id number] DC DATE: STATUS: ADM IN [facility] [address] [place] [address] END OF REPORT
[2020-02-23 18:45] VITALS: BP 135/70
[2020-02-23 20:00] VITALS: BP 109/71
--- NOTE | 2020-02-23 20:00 | NUR ---
ALERT YELLING HELP,C/O STOMACH CRAMPING REQUESTED BED DANIEL, GIVEN HAS 2 SMALL HARD STOOLS, INFORMED WILL GIVE MOM TO HELP, SEE SHIFT ASSESSEMNT, CALL LIGHT IN REACH
--- NOTE | 2020-02-23 23:30 | NUR ---
ASSISTED WITH BED DANIEL HAD SMALL AMOUT LIQUID STOOL
[2020-02-24 04:00] VITALS: BP 111/54
--- NOTE | 2020-02-24 07:27 | NUR ---
PT LYING IN BED, HAD SEVERAL BM'S LAST NIGHT PER PM NURSE, PT IS ASLEEP, EASILY AWAKENED, LEFT NAVARRO HAS SCABS AND SORES, REAR END EXCORIATED. NO OTHER NEEDS AT THIS TIME. CONTINUE WITH PLAN OF CARE
[2020-02-24 09:01] VITALS: BP 130/80
--- NOTE | 2020-02-24 10:40 | NUR ---
ASSISTED PT WITH BREAKFAST THIS MORNING AFTER ADMIONISTERING SCHEDULED MEDS. PT WAS ABLE TO EAT 75% OF CREAM OF WEAT AND DRANK HALF OF ORANGE JUICE, HAD RN Rhea ZHANG ASSIST IN TURNIONG PT AND PULLING HIM UP IN BED. NO OTHER NEEDS AT THIS TIME. CONTINUE WITH PLAN OF CARE
[2020-02-24 11:59] VITALS: BP 135/88
--- NOTE | 2020-02-24 13:11 | MORECARE ---
CASE MANAGEMENT DISCHARGE SUMMARY PATIENT: MICHAEL ERNANDEZ UNIT: [id number] ADM DATE: 02/18/20 AGE: 74 : 44 SEX: M ROOM/BED: D.2224 AUTHOR: JAYME PEREZ PHYSICIAN: REFERRING PHYSICIAN: ALISON PALACIOS MD DATE OF SERVICE: 02/24/20 Discharge Plan Patient Name: IMCHAEL ERNANDEZ Facility: [facility]:[place] : 1945 Planned Disposition: Anticipated Discharge Date: Discharge Date: Expected LOS: Initial Reviewer: [id number] Initial Review Date: 02/19/2020 Generated: 02/24/20 2:10 pm Comments DCP- Discharge Planning Updated by [email or web address]: Saloni Villasenor on 02/24/20 12:[address] Patient Name: MICHAEL ERNANDEZ Admission Status: ER Accout number: [id number] Admission Date: 02-18-2020 : 1945 Admission Diagnosis:SHORTNESS OF BREATH Attending: ALISON PALACIOS Current LOS: 6 Anticipated DC Date: Planned Disposition: Primary Insurance: MEDICARE A & B Discharge Planning Comments: FAXED DC TO [facility], WAITING FOR HADOOP ARCHITECT TIME. Talent Analyst: Saloni Villasenor DCP- Discharge Planning Updated by [email or web address]: Saloni Villasenor on 02/23/20 4:[address] Patient Name: MICHAEL ERNANDEZ Admission Status: ER Accout number: [id number] Admission Date: 02-18-2020 : 1945 Admission Diagnosis:SHORTNESS OF BREATH Attending: ALISON PALACIOS Current LOS: 5 Anticipated DC Date: Planned Disposition: Primary Insurance: MEDICARE A & B Discharge Planning Comments: ANTICIPATE DC TO [place] WITH [facility] TOMORROW. WAITING CALL BACK FROM [place] ON ROOM ASSIGNMENT. Talent Analyst: Saloni Villasenor DCP- Discharge Planning Updated by [email or web address]: Saloni Villasenor on 02/19/20 8:[address] Patient Name: MICHAEL ERNANDEZ Admission Status: ER Accout number: [id number] Admission Date: 02-18-2020 : 1945 Admission Diagnosis: Attending: SUZANNE, ALSION Current LOS: 1 Anticipated DC Date: Planned Disposition: Primary Insurance: MEDICARE A & B Discharge Planning Comments: CM met with patient at bedside after explaining CM role and obtaining verbal consent. CM discussed availability / needs of home health, REHAB and medical equipment. States needs a prison facility and possible rodent exterminator placement. He has no preference. I will reach out and see who has available beds. CM to follow and assist as needed. Talent Analyst: Saloni Perez DP export: 02/23/20 4:14 pm Patient Name: MICHAEL ERNANDEZ Page 02570 at 1311 All edits/amendments must be made on the electronic document DICTATION DATE: 02/24/20 131 SERGER: MARIAM 02/24/20 1310 RPT#: [id number] DC DATE: STATUS: ADM IN [facility] [address] [place] [address] END OF REPORT
--- NOTE | 2020-02-24 13:12 | NUR ---
TECH CAME IN AT 1300 PT IS COLD, NO PULSE, PT IS DNR, CALLED DR OLMOS, WILL CALL ER TO PRONOUNCE AND CALL FAMILY
--- NOTE | 2020-02-24 13:27 | NUR ---
DR CARLSON ON UNIT AND PRONOUNCED PT, SPOKE TO PT'S SISTER PAULINE AND SHE STATED THAT WE SHOULD CALL [facility], WILL CALL [facility] , WILL HAVE CURING ROOM SUPERVISOR ASSIST IN CLEANING PT UP BEFORE HE IS TRANSFERRED OUT
--- NOTE | 2020-02-24 13:45 | NUR ---
CALLED [facility] AND SPOKE TO SHARMAINE, GAVE HER ALL THE INFORMATION SHE ASKED FOR AND THEN WAS TOLD THAT SHE WILL RELAY MESSAGE AND HAVE SOMEONE CALL ME BACK. CONTINUE [facility] PLAN OF CARE
--- NOTE | 2020-02-25 09:19 | MORECARE ---
CASE MANAGEMENT DISCHARGE SUMMARY PATIENT: MICHAEL ERNANDEZ UNIT: [id number] ADM DATE: 02/18/20 AGE: 74 : 44 SEX: M ROOM/BED: D.2224 AUTHOR: JAYME PEREZ PHYSICIAN: REFERRING PHYSICIAN: ALISON PALACIOS MD DATE OF SERVICE: 02/25/20 Discharge Plan Patient Name: MICHAEL ERNANDEZ Facility: [facility]:[place] : 1945 Planned Disposition: Anticipated Discharge Date: Discharge Date: 02/24/2020 Expected LOS: Initial Reviewer: [email or web address] Initial Review Date: 02/19/2020 Generated: 02/25/20 10:18 am Comments DCP- Discharge Planning Updated by [email or web address]: Saloni Villasenor on 02/24/20 12:[address] Patient Name: MICHAEL ERNANDEZ Admission Status: ER Accout number: [id number] Admission Date: 02-18-2020 : 1945 Admission Diagnosis:SHORTNESS OF BREATH Attending: ALISON PALACIOS Current LOS: 6 Anticipated DC Date: Planned Disposition: Primary Insurance: MEDICARE A & B Discharge Planning Comments: FAXED DC TO [facility], WAITING FOR [employer]ER [employer] TIME. Metal Crafts Teacher: Saloni Villasenor DCP- Discharge Planning Updated by [email or web address]: Saloni Villasenor on 02/23/20 4:[address] Patient Name: MICHAEL ERNANDEZ Admission Status: ER Accout number: [id number] Admission Date: 02-18-2020 : 1945 Admission Diagnosis:SHORTNESS OF BREATH Attending: ALISON PALACIOS Current LOS: 5 Anticipated DC Date: Planned Disposition: Primary Insurance: MEDICARE A & B Discharge Planning Comments: ANTICIPATE DC TO [place] WITH [facility] TOMORROW. WAITING CALL BACK FROM [place] ON ROOM ASSIGNMENT. Metal Crafts Teacher: Saloni Villasenor DCP- Discharge Planning Updated by [email or web address]: Saloni Villasenor on 02/19/20 8:[address] Patient Name: MICHAEL ERNANDEZ Admission Status: ER Accout number: [id number] Admission Date: 02-18-2020 : 1945 Admission Diagnosis: Attending: ALISON PALACIOS Current LOS: 1 Anticipated DC Date: Planned Disposition: Primary Insurance: MEDICARE A & B Discharge Planning Comments: CM met with patient at bedside after explaining CM role and obtaining verbal consent. CM discussed availability / needs of home health, REHAB and medical equipment. States needs a prison facility and possible custodial placement. He has no preference. I will reach out and see who has available beds. CM to follow and assist as needed. Metal Crafts Teacher: Saloni DOS SANTOS export: 02/24/20 12:11 pm Patient Name: MICHAEL ERNANDEZ Page 80357 at 0919 All edits/amendments must be made on the electronic document DICTATION DATE: 02/25/20917 ADJUNCT TEACHER: MARIAM 02/25/20917 RPT#: [id number] DC DATE:02/24/20 STATUS: DIS IN [facility] [address] [place] [address] END OF REPORT
--- NOTE | 2020-02-25 17:14 | MORECARE ---
CASE MANAGEMENT DISCHARGE SUMMARY PATIENT: MICHAEL ERNANDEZ UNIT: [id number] ADM DATE: 02/18/20 AGE: 74 : 44 SEX: M ROOM/BED: D.2224 AUTHOR: JAYME PEREZ PHYSICIAN: REFERRING PHYSICIAN: ALISON PALACIOS MD DATE OF SERVICE: 02/25/20 Discharge Plan Patient Name: MICHAEL ERNANDEZ Facility: [facility]:[place] : 1945 Planned Disposition: Anticipated Discharge Date: Discharge Date: 02/24/2020 Expected LOS: Initial Reviewer: [id number] Initial Review Date: 02/19/2020 Generated: 02/25/20 6:14 pm Comments DCP- Discharge Planning Updated by [email or web address]: Saloni Villasenor on 02/24/20 12:[address] Patient Name: MICHAEL ERNANDEZ Admission Status: ER Accout number: [id number] Admission Date: 02-18-2020 : 1945 Admission Diagnosis:SHORTNESS OF BREATH Attending: ALISON PALACIOS Current LOS: 6 Anticipated DC Date: Planned Disposition: Primary Insurance: MEDICARE A & B Discharge Planning Comments: FAXED DC TO [facility], WAITING FOR CASHIER PARKING LOT TIME. Boiler Control Technician: Saloni Villasenor DCP- Discharge Planning Updated by [email or web address]: Saloni Villasenor on 02/23/20 4:[address] Patient Name: MICHAEL ERNANDEZ Admission Status: ER Accout number: [id number] Admission Date: 02-18-2020 : 1945 Admission Diagnosis:SHORTNESS OF BREATH Attending: ALISON PALACIOS Current LOS: 5 Anticipated DC Date: Planned Disposition: Primary Insurance: MEDICARE A & B Discharge Planning Comments: ANTICIPATE DC TO [place] WITH [facility] TOMORROW. WAITING CALL BACK FROM [place] ON ROOM ASSIGNMENT. Boiler Control Technician: Saloni Villasenor DCP- Discharge Planning Updated by [email or web address]: Saloni Villasenor on 02/19/20 8:[address] Patient Name: MICHAEL ERNANDEZ Admission Status: ER Accout number: [id number] Admission Date: 02-18-2020 : 1945 Admission Diagnosis: Attending: ALISON PALACIOS Current LOS: 1 Anticipated DC Date: Planned Disposition: Primary Insurance: MEDICARE A & B Discharge Planning Comments: CM met with patient at bedside after explaining CM role and obtaining verbal consent. CM discussed availability / needs of home health, REHAB and medical equipment. States needs a halfway facility and possible fpc placement. He has no preference. I will reach out and see who has available beds. CM to follow and assist as needed. Boiler Control Technician: Saloni DOS SANTOS export: 02/25/20 8:19 am Patient Name: MICHAEL ERNANDEZ Page 75425 at 1604 All edits/amendments must be made on the electronic document DICTATION DATE: 02/25/201713 DANCE STUDIO MANAGER: MARIAM 02/25/201713 RPT#: [id number] DC DATE:02/24/20 STATUS: DIS IN [facility] [address] [place] [address] END OF REPORT
== END 2020-02-24 15:16 | DRG 291 ==
LOC: D.ER 20:01 → OBSVTIME 20:15 → D.MS 20:15
PROVIDERS: Family Medicine; ADMIT Family Medicine; ATTEND Family Medicine
DX: I11.0 Hypertensive heart disease with heart failure (principal); I50.21 Acute systolic (congestive) heart failure; J96.02 Acute respiratory failure with hypercapnia; R53.2 Functional quadriplegia; I48.20 Chronic atrial fibrillation, unspecified; R64 Cachexia; Z68.41 Body mass index [BMI] 40.0-44.9, adult; I46.9 Cardiac arrest, cause unspecified; E11.9 Type 2 diabetes mellitus without complications